=== PATIENT | male | born 1955 | race Two or more races ===

== ENCOUNTER → 2021-10-15 | Outpatient (CLI) | payer MEDICARE ==
--- NOTE | 2021-10-21 09:53 | MR ---
EXAMINATION TYPE: MR Prostate wo/w con DATE OF EXAM: 10/15/2021 COMPARISON: None. IMAGE QUALITY: . INDICATION: Prostate CA PSA: 3.0 ng/ml on June 10, 2021 Recent Biopsy and Date: September 06, 2015 Pathology Report (If Applicable): Prostate adenocarcinoma Jos score 3+3 = 6 targeted MRI fusion l eft peripheral zone apical level. TECHNIQUE: Examination was performed using a 3T MRI without an endorectal coil. Multiparametric imaging was perf ormed with T2 mutliplanar sequences, axial diffusion weighted imaging and dynamic contrast enhanced i maging, utilizing 12 mL intravenous Gadavist gadolinium contrast. FINDINGS: There is no clinically significant cancer identified. PROSTATE VOLUME: 4.9 cm SI x 4.2 cm AP x 6.2 cm LR Vol= 66.8 cc Predicted PSA equals 8.02 PSA DENSITY: 0.04 ng/ml/cc Enlarged prostate consistent with BPH. There are areas of indistinct hypointensity on ADC mapping thr oughout the peripheral zone with more mild to moderate areas of isointensity particularly lateral lef t prostate rounded 6 mm area image 196 mid zone level anteriorly showing subtle increased or mild hyp erintense signal on diffusion-weighted imaging. Postcontrast imaging showing some heterogeneous enhan cement with areas of plateau-type enhancement and some washout present. PI-RADS 4 lesion. Central transitional zone shows round 8 mm T2 hypointense lesion in the mid zone just left of midline coronal image 15 without restricted diffusion somewhat obscured margins. PI-RADS 3 lesion. Prostate capsule maintained. Seminal vesicles somewhat small in size. Bladder shows adequate distenti on with mild trabeculation and wall thickening. No adjacent pelvic adenopathy. No suspicious bowel dilatation. Visualized osseous structures are inta ct. IMPRESSION: Markedly enlarged prostate bulging on bladder base. 2 suspicious areas noted may correspo nd to outside MRI reported 2014. Consider repeat biopsy due to symptoms of elevating PSA. Highest Assessment Category: 4 MRI Stage: T1c N0 M0 based on review of pelvic images. False negative rates for MRI range from 5-20% depending on risk profile. Assessment Categories: 1 ? Very low (clinically significant cancer is highly unlikely to be present) 2 ? Low (clinically significant cancer is unlikely to be present) 3 ? Intermediate (the presence of clinically significant cancer is equivocal) 4 ? High (clinically significant cancer is likely to be present) 5 ? Very high (clinically significant cancer is highly likely to be present)
== END | disposition home or self-care (01) ==
LOC: RADMRIMAIN 08:47
PROVIDERS: ATTEND Urology
DX: C61 Malignant neoplasm of prostate (principal)
CPT/HCPCS: 72197; A9585

== ENCOUNTER → 2023-11-27 | Outpatient (CLI) | payer MEDICARE ==
--- NOTE | 2023-11-30 09:12 | MR ---
EXAMINATION TYPE: MR Prostate wo/w con DATE OF EXAM: 11/27/2023 9:22 AM COMPARISON: None. CLINICAL INDICATION:Male, 68 years old with history of C61 Prostate cancer; TECHNIQUE: Multi-planar, multi-sequence imaging of the pelvis is performed prior to and following the uncomplicated administration of bolus intravenous gadolinium. CONTRAST: 11 cc Gadavist Interpretive Criteria: PI-RADS v2.1 SERUM PSA: 3.28 on 02/03/2022. 3.57 on 11/15/2023. SURGICAL PATHOLOGY: No data available., Prior biopsy 10 years ago. FINDINGS: Prostatic dimensions: 6.5 x 5.5 x 4.9 cm. Ellipsoid Volume:91.72 (PSA density = 0.04 ng/mL/mL) CENTRAL GLAND (Central and Transition Zones/CZ+TZ): Multiple bilateral, heterogenous appearing hypertrophic stromal nodules, without suspicious lesion. M edian lobe hypertrophy with protrusion into the base of the bladder. (PI-RADS 2) PERIPHERAL ZONE (PZ): Left anterior peripheral gland apex low T2 higher ADC/low DWI lesion measuring 10 x 10 mm. There is arterial phase enhancement within this lesion. (PI-RADS 4) SEMINAL VESICLES (SV): Symmetric and unremarkable. PERIPROSTATIC TISSUES: Unremarkable. LYMPH NODES: No enlarged pelvic lymph node. REMAINING PELVIS: Bladder wall is within normal limits given distention. No abnormal free or organized intrapelvic fluid collection. No pathologic bowel dilation or mural thickening. Left fat containing inguinal hernia OSSEOUS STRUCTURES: No suspicious osseous abnormality. IMPRESSION: 1. PI-RADS 4 lesion in the left anterior peripheral gland apex measuring 10 x 10 mm. 2. Substantial BPH, estimated gland volume 91.72 mL. 3. No suspicious osseous lesion. No lymphadenopathy. No evidence of prostate adenocarcinoma involving the periprostatic tissues.
== END | disposition home or self-care (01) ==
LOC: RADMRIMAIN 07:43
PROVIDERS: ATTEND Urology
DX: N40.0 Benign prostatic hyperplasia without lower urinary tract symptoms (principal); Z85.46 Personal history of malignant neoplasm of prostate
CPT/HCPCS: 72197; A9585

== ENCOUNTER 2024-02-21 14:56 | Inpatient (IN) | payer MEDICARE ==
[~2024-02-21 14:56] MED LIST: ATROPINE SULFATE 0.1 MG/ML 10ML SYRINGE ONE; CALCIUM CHLORIDE 100 MG/ML 10 ML SYRINGE ONE
[2024-02-21] MEDS: IV FLUID CONTINUATION 1,000 ML IV ONE (15:05)
[2024-02-21] MEDS ORDERED: NITROGLYCERIN SL TABS 0.4 MG TAB SUBLINGUAL PRN (15:08)
--- NOTE | 2024-02-21 15:08 | ED ---
Chest Pain HPI - General Stated Complaint: STEMI Time Seen by Provider: 02/21/24 15:01 Source: wall man, RN notes reviewed, old records reviewed Mode of arrival: EMS Limitations: altered mental status, physical limitation - History of Present Illness Initial Comments: This is a 60-year-old male with severe and significant distress with altered mental status difficulty breathing severe chest pain. Patient was complaining of severe chest pain and on EMS arrival patient was unresponsive. EMS states patient became persistently unresponsive with low heart rate and diaphoresis Patient is complaining of chest pain currently MD Complaint: chest pain, other (Dyspnea) -: days(s) Onset: during rest, during exertion Pain Location: substernal, left chest Pain Radiation: LUE Severity: moderate Severity scale (1-10): 5 Quality: tightness, heaviness Consistency: constant Improves With: nothing Worsens With: nothing Anginal Symptoms: diaphoresis, dyspnea, sense of impending doom Other Symptoms: palpitations Treatments Prior to Arrival: none - Related Data Home Medications Medication Instructions Recorded Confirmed Fluticasone Nasal Randolph [Flonase 1 spr EA NOSTRIL DAILY 06/04/23 02/24/24 Nasal Randolph] Tamsulosin [Flomax] 0.4 mg PO DAILY 06/04/23 02/24/24 cycloSPORINE 0.05% OPHTH SOLN 1 drop BOTH EYES Q12H 06/04/23 02/24/24 [Restasis] prednisoLONE ACETATE 1% OPHTH 1 drop BOTH EYES BID 06/04/23 02/24/24 [Pred Forte 1%] Empagliflozin [Jardiance] 25 mg PO DAILY 02/21/24 02/24/24 Ezetimibe [Zetia] 10 mg PO DAILY 02/21/24 02/24/24 Potassium Chloride [Klor-Con M20] 20 meq PO DAILY 02/21/24 02/24/24 Nitroglycerin Sl Tabs [Nitrostat] 0.4 mg SL Q5M PRN 02/24/24 02/24/24 Previous Rx's Medication Instructions Recorded Aspirin [Adult Low Dose Aspirin EC] 81 mg PO DAILY #30 tab 02/23/24 Atorvastatin [Lipitor] 80 mg PO HS 30 Days #30 tab 02/23/24 Docusate Oral Soln [Colace Oral 100 mg PO BID PRN 3 Days #60 ml 02/23/24 Soln] Ticagrelor [Brilinta] 90 mg PO BID #60 tab 02/23/24 Allergies Allergy/AdvReac Type Severity Reaction Status Date / Time Iodinated Contrast Media Allergy Severe Swelling Verified 02/24/24 17:51 Review of Systems ROS Statement: Those systems with pertinent positive or pertinent negative responses have been documented in the HPI. ROS Other: All systems not noted in ROS Statement are negative. EKG Findings - EKG Comments: EKG Findings:: EKG is positive for significant bradycardia, EKG is positive for ST elevation AR - EKG Results: EKG: interpreted by [facility] Past Medical History Past Medical History: Cancer, Hypertension, Prostate Disorder, Sleep Apnea/CPAP/BIPAP Additional Past Medical History / Comment(s): HEART MURMUR. RENAL CALCULI. PROSTATE CA. SKIN CA. PERIPHERAL NEUROPATHY. CORNEAL DYSTROPHY. BACK PAIN History of Any Multi-Drug Resistant Organisms: None Reported Past Surgical History: Heart Catheterization Additional Past Surgical History / Comment(s): SEBASTIAN. CATARACATS REM. PAIN CLINIC INJECTIONS. SKIN CANCER REMOVAL FROM NOSE Past Anesthesia/Blood Transfusion Reactions: No Reported Reaction Past Psychological History: No Psychological Hx Reported Smoking Status: Former smoker Past Alcohol Use History: Rare Past Drug Use History: None Reported - Past Family History Mother Family Medical History: Diabetes Mellitus, Myocardial Infarction (AR) Additional Family Medical History / Comment(s): TRIPLE BYPASS SURGERY Sister(s) Additional Family Medical History / Comment(s): DOUBLE BYPASS SURGERY General Exam Limitations: altered mental status, physical limitation General appearance: alert, anxious, in distress Head exam: Present: atraumatic, normocephalic, normal inspection Eye exam: Present: normal appearance, PERRL, EOMI. Absent: scleral icterus, conjunctival injection, periorbital swelling ENT exam: Present: normal exam, mucous membranes moist Neck exam: Present: normal inspection. Absent: tenderness, meningismus, lymphadenopathy Respiratory exam: Present: normal lung sounds bilaterally. Absent: respiratory distress, wheezes, rales, rhonchi, stridor Cardiovascular Exam: Present: normal rhythm, bradycardia, normal heart sounds. Absent: systolic murmur, diastolic murmur, rubs, gallop, clicks GI/Abdominal exam: Present: soft, normal bowel sounds. Absent: distended, tenderness, guarding, rebound, rigid Extremities exam: Present: normal inspection, full ROM, normal capillary refill. Absent: tenderness, pedal edema, joint swelling, calf tenderness Back exam: Present: normal inspection Neurological exam: Present: alert, oriented X3, CN II-XII intact Psychiatric exam: Present: normal affect, normal mood Skin exam: Present: warm, dry, intact, normal color. Absent: rash Course - Reevaluation(s) Reevaluation #1: 02/21/24 15:06 Medical records reviewed Reevaluation #2: 02/21/24 15:06 Patient symptoms unchanged, remains significant distress Reevaluation #3: 02/21/24 15:06 Patient informed of results questions answered Reevaluation #4: Was pt. sent in by a medical professional or institution (, RE[facility]DO, MARINE [employer]ER, urgent care, hospital, or long term...) When possible be specific @ -no Did you speak to anyone other than the patient for history (EMS, parent, family, police, friend...)? What history was obtained from this source @ -no Did you review nursing and triage notes (agree or disagree)? Why? @ -agree Are old charts reviewed (outside hosp., previous admission, EMS record, old EKG, old radiological studies, urgent care reports/EKG's, long term records)? Report findings @ -yes Differential Diagnosis (chest pain, altered mental status, abdominal pain women, abdominal pain men, vaginal bleeding, weakness, fever, dyspnea, syncope, headache, dizziness, GI bleed, back pain, seizure, CVA, palpatations, mental health, musculoskeletal)? @ -prior EKG interpreted by me (3pts min.). @ -yes X-rays interpreted by me (1pt min.). @ -yes negative for acute disease CT interpreted by me (1pt min.). @ -no U/S interpreted by me (1pt. min.). @ -no What testing was considered but not performed or refused? (CT, X-rays, U/S, labs)? Why? @ -none What meds were considered but not given or refused? Why? @ -none Did you discuss the management of the patient with other professionals (professionals i.e. REINALDO Guzman, MARINE FIRER, lab, RT, psych nurse, social media community manager, mainspring winder, teacher, public health officer, social work case manager)? Give summary @ -no Was smoking cessation discussed for >3mins.? @ -no Were there social determinants of health that impacted care today? How? (Homelessness, low income, unemployed, alcoholism, drug addiction, transportation, low edu. Level, literacy, decrease access to med. care, alf, rehab)? @ -none Was there de-escalation of care discussed even if they declined (Discuss DNR or withdrawal of care, Hospice)? DNR status @ -no What co-morbidities impacted this encounter? (DM, HTN, Smoking, COPD, CAD, Cancer, CVA, ARF, Chemo, Hep., AIDS, mental health diagnosis, sleep apnea, morbid obesity)? @ -none Was patient admitted / discharged? Hospital course, mention meds given and route, prescriptions, significant lab abnormalities, going to OR and other pertinent info. @ - 68 male to ER for evaluation of significant and severe bradycardia. Patient has positive ST elevated AR and will be admitted to the Director General for intervention, need for blood pressure and heart rate support, hemodynamic support Admitted Was critical care preformed (if so, how long)? @ -yes31 Undiagnosed new problem with uncertain prognosis? @ -no Drug Therapy requiring intensive monitoring for toxicity (Heparin, Nitro, Insulin, Cardizem)? @ -no Were any procedures done? @ -no Diagnosis/symptom? @ -STEMI bradycardia shock Acute, or Chronic, or Acute on Chronic? @ -Acute Uncomplicated (without systemic symptoms) or Complicated (systemic symptoms)? @ -Complicated Side effects of treatment? @ -no Exacerbation, Progression, or Severe Exacerbation? @ -exacerbation Poses a threat to life or bodily function? How? (Chest pain, USA, AR, pneumonia, PE, COPD, DKA, ARF, appy, cholecystitis, CVA, Diverticulitis, Homicidal, Suicidal, threat to staff... and all critical care pts) @ -yes STEMI with bradycardia Reevaluation #5: Differential Chest Pain: Stable Angina, Unstable Angina, STEMI, NSTEMI Aortic Dissection, Pneumothorax, Musculoskeletal, Esophageal Spasm GERD, Cholecystitis, Pancreatitis, Zoster, this is not meant to be an all-inclusive list. - Consultations Consultation #1: Spoke with cardiology agrees patient to the Director General Consultation #2: Spoke with [facility] who agrees to admit this patient Chest Pain MDM - MDM 68 male to ER for evaluation of significant and severe bradycardia. Patient has positive ST elevated AR and will be admitted to the Director General for intervention, need for blood pressure and heart rate support, hemodynamic support Critical Care Time Critical Care Time: Yes Total Critical Care Time: 31 Disposition Clinical Impression: Bradycardia, STEMI (ST elevation myocardial infarction), Cardiogenic shock, Syncope, ACS (acute coronary syndrome) Disposition: ADMITTED IP TO THIS HOSP Condition: Critical Is patient prescribed a controlled substance at d/c from ED?: No Time of Disposition: 15:10
[2024-02-21] MEDS ORDERED: diphenhydrAMINE 50 MG/ML 1 ML VIAL ONE (15:09)
[2024-02-21] MEDS ORDERED: methylPREDNISolone SOD SUCCI 125 MG/2 ML VIAL ONE (15:09)
[2024-02-21] MEDS: LIDOCAINE 1% INJ 10MG/ML (20 ML MDV) SQ ONE (15:09)
[2024-02-21] MEDS: methylPREDNISolone SOD SUCCI 125 MG/2 ML VIAL IVP ONE (15:12)
[2024-02-21] MEDS: MIDAZOLAM 2 MG/2 ML VIAL IVP ONE (15:12)
[2024-02-21] MEDS: diphenhydrAMINE 50 MG/ML 1 ML VIAL IVP ONE (15:12)
[2024-02-21] MEDS: fentaNYL (PF) 50 MCG/ML 2 ML AMP IVP ONE (15:15)
[2024-02-21] MEDS ORDERED: TICAGRELOR 90 MG TAB ONE (15:17)
[2024-02-21] MEDS: HEPARIN SODIUM 1,000 UN/ML (10ML VL) IVP ONE (15:18)
[2024-02-21] MEDS: DOPamine DRIP 800 MG in DEXTROSE/WATER 1 250ML.BAG IV ONE (15:19)
[2024-02-21] MEDS: TICAGRELOR 90 MG TAB PO ONE (15:19)
[2024-02-21 15:21] LABS: Basophils # (A) 0.1 k/uL (0-0.2); Basophils % (A) 1 %; Eosinophils # (A) 0.3 k/uL (0-0.7); Eosinophils % (A) 4 %; HCT 44.3 % (39.0-53.0); HGB 14.4 gm/dL (13.0-17.5); Lymphocytes # (A) 2.1 k/uL (1.0-4.8); Lymphocytes % (A) 24 %; MCH 29.9 pg (25.0-35.0); MCHC 32.5 g/dL (31.0-37.0); Mean Platelet Volume 8.5; Monocytes # (A) 0.5 k/uL (0-1.0); Monocytes % (A) 6 %; Neutrophils # (A) 5.5 k/uL (1.3-7.7); Neutrophils % (A) 63 %; Platelet Count 192 k/uL (150-450); RBC 4.82 m/uL (4.30-5.90); RDW 14.1 % (11.5-15.5); WBC 8.7 k/uL (3.8-10.6)
[2024-02-21] MEDS ORDERED: HEPARIN SODIUM 1,000 UN/ML (10ML VL) ONE (15:24)
[2024-02-21] MEDS ORDERED: niCARdipine 25 MG/10 ML VIAL ONE (15:24)
[2024-02-21 15:26] LABS: ALT 28 U/L (4-49); African American GFR (CKD) 81 (>60 ml/min/1.73 sqM); Anion Gap 6 mmol/L; Blood Urea Nitrogen 24 mg/dL (9-20); Calcium 9.2 mg/dL (8.4-10.2); Carbon Dioxide 25 mmol/L (22-30); Chloride 108 mmol/L (98-107); Glucose 149 mg/dL (74-99); Non-African American GFR(CKD) 70 (>60 ml/min/1.73 sqM); Sodium 139 mmol/L (137-145); Total Bilirubin 0.6 mg/dL (0.2-1.3); Total Protein 6.6 g/dL (6.3-8.2)
[2024-02-21 15:41] LABS: Phosphorus 3.6 mg/dL (2.5-4.5); Potassium 3.9 mmol/L (3.5-5.1)
[2024-02-21 15:42] LABS: AST 33 U/L (17-59); Albumin 4.2 g/dL (3.5-5.0); Alkaline Phosphatase 76 U/L (38-126)
[2024-02-21] MEDS ORDERED: Magnesium Replacement Protocol 1 EACH MISC MISCELLANE PRN (15:42)
[2024-02-21] MEDS ORDERED: Potassium Replacement Protocol 1 EACH MISC MISCELLANE PRN (15:42)
[2024-02-21] MEDS: NOREPINEPHRINE 4 MG in SODIUM CHLORIDE 0.9% 250 ML IV ONE (15:43)
[2024-02-21] MEDS ORDERED: RX INFO: IV CONTRAST WAS GIVEN 1 EACH MISC MISCELLANE PRN (15:44)
[2024-02-21] MEDS ORDERED: ZOLPIDEM 5 MG TAB PO PRN (15:44)
[2024-02-21] MEDS ORDERED: ATROPINE SULFATE 0.1 MG/ML 10ML SYRINGE IV PRN (15:44)
[2024-02-21] MEDS ORDERED: MAG HYDROX/AL HYDROX/SIMETH 30 ML CUP PO PRN (15:44)
[2024-02-21] MEDS ORDERED: fentaNYL (PF) 50 MCG/ML 2 ML AMP ONE (15:47)
[2024-02-21] MEDS: IOPAMIDOL-370 100ML BTL INJ ONE (15:50)
[2024-02-21] MEDS: HEPARIN SODIUM 1,000 UN/ML (10ML VL) IV ONE (15:55)
[2024-02-21] MEDS: ASPIRIN 81 MG PO STA (15:55)
[2024-02-21] MEDS: HEPARIN SOD,PORK IN 0.45% NACL 25,000 UNIT in 0.45% NACL 1 250ML.BAG IV SCH (15:56)
[2024-02-21] MEDS: SODIUM CHLORIDE 0.9% 1,000 ML in EMPTY BAG 1 BAG IV SCH (16:05)
[2024-02-21 16:18] LABS: Glucose,Whole Blood 142 mg/dL (70-110)
[2024-02-21] MEDS: ONDANSETRON 4 MG/2 ML VIAL IVP PRN (16:49)
[2024-02-21] MEDS: NOREPINEPHRINE 4 MG in SODIUM CHLORIDE 0.9% 250 ML IV SCH (16:56)
--- NOTE | 2024-02-21 17:16 | P.PCN ---
Date of Procedure: 02/21/24 Operative Findings: CARDIAC CATHETERIZATION AND PERCUTANEOUS CORONARY INTERVENTION PERFORMING PHYSICIAN: Sidney Bella MD, [facility] PROCEDURE PERFORMED: 1. Selective right and left coronary angiogram 2. Left heart catheterization 3. Successful stenting of distal RCA using 4.0 x 18 mm Xience OSIRIS with an ex cellent angiographic results with adjunctive use of intravascular imaging and aspiration thrombectomy 4. Ultrasound-guided access of the right radial artery INDICATION: Acute inferior ST elevation myocardial infarction COMPLICATION: None APPROACH: Right radial artery LEVEL OF SEDATION: Moderate with the sedation time off 40 minutes PROCEDURE DESCRIPTION: After obtaining informed consent the patient was brought to the cardiac Greenhouse Worker. The right radial artery was cannulated using micropuncture technique under ultrasound guidance a micropuncture wire passed easily then I placed a 6 [place] 11 cm sheath at the right radial artery. I gave the patient 2 mg of verapamil intra-arterial and 5000's of heparin intravenous. Selective right and left coronary angiogram performed using JL 3.5 diagnostic catheter for the left coronary system and JR4 guide for the right coronary artery. Left heart catheterization was performed using the JR4 catheter which crossed the aortic valve then I did pullback across the valve. After that I did intervene on the RCA. I did engage the RCA using JR4 guiding catheter and I did wired using a run-through wire and the wire was advanced to the PLV branch of the RCA. Because there was a large thrombus burden I did aspiration thrombectomy. Subsequently I did balloon angioplasty using 3.0 x 12 mm balloon. Intravascular ultrasound was performed and showed a diameter around 4 mm. I deployed a 4.0 x 18 mm stent and the stent proximally was postdilated using 4.5 mm noncompliant balloon. Final angiogram showed good angiographic results and the procedure was completed with no complication SELECTIVE CORONARY ANGIOGRAM: The right coronary artery: Large caliber vessel and a dominant vessel. The RCA is occluded distally. The PLV branch of the RCA is stented Left main: Has mild disease only The left circumflex: Large caliber vessel nondominant vessel. The proximal LCx has a hazy lesion appears to be in the range of 60% by the bifurcation of an OM1. The left anterior descending artery: The LAD proximally appears to have mild to moderate disease with no high-grade stenosis was identified. The LAD gives rise into the first diagonal branch which has an ostial lesion appears to be in the range of 70% and OM 2 which has a tubular lesion appears to be in the range of 80%. HEMODYNAMICS: The LVEDP was about 22 mmHg with no significant gradient across aortic valve. CONCLUSION: Occluded distal RCA. I performed successful PCI of the RCA as described above Intermediate to severe disease involving the LCx and LAD Elevated left-sided filling pressure POSTPROCEDURE MANAGEMENT: 1. Dual antiplatelet therapy using Brilinta and aspirin for 12 month 2. Aggressive cholesterol control 3. Follow-up with the patient
[2024-02-21 20:18] LABS: Glucose,Whole Blood 199 mg/dL (70-110)
[2024-02-21] MEDS: ATORVASTATIN 80 MG TAB PO SCH (21:05)
[2024-02-21] MEDS: FLUTICASONE 50MCG/SPRAY NASAL 16GM EA NOSTRIL SCH (21:05)
[2024-02-21] MEDS: TICAGRELOR 90 MG TAB PO SCH (21:05)
[2024-02-21] MEDS: cycloSPORINE 0.05% OPHTH 0.4 ML DROPERETTE BOTH EYES SCH (21:05)
[2024-02-21] MEDS: SODIUM CHLORIDE 5% OPHTH OINT 3.5 GM TUBE BOTH EYES SCH (21:41)
[2024-02-21] MEDS: MORPHINE SULFATE 4 MG/ML SYRINGE IV PRN (23:06)
[2024-02-22] MEDS ORDERED: DEXTROSE 50% SYRINGE 50 ML IVP PRN ×2 (01:30)
--- NOTE | 2024-02-22 01:33 | XR ---
EXAM: XR Chest, 1 View CLINICAL HISTORY: ITS.REASON XR Reason: chest pain TECHNIQUE: Frontal view of the chest. COMPARISON: No relevant prior studies available. FINDINGS: Lungs: Unremarkable. No consolidation. Pleural space: Unremarkable. No pneumothorax. Heart: Cardiomegaly. Mediastinum: Unremarkable. Normal mediastinal contour. Bones/joints: Unremarkable. No acute fracture. Tubes, lines and devices: RIGHT PICC line terminates in the SVC. IMPRESSION: No acute findings in the chest.
--- NOTE | 2024-02-22 01:40 | P.CNPUL ---
History of Present Illness Consult date: 02/22/24 Requesting physician: Dax Howard Reason for consult: other (STEMI, hypotension, ICU management) Chief complaint: Chest pain History of present illness: Patient is a 68-year-old white male with past medical history significant for coronary artery disease with previous PCI/stent, hypertension, hyperlipidemia, diabetes mellitus type 2 obstructive sleep apnea with CPAP, former tobacco s moker, remote history of prostate cancer status post radiation. Patient presented to emergency room yesterday afternoon complaining of severe substernal chest pain radiating to his left arm and left jaw. He had associated diaphoresis and low heart rate. He states that yesterday he was working in the yard for about an hour or 2. He went inside to have lunch and watch TV. While sitting in his recliner, he started to experience severe substernal chest pain rated 10/10. Radiating to his left arm and left jaw. He was sweaty and short of breath.. His called EMS. EKG on arrival showed sinus bradycardia with a heart rate of [address] elevation in the inferior leads. A code S ELIZABETH was initiated. He was emergently taken to the [facility], and received 1 stent to the distal RCA with aspiration thrombectomy. While in the emergency room, he was noted to be briefly hypotensive. He was momentarily on Levophed, which was stopped at 1600. He is currently in the intensive care unit, on his home CPAP machine, in no acute distress. He continues to have mild substernal chest pain, controlled with as needed morphine. Follow-up EKG shows resolution of prior ST elevation and T wave inversion in the inferior leads. Current heart rhythm appears normal sinus to sinus bradycardia on bedside monitor with a rate ranging from 55-65 bpm. Blood pressure is now normotensive. He is currently on room air. Does endorse some mild shortness of breath, but overall very much improved from earlier. He was initially brought in on a 15 L nonrebreather, which was titrated down to 2 L/min nasal cannula. SpO2 is currently 93% on room air. Right radial access site is approximated without hematoma. CBC unremarkable. BMP includes a sodium 139, testing 3.9, chloride 108, serum bicarb 25, BUN 24, creatinine 1.08, glucose 149. Normal saline is infusing at 75 mL/h. Serial troponin so far: Less than 0.012, 9.45, and 35.8 respectively. Restarted on dual antiplatelet medications. Of note, reportedly has a history of coronary artery disease, and had a stent placed May,. His antiplatelet medications were reportedly previously on hold for the last 3 days for scheduled pain injections. He has chronic lower back pain. Currently off vasopressors. Hemodynamics are stable at this time. Review of Systems REVIEW OF SYSTEMS: CONSTITUTIONAL: Denies any recent significant weight loss or weight gain. EYES: Denies change in vision. EARS, NOSE, MOUTH, THROAT: Denies headaches, denies sore throat. CARDIOVASCULAR: See HPI. Admits some mild substernal residual chest pain. Rated 3/10. Currently nonradiating. Improved with as needed morphine. RESPIRATORY: Admits some mild shortness of breath at rest. No infectious symptoms such as fever, cough, sputum production. GASTROINTESTINAL: Denies change in appetite, abdominal pain, nausea and vomit ing, or diarrhea GENITOURINARY: Denies hematuria, denies infections. MUSKULOSKELETAL: Denies pain, denies swelling. INTEGUMENTARY: Denies rash, denies eczema. NEUROLOGICAL: Denies recent memory loss, no recent seizure activity. PSYCHIATRIC: Denies anxiety, denies depression. HEMATOLOGIC/LYMPHATIC: Denies anemia, denies enlarged lymph node Past Medical History Past Medical History: Cancer, Hypertension, Prostate Disorder, Sleep Apnea/CPAP/BIPAP Additional Past Medical History / Comment(s): HEART MURMUR. RENAL CALCULI. PROSTATE CA. SKIN CA. PERIPHERAL NEUROPATHY. CORNEAL DYSTROPHY. BACK PAIN History of Any Multi-Drug Resistant Organisms: None Reported Past Surgical History: Heart Catheterization Additional Past Surgical History / Comment(s): SEBASTIAN. CATARACATS REM. PAIN CLINIC INJECTIONS. SKIN CANCER REMOVAL FROM NOSE Past Anesthesia/Blood Transfusion Reactions: No Reported Reaction Smoking Status: Former smoker - Past Family History Mother Family Medical History: Diabetes Mellitus, Myocardial Infarction ([place]) Additional Family Medical History / Comment(s): Stent to PLV May 2023, Stent to distal RCA 02/21/2024 Sister(s) Additional Family Medical History / Comment(s): DOUBLE BYPASS SURGERY Medications and Allergies Home Medications Medication Instructions Recorded Confirmed Type Aspirin [Adult Low Dose Aspirin EC] 81 mg PO DAILY 06/04/23 02/21/24 History Fluticasone Nasal [place] [Flonase 1 spray EA NOSTRIL DAILY 06/04/23 02/21/24 History Nasal [place]] Metoprolol Succinate (ER) [Toprol 25 mg PO DAILY 06/04/23 02/21/24 History XL] Tamsulosin [Flomax] 0.4 mg PO DAILY 06/04/23 02/21/24 History amLODIPine BESYLATE 2.5 mg PO DAILY 06/04/23 02/21/24 History cycloSPORINE 0.05% OPHTH SOLN 1 applicator BOTH EYES Q12H 06/04/23 02/21/24 History [Restasis] prednisoLONE ACETATE 1% OPHTH 1 drop BOTH EYES BID 06/04/23 02/21/24 History [Pred Forte 1%] Clopidogrel [Plavix] 75 mg PO DAILY #90 tab 06/09/23 02/21/24 Rx Empagliflozin [Jardiance] 25 mg PO DAILY 02/21/24 02/21/24 History Ezetimibe [Zetia] 10 mg PO DAILY 02/21/24 02/21/24 History Potassium Chloride [Klor-Con M20] 20 meq PO DAILY 02/21/24 02/21/24 History Rosuvastatin Calcium 5 mg PO DAILY 02/21/24 02/21/24 History metFORMIN HCL [Glucophage] 500 mg PO DAILY 02/21/24 02/21/24 History Allergies Allergy/AdvReac Type Severity Reaction Status Date / Time Iodinated Contrast Media Allergy Severe Swelling Verified 06/08/23 19:26 Physical Exam Vitals: Vital Signs Temp Pulse Pulse Resp BP Pulse Ox 02/22/24 01:00 54 L 19 123/77 96 02/22/24 00:30 63 16 123/77 94 L 02/22/24 00:20 60 18 123/77 95 02/22/24 00:00 97.9 F 56 L 20 128/81 95 02/21/24 23:32 72 20 02/21/24 23:30 59 L 18 128/81 95 02/21/24 23:00 64 16 124/87 95 02/21/24 22:30 58 L 18 124/87 95 02/21/24 22:00 65 19 123/79 96 02/21/24 21:30 58 L 16 131/87 96 02/21/24 21:00 72 21 115/77 98 02/21/24 20:45 59 L 24 115/77 96 06/03/24 20:30 68 19 124/78 96 02/21/24 20:15 20 124/78 02/21/24 20:00 98.0 F 71 62 23 122/83 95 02/21/24 19:45 61 24 122/83 96 02/21/24 19:30 58 L 20 122/82 95 02/21/24 19:15 61 24 111/73 97 02/21/24 19:00 64 19 109/73 96 02/21/24 18:30 65 26 H 118/78 95 02/21/24 18:00 86 16 125/83 96 02/21/24 17:45 70 12 118/76 97 02/21/24 17:30 61 15 121/82 98 02/21/24 17:15 62 11 L 119/79 97 02/21/24 17:00 56 L 12 123/79 97 02/21/24 16:45 61 15 115/71 97 02/21/24 16:30 80 80 24 131/68 97 02/21/24 16:15 97.6 F 102 H 116/70 94 L 02/21/24 16:07 76 11 L 96 Intake and Output 02/21/24 02/21/24 02/22/24 14:59 22:59 06:59 Intake Total 1235 150 Output Total 600 0 Balance 635 150 Intake: IV 915 150 Sodium Chloride 0.9% 1, 600 150 000 ml In Empty Bag 1 bag @ 75 mls/hr IV .[id number] [facility] Rx#:[id number] Oral 320 Output: Urine 600 0 Other: Voiding Method Toilet Urinal Weight 90.718 kg GENERAL EXAM: Alert, 68-year-old white male, comfortable in no apparent distress. HEAD: Normocephalic and atraumatic EYES: Normal reaction of pupils, equal size. NOSE: Clear with pink turbinates. THROAT: No erythema or exudates. NECK: No masses, no JVD. CHEST: No chest wall deformity. LUNGS: Equal air entry with no crackles, wheeze, rhonchi or dullness. On home CPAP. No conversational dyspnea or accessory muscle use while at rest CVS: S1 and S2 normal with grade 2 systolic murmur, regular rhythm. No other extra heart sounds ABDOMEN: No hepatosplenomegaly, active bowel sounds, no guarding or rigidity. SPINE: No scoliosis or deformity SKIN: No rashes CENTRAL NERVOUS SYSTEM: No focal deficits, tone is normal in all 4 extremities. EXTREMITIES: There is no peripheral edema, clubbing, or cyanosis. Peripheral pulses are intact. Right radial access site is approximated without hematoma. Results - Laboratory Findings CBC and BMP: 02/21/24 14:47 02/21/24 14:47 Abnormal lab findings: Abnormal Labs 02/21/24 02/21/24 02/21/24 14:47 16:17 18:01 Chloride 108 H BUN 24 H Glucose 149 H POC Glucose (mg/dL) 142 H Troponin I 9.450 H* 02/21/24 02/21/24 20:16 21:17 Chloride BUN Glucose POC Glucose (mg/dL) 199 H Troponin I 35.800 H* Assessment and Plan Assessment: Acute ST elevation myocardial infarction, ST elevation noted in the inferior leads. Patient was emergently taken to the [facility] Relations [facility], and received a stent to the distal RCA with aspiration thrombectomy. Hypotension, secondary to above, improved and Levophed has been stopped since 1599. Acute hypoxemic respiratory failure, secondary to above, improved on room air Sinus bradycardia History of hypertension History of hyperlipidemia Diabetes mellitus type 2, [id number] History of coronary artery disease, with previous PCI/stenting reportedly May 2023 Systolic heart murmur Obstructive sleep apnea, with home CPAP device at bedside History of prostate cancer, status post radiation Former tobacco smoker, quit in 1982 Plan: Patient is currently admitted to the intensive care unit. Hypotension is improved, and off norepinephrine currently Echocardiogram is pending for the morning Patient has been restarted on dual antiplatelet medications. Beta-chad currently on hold, secondary to bradycardia GABRIELLA inhibitor on hold secondary to hypotension. Statin is restarted Obtain chest x-ray May use home CPAP device Patient will be monitored in the intensive care unit at least overnight I have personally seen and examined the patient, performed the documentation and the assessment and plan as written. Number of minutes spent on the visit:20 Time with Patient: Greater than 30
[2024-02-22 06:31] LABS: Glucose,Whole Blood 132 mg/dL (70-110)
[2024-02-22] MEDS: INSULIN ASPART (NovoLOG) 100 UNIT/ML VIAL SQ SCH (06:31)
[2024-02-22 06:49] LABS: Mean Platelet Volume 7.8; Platelet Count 146 k/uL (150-450)
[2024-02-22 06:52] LABS: Basophils % (A) 0 %; Eosinophils % (A) 0 %; HCT 42.3 % (39.0-53.0); HGB 13.7 gm/dL (13.0-17.5); Lymphocytes # (A) 0.8 k/uL (1.0-4.8); Lymphocytes % (A) 8 %; MCH 30.1 pg (25.0-35.0); MCHC 32.4 g/dL (31.0-37.0); MCV 92.9 fL (80.0-100.0); Mean Platelet Volume 7.8; Monocytes # (A) 0.5 k/uL (0-1.0); Monocytes % (A) 5 %; Neutrophils # (A) 7.9 k/uL (1.3-7.7); Neutrophils % (A) 84 %; Platelet Count 152 k/uL (150-450); RBC 4.55 m/uL (4.30-5.90); RDW 13.8 % (11.5-15.5); WBC 9.4 k/uL (3.8-10.6)
[2024-02-22 07:04] LABS: Magnesium 1.9 mg/dL (1.6-2.3)
[2024-02-22 07:11] LABS: African American GFR (CKD) >90 (>60 ml/min/1.73 sqM); Anion Gap 3 mmol/L; Blood Urea Nitrogen 22 mg/dL (9-20); Calcium 9.5 mg/dL (8.4-10.2); Carbon Dioxide 25 mmol/L (22-30); Chloride 109 mmol/L (98-107); Glucose 129 mg/dL (74-99); Non-African American GFR(CKD) 82 (>60 ml/min/1.73 sqM); Potassium 4.5 mmol/L (3.5-5.1); Sodium 137 mmol/L (137-145)
[2024-02-22] MEDS ORDERED: Magnesium Replacement Protocol 1 EACH MISC MISCELLANE PRN (07:16)
--- NOTE | 2024-02-22 08:59 | P.HPIM ---
History of Present Illness This is a pleasant 68 years old male with past medical history of hypertension, diabetes mellitus hyperlipidemia Presents to emergency room because of chest pain Patient was found to have inferior wall STEMI, he underwent emergent cardiac cath and he is status post PCI to right coronary artery. Also patient with evidence of intermediate to severe disease of the left circumflex and left anterior descending artery. At home he was on aspirin and Plavix and currently he is kept on aspirin 81 mg and Brilinta His antihypertensive medication Norvasc 2.5 mg and metoprolol 25 mg were held yesterday because of hypotension, patient required transient dose of Levophed which is stopped now blood pressure is 112/62 also heart rate around 54-patient is asymptomatic EKG showing sinus bradycardia Patient is afebrile and other vitals are stable CBC, BMP and liver enzymes were unremarkable Had elevated troponin 9.4 and 35.8 on admission Chest x-ray is negative for acute process Review of Systems Review of systems CONSTITUTIONAL: No fever, no malaise, no fatigue. HEENT: No recent visual problems or hearing problems. Denied any sore throat. CARDIOVASCULAR: No orthopnea, PND, no palpitations, no syncope. PULMONARY: No shortness of breath, no cough, no hemoptysis. GASTROINTESTINAL: No diarrhea, no nausea, no vomiting, no abdominal pain. Normoactive bowel sounds. NEUROLOGICAL: No headaches, no weakness, no numbness. HEMATOLOGICAL: Denies any bleeding or petechiae. GENITOURINARY: Denies any burning micturition, frequency, or urgency. MUSCULOSKELETAL/RHEUMATOLOGICAL: Denies any joint pain, swelling, or any muscle pain. ENDOCRINE: Denies any polyuria or polydipsia. Past Medical History Past Medical History: Cancer, Hypertension, Prostate Disorder, Sleep Apnea/CPAP/BIPAP Additional Past Medical History / Comment(s): HEART MURMUR. RENAL CALCULI. PROSTATE CA. SKIN CA. PERIPHERAL NEUROPATHY. CORNEAL DYSTROPHY. BACK PAIN History of Any Multi-Drug Resistant Organisms: None Reported Past Surgical History: Heart Catheterization Additional Past Surgical History / Comment(s): SEBASTIAN. CATARACATS REM. PAIN CLINIC INJECTIONS. SKIN CANCER REMOVAL FROM NOSE Past Anesthesia/Blood Transfusion Reactions: No Reported Reaction Smoking Status: Former smoker - Past Family History Mother Family Medical History: Diabetes Mellitus, Myocardial Infarction ([place]) Additional Family Medical History / Comment(s): Stent to PLV May 2023, Stent to distal RCA 02/21/2024 Sister(s) Additional Family Medical History / Comment(s): DOUBLE BYPASS SURGERY Medications and Allergies Home Medications Medication Instructions Recorded Confirmed Type Aspirin [Adult Low Dose Aspirin EC] 81 mg PO DAILY 06/04/23 02/21/24 History Fluticasone Nasal [place] [Flonase 1 spray EA NOSTRIL DAILY 06/04/23 02/21/24 History Nasal [place]] Metoprolol Succinate (ER) [Toprol 25 mg PO DAILY 06/04/23 02/21/24 History XL] Tamsulosin [Flomax] 0.4 mg PO DAILY 06/04/23 02/21/24 History amLODIPine BESYLATE 2.5 mg PO DAILY 06/04/23 02/21/24 History cycloSPORINE 0.05% OPHTH SOLN 1 applicator BOTH EYES Q12H 06/04/23 02/21/24 History [Restasis] prednisoLONE ACETATE 1% OPHTH 1 drop BOTH EYES BID 06/04/23 02/21/24 History [Pred Forte 1%] Clopidogrel [Plavix] 75 mg PO DAILY #90 tab 06/09/23 02/21/24 Rx Empagliflozin [Jardiance] 25 mg PO DAILY 02/21/24 02/21/24 History Ezetimibe [Zetia] 10 mg PO DAILY 02/21/24 02/21/24 History Potassium Chloride [Klor-Con M20] 20 meq PO DAILY 02/21/24 02/21/24 History Rosuvastatin Calcium 5 mg PO DAILY 02/21/24 02/21/24 History metFORMIN HCL [Glucophage] 500 mg PO DAILY 02/21/24 02/21/24 History Allergies Allergy/AdvReac Type Severity Reaction Status Date / Time Iodinated Contrast Media Allergy Severe Swelling Verified 06/08/23 19:26 Physical Exam Vitals: Vital Signs Temp Pulse Pulse Resp BP Pulse Ox 02/22/24 06:00 56 L 15 119/71 95 02/22/24 05:30 55 L 17 96 02/22/24 05:00 51 L 16 97 02/22/24 04:30 50 L 19 134/80 96 02/22/24 04:00 97.5 F L 50 L 13 128/81 96 02/22/24 03:30 56 L 16 96 02/22/24 03:00 51 L 18 119/70 92 L 06/04/24 02:30 79 20 119/70 94 L 02/22/24 02:00 50 L 19 124/81 95 02/22/24 01:30 50 L 17 124/81 95 02/22/24 01:00 54 L 19 123/77 96 02/22/24 00:30 63 16 123/77 94 L 02/22/24 00:20 60 18 123/77 95 02/22/24 00:00 97.9 F 56 L 20 128/81 95 02/21/24 23:32 72 20 02/21/24 23:30 59 L 18 128/81 95 02/21/24 23:00 64 16 124/87 95 02/21/24 22:30 58 L 18 124/87 95 02/21/24 22:00 65 19 123/79 96 02/21/24 21:30 58 L 16 131/87 96 02/21/24 21:00 72 21 115/77 98 02/21/24 20:45 59 L 24 115/77 96 02/21/24 20:30 68 19 124/78 96 02/21/24 20:15 20 124/78 02/21/24 20:00 98.0 F 71 62 23 122/83 95 02/21/24 19:45 61 24 122/83 96 02/21/24 19:30 58 L 20 122/82 95 02/21/24 19:15 61 24 111/73 97 02/21/24 19:00 64 19 109/73 96 02/21/24 18:30 65 26 H 118/78 95 02/21/24 18:00 86 16 125/83 96 02/21/24 17:45 70 12 118/76 97 02/21/24 17:30 61 15 121/82 98 02/21/24 17:15 62 11 L 119/79 97 02/21/24 17:00 56 L 12 123/79 97 02/21/24 16:45 61 15 115/71 97 02/21/24 16:30 80 80 24 131/68 97 02/21/24 16:15 97.6 F 102 H 116/70 94 L 02/21/24 16:07 76 11 L 96 Intake and Output 02/21/24 02/21/24 02/22/24 14:59 22:59 06:59 Intake Total 1286.341 375 Output Total 600 1 Balance 686.341 374 Intake: IV 915 375 Sodium Chloride 0.9% 1, 600 375 000 ml In Empty Bag 1 bag @ 75 mls/hr IV .[id number] [facility] Rx#:[id number] Intake, IV Titration 51.341 Amount Norepinephrine 4 mg In 51.341 Sodium Chloride 0.9% 250 ml @ 0.03 MCG/KG/MIN 12. 002 mls/hr IV .[id number] [facility] Rx#:[id number] Oral 320 Output: Urine 600 1 Other: Voiding Method Toilet Weight 90.718 kg 109.5 kg GENERAL: The patient is alert and oriented x3, not in any acute distress. Well developed, well nourished. HEENT: Pupils are round and equally reacting to light. EOMI. No scleral icterus. No conjunctival pallor. Normocephalic, atraumatic. No pharyngeal erythema. No thyromegaly. CARDIOVASCULAR: S1 and S2 present. No murmurs, rubs, or gallops. PULMONARY: Chest is clear to auscultation, no wheezing , no crackles. ABDOMEN: Soft, nontender, nondistended, normoactive bowel sounds. No palpable organomegaly. MUSCULOSKELETAL: No joint swelling or deformity. EXTREMITIES: No cyanosis, clubbing, or pedal edema. NEUROLOGICAL: Gross neurological examination did not reveal any focal deficits. SKIN: No rashes. no petechiae. Results CBC & Chem 7: 02/22/24 06:10 02/22/24 06:10 Labs: Abnormal Lab Results - Last 24 Hours (Table) 02/21/24 02/21/24 02/21/24 Range/Units 14:47 16:17 18:01 Chloride 108 H (98-107) mmol/L BUN 24 H (9-20) mg/dL Glucose 149 H (74-99) mg/dL POC Glucose (mg/dL) 142 H (70-110) mg/dL Troponin I 9.450 H* (0.000-0.034) ng/mL 02/21/24 02/21/24 Range/Units 20:16 21:17 Chloride (98-107) mmol/L BUN (9-20) mg/dL Glucose (74-99) mg/dL POC Glucose (mg/dL) 199 H (70-110) mg/dL Troponin I 35.800 H* (0.000-0.034) ng/mL Thrombosis Risk Factor Assmnt - Choose All That Apply Any of the Below Risk Factors Present?: Yes Each Factor Represents 1 point: Acute [place] Other Risk Factors: Yes Each Risk Factor Represents 2 Points: Age 61-74 years, Major surgery Thrombosis Risk Factor Assessment Total Risk Factor Score: 5 Thrombosis Risk Factor Assessment Level: High Risk Assessment and Plan Assessment: Acute STEMI s/p PCI to RCA with moderate to severe disease of the left circumflex and LAD Transient period of hypotension postoperatively requiring short course of pressors, currently blood pressure is stable Diabetes mellitus type 2 Hypertension, currently blood pressure on the low normal side Hyperlipidemia Coronary artery disease Asymptomatic bradycardia History of BPH Plan: Continue with aspirin and Brilinta Continue with Lipitor Keep holding Norvasc and metoprolol Cardiology consult Pulmonary team following Labs and medication were reviewed.. Continue same treatment. Continue with symptomatic treatment. Resume home medication. Monitor labs and vitals. DVT and GI prophylaxis. Further recommendations as per clinical course of the patient DVT prophylaxis: On aspirin and Brilinta GI Prophylaxis: Ppi
[2024-02-22] MEDS ORDERED: ASPIRIN 325 MG TAB PO SCH (09:00)
[2024-02-22] MEDS: MAGNESIUM SULFATE-D5W PMX 1 GM in DEXTROSE/WATER 1 100ML.BAG IVPB ONE (09:03)
[2024-02-22] MEDS: PANTOPRAZOLE 40 MG/10 ML VIAL IVP SCH (09:04)
[2024-02-22] MEDS: EZETIMIBE 10 MG TAB PO SCH (09:04)
[2024-02-22] MEDS: POTASSIUM CHLORIDE ER 20 MEQ TAB.ER PO SCH (09:05)
[2024-02-22] MEDS: ASPIRIN 81 MG PO SCH (09:05)
[2024-02-22] MEDS: TAMSULOSIN 0.4 MG CAP.ER.24H PO SCH (09:05)
[2024-02-22] MEDS: prednisoLONE ACETATE 1% OPHTH DROPS 5 ML BTL BOTH EYES SCH (10:17)
[2024-02-22 10:27] LABS: Chol/HDL Ratio 2.99 Ratio; VLDL Calculation 17.12 mg/dL (5.00-40.00)
[2024-02-22 11:25] LABS: Glucose,Whole Blood 146 mg/dL (70-110)
--- NOTE | 2024-02-22 13:07 | P.PN ---
Subjective Progress Note Date: 02/22/24 Principal diagnosis: CAD The patient is a pleasant 68-year-old gentleman with a CAD and prior stenting of the PLV branch of the RCA as well as hypertension and dyslipidemia who was admitted to the hospital with chest discomfort and was diagnosed with inferior ST elevation myocardial infarction he underwent an emergent heart catheterization and PCI of the RCA. He was found to have mild to moderate disease involving the left coronary system February 22, 2024 The patient was seen and evaluated this morning with he is asymptomatic. He is hemodynamically stable. He is on dual antiplatelet therapy along with high intensity statin. Internal medicine is on the case. The echo still pending. From the cardiac standpoint of view, the patient can be transferred to [facility] for possible discharge in next 24 to 48 hours waiting the results of the echo. The examination is remarkable for stable vital signs with regular rate and rhythm and systolic murmur at the right upper sternal border and clear breathing sounds bilaterally and no edema was noted Assessment Acute inferior ST ovation myocardial infarction Multiple comorbid conditions including hypertension and dyslipidemia Plan Continue the current medical regimen including dual antiplatelet therapy Waiting for the echocardiogram Possible discharge in next 24 to 48 hours Objective - Vital Signs Vital signs: Vital Signs Temp 98.1 F 02/22/24 08:00 Pulse 56 L 02/22/24 11:00 Resp 12 02/22/24 11:00 BP 127/77 02/22/24 11:00 Pulse Ox 98 02/22/24 11:00 FiO2 Intake & Output 02/21/24 02/22/24 02/22/24 18:59 06:59 18:59 Intake Total 660 1001.341 750 Output Total 601 0 Balance 660 400.341 750 Weight 90.718 kg 109.5 kg Intake: IV 540 750 100 Magnesium Sulfate-D5w Pmx 100 1 gm In Dextrose/Water 1 100ml.bag @ 100 mls/hr IVPB ONCE ONE Rx#: [id number] Sodium Chloride 0.9% 1, 225 750 000 ml In Empty Bag 1 bag @ 75 mls/hr IV .[id number] [facility] Rx#:[id number] Intake, IV Titration 51.341 Amount Norepinephrine 4 mg In 51.341 Sodium Chloride 0.9% 250 ml @ 0.03 MCG/KG/MIN 12. 002 mls/hr IV .[id number] [facility] Rx#:[id number] Oral 120 200 650 Output: Urine 601 0 Other: Voiding Method Toilet Toilet # Voids 1 - Labs CBC & Chem 7: 02/22/24 06:10 02/22/24 06:10 Labs: Abnormal Lab Results - Last 24 Hours (Table) 02/21/24 02/21/24 02/21/24 Range/Units 14:47 16:17 18:01 Plt Count (150-450) k/uL Neutrophils # (1.3-7.7) k/uL Lymphocytes # (1.0-4.8) k/uL Chloride 108 H (98-107) mmol/L BUN 24 H (9-20) mg/dL Glucose 149 H (74-99) mg/dL POC Glucose (mg/dL) 142 H (70-110) mg/dL Troponin I 9.450 H* (0.000-0.034) ng/mL 02/21/24 02/21/24 02/22/24 Range/Units 20:16 21:17 06:10 Plt Count 146 L (150-450) k/uL Neutrophils # (1.3-7.7) k/uL Lymphocytes # (1.0-4.8) k/uL Chloride (98-107) mmol/L BUN (9-20) mg/dL Glucose (74-99) mg/dL POC Glucose (mg/dL) 199 H (70-110) mg/dL Troponin I 35.800 H* (0.000-0.034) ng/mL 02/22/24 02/22/24 02/22/24 Range/Units 06:10 06:10 06:30 Plt Count (150-450) k/uL Neutrophils # 7.9 H (1.3-7.7) k/uL Lymphocytes # 0.8 L (1.0-4.8) k/uL Chloride 109 H (98-107) mmol/L BUN 22 H (9-20) mg/dL Glucose 129 H (74-99) mg/dL POC Glucose (mg/dL) 132 H (70-110) mg/dL Troponin I (0.000-0.034) ng/mL 02/22/24 Range/Units 11:23 Plt Count (150-450) k/uL Neutrophils # (1.3-7.7) k/uL Lymphocytes # (1.0-4.8) k/uL Chloride (98-107) mmol/L BUN (9-20) mg/dL Glucose (74-99) mg/dL POC Glucose (mg/dL) 146 H (70-110) mg/dL Troponin I (0.000-0.034) ng/mL
[2024-02-22 14:26] VITALS: BMI 32.7
[2024-02-22] MEDS: DOCUSATE ORAL SOLN 100 MG/10 ML CUP PO SCH (16:53)
[2024-02-22 16:59] LABS: Glucose,Whole Blood 109 mg/dL (70-110)
--- NOTE | 2024-02-22 17:47 | CA ---
Transthoracic Echo Report Name: Oliver Galdamez Age: 68 Gender: M : 1955 Exam Date: 02/22/2024 08:26 Exam Location: [facility] Ht (in): 72 Wt (lb): 200 Ordering Physician: Sidney Bella MD ([id number]) Attending/Referring Phys: Compound Specialist Kavitha Castro RDCS Procedure CPT: Indications: LVEF post VT Cardiac Hx: Technical Quality: Technically difficult study Contrast 1: Definity Total Dose (mL): 2 Contrast 2: Total Dose (mL): MEASUREMENTS (Male / Female) Normal Values 2D ECHO LV Diastolic Diameter PLAX 6.1 cm 4.2 - 5.9 / 3.9 - 5.3 cm LV Systolic Diameter PLAX 4.6 cm IVS Diastolic Thickness 1.7 cm 0.6 - 1.0 / 0.6 - 0.9 cm LVPW Diastolic Thickness 1.6 cm 0.6 - 1.0 / 0.6 - 0.9 cm LV Relative Wall Thickness 0.5 RV Internal Dim ED PLAX 3.4 cm LVOT Diameter 1.6 cm LV Diastolic Volume MOD BP 179.8 cm??? 67 - 155 / 56 - 104 cm??? LV Systolic Volume MOD BP 101.3 cm??? 22 - 58 / 19 - 49 cm??? LV Ejection Fraction MOD BP 43.7 % >= 55 % LV Cardiac Index MOD BP 2108.7 cm???/min???m??? LV Diastolic Volume MOD 4C 220.6 cm??? LV Systolic Volume MOD 4C 136.7 cm??? LV Ejection Fraction MOD 4C 38.0 % LV Cardiac Index MOD 4C 2252.7 cm???/min???m??? LV Diastolic Length 4C 8.4 cm LV Systolic Length 4C 7.4 cm LV Diastolic Volume MOD 2C 136.6 cm??? LV Systolic Volume MOD 2C 74.5 cm??? LV Ejection Fraction MOD 2C 45.5 % LV Cardiac Index MOD 2C 1669.0 cm???/min???m??? LV Diastolic Length 2C 9.1 cm LV Systolic Length 2C 7.4 cm LA Volume 84.5 cm??? 18 - 58 / 22 - 52 cm??? LA Volume Index 39.1 cm???/m??? 16 - 28 cm???/m??? M-MODE Aortic Root Diameter MM 4.2 cm LA Systolic Diameter MM 3.9 cm LA Ao Ratio MM 0.9 AV Cusp Separation MM 1.9 cm DOPPLER AV Peak Velocity 268.3 cm/s AV Peak Gradient 28.8 mmHg AV Mean Velocity 173.0 cm/s AV Mean Gradient 13.8 mmHg AV Velocity Time Integral 52.4 cm AI Peak Velocity 390.9 cm/s AI Peak Gradient 61.1 mmHg AI Pressure Half Time 429.8 ms LVOT Peak Velocity 75.7 cm/s LVOT Peak Gradient 2.3 mmHg LVOT Velocity Time Integral 15.9 cm LVOT Stroke Volume 33.8 cm??? LVOT Stroke Volume Index 15.9 ml/m??? LVOT Cardiac Index 908.1 cm???/min???m??? AV Area Cont Eq vti 0.6 cm??? AV Area Cont Eq pk 0.6 cm??? MV Area PHT 4.5 cm??? Mitral E Point Velocity 69.4 cm/s Mitral A Point Velocity 81.3 cm/s Mitral E to A Ratio 0.9 MV Deceleration Time 168.6 ms TR Peak Velocity 191.0 cm/s TR Peak Gradient 14.6 mmHg Right Ventricular Systolic Press 19.1 mmHg FINDINGS Left Ventricle Severely increased septal wall thickness. Mildly increased left ventricular diastolic diameter. Moderately increased left ventricular diastolic volume. Severely increased left ventricular systolic volume. Moderately decreased left ventricular ejection fraction. Left ventricular ejection fraction is estimated at 40-45 %. Grade 1 diastolic dysfunction. Right Ventricle Right ventricular dilatation. Right ventricular systolic pressure within normal limits. Right Atrium Normal right atrial size. Left Atrium Moderately increased left atrial volume. Mildly increased left atrial area. Mitral Valve Structurally normal mitral valve. Mitral valve thickened. Mild mitral annular calcification. Mild mitral regurgitation. Aortic Valve Mild aortic stenosis with a peak gradient of 29 mmHg and a mean gradient of 14 mmHg. Trace to mild aortic regurgitation. Tricuspid Valve Structurally normal tricuspid valve. Mild tricuspid regurgitation. Pulmonic Valve Structurally normal pulmonic valve. Trace pulmonic regurgitation. Pericardium No pericardial effusion. Aorta Normal size aortic root and proximal ascending aorta. CONCLUSIONS Moderately dilated left ventricle with mild to moderate LV systolic dysfunction with an ejection fraction of 40-45% Mild aortic stenosis Mild mitral regurgitation Previewed by: Dr. Matt Wyatt MD (Electronically Signed) Final Date: 22 February 2024 17:46
[2024-02-22 20:40] LABS: Glucose,Whole Blood 116 mg/dL (70-110)
[2024-02-23 06:15] LABS: Mean Platelet Volume 7.8; Platelet Count 133 k/uL (150-450)
[2024-02-23 06:28] LABS: Glucose,Whole Blood 107 mg/dL (70-110)
--- NOTE | 2024-02-23 06:59 | P.PN ---
Subjective Progress Note Date: 02/23/24 Principal diagnosis: CAD The patient is a pleasant 68-year-old gentleman with a CAD and prior stenting of the PLV branch of the RCA as well as hypertension and dyslipidemia who was admitted to the hospital with chest discomfort and was diagnosed with inferior ST elevation myocardial infarction he underwent an emergent heart catheterization and PCI of the RCA. He was found to have mild to moderate disease involving the left coronary system February 22, 2024 The patient was seen and evaluated this morning with he is asymptomatic. He is hemodynamically stable. He is on dual antiplatelet therapy along with high intensity statin. Internal medicine is on the case. The echo still pending. From the cardiac standpoint of view, the patient can be transferred to [facility] for possible discharge in next 24 to 48 hours waiting the results of the echo. The examination is remarkable for stable vital signs with regular rate and rhythm and systolic murmur at the right upper sternal border and clear breathing sounds bilaterally and no edema was noted February 23, 2024 The patient was seen and evaluated this morning. He is asymptomatic and hemodynamically stable but he would like to be discharged home. The echo showed mildly impaired LV function with EF around 45% with no significant valvular abnormalities. The examination is remarkable for regular rhythm with a systolic murmur at the right and left upper sternal border with clear breathing sounds bilaterally and no edema was noted. He has been maintaining normal sinus mechanism. He is on dual antiplatelet therapy along with high intensity statin along with beta-chad. Assessment Acute inferior ST ovation myocardial infarction Multiple comorbid conditions including hypertension and dyslipidemia Plan Continue the current medical regimen including dual antiplatelet therapy From the cardiovascular standpoint of view, the patient can be discharged Objective - Vital Signs Vital signs: Vital Signs Temp 97.9 F 02/23/24 04:00 Pulse 62 02/23/24 04:00 Resp 17 02/23/24 04:00 BP 101/58 02/23/24 04:00 Pulse Ox 96 02/23/24 04:00 FiO2 Intake & Output 02/22/24 02/22/24 02/23/24 06:59 18:59 06:59 Intake Total 1481.341 750 350 Output Total 601 0 Balance 880.341 750 350 Weight 109.5 kg 109.5 kg 108.7 kg Intake: IV 750 100 Magnesium Sulfate-D5w Pmx 100 1 gm In Dextrose/Water 1 100ml.bag @ 100 mls/hr IVPB ONCE ONE Rx#: [id number] Sodium Chloride 0.9% 1, 750 000 ml In Empty Bag 1 bag @ 75 mls/hr IV .[id number] [facility] Rx#:[id number] Intake, IV Titration 51.341 Amount Norepinephrine 4 mg In 51.341 Sodium Chloride 0.9% 250 ml @ 0.03 MCG/KG/MIN 12. 002 mls/hr IV .[id number] [facility] Rx#:[id number] Oral 680 650 350 Output: Urine 601 0 Other: Voiding Method Toilet Toilet Toilet # Voids 2 3 2 # Bowel Movements 1 - Labs CBC & Chem 7: 02/23/24 05:37 02/22/24 06:10 Labs: Abnormal Lab Results - Last 24 Hours (Table) 02/22/24 02/22/24 02/22/24 Range/Units 06:10 11:23 20:39 Plt Count (150-450) k/uL Chloride 109 H (98-107) mmol/L BUN 22 H (9-20) mg/dL Glucose 129 H (74-99) mg/dL POC Glucose (mg/dL) 146 H 116 H (70-110) mg/dL 02/23/24 Range/Units 05:37 Plt Count 133 L (150-450) k/uL Chloride (98-107) mmol/L BUN (9-20) mg/dL Glucose (74-99) mg/dL POC Glucose (mg/dL) (70-110) mg/dL
--- NOTE | 2024-02-23 11:16 | P.PN ---
Subjective Progress Note Date: 02/23/24 Patient is a 68-year-old white male with past medical history significant for coronary artery disease with previous PCI/stent, hypertension, hyperlipidemia, diabetes mellitus type 2 obstructive sleep apnea with CPAP, former tobacco smoker, remote history of prostate cancer status post radiation. Patient presented to emergency room yesterday afternoon complaining of severe substernal chest pain radiating to his left arm and left jaw. He had associated diaphoresis and low heart rate. He states that yesterday he was working in the yard for about an hour or 2. He went inside to have lunch and watch TV. While sitting in his recliner, he started to experience severe substernal chest pain rated 10/10. Radiating to his left arm and left jaw. He was sweaty and short of breath.. His called EMS. EKG on arrival showed sinus bradycardia with a heart rate of [address] elevation in the inferior leads. A code STEMI was initiated. He was emergently taken to the Nurse Practitioner, and received 1 stent to the distal RCA with aspiration thrombectomy. While in the emergency room, he was noted to be briefly hypotensive. He was momentarily on Levophed, which was stopped at 1600. He is currently in the intensive care unit, on his home CPAP machine, in no acute distress. He continues to have mild substernal chest pain, controlled with as needed morphine. Follow-up EKG shows resolution of prior ST elevation and T wave inversion in the inferior leads. Current heart rhythm appears normal sinus to sinus bradycardia on bedside monitor with a rate ranging from 55-65 bpm. Blood pressure is now normotensive. He is currently on room air. Does endorse some mild shortness of breath, but overall very much improved from earlier. He was initially brought in on a 15 L nonrebreather, which was titrated down to 2 L/min nasal cannula. SpO2 is currently 93% on room air. Right radial access site is approximated without hematoma. CBC unremarkable. BMP includes a sodium 139, testing 3.9, chloride 108, serum bicarb 25, BUN 24, creatinine 1.08, glucose 149. Normal saline is infusing at 7 5 mL/h. Serial troponin so far: Less than 0.012, 9.45, and 35.8 respectively. Restarted on dual antiplatelet medications. Of note, reportedly has a history of coronary artery disease, and had a stent placed May,. His antiplatelet medications were reportedly previously on hold for the last 3 days for scheduled pain injections. He has chronic lower back pain. Currently off vasopressors. Hemodynamics are stable at this time. The patient is seen today February 23, 2024 in follow-up on the in the intensive care unit. He is currently sitting up in bed. Awake and alert in no acute distress. He is maintaining good O2 saturation in the 90s on room air. He denies any shortness of breath, cough or congestion. Denies any chest pain. He did utilize his home CPAP machine last evening. Platelets 133. Magnesium 1.8. Echocardiogram revealed mild to moderate systolic dysfunction with an ejection fraction of 40 to 45%. Remains in sinus rhythm. Objective - Vital Signs Vital signs: Vital Signs Temp 97.9 F 02/23/24 04:00 Pulse 62 02/23/24 04:00 Resp 17 02/23/24 04:00 BP 101/58 02/23/24 04:00 Pulse Ox 96 02/23/24 04:00 FiO2 Intake & Output 02/22/24 02/23/24 02/23/24 18:59 06:59 18:59 Intake Total 750 350 240 Output Total 0 Balance 750 350 240 Weight 109.5 kg 108.7 kg Intake: IV 100 Magnesium Sulfate-D5w Pmx 100 1 gm In Dextrose/Water 1 100ml.bag @ 100 mls/hr IVPB ONCE ONE Rx#: [id number] Oral 650 350 240 Output: Urine 0 Other: Voiding Method Toilet Toilet # Voids 3 2 1 # Bowel Movements 1 1 - Exam GENERAL EXAM: Alert, pleasant 68-year-old male, sitting up in bed, comfortable in no apparent distress. HEAD: Normocephalic and atraumatic EYES: Normal reaction of pupils, equal size. NOSE: Clear with pink turbinates. THROAT: No erythema or exudates. NECK: No masses, no JVD. CHEST: No chest wall deformity. LUNGS: Equal air entry with no crackles, wheeze, rhonchi or dullness. On room air. No conversational dyspnea. CVS: S1 and S2 normal with grade 2 systolic murmur, regular rhythm. No other extra heart sounds ABDOMEN: No hepatosplenomegaly, active bowel sounds, no guarding or rigidity. SPINE: No scoliosis or deformity SKIN: No rashes CENTRAL NERVOUS SYSTEM: No focal deficits, tone is normal in all 4 extremities. EXTREMITIES: There is no peripheral edema, clubbing, or cyanosis. Peripheral pulses are intact. Right radial access site is approximated without hematoma. - Labs CBC & Chem 7: 02/23/24 05:37 02/22/24 06:10 Labs: Abnormal Lab Results - Last 24 Hours (Table) 02/22/24 02/22/24 02/23/24 Range/Units 11:23 20:39 05:37 Plt Count 133 L (150-450) k/uL POC Glucose (mg/dL) 146 H 116 H (70-110) mg/dL Assessment and Plan Assessment: Acute ST elevation myocardial infarction, ST elevation noted in the inferior leads. Patient was emergently taken to the Nurse Practitioner, and received a stent to the distal RCA with aspiration thrombectomy Hypotension, secondary to above, improved Acute hypoxemic respiratory failure, secondary to above, improved and on room air Sinus bradycardia History of hypertension History of hyperlipidemia Diabetes mellitus type 2, [id number] History of coronary artery disease, with previous PCI/stenting reportedly May 2023 Systolic heart murmur Obstructive sleep apnea, with home CPAP device at bedside History of prostate cancer, status post radiation Former tobacco smoker, quit in 1982 Plan: The patient was seen and evaluated Labs and medications reviewed Stable and on room air Continued on aspirin and Brilinta Plan is for possible discharge today per cardiology I have personally seen and examined the patient, performed the documentation and the assessment and plan as written. Number of minutes spent on the visit: 10.
[2024-02-23 18:50] VITALS: BP 114/71; PULSE 68; RESP 21; TEMP 97.8
--- NOTE | 2024-02-23 21:38 | P.DS ---
Providers Date of admission: 02/21/24 15:08 Attending physician: John Bella MD Consults: 02/21/24 15:08 Consult Physician Routine Consulting Provider: Rusty Padilla Consult Reason/Comments: icu Do you want consulting provider notified?: Yes Consult Physician Urgent Consulting Provider: Sidney Bella Consult Reason/Comments: stemi Do you want consulting provider notified?: Yes 02/21/24 15:44 Consult Physician Routine Consulting Provider: [facility] Consult Reason/Comments: Post Interventional Patient Do you want consulting provider notified?: Already Contacted Primary care physician: Domingo Espino [facility] Course: Diagnoses: Acute STEMI s/p PCI to RCA with moderate to severe disease of the left circumflex and LAD Transient period of hypotension postoperatively requiring short course of pressors, currently blood pressure is stable Diabetes mellitus type 2 Hypertension, currently blood pressure on the low normal side Hyperlipidemia Coronary artery disease Asymptomatic bradycardia History of BPH Hospital course: This is a pleasant 68 years old male with past medical history of hypertension, diabetes mellitus hyperlipidemia Presents to emergency room because of chest pain Patient was found to have inferior wall STEMI, he underwent emergent cardiac cath and he is status post PCI to right coronary artery. Also patient with evidence of intermediate to severe disease of the left circumflex and left anterior descending artery. At home he was on aspirin and Plavix and currently he is kept on aspirin 81 mg and Brilinta. Importance of adherence to treatment and risk and benefit explained to the patient extensively and he verbalized understanding and acceptance Patient currently sitting Up in bed fully awake and oriented, he denies chest pain dyspnea. No other new complaint Patient eager to go home today and he told me colorectal surgeon already said he can go home Patient was cleared for discharge by cardiology and pulmonary service Patient will be discharged on dual antiplatelet therapy and beta-chad Problems and management plan were discussed with the patient and he verbalized understanding and acceptance Patient was found stable and can be discharged home in guarded prognosis however he needs follow-up as an outpatient. Patient was instructed to follow up with PCP xiomara Srinivasan within one week and patient agrees Patient was instructed to follow-up with colorectal surgeon Dr. Fletcher in 1 week after discharge and he agrees Physical exam Gen: patient is a AAOx3, no distress CVS: S1-S2, RRR, no murmur Lungs: B/L CTA, no wheezing Abdomen: soft, no distention, no tenderness, positive bowel sounds Extremity: no leg edema or induration Time spent more than 35 minutes Patient Condition at Discharge: Critical Plan - Discharge Summary Discharge Rx Participant: No New Discharge Prescriptions: New Docusate Oral Soln [Colace Oral Soln] 100 mg PO BID PRN 3 Days #60 ml PRN Reason: Constipation Atorvastatin [Lipitor] 80 mg PO HS 30 Days #30 tab Nitroglycerin Sl Tabs [Nitrostat] 0.4 mg SUBLINGUAL Q5M PRN #10 tab PRN Reason: Chest Pain Ticagrelor [Brilinta] 90 mg PO BID #60 tab Continue Tamsulosin [Flomax] 0.4 mg PO DAILY cycloSPORINE 0.05% OPHTH SOLN [Restasis] 1 applicator BOTH EYES Q12H Potassium Chloride [Klor-Con M20] 20 meq PO DAILY Empagliflozin [Jardiance] 25 mg PO DAILY Ezetimibe [Zetia] 10 mg PO DAILY Aspirin [Adult Low Dose Aspirin EC] 81 mg PO DAILY #30 tab prednisoLONE ACETATE 1% OPHTH [Pred Forte 1%] 1 drop BOTH EYES BID Fluticasone Nasal [place] [Flonase Nasal [place]] 1 spray EA NOSTRIL DAILY Discontinued amLODIPine BESYLATE 2.5 mg PO DAILY metFORMIN HCL [Glucophage] 500 mg PO DAILY Metoprolol Succinate (ER) [Toprol XL] 25 mg PO DAILY Clopidogrel [Plavix] 75 mg PO DAILY #90 tab Rosuvastatin Calcium 5 mg PO DAILY Discharge Medication List Fluticasone Nasal [place] [Flonase Nasal [place]] 1 spray EA NOSTRIL DAILY 06/04/23 [History] Tamsulosin [Flomax] 0.4 mg PO DAILY 06/04/23 [History] cycloSPORINE 0.05% OPHTH SOLN [Restasis] 1 applicator BOTH EYES Q12H 06/04/23 [History] prednisoLONE ACETATE 1% OPHTH [Pred Forte 1%] 1 drop BOTH EYES BID 06/04/23 [History] Empagliflozin [Jardiance] 25 mg PO DAILY 02/21/24 [History] Ezetimibe [Zetia] 10 mg PO DAILY 02/21/24 [History] Potassium Chloride [Klor-Con M20] 20 meq PO DAILY 02/21/24 [History] Aspirin [Adult Low Dose Aspirin EC] 81 mg PO DAILY #30 tab 02/23/24 [Rx] Atorvastatin [Lipitor] 80 mg PO HS 30 Days #30 tab 02/23/24 [Rx] Docusate Oral Soln [Colace Oral Soln] 100 mg PO BID PRN 3 Days #60 ml 02/23/24 [Rx] Nitroglycerin Sl Tabs [Nitrostat] 0.4 mg SUBLINGUAL Q5M PRN #10 tab 02/23/24 [Rx] Ticagrelor [Brilinta] 90 mg PO BID #60 tab 02/23/24 [Rx] Follow up Appointment(s)/Referral(s): Gianni Fletcher DO [STAFF PHYSICIAN] - 03/02/24 10:30 am Domingo Espino MD [Primary Care Provider] - 02/24/24 1:00 pm Activity/Diet/Wound Care/Special Instructions: heart healthy diet activity is restricted till you see your doctor we recommend to keep holding your metformin till you see your primary care doctor and repeat your blood test ( kidney function test) Discharge Disposition: HOME SELF-CARE
== END 2024-02-23 10:25 | disposition home or self-care (01) | DRG 321 ==
LOC: CATHCVL 14:56 → 2SICU 15:08
PROVIDERS: ADMIT Internal Medicine; ATTEND Internal Medicine
PROC: B240ZZ3 Ultrasonography of Single Coronary Artery, Intravascular (ICD-10-PCS; 2024-02-21)
PROC: 3E033XZ Introduction of Vasopressor into Peripheral Vein, Percutaneous Approach (ICD-10-PCS; 2024-02-21)
PROC: 027034Z Dilation of Coronary Artery, One Artery with Drug-eluting Intraluminal Device, Percutaneous Approach (ICD-10-PCS; principal; 2024-02-21 17:55)
PROC: 02C03Z7 Extirpation of Matter from Coronary Artery, One Artery, Orbital Atherectomy Technique, Percutaneous Approach (ICD-10-PCS; 2024-02-21 17:55)
PROC: 4A023N7 Measurement of Cardiac Sampling and Pressure, Left Heart, Percutaneous Approach (ICD-10-PCS; 2024-02-21 17:55)
PROC: B2111ZZ Fluoroscopy of Multiple Coronary Arteries using Low Osmolar Contrast (ICD-10-PCS; 2024-02-21 17:55)
DX: I21.19 ST elevation (STEMI) myocardial infarction involving other coronary artery of inferior wall (principal); J96.01 Acute respiratory failure with hypoxia; R57.0 Cardiogenic shock; I10 Essential (primary) hypertension; I25.10 Atherosclerotic heart disease of native coronary artery without angina pectoris; Z91.041 Radiographic dye allergy status; G47.33 Obstructive sleep apnea (adult) (pediatric); R00.1 Bradycardia, unspecified; G62.9 Polyneuropathy, unspecified; I08.0 Rheumatic disorders of both mitral and aortic valves; E11.9 Type 2 diabetes mellitus without complications; R00.0 Tachycardia, unspecified; E78.5 Hyperlipidemia, unspecified; G89.29 Other chronic pain; I25.2 Old myocardial infarction; I95.81 Postprocedural hypotension; N40.0 Benign prostatic hyperplasia without lower urinary tract symptoms; Z79.02 Long term (current) use of antithrombotics/antiplatelets; Z79.82 Long term (current) use of aspirin; Z79.84 Long term (current) use of oral hypoglycemic drugs; Z79.899 Other long term (current) drug therapy; Z82.49 Family history of ischemic heart disease and other diseases of the circulatory system; Z85.46 Personal history of malignant neoplasm of prostate; Z85.828 Personal history of other malignant neoplasm of skin; Z87.442 Personal history of urinary calculi; Z87.891 Personal history of nicotine dependence; Z92.3 Personal history of irradiation; Z95.5 Presence of coronary angioplasty implant and graft; Z98.42 Cataract extraction status, left eye; Z98.41 Cataract extraction status, right eye
CPT/HCPCS: 71045; 76937; 80048; 80053; 80061; 83036; 83735; 84100; 84484; 85025; 85049; 85730; 92978; 93306; 93458; 99291

== ENCOUNTER 2024-02-24 17:35 | Inpatient (IN) | payer MEDICARE ==
--- NOTE | 2024-02-24 17:45 | ED ---
Chest Pain HPI - General Stated Complaint: Chest pain Time Seen by Provider: 02/24/24 17:44 Source: RN notes reviewed, old records reviewed Limitations: no limitations - History of Present Illness Initial Comments: This is a 68-year-old male to the ER for evaluation patient presents today for evaluation regards to patient presents today for evaluation of chest pain with recent history of significant heart attack with stent placement. Patient had chest pain that began today. Persistent chest pain here in the ER no shortness of breath or other complaints MD Complaint: chest pain -: days(s) Onset: during rest, during exertion Pain Location: substernal, left chest Pain Radiation: none Severity: moderate Severity scale (1-10): 4 Quality: tightness, heaviness Consistency: constant Improves With: nothing Worsens With: nothing Anginal Symptoms: diaphoresis, dyspnea, sense of impending doom Other Symptoms: palpitations Treatments Prior to Arrival: none - Related Data Home Medications Medication Instructions Recorded Confirmed Fluticasone Nasal [place] [Flonase 1 spr EA NOSTRIL DAILY 06/04/23 02/24/24 Nasal [place]] Tamsulosin [Flomax] 0.4 mg PO DAILY 06/04/23 02/24/24 cycloSPORINE 0.05% OPHTH SOLN 1 drop BOTH EYES Q12H 06/04/23 02/24/24 [Restasis] prednisoLONE ACETATE 1% OPHTH 1 drop BOTH EYES BID 06/04/23 02/24/24 [Pred Forte 1%] Empagliflozin [Jardiance] 25 mg PO DAILY 02/21/24 02/24/24 Ezetimibe [Zetia] 10 mg PO DAILY 02/21/24 02/24/24 Potassium Chloride [Klor-Con M20] 20 meq PO DAILY 02/21/24 02/24/24 Nitroglycerin Sl Tabs [Nitrostat] 0.4 mg SL Q5M PRN 02/24/24 02/24/24 Previous Rx's Medication Instructions Recorded Aspirin [Adult Low Dose Aspirin EC] 81 mg PO DAILY #30 tab 02/23/24 Atorvastatin [Lipitor] 80 mg PO HS 30 Days #30 tab 02/23/24 Docusate Oral Soln [Colace Oral 100 mg PO BID PRN 3 Days #60 ml 02/23/24 Soln] Ticagrelor [Brilinta] 90 mg PO BID #60 tab 02/23/24 Allergies Allergy/AdvReac Type Severity Reaction Status Date / Time Iodinated Contrast Media Allergy Severe Swelling Verified 02/24/24 17:51 Review of Systems ROS Statement: Those systems with pertinent positive or pertinent negative responses have been documented in the HPI. ROS Other: All systems not noted in ROS Statement are negative. EKG Findings - EKG Comments: EKG Findings:: EKG is sinus 71 AR 236 QRS 114 QTc 422 Past Medical History Past Medical History: Cancer, Hypertension, Prostate Disorder, Sleep Apnea/CPAP/BIPAP Additional Past Medical History / Comment(s): HEART MURMUR. RENAL CALCULI. PROSTATE CA. SKIN CA. PERIPHERAL NEUROPATHY. CORNEAL DYSTROPHY. BACK PAIN History of Any Multi-Drug Resistant Organisms: None Reported Past Surgical History: Heart Catheterization Additional Past Surgical History / Comment(s): SEBASTIAN. CATARACATS REM. PAIN CLINIC INJECTIONS. SKIN CANCER REMOVAL FROM NOSE Past Anesthesia/Blood Transfusion Reactions: No Reported Reaction Smoking Status: Former smoker - Past Family History Mother Family Medical History: Diabetes Mellitus, Myocardial Infarction (HI) Additional Family Medical History / Comment(s): Stent to PLV May 2023, Stent to distal RCA 02/21/2024 Sister(s) Additional Family Medical History / Comment(s): DOUBLE BYPASS SURGERY General Exam General appearance: alert, in no apparent distress, anxious Head exam: Present: atraumatic, normocephalic, normal inspection Eye exam: Present: normal appearance, PERRL, EOMI. Absent: scleral icterus, conjunctival injection, periorbital swelling ENT exam: Present: normal exam, mucous membranes moist Neck exam: Present: normal inspection. Absent: tenderness, meningismus, lymphadenopathy Respiratory exam: Present: normal lung sounds bilaterally. Absent: respiratory distress, wheezes, rales, rhonchi, stridor Cardiovascular Exam: Present: regular rate, normal rhythm, normal heart sounds. Absent: systolic murmur, diastolic murmur, rubs, gallop, clicks GI/Abdominal exam: Present: soft, normal bowel sounds. Absent: distended, tenderness, guarding, rebound, rigid Extremities exam: Present: normal inspection, full ROM, normal capillary refill. Absent: tenderness, pedal edema, joint swelling, calf tenderness Back exam: Present: normal inspection Neurological exam: Present: alert, oriented X3, CN II-XII intact Psychiatric exam: Present: normal affect, normal mood Skin exam: Present: warm, dry, intact, normal color. Absent: rash Course Vital Signs 02/24/24 02/24/24 02/25/24 17:46 20:40 01:50 Temperature 98.0 F Pulse Rate 69 68 65 Pulse Rate [ Student Services Coordinator ] Respiratory 18 18 30 H Rate Blood Pressure 126/75 128/81 117/73 O2 Sat by Pulse 98 99 97 Oximetry 02/25/24 02/25/24 02/25/24 04:55 06:05 07:00 Temperature Pulse Rate 58 L 70 69 Pulse Rate [ Student Services Coordinator ] Respiratory 16 16 Rate Blood Pressure 101/67 120/78 O2 Sat by Pulse 97 95 Oximetry 02/25/24 02/25/24 02/25/24 08:00 11:32 13:38 Temperature Pulse Rate 78 Pulse Rate [ 72 Student Services Coordinator ] Respiratory 16 16 Rate Blood Pressure 122/71 O2 Sat by Pulse 97 95 Oximetry - Reevaluation(s) Reevaluation #1: 02/24/24 18:24 Records reviewed Reevaluation #2: 02/24/24 19:48 Patient still with chest pain here in the ER Reevaluation #3: 02/24/24 19:48 Patient informed of results and questions answered Reevaluation #4: Was pt. sent in by a medical professional or institution (Dr. PA, CAB STATION ATTENDANT, urgent care, hospital, or fci...) When possible be specific @ -no Did you speak to anyone other than the patient for history (EMS, parent, family, police, friend...)? What history was obtained from this source @ -no Did you review nursing and triage notes (agree or disagree)? Why? @ -agree Are old charts reviewed (outside hosp., previous admission, EMS record, old EKG, old radiological studies, urgent care reports/EKG's, fci records)? Report findings @ -yes Differential Diagnosis (chest pain, altered mental status, abdominal pain women, abdominal pain men, vaginal bleeding, weakness, fever, dyspnea, syncope, headache, dizziness, GI bleed, back pain, seizure, CVA, palpatations, mental health, musculoskeletal)? @ -prior EKG interpreted by me (3pts min.). @ -yes X-rays interpreted by me (1pt min.). @ -yes negative for acute disease CT interpreted by me (1pt min.). @ -no U/S interpreted by me (1pt. min.). @ -no What testing was considered but not performed or refused? (CT, X-rays, U/S, labs)? Why? @ -none What meds were considered but not given or refused? Why? @ -none Did you discuss the management of the patient with other professionals (professionals i.e. Dr., PA, CAB STATION ATTENDANT, lab, RT, psych nurse, dialysis social worker, freight engineer, teacher, chief sustainability officer, case resource manager)? Give summary @ -no Was smoking cessation discussed for >3mins.? @ -no Were there social determinants of health that impacted care today? How? (Homelessness, low income, unemployed, alcoholism, drug addiction, transportation, low edu. Level, literacy, decrease access to med. care, residential, rehab)? @ -none Was there de-escalation of care discussed even if they declined (Discuss DNR or withdrawal of care, Hospice)? DNR status @ -no What co-morbidities impacted this encounter? (DM, HTN, Smoking, COPD, CAD, Cancer, CVA, ARF, Chemo, Hep., AIDS, mental health diagnosis, sleep apnea, morbid obesity)? @ -none Was patient admitted / discharged? Hospital course, mention meds given and route, prescriptions, significant lab abnormalities, going to OR and other pertinent info. @ - 69 male with recent hospital admission with severe ST elevated HI bradycardia, patient has persistently elevated troponin here in the emergency room with chest pain although chest pain is currently resolved. Patient will be admitted for further cardiology evaluation and treatment Admitted Was critical care preformed (if so, how long)? @ -yes31 Undiagnosed new problem with uncertain prognosis? @ -no Drug Therapy requiring intensive monitoring for toxicity (Heparin, Nitro, Insuli n, Cardizem)? @ -no Were any procedures done? @ -no Diagnosis/symptom? @ -Elevated troponin, chest pain non-ST elevated HI ACS Acute, or Chronic, or Acute on Chronic? @ -Acute Uncomplicated (without systemic symptoms) or Complicated (systemic symptoms)? @ -Complicated Side effects of treatment? @ -no Exacerbation, Progression, or Severe Exacerbation? @ -exacerbation Poses a threat to life or bodily function? How? (Chest pain, USA, HI, pneumonia, PE, COPD, DKA, ARF, appy, cholecystitis, CVA, Diverticulitis, Homicidal, Suicidal, threat to staff... and all critical care pts) @ -yes with significant chest pain and elevated troponin Reevaluation #5: Differential Chest Pain: Stable Angina, Unstable Angina, STEMI, NSTEMI Aortic Dissection, Pneumothorax, Musculoskeletal, Esophageal Spasm GERD, Cholecystitis, Pancreatitis, Zoster, this is not meant to be an all-inclusive list. - Consultations Consultation #1: Alessandra who agrees to admit this patient Chest Pain MDM - MDM 69 male with recent hospital admission with severe ST elevated HI bradycardia, patient has persistently elevated troponin here in the emergency room with chest pain although chest pain is currently resolved. Patient will be admitted for further cardiology evaluation and treatment Critical Care Time Critical Care Time: Yes Total Critical Care Time: 31 Disposition Clinical Impression: ACS (acute coronary syndrome), Elevated troponin, Chest pain, Acute non-ST elevation myocardial infarction (NSTEMI) Disposition: ADMITTED IP TO THIS HOSP Condition: Serious Is patient prescribed a controlled substance at d/c from ED?: No Time of Disposition: 19:40
[2024-02-24 18:17] LABS: Basophils % (A) 1 %; Eosinophils # (A) 0.2 k/uL (0-0.7); Eosinophils % (A) 3 %; HCT 42.2 % (39.0-53.0); HGB 14.1 gm/dL (13.0-17.5); Lymphocytes # (A) 1.2 k/uL (1.0-4.8); Lymphocytes % (A) 16 %; MCH 30.3 pg (25.0-35.0); MCHC 33.4 g/dL (31.0-37.0); MCV 90.7 fL (80.0-100.0); Mean Platelet Volume 7.8; Monocytes # (A) 0.4 k/uL (0-1.0); Monocytes % (A) 5 %; Neutrophils # (A) 5.4 k/uL (1.3-7.7); Neutrophils % (A) 73 %; Platelet Count 141 k/uL (150-450); RBC 4.65 m/uL (4.30-5.90); RDW 13.9 % (11.5-15.5); WBC 7.3 k/uL (3.8-10.6)
[2024-02-24 18:38] LABS: ALT 48 U/L (4-49); AST 82 U/L (17-59); African American GFR (CKD) >90 (>60 ml/min/1.73 sqM); Albumin 4.2 g/dL (3.5-5.0); Alkaline Phosphatase 71 U/L (38-126); Anion Gap 5 mmol/L; Blood Urea Nitrogen 23 mg/dL (9-20); Calcium 9.2 mg/dL (8.4-10.2); Carbon Dioxide 24 mmol/L (22-30); Chloride 109 mmol/L (98-107); Glucose 91 mg/dL (74-99); INR 0.9 (<1.2); Non-African American GFR(CKD) 83 (>60 ml/min/1.73 sqM); Partial Thromboplastin Time 23.1 sec (22.0-30.0); Phosphorus 3.5 mg/dL (2.5-4.5); Potassium 3.9 mmol/L (3.5-5.1); Prothrombin Time 10.4 sec (10.0-12.5); Sodium 138 mmol/L (137-145); Total Bilirubin 0.7 mg/dL (0.2-1.3); Total Protein 6.4 g/dL (6.3-8.2)
--- NOTE | 2024-02-24 18:42 | XR ---
EXAMINATION TYPE: XR chest 1V portable DATE OF EXAM: 02/24/2024 COMPARISON: 02/21/2024 HISTORY: 68-year-old male with chest pain TECHNIQUE: Single frontal view of the chest is obtained. FINDINGS: Heart borderline enlarged. Mild interstitial density without consolidation or pleural effu felicitas. IMPRESSION: Borderline heart size. Mild interstitial density could reflect mild pulmonary vascular c ongestion versus bronchitis or asthma. No focal infiltrate seen.
[2024-02-24 18:47] LABS: NT-Pro-B-Type Natriuretic Pept 1430 pg/mL
[2024-02-24] MEDS ORDERED: NITROGLYCERIN SL TABS 0.4 MG TAB SUBLINGUAL PRN (19:46)
[2024-02-24] MEDS: HEPARIN SODIUM 1,000 UN/ML (10ML VL) IV ONE (20:40)
[2024-02-24] MEDS: ASPIRIN 81 MG PO STA (20:46)
[2024-02-24] MEDS: HEPARIN SOD,PORK IN 0.45% NACL 25,000 UNIT in 0.45% NACL 1 250ML.BAG IV SCH (20:48)
--- NOTE | 2024-02-25 00:45 | P.HPIM ---
History of Present Illness H&P Date: 02/24/24 Patient is a 68-year-old male with a PMH of recent acute STEMI on 02/20 status post PCI to RCA with moderate to severe disease of LAD and left circumflex, type II DM, hypertension, hyperlipidemia, BPH who presents to the emergency room with complaints of chest pain. The patient was discharged from the hospital yesterday morning and notes that his pain suddenly started again today at around 4 PM, 4 out of 10 at maximal intensity, left-sided with radiation down into the left arm. Notes that the pain is a lot less severe than his initial episode that brought him to the hospital 4 days ago. He took multiple nitroglycerins at home with minimal relief. At time of interview, notes that the pain is a 2 out of 10, aching in nature, with no alleviating or exacerbating features and nonpleuritic. Denies experiencing nausea, vomiting, diaphoresis, or dizziness. Denies experiencing fever, chills, abdominal pain. EKG upon arrival to the emergency room revealed sinus rhythm with first-degree AV block at [address] segment depression in the precordial leads V3 to V6 with diffuse T wave inversions in inferior leads and precordial leads V5 and V6. Subsequent EKG revealed a HR of 58 but otherwise was essentially unchanged from that obtained upon arrival. Laboratory evaluation was remarkable for platelet count 141, troponin 6.860, and subsequently 9.200, chloride 109, proBNP 1430, BUN 23, creatinine 0.94 with D-dimer 0.5. ED documentation reviewed and case discussed with ED provider. Review of systems: Pertinent positives and negatives as discussed in HPI, a complete review of systems was performed and all other systems are negative. Physical examination: Vital signs reviewed General: non toxic, no distress, appears at stated age, overweight Derm: no unusual rashes/lesions, warm Head: atraumatic, normocephalic, symmetric Eyes: EOMI, no lid lag, anicteric sclera, pupils equal round reactive to light ENT: Nose and ears atraumatic Neck: No cervical lymphadenopathy, trachea midline, supple Mouth: no lip lesion, mucus membranes moist Cardiovascular: S1S2 reg, no murmur, positive dorsalis pedis pulse bilateral, no edema Lungs: CTA bilateral, no rhonchi, no rales, no accessory muscle use Abdominal: soft, nontender to palpation, no guarding Ext: muscle strength 5 out of 5 in all 4 extremities grossly, no gross muscle atrophy, no contractures, Neuro: CN II-XI grossly intact, no gross focal neuro deficits Psych: Alert, oriented, appropriate affect Assessment: Non-ST elevation HI Thrombocytopenia, at baseline Chronic conditions: Type II DM, hypertension, hyperlipidemia, BPH Imaging: EKG upon arrival to the emergency room revealed sinus rhythm with first-degree AV block at [address] segment depression in the precordial leads V3 to V6 with diffuse T wave inversions in inferior leads and precordial leads V5 and V6. Subsequent EKG revealed a HR of 58 but otherwise was essentially unchanged from that obtained upon arrival. Data Review: Laboratory evaluation was remarkable for platelet count 141, troponin 6.860, and subsequently 9.200, chloride 109, proBNP 1430, BUN 23, creatinine 0.94 with D- dimer 0.5. Plan: Continue with heparin infusion Cardiology consulted fraternity house cook Trend troponin Continue with aspirin and statin Case discussed with financial dealers on-call regarding the uptrending Troponin, on- going chest pain, and abnormal albeit stable EKG findings. Plans for cardiology to see patient in am Obtain echocardiogram Nitropaste ordered DVT prophylaxis: Heparin infusion The patient is admitted with an anticipated greater than 2 midnight stay for evaluation of NSTEMI CODE STATUS: Full Code Discussed with: Patient Anticipated discharge place: Home Past Medical History Past Medical History: Cancer, Hypertension, Prostate Disorder, Sleep Apnea/CPAP/BIPAP Additional Past Medical History / Comment(s): HEART MURMUR. RENAL CALCULI. PROSTATE CA. SKIN CA. PERIPHERAL NEUROPATHY. CORNEAL DYSTROPHY. BACK PAIN History of Any Multi-Drug Resistant Organisms: None Reported Past Surgical History: Heart Catheterization Additional Past Surgical History / Comment(s): SEBASTIAN. CATARACATS REM. PAIN CLINIC INJECTIONS. SKIN CANCER REMOVAL FROM NOSE Past Anesthesia/Blood Transfusion Reactions: No Reported Reaction Smoking Status: Former smoker - Past Family History Mother Family Medical History: Diabetes Mellitus, Myocardial Infarction (HI) Additional Family Medical History / Comment(s): Stent to PLV May 2023, Stent to distal RCA 02/21/2024 Sister(s) Additional Family Medical History / Comment(s): DOUBLE BYPASS SURGERY Medications and Allergies Home Medications Medication Instructions Recorded Confirmed Type Fluticasone Nasal [place] [Flonase 1 spr EA NOSTRIL DAILY 06/04/23 02/24/24 History Nasal [place]] Tamsulosin [Flomax] 0.4 mg PO DAILY 06/04/23 02/24/24 History cycloSPORINE 0.05% OPHTH SOLN 1 drop BOTH EYES Q12H 06/04/23 02/24/24 History [Restasis] prednisoLONE ACETATE 1% OPHTH 1 drop BOTH EYES BID 06/04/23 02/24/24 History [Pred Forte 1%] Empagliflozin [Jardiance] 25 mg PO DAILY 02/21/24 02/24/24 History Ezetimibe [Zetia] 10 mg PO DAILY 02/21/24 02/24/24 History Potassium Chloride [Klor-Con M20] 20 meq PO DAILY 02/21/24 02/24/24 History Aspirin [Adult Low Dose Aspirin EC] 81 mg PO DAILY #30 tab 02/23/24 02/24/24 Rx Atorvastatin [Lipitor] 80 mg PO HS 30 Days #30 tab 02/23/24 02/24/24 Rx Docusate Oral Soln [Colace Oral 100 mg PO BID PRN 3 Days #60 ml 02/23/24 02/24/24 Rx Soln] Ticagrelor [Brilinta] 90 mg PO BID #60 tab 02/23/24 02/24/24 Rx Nitroglycerin Sl Tabs [Nitrostat] 0.4 mg SL Q5M PRN 02/24/24 02/24/24 History Allergies Allergy/AdvReac Type Severity Reaction Status Date / Time Iodinated Contrast Media Allergy Severe Swelling Verified 02/24/24 17:51 Physical Exam Vitals: Vital Signs Temp Pulse Resp BP Pulse Ox 02/24/24 20:40 68 18 128/81 99 02/24/24 17:46 98.0 F 69 18 126/75 98 Intake and Output 02/24/24 02/24/24 02/25/24 14:59 22:59 06:59 Other: Weight 101.151 kg Results CBC & Chem 7: 02/25/24 03:51 02/24/24 17:53 Labs: Abnormal Lab Results - Last 24 Hours (Table) 02/24/24 02/24/24 02/24/24 Range/Units 17:53 17:53 17:53 Plt Count 141 L (150-450) k/uL APTT (22.0-30.0) sec Chloride 109 H (98-107) mmol/L BUN 23 H (9-20) mg/dL AST 82 H (17-59) U/L Troponin I 6.860 H* (0.000-0.034) ng/mL 02/24/24 02/24/24 Range/Units 21:04 21:04 Plt Count (150-450) k/uL APTT 55.4 H (22.0-30.0) sec Chloride (98-107) mmol/L BUN (9-20) mg/dL AST (17-59) U/L Troponin I 9.200 H* (0.000-0.034) ng/mL
[2024-02-25] MEDS: ATORVASTATIN 80 MG TAB PO STA ×2 (01:55→08:27)
[2024-02-25] MEDS: NITROGLYCERIN OINT 1 INCH/GM PACKET TOPICAL STA (01:56)
[2024-02-25] MEDS: FLUTICASONE NASAL 50MCG/SPRAY 16GM BTL EA NOSTRIL SCH (01:57)
[2024-02-25] MEDS: cycloSPORINE 0.05% OPHTH 0.4 ML DROPERETTE BOTH EYES SCH (01:57)
[2024-02-25 04:18] LABS: HGB 13.2 gm/dL (13.0-17.5); MCH 29.9 pg (25.0-35.0); MCV 90.8 fL (80.0-100.0); Platelet Count 120 k/uL (150-450); RDW 13.5 % (11.5-15.5)
[2024-02-25] MEDS: HEPARIN SODIUM 1,000 UN/ML (10ML VL) IV ONE ×2 (05:57→22:06)
[2024-02-25] MEDS ORDERED: HEPARIN SODIUM,PORCINE (1 ML) 2,500 UNIT in SODIUM CHLORIDE 0.9% 250 ML IRRIGATION PRN (07:00)
[2024-02-25] MEDS ORDERED: HEPARIN SODIUM,PORCINE 10,000 UNIT in SODIUM CHLORIDE 0.9% 1,000 ML IRRIGATION PRN (07:00)
[2024-02-25] MEDS ORDERED: ALPRAZolam 0.5 MG TAB PO PRN (07:24)
[2024-02-25] MEDS ORDERED: ALPRAZolam 0.25 MG TAB PO PRN (07:24)
[2024-02-25] MEDS: TICAGRELOR 90 MG TAB PO SCH (08:20)
[2024-02-25] MEDS: ASPIRIN 325 MG TAB PO STA (08:21)
[2024-02-25 08:50] LABS: Chol/HDL Ratio 2.81 Ratio; LDL Cholesterol,Calculated 55.6 mg/dL (0.0-131.0)
[2024-02-25] MEDS ORDERED: ASPIRIN 325 MG TAB PO SCH (09:00)
[2024-02-25] MEDS: POTASSIUM CHLORIDE ER 20 MEQ TAB.ER PO SCH (09:07)
[2024-02-25] MEDS: TAMSULOSIN 0.4 MG CAP.ER.24H PO SCH (09:08)
[2024-02-25] MEDS: methylPREDNISolone SOD SUCCI 125 MG/2 ML VIAL IV STA (09:08)
--- NOTE | 2024-02-25 10:09 | CA ---
Transthoracic Echo Report Name: Oliver Galdamez Age: 68 Gender: M : 1955 Exam Date: 02/25/2024 08:03 Exam Location: [facility] Ht (in): 75 Wt (lb): 223 Ordering Physician: Neda Campbell Attending/Referring Phys: [id number], Shannan Distribution Agent Roopa Amezcua RDCS Procedure CPT: Indications: LVF, new TX Cardiac Hx: Technical Quality: Technically difficult study Contrast 1: Definity Total Dose (mL): 2 Contrast 2: Total Dose (mL): MEASUREMENTS (Male / Female) Normal Values 2D ECHO LV Diastolic Diameter PLAX 6.6 cm 4.2 - 5.9 / 3.9 - 5.3 cm LV Systolic Diameter PLAX 5.1 cm IVS Diastolic Thickness 1.2 cm 0.6 - 1.0 / 0.6 - 0.9 cm LVPW Diastolic Thickness 1.1 cm 0.6 - 1.0 / 0.6 - 0.9 cm LV Relative Wall Thickness 0.3 RV Internal Dim ED PLAX 3.3 cm LV Diastolic Volume MOD BP 166.9 cm??? 67 - 155 / 56 - 104 cm??? LV Systolic Volume MOD BP 89.4 cm??? 22 - 58 / 19 - 49 cm??? LV Ejection Fraction MOD BP 46.5 % >= 55 % LV Cardiac Index MOD BP 2264.2 cm???/min???m??? LV Diastolic Volume MOD 4C 177.8 cm??? LV Systolic Volume MOD 4C 84.4 cm??? LV Ejection Fraction MOD 4C 52.5 % LV Cardiac Index MOD 4C 2728.4 cm???/min???m??? LV Diastolic Length 4C 8.9 cm LV Systolic Length 4C 7.2 cm LV Diastolic Volume MOD 2C 153.0 cm??? LV Systolic Volume MOD 2C 88.9 cm??? LV Ejection Fraction MOD 2C 41.9 % LV Cardiac Index MOD 2C 1871.2 cm???/min???m??? LV Diastolic Length 2C 9.2 cm LV Systolic Length 2C 8.0 cm FINDINGS Left Ventricle Left ventricular ejection fraction is estimated at 45 %. Mildly increased septal wall thickness. Moderately increased left ventricular diastolic diameter. Mildly increased left ventricular diastolic volume. Severely increased left ventricular systolic volume. Mildly decreased left ventricular ejection fraction. Right Ventricle Mild right ventricular dilatation. Right Atrium Right atrium not well visualized. Left Atrium Left atrium not well visualized. Mitral Valve Structurally normal mitral valve. Aortic Valve Aortic valve not well visualized. Tricuspid Valve Structurally normal tricuspid valve. Pulmonic Valve Pulmonic valve not well visualized. Pericardium No pericardial effusion. Aorta Aortic root and proximal ascending aorta not well visualized. CONCLUSIONS Mild LV dysfunction Previewed by: Dr. Matt Wyatt MD (Electronically Signed) Final Date: 25 February 2024 10:08
[2024-02-25] MEDS: EZETIMIBE 10 MG TAB PO SCH (10:31)
--- NOTE | 2024-02-25 10:59 | P.CRDCN ---
History of Present Illness Consult date: 02/25/24 Reason for Consult (text): Chest pain, recent STEMI History of present illness: This is a 68-year-old male with past medical history of coronary artery disease see below, hypertension, hyperlipidemia, diabetes mellitus type 2, obstructive sleep apnea with CPAP, remote history of tobacco use and dependence, history of prostate cancer status post radiation. Patient had a recent hospitalization which time he presented with chest pain and diagnosed with ST elevated myocardial infarction. On 02/21/2024, patient underwent cardiac catheterization and PCI with Dr. Bella which revealed occluded distal RCA, intermediate to severe disease of the left circumflex and LAD, elevated left-sided filling pressures. Patient underwent successful PCI of the RCA. Patient was continued on dual antiplatelet therapy using Brilinta and aspirin. Patient was discharged home on 02/22. Patient states that about 4 PM yesterday he had similar pain to that the b rought him in for the ND but not as severe. He calls it a dull ache and it was in the chest on the left side as well as the left side of his neck and left arm. The pain has resolved now. He took 3 nitroglycerin that did not seem to work and then he called EMS. He night denies any syncopal episode. He states he has been taking all of his medications as directed. Patient is seen today in the [facility] center waiting for a bed on the cardiac stepdown unit. EKG: ST depression in the inferior lateral leads Chest x-ray: Borderline heart size. Mild interstitial density could reflect mild pulmonary vascular congestion versus bronchitis or asthma. Laboratory studies: WBC 7, hemoglobin 13.2, platelet count 120. Troponin 6.86, 9.2, 15.6, 16. BUN 23 creatinine 0.94. proBNP 1430. Triglycerides 118, cholesterol 123, LDL 55, HDL 43. Home cardiac medications: Aspirin 81 mg daily, atorvastatin 80 mg at bedtime, Jardiance 25 mg daily, Zetia 10 mg daily, Nitrostat as needed, potassium chlorid e 20 mill equivalents daily, Brilinta 90 mg twice daily. Echocardiogram performed on 02/22/2024 revealed moderately dilated left ventricle with mild to moderate LV systolic dysfunction with EF of 40 to 45%. Mild aortic stenosis. Mild mitral regurgitation. Review Of Systems: At the time of my exam: CONSTITUTIONAL: Denies fever or chills. HEENT: Denies blurred vision, vision changes, or eye pain. Denies hemoptysis CARDIOVASCULAR: Denies chest pain. Denies orthopnea. Denies PND. Denies palpitations RESPIRATORY: Denies shortness of breath. GASTROINTESTINAL: Denies abdominal pain. Denies nausea or vomiting. HEMATOLOGIC: Denies bleeding disorders. GENITOURINARY: Denies any blood in urine. SKIN: Denies puritis. Denies rash. Physical examination: Gen: This is a 68-year-old male in no acute distress. VS: reviewed HEENT: Head is atraumatic, normocephalic. Pupils equal, round. Sclerae is anic teric. NECK: Supple. No JVD. LUNGS: Clear to auscultation. No wheezes or rhonchi. No intercostal retractions. HEART: Regular rate and rhythm. Systolic murmur at the right upper sternal border. ABDOMEN: Soft No tenderness. EXTREMITIES: No pedal edema. No calf tenderness. NEUROLOGICAL: Patient is awake, alert and oriented x3. Assessment: New non-ST elevated ND with troponins trending upward Recent acute inferior ST elevated ND status post emergent catheterization and PCI of the RCA, mild to moderate disease involving the left coronary system Hypertension Hyperlipidemia Diabetes mellitus type 2 Obstructive sleep apnea on CPAP Remote history of tobacco use Plan: Resume patient's home cardiac medications including Brilinta Schedule patient for cardiac catheterization today with Dr. Bella Obtain limited 2-D echocardiogram and Doppler study to assess cardiac structure and function Further recommendations to follow based upon clinical course Thank you kindly for this consultation. Nurse practitioner note has been reviewed, I agree with documented findings and plan of care. Patient was seen and examined. Past Medical History Past Medical History: Cancer, Hypertension, Prostate Disorder, Sleep Apnea/CPAP/BIPAP Additional Past Medical History / Comment(s): HEART MURMUR. RENAL CALCULI. PROSTATE CA. SKIN CA. PERIPHERAL NEUROPATHY. CORNEAL DYSTROPHY. BACK PAIN History of Any Multi-Drug Resistant Organisms: None Reported Past Surgical History: Heart Catheterization Additional Past Surgical History / Comment(s): SEBASTIAN. CATARACATS REM. PAIN CLINIC INJECTIONS. SKIN CANCER REMOVAL FROM NOSE Past Anesthesia/Blood Transfusion Reactions: No Reported Reaction Smoking Status: Former smoker - Past Family History Mother Family Medical History: Diabetes Mellitus, Myocardial Infarction (ND) Additional Family Medical History / Comment(s): Stent to PLV May 2023, Stent to distal RCA 02/21/2024 Sister(s) Additional Family Medical History / Comment(s): DOUBLE BYPASS SURGERY Medications and Allergies Home Medications Medication Instructions Recorded Confirmed Type Fluticasone Nasal Wilson [Flonase 1 spr EA NOSTRIL DAILY 06/04/23 02/24/24 History Nasal Wilson] Tamsulosin [Flomax] 0.4 mg PO DAILY 06/04/23 02/24/24 History cycloSPORINE 0.05% OPHTH SOLN 1 drop BOTH EYES Q12H 06/04/23 02/24/24 History [Restasis] prednisoLONE ACETATE 1% OPHTH 1 drop BOTH EYES BID 06/04/23 02/24/24 History [Pred Forte 1%] Empagliflozin [Jardiance] 25 mg PO DAILY 02/21/24 02/24/24 History Ezetimibe [Zetia] 10 mg PO DAILY 02/21/24 02/24/24 History Potassium Chloride [Klor-Con M20] 20 meq PO DAILY 02/21/24 02/24/24 History Aspirin [Adult Low Dose Aspirin EC] 81 mg PO DAILY #30 tab 02/23/24 02/24/24 Rx Atorvastatin [Lipitor] 80 mg PO HS 30 Days #30 tab 02/23/24 02/24/24 Rx Docusate Oral Soln [Colace Oral 100 mg PO BID PRN 3 Days #60 ml 02/23/24 02/24/24 Rx Soln] Ticagrelor [Brilinta] 90 mg PO BID #60 tab 02/23/24 02/24/24 Rx Nitroglycerin Sl Tabs [Nitrostat] 0.4 mg SL Q5M PRN 02/24/24 02/24/24 History Allergies Allergy/AdvReac Type Severity Reaction Status Date / Time Iodinated Contrast Media Allergy Severe Swelling Verified 02/24/24 17:51 Physical Exam Vitals: Vital Signs Temp Pulse Resp BP Pulse Ox 02/25/24 06:05 70 16 101/67 97 02/25/24 04:55 58 L 02/25/24 01:50 65 30 H 117/73 97 02/24/24 20:40 68 18 128/81 99 02/24/24 17:46 98.0 F 69 18 126/75 98 Intake and Output 02/24/24 02/25/24 02/25/24 22:59 06:59 14:59 Intake Total 91.667 Balance 91.667 Intake: Intake, IV Titration 91.667 Amount Heparin Sod,Pork in 0.45% 91.667 NaCl 25,000 unit In 0.45 % NaCl 1 250ml.bag @ 9. 886 UNITS/KG/HR 10 mls/hr IV .Q24H [facility] Rx#: [id number] Other: Weight 101.151 kg Results 02/25/24 03:51 02/24/24 17:53 Cardiac Enzymes 02/24/24 02/24/24 02/24/24 Range/Units 17:53 17:53 21:04 AST 82 H (17-59) U/L Troponin I 6.860 H* 9.200 H* (0.000-0.034) ng/mL 02/25/24 Range/Units 03:40 AST (17-59) U/L Troponin I 15.600 H* (0.000-0.034) ng/mL Coagulation 02/24/24 02/24/24 02/25/24 Range/Units 17:53 21:04 03:40 PT 10.4 (10.0-12.5) sec APTT 23.1 55.4 H 28.1 (22.0-30.0) sec CBC 02/24/24 02/25/24 Range/Units 17:53 03:51 WBC 7.3 7.0 (3.8-10.6) k/uL RBC 4.65 4.40 (4.30-5.90) m/uL Hgb 14.1 13.2 (13.0-17.5) gm/dL Hct 42.2 40.0 (39.0-53.0) % Plt Count 141 L 120 L (150-450) k/uL Comprehensive Metabolic Panel 02/24/24 Range/Units 17:53 Sodium 138 (137-145) mmol/L Potassium 3.9 (3.5-5.1) mmol/L Chloride 109 H (98-107) mmol/L Carbon Dioxide 24 (22-30) mmol/L BUN 23 H (9-20) mg/dL Creatinine 0.94 (0.66-1.25) mg/dL Glucose 91 (74-99) mg/dL Calcium 9.2 (8.4-10.2) mg/dL AST 82 H (17-59) U/L ALT 48 (4-49) U/L Alkaline Phosphatase 71 (38-126) U/L Total Protein 6.4 (6.3-8.2) g/dL Albumin 4.2 (3.5-5.0) g/dL Current Medications Generic Name Dose Route Start Last Admin Trade Name Freq PRN Reason Stop Dose Admin Aspirin 325 mg 02/25/24 09:00 Aspirin 325 Mg Tab PO DAILY SRI Atorvastatin Calcium 80 mg 02/25/24 21:00 Atorvastatin 80 Mg Tab PO HS SRI Cyclosporine 1 drops 02/25/24 00:45 02/25/24 01:57 Cyclosporine 0.05% Ophth 0.4 Ml Droperette BOTH EYES 1 drops Q12H SRI Administration Ezetimibe 10 mg 02/25/24 09:00 Ezetimibe 10 Mg Tab PO DAILY SRI Fluticasone Propionate 1 spray 02/25/24 09:00 02/25/24 01:57 Fluticasone 50mcg/Wilson Nasal 16gm EA NOSTRIL 1 spray DAILY SRI Administration Heparin Sodium/Sodium Chloride 250 mls @ 10 mls/hr 02/24/24 20:00 02/25/24 05:58 25,000 unit/ Sodium Chloride IV 12.886 units/kg/hr .Q24H SRI 13.034 mls/hr Titration Protocol 9.886 UNITS/KG/HR Morphine Sulfate 4 mg 02/24/24 19:46 Morphine Sulfate 4 Mg/Ml Syringe IV Q4HR PRN Chest Pain Nitroglycerin 0.4 mg 02/24/24 19:46 Nitroglycerin Sl Tabs 0.4 Mg Tab SUBLINGUAL Q5M PRN Chest Pain Potassium Chloride 20 meq 02/25/24 09:00 Potassium Chloride Er 20 Meq Tab.Er PO DAILY SRI Tamsulosin HCl 0.4 mg 02/25/24 09:00 Tamsulosin 0.4 Mg Cap.Er.24h PO DAILY SRI Intake and Output 02/24/24 02/25/24 02/25/24 22:59 06:59 14:59 Intake Total 91.667 Balance 91.667 Intake: Intake, IV Titration 91.667 Amount Heparin Sod,Pork in 0.45% 91.667 NaCl 25,000 unit In 0.45 % NaCl 1 250ml.bag @ 9. 886 UNITS/KG/HR 10 mls/hr IV .Q24H [facility] Rx#: [id number] Other: Weight 101.151 kg 02/25/24 03:51 02/24/24 17:53
[2024-02-25] MEDS ORDERED: HEPARIN SODIUM 1,000 UN/ML (10ML VL) IV PRN ×2 (12:39→20:29)
[2024-02-25] MEDS: HEPARIN SODIUM 1,000 UN/ML (10ML VL) IV PRN (12:45)
[2024-02-25] MEDS ORDERED: LIDOCAINE 1% INJ 10MG/ML (20 ML MDV) ONE (13:46)
[2024-02-25] MEDS ORDERED: HEPARIN SODIUM 1,000 UN/ML (10ML VL) ONE (14:00)
[2024-02-25] MEDS: MIDAZOLAM 2 MG/2 ML VIAL IVP ONE (14:10)
[2024-02-25] MEDS: LIDOCAINE 1% INJ 10MG/ML (20 ML MDV) SQ ONE (14:12)
[2024-02-25] MEDS: VERAPAMIL SYRINGE (5 MG/10 ML) INTRAARTER ONE (14:13)
[2024-02-25] MEDS ORDERED: MORPHINE SULFATE 4 MG/ML SYRINGE ONE (14:21)
[2024-02-25] MEDS: MORPHINE SULFATE 4 MG/ML SYRINGE IVP ONE ×2 (14:23→14:25)
[2024-02-25] MEDS: HYDROmorphone 0.5 MG/0.5 ML SYRINGE IVP ONE (14:30)
[2024-02-25] MEDS: HEPARIN SODIUM 1,000 UN/ML (10ML VL) IVP ONE (14:30)
[2024-02-25] MEDS: SODIUM CHLORIDE 0.9% 1,000 ML IV ONE (14:36)
[2024-02-25] MEDS: IOPAMIDOL-370 100ML BTL INJ ONE (14:36)
[2024-02-25] MEDS ORDERED: RX INFO: IV CONTRAST WAS GIVEN 1 EACH MISC MISCELLANE PRN (14:38)
--- NOTE | 2024-02-25 14:48 | P.PCN ---
Date of Procedure: 02/25/24 Operative Findings: CARDIAC CATHETERIZATION PERFORMING PHYSICIAN: Sidney Bella MD, RPVI PROCEDURE PERFORMED: 1. Selective right and left coronary angiogram 2. Left heart catheterization 3. Ultrasound-guided access of the right radial artery INDICATION: Acute non-ST elevation myocardial infarction in this 68-year-old gentleman who is known to have CAD and underwent stenting of the RCA few days ago in the setting of acute inferior ST elevation myocardial infarction. Beside that he underwent stenting of the PLV branch of the RCA in 2012 COMPLICATION: None APPROACH: Right radial artery LEVEL OF SEDATION: Moderate with a sedation length of 18 minutes PROCEDURE DESCRIPTION: After obtaining an informed consent, the patient was brought to cardiac labor expediter. Local anesthesia was performed using lidocaine subcutaneously. The right radial artery was cannulated using Seldinger technique, the guidewire passed easily, following that we advanced a 5-[place] sheath dilator assembly, the wire and dilator were removed and sheath was flushed. Following that, 2 mg of verapamil along with 5000 unit heparin were given. Selective right and left coronary angiogram using a 6-[place]er JR4 and JL 3.5 catheters. Following that we did left heart catheterization using 6-[place] Islander pigtail catheter. The procedure was completed there was no complication. SELECTIVE CORONARY ANGIOGRAM: The right coronary artery: Large-caliber vessel and a dominant vessel. The stent in the distal RCA is patent. The PLV branch has been intermediate disease has not changed compared to before. The ostial of the PDA branch has been jailed by the stent but has ROBIN-3 flow. Left main: Calcified with what it seems to be ulcerated plaque and disease appears to be in the range of 30%. The left circumflex: Large-caliber vessel nondominant vessel. The proximal left circumflex has intermediate to severe lesion by the bifurcation of the second obtuse marginal branch. The first obtuse marginal branch which works as a ramus intermedius has also lesion appears to be in the range of 60 to 70%. The left anterior descending artery: The mid LAD has also intermediate to severe lesion appears to be in the range of 60 to 70% at least. This is by the bifurcation of a large diagonal branch which has severe disease as well HEMODYNAMICS: The LVEDP was about 20 mmHg with peak to peak gradient of 26 mmHg. CONCLUSION: 1. Patent stent in the distal RCA. 2. Ulcerated plaque involving the left main coronary artery with intermediate to severe disease involving the left circumflex and left anterior descending artery with complex lesions/bifurcation lesions. POSTPROCEDURE MANAGEMENT: Given the above anatomy I advised the patient to be seen by the cardiothoracic's team for the evaluation of coronary artery bypass grafting
[2024-02-25] MEDS: NITROGLYCERIN-D5W PMX 50 MG in DEXTROSE/WATER 1 250ML.BAG IV ONE (15:00)
[2024-02-25 15:43] LABS: Glucose,Whole Blood 218 mg/dL (70-110)
[2024-02-25] MEDS ORDERED: DEXTROSE 50% SYRINGE 50 ML IVP PRN ×2 (16:06)
[2024-02-25] MEDS: SODIUM CHLORIDE 0.9% 1,000 ML IV SCH (16:45)
[2024-02-25] MEDS: NITROGLYCERIN-D5W PMX 50 MG in DEXTROSE/WATER 1 250ML.BAG IV SCH (16:45)
[2024-02-25 16:48] LABS: Glucose,Whole Blood 255 mg/dL (70-110)
[2024-02-25] MEDS: INSULIN ASPART (NovoLOG) 100 UNIT/ML VIAL SQ SCH (17:32)
--- NOTE | 2024-02-25 18:38 | US ---
EXAMINATION TYPE: US carotid duplex BILAT DATE OF EXAM: 02/25/2024 COMPARISON: NONE CLINICAL INDICATION: Male, 68 years old with history of preop cardiac surgery; TECHNIQUE: Carotid duplex ultrasound examination. Indirect Doppler criteria was utilized. FINDINGS: EXAM MEASUREMENTS: RIGHT: Peak Systolic Velocity (PSV) cm/sec ----- Right CCA: 64 ----- Right ICA: 72 ----- Right ECA: 254 ICA/CCA ratio: 1.1 RIGHT: End Diastole cm/sec ----- Right CCA: 13 ----- Right ICA: 11 ----- Right ECA: 24 LEFT: Peak Systolic Velocity (PSV) cm/sec ----- Left CCA: 80 ----- Left ICA: 88 ----- Left ECA: 136 ICA/CCA ratio: 0.9 LEFT: End Diastole cm/sec ----- Left CCA: 10 ----- Left ICA: 15 ----- Left ECA: 16 VERTEBRALS (direction of flow): Right Vertebral: Antegrade Left Vertebral: Antegrade Rhythm: Normal MEDICAL MANAGER NOTES: No intimal thickening or plaque seen, elevated velocity within the right ECA seen. IMPRESSION: Less than 50% stenosis of the bilateral carotid bifurcations. Criteria for Assigning % of Stenosis / Diameter reduction (Estimation based on the indirect measurements of the internal carotid artery velocities (ICA PSV). 1. Normal (no stenosis)=ICA PSV < 125 cm/s: ratio < 2.0: ICA EDV<40 cm/s. 2. Less than 50% stenosis=ICA PSV < 125 cm/s: ratio < 2.0: ICA EDV<40 cm/s. 3. 50 to 69% stenosis=ICA PSV of 125 to 230 cm/s: ration 2.0 ? 4.0: ICA EDV 40-100 cm/s. 4. Greater than 70% stenosis to near occlusion= ICA PSV > 230 cm/s: ratio > 4.0: ICA EDV > 100 cm/s. 5. Near occlusion= ICA PSV velocities may be low or undetectable: variable ratio and ICA EDV. 6. Total occlusion=unable to detect flow.
--- NOTE | 2024-02-25 18:38 | US ---
EXAMINATION TYPE: Pre-Operative Non-Invasive Evaluation of the hand for Potential Radial Artery Jessicamaxine chapman, Measurements only DATE OF EXAM: 02/25/2024 6:00 PM CLINICAL INDICATION: Male, 68 years old with history of measurements only; SIDE PERFORMED: Left TECHNIQUE: Radial artery is measured utilizing real time linear array sonography. Dominant hand: Right Duplex Findings: Radial Artery: Color flow seen Measurements in mm, transverse view: Left Radial: 0.5 x 0.5 mm Proximal: 0.5 x 0.5 mm Mid: 0.5 x 0.6 mm Distal: 0.4 x 0.5 mm IMPRESSION: 1. Left Radial artery measurements listed above. 2. Performing surgeon to determine viability as conduit.
--- NOTE | 2024-02-25 18:39 | US ---
EXAMINATION TYPE: US vein mapping BILAT DATE OF EXAM: 02/25/2024 6:00 PM COMPARISON: NONE CLINICAL INDICATION: Male, 68 years old with history of preop cardiac surgery; SIDE PERFORMED: Bilateral TECHNIQUE: Lower extremity saphenous vein is examined and measured utilizing real time linear array sonography. Patient History: Smoker: n Heart Disease: y Previous DVT: n Vascular Surgery: y Discoloration: n Hypertension: n Diabetes: n Paralysis: n Varicosities: n Edema: n DUPLEX FINDINGS: Greater Saphenous: Color flow seen Lesser Saphenous: Color flow seen Measurements in mm: Right Greater Saphenous: Groin: 0.8 x 0.8 mm High Thigh: 0.6 x 0.5 mm Mid Thigh: 0.5 x 0.5 mm Above Knee: 0.4 x 0.5 mm Knee: 0.4 x 0.5 mm Below Knee: 0.4 x 0.5 mm Mid Calf: 0.3 x 0.3 mm At Ankle: 0.2 x 0.2 mm Left Greater Saphenous: Groin: 0.6 x 0.7 mm High Thigh: 0.4 x 0.6 mm Mid Thigh: 0.5 x 0.5 mm Above Knee: 0.5 x 0.6 mm Knee: 0.3 x 0.4 mm Below Knee: 0.3 x 0.3 mm Mid Calf: 0.3 x 0.3 mm At Ankle: 0.3 x 0.3 mm IMPRESSION: 1. Bilateral GSV measurements listed above. 2. Performing surgeon to determine viability as conduit.
[2024-02-25 20:53] LABS: Glucose,Whole Blood 133 mg/dL (70-110)
[2024-02-25] MEDS: ATORVASTATIN 80 MG TAB PO SCH (20:53)
[2024-02-25 21:06] LABS: Basophils % (A) 0 %; Eosinophils % (A) 0 %; HCT 40.2 % (39.0-53.0); HGB 13.4 gm/dL (13.0-17.5); Lymphocytes # (A) 0.4 k/uL (1.0-4.8); Lymphocytes % (A) 6 %; MCH 29.9 pg (25.0-35.0); MCHC 33.4 g/dL (31.0-37.0); MCV 89.5 fL (80.0-100.0); Mean Platelet Volume 8.2; Monocytes # (A) 0.6 k/uL (0-1.0); Monocytes % (A) 9 %; Neutrophils # (A) 5.8 k/uL (1.3-7.7); Neutrophils % (A) 84 %; Platelet Count 147 k/uL (150-450); RBC 4.49 m/uL (4.30-5.90); RDW 13.7 % (11.5-15.5); WBC 6.9 k/uL (3.8-10.6)
[2024-02-25 21:17] LABS: Partial Thromboplastin Time 22.4 sec (22.0-30.0); Prothrombin Time 10.5 sec (10.0-12.5)
--- NOTE | 2024-02-25 21:42 | P.PN ---
Subjective Progress Note Date: 02/25/24 68-year-old male with a PMH of recent acute STEMI on 02/20 status post PCI to RCA with moderate to severe disease of LAD and left circumflex, type II DM, hypertension, hyperlipidemia, BPH who presents to the emergency room with complaints of chest pain. The patient was discharged from the hospital yesterda y morning and notes that his pain suddenly started again today at around 4 PM, 4 out of 10 at maximal intensity, left-sided with radiation down into the left arm. Notes that the pain is a lot less severe than his initial episode that brought him to the hospital 4 days ago. He took multiple nitroglycerins at home with minimal relief. At time of interview, notes that the pain is a 2 out of 10, aching in nature, with no alleviating or exacerbating features and nonpleuritic. Denies experiencing nausea, vomiting, diaphoresis, or dizziness. Denies experiencing fever, chills, abdominal pain. EKG upon arrival to the emergency room revealed sinus rhythm with first-degree AV block at [address] segment depression in the precordial leads V3 to V6 with diffuse T wave inversions in inferior leads and precordial leads V5 and V6. Subsequent EKG revealed a HR of 58 but otherwise was essentially unchanged from that obtained upon arrival. Laboratory evaluation was remarkable for platelet count 141, troponin 6.860, and subsequently 9.200, chloride 109, proBNP 1430, BUN 23, creatinine 0.94 with D-dimer 0.5. Objective - Vital Signs Vital signs: Vital Signs Temp 98.0 F 02/24/24 17:46 Pulse 72 02/25/24 08:00 Resp 16 02/25/24 08:00 BP 120/78 02/25/24 07:00 Pulse Ox 97 02/25/24 11:32 FiO2 Intake & Output 02/24/24 02/25/24 02/25/24 18:59 06:59 18:59 Intake Total 91.667 Balance 91.667 Weight 101.151 kg Intake: Intake, IV Titration 91.667 Amount Heparin Sod,Pork in 0.45% 91.667 NaCl 25,000 unit In 0.45 % NaCl 1 250ml.bag @ 9. 886 UNITS/KG/HR 10 mls/hr IV .Q24H [facility] Rx#: [id number] - Exam General: non toxic, no distress, appears at stated age, overweight Derm: no unusual rashes/lesions, warm Head: atraumatic, normocephalic, symmetric Eyes: EOMI, no lid lag, anicteric sclera, pupils equal round reactive to light ENT: Nose and ears atraumatic Neck: No cervical lymphadenopathy, trachea midline, supple Mouth: no lip lesion, mucus membranes moist Cardiovascular: S1S2 reg, no murmur, positive dorsalis pedis pulse bilateral, no edema Lungs: CTA bilateral, no rhonchi, no rales, no accessory muscle use Abdominal: soft, nontender to palpation, no guarding Ext: muscle strength 5 out of 5 in all 4 extremities grossly, no gross muscle atrophy, no contractures, - Labs CBC & Chem 7: 02/25/24 20:45 02/24/24 17:53 Labs: Abnormal Lab Results - Last 24 Hours (Table) 02/24/24 02/24/24 02/24/24 Range/Units 17:53 17:53 17:53 Plt Count 141 L (150-450) k/uL APTT (22.0-30.0) sec Chloride 109 H (98-107) mmol/L BUN 23 H (9-20) mg/dL AST 82 H (17-59) U/L Troponin I 6.860 H* (0.000-0.034) ng/mL 02/24/24 02/24/24 02/25/24 Range/Units 21:04 21:04 03:40 Plt Count (150-450) k/uL APTT 55.4 H (22.0-30.0) sec Chloride (98-107) mmol/L BUN (9-20) mg/dL AST (17-59) U/L Troponin I 9.200 H* 15.600 H* (0.000-0.034) ng/mL 02/25/24 02/25/24 02/25/24 Range/Units 03:51 09:14 09:14 Plt Count 120 L (150-450) k/uL APTT 38.1 H (22.0-30.0) sec Chloride (98-107) mmol/L BUN (9-20) mg/dL AST (17-59) U/L Troponin I 16.000 H* (0.000-0.034) ng/mL Assessment and Plan Assessment: 1. Non-ST elevated NC with troponins trending upward 2. Recent acute inferior ST elevated NC status post emergent catheterization and PCI of the RCA, mild to moderate disease involving the left coronary system 3. Hypertension 4. Hyperlipidemia 5. Diabetes mellitus type 2 6. Obstructive sleep apnea on CPAP Resume patient's home cardiac medications including Brilinta Schedule patient for cardiac catheterization today with Dr. Bella Obtain limited 2-D echocardiogram and Doppler study to assess cardiac structure and function -- continue home medications
--- NOTE | 2024-02-25 22:02 | CT ---
EXAMINATION TYPE: CT chest wo con CT DLP: 598.1 mGycm, Automated exposure control for dose reduction was used. DATE OF EXAM: 02/25/2024 9:48 PM COMPARISON: Chest radiograph from same day. CLINICAL INDICATION:Male, 68 years old with history of eval aorta for clampability; PHH, eval aorta f or clampability TECHNIQUE: Multiple axial images were obtained through the chest. Sagittal and coronal reformats were created for review. Contrast used: mL of (None if empty) Oral contrast used: (None if empty) FINDINGS: LUNGS/ PLEURA: Streaky atelectasis in the right lung base. No evidence for focal consolidation, pneum othorax or pleural effusion. AIRWAY: Patent and unremarkable. HEART: The heart is mildly enlarged for size. There is mild to moderate coronary artery calcification s. Moderate aortic valve leaflet calcifications. MEDIASTINUM: No gross evidence of adenopathy. VASCULATURE: No aortic aneurysm. MUSCULOSKELETAL: No acute osseous abnormalities SOFT TISSUES/LYMPH NODES: Unremarkable. LOWER NECK: No significant findings. UPPER ABDOMEN: Left renal calcification measuring 10 mm. Excreted IV contrast in the renal collecting systems. IMPRESSION: 1. No evidence for acute process. 2. Moderate cardiomegaly, moderate aortic valve calcifications and mild to moderate coronary artery atherosclerosis. 3. Nonobstructing left renal calculus.
[2024-02-25] MEDS: HEPARIN SOD,PORK IN 0.45% NACL 25,000 UNIT in 0.45% NACL 1 250ML.BAG IV SCH (22:08)
[2024-02-25 22:42] LABS: Appearance,Urine Clear (Clear); Bilirubin,Urine Negative (Negative); Blood,Urine Negative (Negative); Color,Urine Light Yellow; Glucose,Urine (UA) 1+ (Negative); Ketones,Urine Negative (Negative); Leukocyte Esterase,Urine Negative (Negative); Nitrite,Urine Negative (Negative); PH, Urine 6.5 (5.0-8.0); Protein,Urine Negative (Negative); Specific Gravity,Urine 1.034 (1.001-1.035); Urobilinogen,Urine <2.0 mg/dL (<2.0)
[2024-02-26 04:45] LABS: Hepatitis A Antibody IgM Nonreactive (Nonreactive); Hepatitis B Core IgM Nonreactive (Nonreactive); Hepatitis B Surface Antigen Nonreactive (Nonreactive); Hepatitis C IgG Antibody Nonreactive (Nonreactive)
[2024-02-26 05:34] LABS: Basophils % (A) 0 %; Eosinophils # (A) 0.1 k/uL (0-0.7); Eosinophils % (A) 1 %; HCT 39.8 % (39.0-53.0); HGB 12.9 gm/dL (13.0-17.5); Lymphocytes % (A) 13 %; MCH 29.6 pg (25.0-35.0); MCHC 32.5 g/dL (31.0-37.0); MCV 90.9 fL (80.0-100.0); Monocytes # (A) 0.4 k/uL (0-1.0); Monocytes % (A) 5 %; Neutrophils % (A) 79 %; Platelet Count 146 k/uL (150-450); RBC 4.38 m/uL (4.30-5.90); RDW 13.8 % (11.5-15.5); WBC 7.5 k/uL (3.8-10.6)
[2024-02-26 05:50] LABS: Partial Thromboplastin Time 29.8 sec (22.0-30.0); Prothrombin Time 10.7 sec (10.0-12.5)
[2024-02-26 05:50] LABS: African American GFR (CKD) >90 (>60 ml/min/1.73 sqM); Anion Gap 5 mmol/L; Blood Urea Nitrogen 22 mg/dL (9-20); Carbon Dioxide 21 mmol/L (22-30); Chloride 111 mmol/L (98-107); Glucose 107 mg/dL (74-99); Non-African American GFR(CKD) 84 (>60 ml/min/1.73 sqM); Sodium 137 mmol/L (137-145)
[2024-02-26 06:28] LABS: Glucose,Whole Blood 112 mg/dL (70-110)
--- NOTE | 2024-02-26 08:06 | P.PN ---
Subjective Progress Note Date: 02/26/24 Principal diagnosis: Acute non-ST elevation myocardial infarction The patient is a pleasant 68-year-old gentleman with coronary artery disease status post PCI of the RCA and PLV branch of the RCA as well as aortic stenosis and hypertension and dyslipidemia who was admitted to the hospital few days ago with acute inferior ST elevation myocardial infarction and underwent a heart catheterization and PCI of the RCA. He presented back to the hospital complaining of chest discomfort concerning for angina and he was ruled in for acute coronary syndrome with uprising troponin. He underwent a heart catheterization and was found to have patent stent in the RCA with severe diseas e involving the left coronary system felt to be not a good candidate for PCI and good candidate for CABG. Surgery was consulted. February 26, 2024 The patient was seen and evaluated this morning. He is asymptomatic at this point. He is hemodynamically stable. He continues to be on dual antiplatelet therapy along with high intensity statin along with anti-ischemic medication and also he is on heparin IV. We are waiting for the surgeon to see the patient and evaluate the angiogram. Meanwhile continue the current medical regimen. Examination is remarkable for regular rhythm with a systolic murmur and clear breathing sounds bilaterally and no carotid bruit and no edema was noted Assessment Coronary artery disease as described above Aortic stenosis appears to be mild to moderate Multiple comorbid conditions including hypertension and dyslipidemia Plan Repeat the echo to assess for any change in the ejection fraction after the recent event and assess aortic valve as well Continue the current medical regimen including dual antiplatelet therapy at this point. Continue heparin IV Follow-up after the patient will be seen by the surgical team Objective - Vital Signs Vital signs: Vital Signs Temp 97.9 F 02/26/24 04:00 Pulse 67 02/26/24 07:00 Resp 16 02/26/24 07:00 BP 122/74 02/26/24 07:00 Pulse Ox 97 02/26/24 07:00 FiO2 Intake & Output 02/25/24 02/26/24 02/26/24 18:59 06:59 18:59 Intake Total 468.676 832 600 Output Total 500 725 0 Balance -31.324 107 600 Weight 101.1 kg 101.1 kg Intake: IV 320 150 Invasive Line 1 10 Invasive Line 2 10 Sodium Chloride 0.9% 1, 150 150 000 ml @ 75 mls/hr IV . [id number] [facility] Rx#:[id number] Intake, IV Titration 148.676 82 Amount Heparin Sod,Pork in 0.45% 148.676 NaCl 25,000 unit In 0.45 % NaCl 1 250ml.bag @ 9. 886 UNITS/KG/HR 10 mls/hr IV .Q24H [facility] Rx#: [id number] Heparin Sod,Pork in 0.45% 82 NaCl 25,000 unit In 0.45 % NaCl 1 250ml.bag @ 9. 891 UNITS/KG/HR 10 mls/hr IV .Q24H [facility] Rx#: [id number] Oral 600 600 Output: Urine 500 725 0 Other: Voiding Method Urinal Urinal # Bowel Movements 0 0 - Labs CBC & Chem 7: 02/26/24 05:27 02/26/24 05:27 Labs: Abnormal Lab Results - Last 24 Hours (Table) 02/25/24 02/25/24 02/25/24 Range/Units 09:14 09:14 15:42 Hgb (13.0-17.5) gm/dL Plt Count (150-450) k/uL Lymphocytes # (1.0-4.8) k/uL APTT 38.1 H (22.0-30.0) sec Chloride (98-107) mmol/L Carbon Dioxide (22-30) mmol/L BUN (9-20) mg/dL Glucose (74-99) mg/dL POC Glucose (mg/dL) 218 H (70-110) mg/dL Troponin I 16.000 H* (0.000-0.034) ng/mL Urine Glucose (UA) (Negative) 02/25/24 02/25/24 02/25/24 Range/Units 16:47 20:45 20:51 Hgb (13.0-17.5) gm/dL Plt Count 147 L (150-450) k/uL Lymphocytes # 0.4 L (1.0-4.8) k/uL APTT (22.0-30.0) sec Chloride (98-107) mmol/L Carbon Dioxide (22-30) mmol/L BUN (9-20) mg/dL Glucose (74-99) mg/dL POC Glucose (mg/dL) 255 H 133 H (70-110) mg/dL Troponin I (0.000-0.034) ng/mL Urine Glucose (UA) (Negative) 02/25/24 02/26/24 02/26/24 Range/Units 21:55 05:27 05:27 Hgb 12.9 L (13.0-17.5) gm/dL Plt Count 146 L (150-450) k/uL Lymphocytes # (1.0-4.8) k/uL APTT (22.0-30.0) sec Chloride 111 H (98-107) mmol/L Carbon Dioxide 21 L (22-30) mmol/L BUN 22 H (9-20) mg/dL Glucose 107 H (74-99) mg/dL POC Glucose (mg/dL) (70-110) mg/dL Troponin I (0.000-0.034) ng/mL Urine Glucose (UA) 1+ H (Negative) 02/26/24 Range/Units 06:26 Hgb (13.0-17.5) gm/dL Plt Count (150-450) k/uL Lymphocytes # (1.0-4.8) k/uL APTT (22.0-30.0) sec Chloride (98-107) mmol/L Carbon Dioxide (22-30) mmol/L BUN (9-20) mg/dL Glucose (74-99) mg/dL POC Glucose (mg/dL) 112 H (70-110) mg/dL Troponin I (0.000-0.034) ng/mL Urine Glucose (UA) (Negative)
--- NOTE | 2024-02-26 08:20 | P.GSCN ---
History of Present Illness Consult date: 02/26/24 Reason for Consult: Coronary artery disease Requesting physician: Sidney Bella History of present illness: This is a 68-year-old gentleman who follows outpatient with Dr. Domingo Espino for primary care as well as Dr. Fletcher for cardiology. He has a previous medical history of coronary artery disease with recent STEMI and PCI, aortic stenosis, hypertension, hyperlipidemia, diabetes, obstructive sleep apnea, prost ate cancer, previous tobacco dependence, and family history of coronary artery disease. Apparently this gentleman had been experiencing exertional dyspnea and chest pain and was taken for elective heart catheterization last May 2023 with placement of drug-eluting stent to the PLV branch of the right coronary artery. He presented to [facility] emergency room last week with similar complaints and was diagnosed at that time with a STEMI. He was taken to the [facility] again and PCI was performed to the RCA on February 20, he was discharged home on February 22. Unfortunately he stated he had the same type of chest pain and shortness of breath although not quite as severe, but he presented back to [facility] emergency room on February 23 just to be safe. His troponins had come back down but were again elevating and this gentleman was diagnosed with non-STEMI and taken back to the [facility] yesterday by Dr. Bella. Heart catheterization yesterday demonstrated patent stent in the distal RCA, and an ulcerated plaque involving the left main coronary artery with intermediate to severe disease involving the left circumflex and left anterior descending artery with complex lesions. Due to this finding consultation was placed to cardiothoracic surgery for surgical revascularization recommendations. Review of Systems Review of systems was completed and was negative except as noted - Cardiovascular Reports as per HPI, Reports chest pain, Reports dyspnea on exertion, Reports shortness of breath Past Medical History Past Medical History: Coronary Artery Disease (CAD), Cancer, Diabetes Mellitus, Hyperlipidemia, Hypertension, Myocardial Infarction (PR), Prostate Disorder, Sleep Apnea/CPAP/BIPAP Additional Past Medical History / Comment(s): HEART MURMUR. RENAL CALCULI. PROSTATE CA. SKIN CA. PERIPHERAL NEUROPATHY. CORNEAL DYSTROPHY. BACK PAIN History of Any Multi-Drug Resistant Organisms: None Reported Past Surgical History: Heart Catheterization With Stent Additional Past Surgical History / Comment(s): SEBASTIAN. CATARACATS REM. PAIN CLINIC INJECTIONS. SKIN CANCER REMOVAL FROM NOSE. Stent to PLV May 2023, Stent to distal RCA 02/21/2024 Past Anesthesia/Blood Transfusion Reactions: No Reported Reaction Date of Last Stent Placement:: 02/21/24 Past Psychological History: No Psychological Hx Reported Smoking Status: Former smoker Past Alcohol Use History: None Reported Past Drug Use History: None Reported - Past Family History Mother Family Medical History: Diabetes Mellitus, Myocardial Infarction (PR) Additional Family Medical History / Comment(s): CABG Sister(s) Family Medical History: Coronary Artery Disease (CAD), Myocardial Infarction (PR) Additional Family Medical History / Comment(s): DOUBLE BYPASS SURGERY Medications and Allergies Home Medications Medication Instructions Recorded Confirmed Type Fluticasone Nasal [place] [Flonase 1 spr EA NOSTRIL DAILY 06/04/23 02/24/24 History Nasal [place]] Tamsulosin [Flomax] 0.4 mg PO DAILY 06/04/23 02/24/24 History cycloSPORINE 0.05% OPHTH SOLN 1 drop BOTH EYES Q12H 06/04/23 02/24/24 History [Restasis] prednisoLONE ACETATE 1% OPHTH 1 drop BOTH EYES BID 06/04/23 02/24/24 History [Pred Forte 1%] Empagliflozin [Jardiance] 25 mg PO DAILY 02/21/24 02/24/24 History Ezetimibe [Zetia] 10 mg PO DAILY 02/21/24 02/24/24 History Potassium Chloride [Klor-Con M20] 20 meq PO DAILY 02/21/24 02/24/24 History Aspirin [Adult Low Dose Aspirin EC] 81 mg PO DAILY #30 tab 02/23/24 02/24/24 Rx Atorvastatin [Lipitor] 80 mg PO HS 30 Days #30 tab 02/23/24 02/24/24 Rx Docusate Oral Soln [Colace Oral 100 mg PO BID PRN 3 Days #60 ml 02/23/24 02/24/24 Rx Soln] Ticagrelor [Brilinta] 90 mg PO BID #60 tab 02/23/24 02/24/24 Rx Nitroglycerin Sl Tabs [Nitrostat] 0.4 mg SL Q5M PRN 02/24/24 02/24/24 History Allergies Allergy/AdvReac Type Severity Reaction Status Date / Time Iodinated Contrast Media Allergy Severe Swelling Verified 02/24/24 17:51 Surgical - Exam Vital Signs Temp Pulse Resp BP Pulse Ox 98.0 F 69 18 126/75 98 02/24/24 17:46 02/24/24 17:46 02/24/24 17:46 02/24/24 17:46 02/24/24 17:46 CONSTITUTIONAL: Awake and alert, appears comfortable, cooperative, well- developed, well-nourished, no pain, no acute distress EYES: Pupils equal, round, reactive to light, normal ocular movement ENT: Moist mucous membranes without oral lesions present NECK: No masses, no bruits, trachea midline RESPIRATORY: Lungs sounds clear to auscultation bilaterally. Respirations even, nonlabored. Currently on room air with oxygen saturation 96%. Strong cough. No chest wall deformities. No clubbing or cyanosis present CARDIOVASCULAR: S1, S2 present. Regular rate and rhythm, sinus rhythm on telemetry. Palpable peripheral pulses bilaterally. No edema present. No calf pain or tenderness noted. No significant lower extremity varicosities noted GASTROINTESTINAL: Abdomen soft, nontender, nondistended without masses or organomegaly noted. There is no rebound or guarding present. Active bowel sounds present 4 quadrants. GENITOURINARY: Deferred INTEGUMENTARY: Skin is warm and dry with evidence of good perfusion. NEUROLOGIC: Cranial nerves II through XII intact, normal coordination, no obvious motor or sensory deficits, speech is normal MUSKULOSKELETAL: Able to move all extremities, strength equal bilaterally, normal posture PSYCHIATRIC: Alert and oriented to person place and time, appropriate affect, intact judgment and insight CLINICAL FRAILTY SCORE 3 Results - Labs 02/28/24 04:42 02/28/24 04:42 Abnormal Lab Results - Last 24 Hours (Table) 02/25/24 02/25/24 02/25/24 Range/Units 09:14 09:14 15:42 Hgb (13.0-17.5) gm/dL Plt Count (150-450) k/uL Lymphocytes # (1.0-4.8) k/uL APTT 38.1 H (22.0-30.0) sec Chloride (98-107) mmol/L Carbon Dioxide (22-30) mmol/L BUN (9-20) mg/dL Glucose (74-99) mg/dL POC Glucose (mg/dL) 218 H (70-110) mg/dL Troponin I 16.000 H* (0.000-0.034) ng/mL Urine Glucose (UA) (Negative) 02/25/24 02/25/24 02/25/24 Range/Units 16:47 20:45 20:51 Hgb (13.0-17.5) gm/dL Plt Count 147 L (150-450) k/uL Lymphocytes # 0.4 L (1.0-4.8) k/uL APTT (22.0-30.0) sec Chloride (98-107) mmol/L Carbon Dioxide (22-30) mmol/L BUN (9-20) mg/dL Glucose (74-99) mg/dL POC Glucose (mg/dL) 255 H 133 H (70-110) mg/dL Troponin I (0.000-0.034) ng/mL Urine Glucose (UA) (Negative) 02/25/24 02/26/24 02/26/24 Range/Units 21:55 05:27 05:27 Hgb 12.9 L (13.0-17.5) gm/dL Plt Count 146 L (150-450) k/uL Lymphocytes # (1.0-4.8) k/uL APTT (22.0-30.0) sec Chloride 111 H (98-107) mmol/L Carbon Dioxide 21 L (22-30) mmol/L BUN 22 H (9-20) mg/dL Glucose 107 H (74-99) mg/dL POC Glucose (mg/dL) (70-110) mg/dL Troponin I (0.000-0.034) ng/mL Urine Glucose (UA) 1+ H (Negative) 02/26/24 Range/Units 06:26 Hgb (13.0-17.5) gm/dL Plt Count (150-450) k/uL Lymphocytes # (1.0-4.8) k/uL APTT (22.0-30.0) sec Chloride (98-107) mmol/L Carbon Dioxide (22-30) mmol/L BUN (9-20) mg/dL Glucose (74-99) mg/dL POC Glucose (mg/dL) 112 H (70-110) mg/dL Troponin I (0.000-0.034) ng/mL Urine Glucose (UA) (Negative) Diabetes panel 02/25/24 02/26/24 Range/Units 03:40 05:27 Sodium 137 (137-145) mmol/L Potassium 4.0 (3.5-5.1) mmol/L Chloride 111 H (98-107) mmol/L Carbon Dioxide 21 L (22-30) mmol/L BUN 22 H (9-20) mg/dL Creatinine 0.93 (0.66-1.25) mg/dL Glucose 107 H (74-99) mg/dL Calcium 9.0 (8.4-10.2) mg/dL Triglycerides 118.00 (0.00-149.00) mg/dL HDL Cholesterol 43.80 (40.00-60.00) mg/dL Thyroid panel 02/25/24 Range/Units 09:14 TSH 1.290 (0.465-4.680) mIU/L Calcium panel 02/26/24 Range/Units 05:27 Calcium 9.0 (8.4-10.2) mg/dL Pituitary panel 02/25/24 02/26/24 Range/Units 09:14 05:27 Sodium 137 (137-145) mmol/L Potassium 4.0 (3.5-5.1) mmol/L Chloride 111 H (98-107) mmol/L Carbon Dioxide 21 L (22-30) mmol/L BUN 22 H (9-20) mg/dL Creatinine 0.93 (0.66-1.25) mg/dL Glucose 107 H (74-99) mg/dL Calcium 9.0 (8.4-10.2) mg/dL TSH 1.290 (0.465-4.680) mIU/L Adrenal panel 02/26/24 Range/Units 05:27 Sodium 137 (137-145) mmol/L Potassium 4.0 (3.5-5.1) mmol/L Chloride 111 H (98-107) mmol/L Carbon Dioxide 21 L (22-30) mmol/L BUN 22 H (9-20) mg/dL Creatinine 0.93 (0.66-1.25) mg/dL Glucose 107 H (74-99) mg/dL Calcium 9.0 (8.4-10.2) mg/dL - Imaging Chest x-ray: report reviewed, image reviewed EKG: image reviewed Additional studies: Heart catheterization and echocardiogram films to be reviewed with Dr. Boston Assessment and Plan Assessment: Chest pain, non-STEMI this admission Coronary artery disease with recent STEMI and PCI Mild to moderate aortic stenosis Hypertension Hyperlipidemia Diabetes Obstructive sleep apnea Prostate cancer Previous tobacco dependence Family history of coronary artery disease Plan: The patient was seen and examined yesterday in the Extended Stay unit with family present. Chart/diagnostics were reviewed. The case was discussed with Dr. Boston who will be here today to evaluate the patient. The usual perioperative course of open-heart surgery was discussed with the patient and his , risk and benefits were reviewed, all questions were answered. The patient does consent to surgery if that is deemed to be the most appropriate course. He would need to be off Brilinta for 5 to 7 days prior to surgery. Preoperative testing was initiated, STS risk score was calculated and the patient would be considered low risk for surgery. Will perform 5 m walk test. Recommend continuing aspirin, statin, initiating beta-chad therapy. Medical management of other comorbidities per internal medicine, cardiology. Once bedside spirometry completed we will consult pulmonology for clearance. More recommendations to follow once Dr. Boston has evaluated the patient. Thank you Dr. Bella for this consult. I have personally seen and examined the patient, performed the documentation and the assessment and plan as written. Number of minutes spent on the visit: 30. MATT Snow Attending Addendum: Pt seen and evaluated with BINDERY TECHNICIAN above. Agree with her assessment and plan. This is a 68 year-old M with a recent STEMI and distal RCA stent who presents with chest pain. He is diagnosed with NSTEMI and angiography reveals progression of 3v CAD with LAD, diagonal, RAMUS/OM disease. On the right side the PDA is jailed by the RCA stent and there is new tubular stenosis on the WESLEY proximal to a previously placed stent in 2022. We will hold his brillinta and plan for CABG this admission. I spent 60 minutes reviewing his brad a and discussing plan of care with the patient and the care team. Time with Patient: Greater than 30
[2024-02-26] MEDS: ASPIRIN 81 MG PO SCH (08:31)
[2024-02-26] MEDS: cycloSPORINE 0.05% OPHTH 0.4 ML DROPERETTE BOTH EYES SCH (08:34)
[2024-02-26 11:26] LABS: Glucose,Whole Blood 96 mg/dL (70-110)
[2024-02-26] MEDS ORDERED: ZINC OXIDE PASTE (Z-GUARD) 1 APPLIC TOPICAL PRN (11:48)
--- NOTE | 2024-02-26 14:51 | P.PN ---
Subjective Progress Note Date: 02/26/24 68-year-old male with a PMH of recent acute STEMI on 02/20 status post PCI to RCA with moderate to severe disease of LAD and left circumflex, type II DM, hypertension, hyperlipidemia, BPH who presents to the emergency room with complaints of chest pain. The patient was discharged from the hospital yesterda y morning and notes that his pain suddenly started again today at around 4 PM, 4 out of 10 at maximal intensity, left-sided with radiation down into the left arm. Notes that the pain is a lot less severe than his initial episode that brought him to the hospital 4 days ago. He took multiple nitroglycerins at home with minimal relief. At time of interview, notes that the pain is a 2 out of 10, aching in nature, with no alleviating or exacerbating features and nonpleuritic. Denies experiencing nausea, vomiting, diaphoresis, or dizziness. Denies experiencing fever, chills, abdominal pain. EKG upon arrival to the emergency room revealed sinus rhythm with first-degree AV block at [address] segment depression in the precordial leads V3 to V6 with diffuse T wave inversions in inferior leads and precordial leads V5 and V6. Subsequent EKG revealed a HR of 58 but otherwise was essentially unchanged from that obtained upon arrival. Laboratory evaluation was remarkable for platelet count 141, troponin 6.860, and subsequently 9.200, chloride 109, proBNP 1430, BUN 23, creatinine 0.94 with D-dimer 0.5. 02/26/2024 Patient is seen and evaluated sitting up in bed; no specific complaints reported -Patient is status post cardiac catheterization and was found to have patent stent in the RCA with severe disease involving the left coronary system; patient is not felt to be a good candidate for PCI CABG is recommended -- Cardiothoracic surgery consulted Objective - Vital Signs Vital signs: Vital Signs Temp 97.9 F 02/26/24 08:00 Pulse 70 02/26/24 11:00 Resp 15 02/26/24 11:00 BP 126/76 02/26/24 11:00 Pulse Ox 99 02/26/24 11:00 FiO2 Intake & Output 02/25/24 02/26/24 02/26/24 18:59 06:59 18:59 Intake Total 468.676 832 620 Output Total 500 725 500 Balance -31.324 107 120 Weight 106.4 kg 101.1 kg Intake: IV 320 150 20 Invasive Line 1 10 10 Invasive Line 2 10 10 Sodium Chloride 0.9% 1, 150 150 000 ml @ 75 mls/hr IV . [id number] [facility] Rx#:[id number] Intake, IV Titration 148.676 82 Amount Heparin Sod,Pork in 0.45% 148.676 NaCl 25,000 unit In 0.45 % NaCl 1 250ml.bag @ 9. 886 UNITS/KG/HR 10 mls/hr IV .Q24H [facility] Rx#: [id number] Heparin Sod,Pork in 0.45% 82 NaCl 25,000 unit In 0.45 % NaCl 1 250ml.bag @ 9. 891 UNITS/KG/HR 10 mls/hr IV .Q24H [facility] Rx#: [id number] Oral 600 600 Output: Urine 500 725 500 Other: Voiding Method Urinal Urinal Urinal # Bowel Movements 0 0 1 - Exam General: non toxic, no distress, appears at stated age, overweight Derm: no unusual rashes/lesions, warm Head: atraumatic, normocephalic, symmetric Eyes: EOMI, no lid lag, anicteric sclera, pupils equal round reactive to light ENT: Nose and ears atraumatic Neck: No cervical lymphadenopathy, trachea midline, supple Mouth: no lip lesion, mucus membranes moist Cardiovascular: S1S2 reg, no murmur, positive dorsalis pedis pulse bilateral, no edema Lungs: CTA bilateral, no rhonchi, no rales, no accessory muscle use Abdominal: soft, nontender to palpation, no guarding Ext: muscle strength 5 out of 5 in all 4 extremities grossly, no gross muscle atrophy, no contractures, - Labs CBC & Chem 7: 02/26/24 05:27 02/26/24 05:27 Labs: Abnormal Lab Results - Last 24 Hours (Table) 02/25/24 02/25/24 02/25/24 Range/Units 15:42 16:47 20:45 Hgb (13.0-17.5) gm/dL Plt Count 147 L (150-450) k/uL Lymphocytes # 0.4 L (1.0-4.8) k/uL Chloride (98-107) mmol/L Carbon Dioxide (22-30) mmol/L BUN (9-20) mg/dL Glucose (74-99) mg/dL POC Glucose (mg/dL) 218 H 255 H (70-110) mg/dL Urine Glucose (UA) (Negative) 02/25/24 02/25/24 02/26/24 Range/Units 20:51 21:55 05:27 Hgb 12.9 L (13.0-17.5) gm/dL Plt Count 146 L (150-450) k/uL Lymphocytes # (1.0-4.8) k/uL Chloride (98-107) mmol/L Carbon Dioxide (22-30) mmol/L BUN (9-20) mg/dL Glucose (74-99) mg/dL POC Glucose (mg/dL) 133 H (70-110) mg/dL Urine Glucose (UA) 1+ H (Negative) 02/26/24 02/26/24 Range/Units 05:27 06:26 Hgb (13.0-17.5) gm/dL Plt Count (150-450) k/uL Lymphocytes # (1.0-4.8) k/uL Chloride 111 H (98-107) mmol/L Carbon Dioxide 21 L (22-30) mmol/L BUN 22 H (9-20) mg/dL Glucose 107 H (74-99) mg/dL POC Glucose (mg/dL) 112 H (70-110) mg/dL Urine Glucose (UA) (Negative) Assessment and Plan Assessment: 1. Non-ST elevated SC with troponins trending upward 2. Recent acute inferior ST elevated SC status post emergent catheterization and PCI of the RCA, mild to moderate disease involving the left coronary system 3. Hypertension 4. Hyperlipidemia 5. Diabetes mellitus type 2 6. Obstructive sleep apnea on CPAP Resume patient's home cardiac medications including Brilinta Schedule patient for cardiac catheterization today with Dr. Bella Obtain limited 2-D echocardiogram and Doppler study to assess cardiac structure and function -- continue home medications
[2024-02-26] MEDS: SENNOSIDES-DOCUSATE SODIUM 1 EACH TAB PO PRN (15:03)
[2024-02-26] MEDS: LORATADINE 10 MG TAB PO SCH (15:09)
[2024-02-26 16:09] LABS: Glucose,Whole Blood 114 mg/dL (70-110)
[2024-02-26 20:17] LABS: Glucose,Whole Blood 101 mg/dL (70-110)
[2024-02-26] MEDS: METOPROLOL TARTRATE 12.5 MG TAB PO SCH (20:35)
[2024-02-27 04:06] LABS: Basophils # (A) 0.1 k/uL (0-0.2); Basophils % (A) 1 %; Eosinophils # (A) 0.1 k/uL (0-0.7); Eosinophils % (A) 2 %; HCT 39.5 % (39.0-53.0); HGB 13.2 gm/dL (13.0-17.5); Lymphocytes # (A) 1.2 k/uL (1.0-4.8); Lymphocytes % (A) 19 %; MCH 30.7 pg (25.0-35.0); MCHC 33.3 g/dL (31.0-37.0); MCV 92.1 fL (80.0-100.0); Mean Platelet Volume 7.9; Monocytes # (A) 0.3 k/uL (0-1.0); Monocytes % (A) 5 %; Neutrophils # (A) 4.4 k/uL (1.3-7.7); Neutrophils % (A) 72 %; Platelet Count 130 k/uL (150-450); RBC 4.29 m/uL (4.30-5.90); RDW 13.7 % (11.5-15.5); WBC 6.2 k/uL (3.8-10.6)
[2024-02-27 04:19] LABS: African American GFR (CKD) >90 (>60 ml/min/1.73 sqM); Anion Gap 6 mmol/L; Blood Urea Nitrogen 20 mg/dL (9-20); Calcium 8.8 mg/dL (8.4-10.2); Carbon Dioxide 21 mmol/L (22-30); Chloride 110 mmol/L (98-107); Glucose 91 mg/dL (74-99); Non-African American GFR(CKD) 83 (>60 ml/min/1.73 sqM); Potassium 4.4 mmol/L (3.5-5.1); Sodium 137 mmol/L (137-145)
[2024-02-27 06:25] LABS: Glucose,Whole Blood 106 mg/dL (70-110)
--- NOTE | 2024-02-27 07:54 | P.PN ---
Subjective Progress Note Date: 02/27/24 Principal diagnosis: Chest pain, non-STEMI this admission. History of coronary artery disease with recent STEMI and PCI, mild to moderate aortic stenosis, hypertension, hyperlipidemia, diabetes, obstructive sleep apnea, prostate cancer, previous tobacco dependence, family history of coronary artery disease The patient was seen and examined sitting up in recliner in the intensive care unit in no acute distress. Denies any chest pain or increased shortness of breath in the last 24 hours, he does state he did a couple of laps around the hallway and did okay, no chest pain. Remains in sinus rhythm, hemodynamically stable although blood pressure is a bit soft this morning, mean arterial pressure was normal. Remains on IV heparin and nitro. Labs reviewed. Patient was seen yesterday by Dr. Boston with recommendations for off-pump coronary artery bypass surgery this admission, tentatively we are planning on surgery Wednesday. This was discussed with the patient and his and they are in agreement, this was also discussed between Dr. Boston and Dr. Bella. Brilinta dis continued yesterday, needs to stay off Brilinta in preparation for surgery. No other new concerns. Objective - Vital Signs Vital signs: Vital Signs Temp 97.2 F L 02/27/24 04:00 Pulse 65 02/27/24 07:00 Resp 22 02/27/24 07:00 BP 94/66 02/27/24 07:00 Pulse Ox 95 02/27/24 07:00 FiO2 21 02/26/24 16:18 Intake & Output 02/26/24 02/27/24 02/27/24 18:59 06:59 18:59 Intake Total 1284.482 249.018 Output Total 501 1925 0 Balance 783.482 -1675.982 0 Weight 106.3 kg 108.9 kg Intake: IV 60 Invasive Line 1 30 Invasive Line 2 30 Intake, IV Titration 144.482 249.018 Amount Heparin Sod,Pork in 0.45% 111.432 249.018 NaCl 25,000 unit In 0.45 % NaCl 1 250ml.bag @ 9. 891 UNITS/KG/HR 10 mls/hr IV .Q24H [facility] Rx#: [id number] Nitroglycerin-D5w Pmx 50 33.05 mg In Dextrose/Water 1 250ml.bag @ 5 MCG/MIN 1.5 mls/hr IV .Q24H [facility] Rx#: [id number] Oral 1080 Output: Urine 501 1925 0 Other: Voiding Method Urinal Urinal # Bowel Movements 0 - Exam CONSTITUTIONAL: Appears comfortable, cooperative, no acute distress RESPIRATORY: Lungs sounds diminished bilaterally. Respirations even, nonlabored. Currently on room air with oxygen saturation 95%. Able to achieve 2000 mL on incentive spirometry. Strong cough. CARDIOVASCULAR: S1, S2 present. Regular rate and rhythm, sinus rhythm on telemetry. Palpable peripheral pulses bilaterally. No edema present. No calf pain or tenderness noted GASTROINTESTINAL: Abdomen soft, nontender, nondistended. Active bowel sounds present 4 quadrants. Tolerating diet GENITOURINARY: Continues to void clear, yellow urine INTEGUMENTARY: Skin is warm and dry with evidence of good perfusion NEUROLOGIC: Cranial nerves II through XII intact MUSKULOSKELETAL: Able to move all extremities, strength equal bilaterally, gait normal PSYCHIATRIC: Alert and oriented to person place and time, appropriate affect, intact judgment and insight - Allied health notes Allied health notes reviewed: nursing - Labs CBC & Chem 7: 02/27/24 03:13 02/27/24 03:13 Labs: Abnormal Lab Results - Last 24 Hours (Table) 02/26/24 02/26/24 02/26/24 Range/Units 13:45 16:08 21:00 RBC (4.30-5.90) m/uL Plt Count (150-450) k/uL APTT 33.6 H 43.5 H (22.0-30.0) sec Chloride (98-107) mmol/L Carbon Dioxide (22-30) mmol/L POC Glucose (mg/dL) 114 H (70-110) mg/dL 02/27/24 02/27/24 02/27/24 Range/Units 03:13 03:13 03:13 RBC 4.29 L (4.30-5.90) m/uL Plt Count 130 L (150-450) k/uL APTT 42.6 H (22.0-30.0) sec Chloride 110 H (98-107) mmol/L Carbon Dioxide 21 L (22-30) mmol/L POC Glucose (mg/dL) (70-110) mg/dL Assessment and Plan Assessment: Chest pain, non-STEMI this admission Coronary artery disease with recent STEMI and PCI Mild to moderate aortic stenosis Hypertension Hyperlipidemia, treated, cholesterol 123, LDL 56 Diabetes, hemoglobin A1c 5.6% Obstructive sleep apnea Prostate cancer Previous tobacco dependence, preoperative FEV1 83% of predicted Family history of coronary artery disease Plan: Continue to maximize medical therapy with aspirin, statin, Zetia, beta-chad with hold parameters. Continue IV heparin and nitro Encourage incentive spirometry use Increase activity as tolerated Continue preoperative teaching Tentatively our plan is for off-pump coronary artery bypass with left internal mammary, endoscopic vein harvest and left radial artery harvest, ligation of the left atrial appendage by Dr. Boston on Wednesday,March 03, 2024 Continue to hold Brilinta, last dose February 26, 2024 Medical management of other comorbidities per internal medicine, cardiology More recommendations to follow
--- NOTE | 2024-02-27 08:04 | P.PN ---
Subjective Progress Note Date: 02/27/24 Principal diagnosis: Acute non-ST elevation myocardial infarction The patient is a pleasant 68-year-old gentleman with coronary artery disease status post PCI of the RCA and PLV branch of the RCA as well as aortic stenosis and hypertension and dyslipidemia who was admitted to the hospital few days ago with acute inferior ST elevation myocardial infarction and underwent a heart catheterization and PCI of the RCA. He presented back to the hospital complaining of chest discomfort concerning for angina and he was ruled in for acute coronary syndrome with uprising troponin. He underwent a heart catheterization and was found to have patent stent in the RCA with severe diseas e involving the left coronary system felt to be not a good candidate for PCI and good candidate for CABG. Surgery was consulted. February 26, 2024 The patient was seen and evaluated this morning. He is asymptomatic at this point. He is hemodynamically stable. He continues to be on dual antiplatelet therapy along with high intensity statin along with anti-ischemic medication and also he is on heparin IV. We are waiting for the surgeon to see the patient and evaluate the angiogram. Meanwhile continue the current medical regimen. Examination is remarkable for regular rhythm with a systolic murmur and clear breathing sounds bilaterally and no carotid bruit and no edema was noted February 27, 2024 The patient was seen and evaluated this morning. He is asymptomatic. The pressure has been marginal but he continues to be on nitro drip which I am going to wean him from. He is on heparin IV. Currently oral antiplatelet has been stopped for plan to undergo CABG in the next few days. No pain in the chest and no shortness of breath. He is euvolemic and not in heart failure. The examination is remarkable for marginally low blood pressure and heart rate with regular rate and rhythm and systolic murmur and clear breathing sounds bilaterally and no edema was noted Assessment Coronary artery disease as described above Aortic stenosis appears to be mild to moderate Multiple comorbid conditions including hypertension and dyslipidemia Plan Continue the current medical regimen including heparin IV Continue holding dual antiplatelet therapy and anticipating open heart surgery in the next few days Try to wean the patient from nitro drip Continue statin Follow-up with the patient Objective - Vital Signs Vital signs: Vital Signs Temp 97.2 F L 02/27/24 04:00 Pulse 65 02/27/24 07:00 Resp 22 02/27/24 07:00 BP 94/66 02/27/24 07:00 Pulse Ox 95 02/27/24 07:00 FiO2 21 02/26/24 16:18 Intake & Output 02/26/24 02/27/24 02/27/24 18:59 06:59 18:59 Intake Total 1284.482 249.018 Output Total 501 1925 0 Balance 783.482 -1675.982 0 Weight 106.3 kg 108.9 kg Intake: IV 60 Invasive Line 1 30 Invasive Line 2 30 Intake, IV Titration 144.482 249.018 Amount Heparin Sod,Pork in 0.45% 111.432 249.018 NaCl 25,000 unit In 0.45 % NaCl 1 250ml.bag @ 9. 891 UNITS/KG/HR 10 mls/hr IV .Q24H [facility] Rx#: [id number] Nitroglycerin-D5w Pmx 50 33.05 mg In Dextrose/Water 1 250ml.bag @ 5 MCG/MIN 1.5 mls/hr IV .Q24H [facility] Rx#: [id number] Oral 1080 Output: Urine 501 1925 0 Other: Voiding Method Urinal Urinal # Bowel Movements 0 - Labs CBC & Chem 7: 02/27/24 03:13 02/27/24 03:13 Labs: Abnormal Lab Results - Last 24 Hours (Table) 02/26/24 02/26/24 02/26/24 Range/Units 13:45 16:08 21:00 RBC (4.30-5.90) m/uL Plt Count (150-450) k/uL APTT 33.6 H 43.5 H (22.0-30.0) sec Chloride (98-107) mmol/L Carbon Dioxide (22-30) mmol/L POC Glucose (mg/dL) 114 H (70-110) mg/dL 02/27/24 02/27/24 02/27/24 Range/Units 03:13 03:13 03:13 RBC 4.29 L (4.30-5.90) m/uL Plt Count 130 L (150-450) k/uL APTT 42.6 H (22.0-30.0) sec Chloride 110 H (98-107) mmol/L Carbon Dioxide 21 L (22-30) mmol/L POC Glucose (mg/dL) (70-110) mg/dL
[2024-02-27] MEDS: SENNOSIDES-DOCUSATE SODIUM 1 EACH TAB PO PRN (08:17)
[2024-02-27] MEDS ORDERED: LORATADINE 10 MG TAB PO SCH (09:00)
[2024-02-27] MEDS: MUPIROCIN 2% OINT 22 GM TUBE NASAL SCH (11:29)
[2024-02-27] MEDS: NITROGLYCERIN-D5W PMX 50 MG in DEXTROSE/WATER 1 250ML.BAG IV SCH (11:32)
[2024-02-27 11:33] LABS: Glucose,Whole Blood 102 mg/dL (70-110)
--- NOTE | 2024-02-27 11:40 | P.CNPUL ---
History of Present Illness Consult date: 02/27/24 Requesting physician: Craig Boston Reason for consult: other (Critical care management) Chief complaint: Chest pain History of present illness: This is a very pleasant 68-year-old male patient with a history of prostate cancer with previous radiation, coronary disease with previous stent placement, hypertension, hyperlipidemia, diabetes mellitus, obstructive sleep apnea utilizing CPAP, former smoker. He had presented here to the emergency room on 02/21/2024 with complaints of chest pain. He was found to have a ST segment elevation myocardial infarction and had undergone stenting to the distal RCA with aspiration thrombectomy. He recovered and was discharged home on 02/23/2024. He was prescribed Brilinta. Echocardiogram had revealed mild to moderate LV left ventricular systolic dysfunction with ejection fraction of 40 to 45%. He came back to the emergency room on 02/24/2024 with recurrent chest pain. He was found to have a new non-ST segment elevation myocardial infarction's with u ptrending troponins. Repeat echocardiogram revealed an ejection fraction of 45%. Repeat cardiac catheterization on 02/25/2024 revealed patent stent to the distal RCA. There was an ulcerated plaque involving the left main coronary artery with intermediate to severe disease involving the left circumflex and left anterior descending artery with complex lesion/bifurcation lesions. He is recommended coronary artery bypass grafting which is tentatively planned for March 03, 2024 after being off his Brilinta. He is seen today in consultation in the intensive care unit. He is currently sitting up in a chair. Awake and alert in no acute distress. Maintaining good O2 saturations in the 90s on room air. He remains on a heparin drip. He had a troponin peak of 16.0. Chest x- ray revealed borderline cardiomegaly. Mild interstitial density reflecting mild pulmonary vascular congestion. White count 6.2. Hemoglobin 13.2. Platelets 130. Sodium 137. Potassium 4.4. Bicarb 21. BUN 20. Creatinine 0.94. Review of Systems REVIEW OF SYSTEMS: CONSTITUTIONAL: Denies any recent significant weight loss or weight gain. EYES: Denies change in vision. EARS, NOSE, MOUTH, THROAT: Denies headaches, denies sore throat. CARDIOVASCULAR: Positive for chest pain, no palpitations or syncopal episodes. RESPIRATORY: Denies shortness of breath, cough, congestion or hemoptysis. GASTROINTESTINAL: Denies change in appetite, denies abdominal pain GENITOURINARY: Denies hematuria, denies infections. MUSKULOSKELETAL: Denies pain, denies swelling. INTEGUMENTARY: Denies rash, denies eczema. NEUROLOGICAL: Denies recent memory loss, no recent seizure activity. PSYCHIATRIC: Denies anxiety, denies depression. HEMATOLOGIC/LYMPHATIC: Denies anemia, denies enlarged lymph nodes. Past Medical History Past Medical History: Coronary Artery Disease (CAD), Cancer, Diabetes Mellitus, Hyperlipidemia, Hypertension, Myocardial Infarction ([place]), Prostate Disorder, Sleep Apnea/CPAP/BIPAP Additional Past Medical History / Comment(s): HEART MURMUR. RENAL CALCULI. PROSTATE CA. SKIN CA. PERIPHERAL NEUROPATHY. CORNEAL DYSTROPHY. BACK PAIN History of Any Multi-Drug Resistant Organisms: None Reported Past Surgical History: Heart Catheterization With Stent Additional Past Surgical History / Comment(s): SEBASTIAN. CATARACATS REM. PAIN CLINIC INJECTIONS. SKIN CANCER REMOVAL FROM NOSE. Stent to PLV May 2023, Stent to distal RCA 02/21/2024 Past Anesthesia/Blood Transfusion Reactions: No Reported Reaction Date of Last Stent Placement:: 02/21/24 Past Psychological History: No Psychological Hx Reported Smoking Status: Former smoker Past Alcohol Use History: None Reported Past Drug Use History: None Reported - Past Family History Mother Family Medical History: Diabetes Mellitus, Myocardial Infarction ([place]) Additional Family Medical History / Comment(s): CABG Sister(s) Family Medical History: Coronary Artery Disease (CAD), Myocardial Infarction ([place]) Additional Family Medical History / Comment(s): DOUBLE BYPASS SURGERY Medications and Allergies Home Medications Medication Instructions Recorded Confirmed Type Fluticasone Nasal [place] [Flonase 1 spr EA NOSTRIL DAILY 06/04/23 02/24/24 History Nasal [place]] Tamsulosin [Flomax] 0.4 mg PO DAILY 06/04/23 02/24/24 History cycloSPORINE 0.05% OPHTH SOLN 1 drop BOTH EYES Q12H 06/04/23 02/24/24 History [Restasis] prednisoLONE ACETATE 1% OPHTH 1 drop BOTH EYES BID 06/04/23 02/24/24 History [Pred Forte 1%] Empagliflozin [Jardiance] 25 mg PO DAILY 02/21/24 02/24/24 History Ezetimibe [Zetia] 10 mg PO DAILY 02/21/24 02/24/24 History Potassium Chloride [Klor-Con M20] 20 meq PO DAILY 02/21/24 02/24/24 History Aspirin [Adult Low Dose Aspirin EC] 81 mg PO DAILY #30 tab 02/23/24 02/24/24 Rx Atorvastatin [Lipitor] 80 mg PO HS 30 Days #30 tab 02/23/24 02/24/24 Rx Docusate Oral Soln [Colace Oral 100 mg PO BID PRN 3 Days #60 ml 02/23/24 0 02/24/24 Rx Soln] Ticagrelor [Brilinta] 90 mg PO BID #60 tab 02/23/24 02/24/24 Rx Nitroglycerin Sl Tabs [Nitrostat] 0.4 mg SL Q5M PRN 02/24/24 02/24/24 History Allergies Allergy/AdvReac Type Severity Reaction Status Date / Time Iodinated Contrast Media Allergy Severe Swelling Verified 02/24/24 17:51 Physical Exam Vitals: Vital Signs Temp Pulse Resp BP Pulse Ox FiO2 02/27/24 11:26 96 21 02/27/24 11:00 60 21 104/74 97 02/27/24 10:00 58 L 20 96/61 96 02/27/24 09:00 59 L 19 118/66 95 02/27/24 08:48 98 02/27/24 08:00 98.2 F 69 16 111/70 95 02/27/24 07:00 65 22 94/66 95 02/27/24 06:00 52 L 8 L 84/67 95 02/27/24 05:00 49 L 17 104/72 94 L 02/27/24 04:00 97.2 F L 56 L 8 L 103/64 96 02/27/24 03:00 53 L 13 92/64 95 02/27/24 02:00 56 L 16 102/68 95 02/27/24 01:00 57 L 18 99/59 94 L 02/27/24 00:00 97.9 F 59 L 20 102/69 95 02/26/24 23:00 56 L 12 111/63 94 L 02/26/24 22:12 51 L 23 103/69 96 02/26/24 22:00 51 L 10 L 105/66 96 02/26/24 21:00 57 L 117/70 93 L 02/26/24 20:00 97.7 F 69 16 129/80 94 L 02/26/24 19:00 74 25 H 121/78 95 02/26/24 18:00 73 23 116/72 96 02/26/24 17:00 72 14 111/72 95 02/26/24 16:18 96 21 02/26/24 16:00 97.9 F 71 16 114/70 98 02/26/24 15:21 65 14 132/85 96 02/26/24 14:00 71 27 H 113/62 96 02/26/24 13:00 71 25 H 129/75 97 02/26/24 12:00 69 22 127/79 97 Intake and Output 02/26/24 02/27/24 02/27/24 22:59 06:59 14:59 Intake Total 260 322.519 1467.025 Output Total 451 1925 224 Balance -191 -1802.325 8300.025 Intake: IV 20 20 Invasive Line 1 10 10 Invasive Line 2 10 10 Intake, IV Titration 249.018 28.025 Amount Heparin Sod,Pork in 0.45% 249.018 NaCl 25,000 unit In 0.45 % NaCl 1 250ml.bag @ 9. 891 UNITS/KG/HR 10 mls/hr IV .Q24H [facility] Rx#: [id number] Nitroglycerin-D5w Pmx 50 28.025 mg In Dextrose/Water 1 250ml.bag @ 5 MCG/MIN 1.5 mls/hr IV .Q24H [facility] Rx#: [id number] Oral 240 1200 Output: Urine 451 1925 224 Other: Voiding Method Urinal Urinal Urinal # Bowel Movements 0 0 Weight 108.9 kg GENERAL EXAM: Alert, pleasant 68-year-old male, on room air, up in a chair, comfortable in no apparent distress. HEAD: Normocephalic. EYES: Normal reaction of pupils, equal size. NOSE: Clear with pink turbinates. THROAT: No erythema or exudates. NECK: No masses, no JVD. CHEST: No chest wall deformity. LUNGS: Equal air entry with no crackles, wheeze, rhonchi or dullness. CVS: S1 and S2 normal with no audible murmur, regular rhythm. ABDOMEN: No hepatosplenomegaly, normal bowel sounds, no guarding or rigidity. SPINE: No scoliosis or deformity SKIN: No rashes CENTRAL NERVOUS SYSTEM: No focal deficits, tone is normal in all 4 extremities. EXTREMITIES: There is no peripheral edema. No clubbing, no cyanosis. Peripheral pulses are intact. Results - Laboratory Findings CBC and BMP: 02/27/24 03:13 02/27/24 03:13 PT/INR, D-dimer PT 10.7 sec (10.0-12.5) 02/26/24 05:26 INR 1.0 (<1.2) 02/26/24 05:26 D-Dimer 0.50 mg/L FEU (<0.60) 02/24/24 17:53 Abnormal lab findings: Abnormal Labs 02/24/24 02/24/24 02/24/24 17:53 17:53 17:53 RBC Hgb Plt Count 141 L Lymphocytes # APTT Chloride 109 H Carbon Dioxide BUN 23 H Glucose POC Glucose (mg/dL) AST 82 H Troponin I 6.860 H* Urine Glucose (UA) 02/24/24 02/24/24 02/25/24 21:04 21:04 03:40 RBC Hgb Plt Count Lymphocytes # APTT 55.4 H Chloride Carbon Dioxide BUN Glucose POC Glucose (mg/dL) AST Troponin I 9.200 H* 15.600 H* Urine Glucose (UA) 02/25/24 02/25/24 02/25/24 03:51 09:14 09:14 RBC Hgb Plt Count 120 L Lymphocytes # APTT 38.1 H Chloride Carbon Dioxide BUN Glucose POC Glucose (mg/dL) AST Troponin I 16.000 H* Urine Glucose (UA) 02/25/24 02/25/24 02/25/24 15:42 16:47 20:45 RBC Hgb Plt Count 147 L Lymphocytes # 0.4 L APTT Chloride Carbon Dioxide BUN Glucose POC Glucose (mg/dL) 218 H 255 H AST Troponin I Urine Glucose (UA) 02/25/24 02/25/24 02/26/24 20:51 21:55 05:27 RBC Hgb 12.9 L Plt Count 146 L Lymphocytes # APTT Chloride Carbon Dioxide BUN Glucose POC Glucose (mg/dL) 133 H AST Troponin I Urine Glucose (UA) 1+ H 02/26/24 02/26/24 02/26/24 05:27 06:26 13:45 RBC Hgb Plt Count Lymphocytes # APTT 33.6 H Chloride 111 H Carbon Dioxide 21 L BUN 22 H Glucose 107 H POC Glucose (mg/dL) 112 H AST Troponin I Urine Glucose (UA) 02/26/24 02/26/24 02/27/24 16:08 21:00 03:13 RBC 4.29 L Hgb Plt Count 130 L Lymphocytes # APTT 43.5 H Chloride Carbon Dioxide BUN Glucose POC Glucose (mg/dL) 114 H AST Troponin I Urine Glucose (UA) 02/27/24 02/27/24 02/27/24 03:13 03:13 10:40 RBC Hgb Plt Count Lymphocytes # APTT 42.6 H 54.7 H Chloride 110 H Carbon Dioxide 21 L BUN Glucose POC Glucose (mg/dL) AST Troponin I Urine Glucose (UA) - Diagnostic Findings Chest x-ray: image reviewed Assessment and Plan Assessment: Acute non-ST segment elevation myocardial infarction. Cardiac catheterization reveals a pink patent stent in the distal RCA. Ulcerated plaque involving the left main coronary artery with intermediate to severe disease involving the left circumflex and left anterior descending artery with complex lesion/bifurcation lesions. Plan is for coronary artery bypass grafting on 03/03/2024 after being off Brilinta. Recent ST segment elevation myocardial infarction status post stenting to the distal RCA on 02/25/2024 Former smoker, FEV1 value 3.13 L / 83% of predicted Hypertension Obstructive sleep apnea, utilizing his home CPAP History of prostate cancer status post radiation Plan: The patient was seen and evaluated Chest x-ray, labs and medications reviewed Currently stable and on room air Continued on a heparin drip Plan is to transfer to the selective care unit Pending CABG on 03/03/2024 Educated regarding the use of the incentive spirometer We will continue to follow and make further recommendations based on his clinical status I have personally seen and examined the patient, performed the documentation and the assessment and plan as written. Number of minutes spent on the visit: 20.
[2024-02-27 16:36] LABS: Glucose,Whole Blood 89 mg/dL (70-110)
[2024-02-27] MEDS: FLUTICASONE NASAL 50MCG/SPRAY 16GM BTL EA NOSTRIL SCH (20:23)
[2024-02-27 20:24] LABS: Glucose,Whole Blood 105 mg/dL (70-110)
[2024-02-28 05:09] LABS: HCT 36.7 % (39.0-53.0); HGB 12.7 gm/dL (13.0-17.5); MCH 30.9 pg (25.0-35.0); MCHC 34.5 g/dL (31.0-37.0); MCV 89.6 fL (80.0-100.0); Mean Platelet Volume 8.2; Platelet Count 122 k/uL (150-450); RBC 4.09 m/uL (4.30-5.90); RDW 13.7 % (11.5-15.5); WBC 5.7 k/uL (3.8-10.6)
[2024-02-28 05:43] LABS: African American GFR (CKD) >90 (>60 ml/min/1.73 sqM); Anion Gap 5 mmol/L; Blood Urea Nitrogen 22 mg/dL (9-20); Calcium 8.9 mg/dL (8.4-10.2); Carbon Dioxide 23 mmol/L (22-30); Chloride 109 mmol/L (98-107); Glucose 100 mg/dL (74-99); Non-African American GFR(CKD) 83 (>60 ml/min/1.73 sqM); Sodium 137 mmol/L (137-145)
[2024-02-28 06:00] LABS: Magnesium 1.8 mg/dL (1.6-2.3)
[2024-02-28 06:28] LABS: Glucose,Whole Blood 113 mg/dL (70-110)
--- NOTE | 2024-02-28 07:49 | P.PN ---
Subjective Progress Note Date: 02/28/24 Principal diagnosis: Chest pain, non-STEMI this admission. History of coronary artery disease with recent STEMI and PCI, mild to moderate aortic stenosis, hypertension, hyperlipidemia, diabetes, obstructive sleep apnea, prostate cancer, previous tobacco dependence, family history of coronary artery disease The patient was seen and examined sitting up in bed in the intensive care unit in no acute distress. The patient was taken off IV nitro yesterday, however had some chest pain yesterday afternoon and was placed back on nitro, currently chest pain-free. Remains in sinus rhythm, hemodynamically stable. Remains on IV heparin and nitro. Labs reviewed. Patient has been ambulatory in the hallway, hoping to do several laps again today. Anticipate surgery Wednesday. No other new concerns. Objective - Vital Signs Vital signs: Vital Signs Temp 98.5 F 02/28/24 04:00 Pulse 64 02/28/24 07:00 Resp 12 02/28/24 07:00 BP 104/70 02/28/24 07:00 Pulse Ox 94 L 02/28/24 07:00 FiO2 21 02/27/24 11:26 Intake & Output 02/27/24 02/28/24 02/28/24 18:59 06:59 18:59 Intake Total 2260.064 60 Output Total 874 1300 400 Balance 1386.064 -1240 -400 Weight 108.9 kg Intake: IV 60 60 Invasive Line 1 30 30 Invasive Line 2 30 30 Intake, IV Titration 160.064 Amount Heparin Sod,Pork in 0.45% 114.614 NaCl 25,000 unit In 0.45 % NaCl 1 250ml.bag @ 9. 891 UNITS/KG/HR 10 mls/hr IV .Q24H [facility] Rx#: [id number] Nitroglycerin-D5w Pmx 50 28.025 mg In Dextrose/Water 1 250ml.bag @ 5 MCG/MIN 1.5 mls/hr IV .Q24H [facility] Rx#: [id number] Nitroglycerin-D5w Pmx 50 17.425 mg In Dextrose/Water 1 250ml.bag @ 5 MCG/MIN 1.5 mls/hr IV .Q24H [facility] Rx#: [id number] Oral 2040 Output: Urine 874 1300 400 Other: Voiding Method Urinal Urinal # Bowel Movements 0 0 - Exam CONSTITUTIONAL: Appears comfortable, cooperative, no acute distress RESPIRATORY: Lungs sounds diminished bilaterally. Respirations even, nonlabored. Currently on room air with oxygen saturation 95%. Able to achieve 2000 mL on incentive spirometry. Strong cough. CARDIOVASCULAR: S1, S2 present, systolic murmur present. Regular rate and rhythm, sinus rhythm on telemetry. Palpable peripheral pulses bilaterally. No edema present. No calf pain or tenderness noted GASTROINTESTINAL: Abdomen soft, nontender, nondistended. Active bowel sounds present 4 quadrants. Tolerating diet GENITOURINARY: Continues to void clear, yellow urine INTEGUMENTARY: Skin is warm and dry with evidence of good perfusion NEUROLOGIC: Cranial nerves II through XII intact MUSKULOSKELETAL: Able to move all extremities, strength equal bilaterally, gait normal PSYCHIATRIC: Alert and oriented to person place and time, appropriate affect, intact judgment and insight - Allied health notes Allied health notes reviewed: nursing - Labs CBC & Chem 7: 02/28/24 04:42 02/28/24 04:42 Labs: Abnormal Lab Results - Last 24 Hours (Table) 02/27/24 02/28/24 02/28/24 Range/Units 10:40 04:42 04:42 RBC 4.09 L (4.30-5.90) m/uL Hgb 12.7 L (13.0-17.5) gm/dL Hct 36.7 L (39.0-53.0) % Plt Count 122 L (150-450) k/uL APTT 54.7 H (22.0-30.0) sec Chloride 109 H (98-107) mmol/L BUN 22 H (9-20) mg/dL Glucose 100 H (74-99) mg/dL POC Glucose (mg/dL) (70-110) mg/dL 02/28/24 02/28/24 Range/Units 04:42 06:27 RBC (4.30-5.90) m/uL Hgb (13.0-17.5) gm/dL Hct (39.0-53.0) % Plt Count (150-450) k/uL APTT 52.4 H (22.0-30.0) sec Chloride (98-107) mmol/L BUN (9-20) mg/dL Glucose (74-99) mg/dL POC Glucose (mg/dL) 113 H (70-110) mg/dL Microbiology - Last 24 Hours (Table) 02/25/24 17:37 Nasal Screen MRSA/MSSA - Final Nasal Swab Assessment and Plan Assessment: Chest pain, non-STEMI this admission Coronary artery disease with recent STEMI and PCI Mild to moderate aortic stenosis Hypertension Hyperlipidemia, treated, cholesterol 123, LDL 56 Diabetes, hemoglobin A1c 5.6% Obstructive sleep apnea Prostate cancer Previous tobacco dependence, preoperative FEV1 83% of predicted Family history of coronary artery disease Plan: Continue to maximize medical therapy with aspirin, statin, Zetia, beta-chad with hold parameters. Continue IV heparin and nitro Encourage incentive spirometry use Increase activity as tolerated Continue preoperative teaching Tentatively our plan is for off-pump coronary artery bypass with left internal mammary, endoscopic vein harvest and left radial artery harvest, ligation of the left atrial appendage by Dr. Boston on Wednesday,March 03, 2024 Continue to hold Brilinta, last dose February 26, 2024 5 meter walk test completed, #1 3.33 sec, #2 3.85 sec, #3 3.56 sec. Patient to lerated well without chest pain Medical management of other comorbidities per internal medicine, cardiology More recommendations to follow
[2024-02-28] MEDS ORDERED: Magnesium Replacement Protocol 1 EACH MISC MISCELLANE PRN (07:53)
[2024-02-28] MEDS: MAGNESIUM SULFATE-D5W PMX 1 GM in DEXTROSE/WATER 1 100ML.BAG IVPB ONE (08:18)
--- NOTE | 2024-02-28 10:32 | P.PN ---
Subjective Progress Note Date: 02/27/24 68-year-old male with a PMH of recent acute STEMI on 02/20 status post PCI to RCA with moderate to severe disease of LAD and left circumflex, type II DM, hypertension, hyperlipidemia, BPH who presents to the emergency room with complaints of chest pain. The patient was discharged from the hospital yesterda y morning and notes that his pain suddenly started again today at around 4 PM, 4 out of 10 at maximal intensity, left-sided with radiation down into the left arm. Notes that the pain is a lot less severe than his initial episode that brought him to the hospital 4 days ago. He took multiple nitroglycerins at home with minimal relief. At time of interview, notes that the pain is a 2 out of 10, aching in nature, with no alleviating or exacerbating features and nonpleuritic. Denies experiencing nausea, vomiting, diaphoresis, or dizziness. Denies experiencing fever, chills, abdominal pain. EKG upon arrival to the emergency room revealed sinus rhythm with first-degree AV block at [address] segment depression in the precordial leads V3 to V6 with diffuse T wave inversions in inferior leads and precordial leads V5 and V6. Subsequent EKG revealed a HR of 58 but otherwise was essentially unchanged from that obtained upon arrival. Laboratory evaluation was remarkable for platelet count 141, troponin 6.860, and subsequently 9.200, chloride 109, proBNP 1430, BUN 23, creatinine 0.94 with D-dimer 0.5. 02/26/2024 Patient is seen and evaluated sitting up in bed; no specific complaints reported -Patient is status post cardiac catheterization and was found to have patent stent in the RCA with severe disease involving the left coronary system; patient is not felt to be a good candidate for PCI CABG is recommended -- Cardiothoracic surgery consulted 02/27/2024 Patient is seen and evaluated in ICU, sitting up in bedside chair. Reports no further chest pain after resuming IV nitroglycerin infusion Vital signs are reviewed and reveal temperature of 97.2, pulse 65, respiration 22 and blood pressure of 94/66 Blood work reveals WBC of 6.2, hemoglobin of 13.2 and platelet count of 130, sodium 137, potassium: 4, BUNs/creatinine of 20/0.94 and blood glucose of 91 Cardiology on board, planning to continue to wean off nitroglycerin infusion if able. Patient to remain on IV heparin. Oral antiplatelet therapy has been placed on hold till after surgery which is planned in next few days. Patient remains on statin therapy -- Continue to hold Brilinta till after surgery. Last dose was on 02/26/2024 Objective - Vital Signs Vital signs: Vital Signs Temp 98.2 F 02/27/24 08:00 Pulse 69 02/27/24 08:00 Resp 16 02/27/24 08:00 BP 111/70 02/27/24 08:00 Pulse Ox 98 02/27/24 08:48 FiO2 21 02/26/24 16:18 Intake & Output 02/26/24 02/27/24 02/27/24 18:59 06:59 18:59 Intake Total 1284.482 249.018 648.025 Output Total 501 2375 0 Balance 783.482 -2125.982 648.025 Weight 106.3 kg 108.9 kg Intake: IV 60 20 Invasive Line 1 30 10 Invasive Line 2 30 10 Intake, IV Titration 144.482 249.018 28.025 Amount Heparin Sod,Pork in 0.45% 111.432 249.018 NaCl 25,000 unit In 0.45 % NaCl 1 250ml.bag @ 9. 891 UNITS/KG/HR 10 mls/hr IV .Q24H [facility] Rx#: [id number] Nitroglycerin-D5w Pmx 50 33.05 28.025 mg In Dextrose/Water 1 250ml.bag @ 5 MCG/MIN 1.5 mls/hr IV .Q24H [facility]RI Rx#: [id number] Oral 1080 600 Output: Urine 501 2375 0 Other: Voiding Method Urinal Urinal Urinal # Bowel Movements 0 0 0 - Exam General: non toxic, no distress, appears at stated age, overweight Derm: no unusual rashes/lesions, warm Head: atraumatic, normocephalic, symmetric Eyes: EOMI, no lid lag, anicteric sclera, pupils equal round reactive to light ENT: Nose and ears atraumatic Neck: No cervical lymphadenopathy, trachea midline, supple Mouth: no lip lesion, mucus membranes moist Cardiovascular: S1S2 reg, no murmur, positive dorsalis pedis pulse bilateral, no edema Lungs: CTA bilateral, no rhonchi, no rales, no accessory muscle use Abdominal: soft, nontender to palpation, no guarding Ext: muscle strength 5 out of 5 in all 4 extremities grossly, no gross muscle atrophy, no contractures, - Labs CBC & Chem 7: 02/28/24 04:42 02/28/24 04:42 Labs: Abnormal Lab Results - Last 24 Hours (Table) 02/26/24 02/26/24 02/26/24 Range/Units 13:45 16:08 21:00 RBC (4.30-5.90) m/uL Plt Count (150-450) k/uL APTT 33.6 H 43.5 H (22.0-30.0) sec Chloride (98-107) mmol/L Carbon Dioxide (22-30) mmol/L POC Glucose (mg/dL) 114 H (70-110) mg/dL 02/27/24 02/27/24 02/27/24 Range/Units 03:13 03:13 03:13 RBC 4.29 L (4.30-5.90) m/uL Plt Count 130 L (150-450) k/uL APTT 42.6 H (22.0-30.0) sec Chloride 110 H (98-107) mmol/L Carbon Dioxide 21 L (22-30) mmol/L POC Glucose (mg/dL) (70-110) mg/dL Assessment and Plan Assessment: 1. Non-ST elevated MT with troponins trending upward 2. Recent acute inferior ST elevated MT status post emergent catheterization and PCI of the RCA, mild to moderate disease involving the left coronary system 3. Hypertension 4. Hyperlipidemia 5. Diabetes mellitus type 2 6. Obstructive sleep apnea on CPAP Resume patient's home cardiac medications including Brilinta Schedule patient for cardiac catheterization today with Dr. Bella Obtain limited 2-D echocardiogram and Doppler study to assess cardiac structure and function -- continue home medications
[2024-02-28 11:36] LABS: Glucose,Whole Blood 132 mg/dL (70-110)
--- NOTE | 2024-02-28 13:17 | P.PN ---
Subjective Progress Note Date: 02/28/24 Acute non-ST elevation myocardial infarction The patient is a pleasant 68-year-old gentleman with coronary artery disease status post PCI of the RCA and PLV branch of the RCA as well as aortic stenosis and hypertension and dyslipidemia who was admitted to the hospital few days ago with acute inferior ST elevation myocardial infarction and underwent a heart catheterization and PCI of the RCA. He presented back to the hospital complaining of chest discomfort concerning for angina and he was ruled in for acute coronary syndrome with uprising troponin. He underwent a heart catheterization and was found to have patent stent in the RCA with severe disease involving the left coronary system felt to be not a good candidate for PCI and good candidate for CABG. Surgery was consulted. February 26, 2024 The patient was seen and evaluated this morning. He is asymptomatic at this point. He is hemodynamically stable. He continues to be on dual antiplatelet therapy along with high intensity statin along with anti-ischemic medication and also he is on heparin IV. We are waiting for the surgeon to see the patient and evaluate the angiogram. Meanwhile continue the current medical regimen. Examination is remarkable for regular rhythm with a systolic murmur and clear breathing sounds bilaterally and no carotid bruit and no edema was noted February 27, 2024 The patient was seen and evaluated this morning. He is asymptomatic. The pressure has been marginal but he continues to be on nitro drip which I am going to wean him from. He is on heparin IV. Currently oral antiplatelet has been stopped for plan to undergo CABG in the next few days. No pain in the chest and no shortness of breath. He is euvolemic and not in heart failure. The examination is remarkable for marginally low blood pressure and heart rate with regular rate and rhythm and systolic murmur and clear breathing sounds bilateral ly and no edema was noted February 28, 2024 Patient is evaluated at bedside this a.m. He is not having any active chest pain chest pressure. He is hemodynamic stable. Blood pressure 108/71, heart rate 69 bpm normal sinus rhythm. He is planned for CABG for Wednesday. His ECG does show ST changes in inferior leads. He is currently of nitroglycerin drip with no active chest pains. He is maintained on IV heparin drip. No concerns of active bleeding Assessment Coronary artery disease as described above Aortic stenosis appears to be mild to moderate Multiple comorbid conditions including hypertension and dyslipidemia Plan Continue the current medical regimen including heparin IV Continue aspirin, statins, beta chad Monitor for any signs of bleeding Objective - Vital Signs Vital signs: Vital Signs Temp 98.5 F 02/28/24 04:00 Pulse 69 02/28/24 08:00 Resp 10 L 02/28/24 08:00 BP 108/71 02/28/24 08:00 Pulse Ox 93 L 02/28/24 08:00 FiO2 21 02/27/24 11:26 Intake & Output 02/27/24 02/28/24 02/28/24 18:59 06:59 18:59 Intake Total 2260.064 60 160 Output Total 874 1300 400 Balance 1386.064 -1240 -240 Weight 108.9 kg Intake: IV 60 60 40 0.9 Sodium Chloride 20 Carrier Invasive Line 1 30 30 10 Invasive Line 2 30 30 10 Intake, IV Titration 160.064 Amount Heparin Sod,Pork in 0.45% 114.614 NaCl 25,000 unit In 0.45 % NaCl 1 250ml.bag @ 9. 891 UNITS/KG/HR 10 mls/hr IV .Q24H [facility] Rx#: [id number] Nitroglycerin-D5w Pmx 50 28.025 mg In Dextrose/Water 1 250ml.bag @ 5 MCG/MIN 1.5 mls/hr IV .Q24H [facility]RI Rx#: [id number] Nitroglycerin-D5w Pmx 50 17.425 mg In Dextrose/Water 1 250ml.bag @ 5 MCG/MIN 1.5 mls/hr IV .Q24H [facility]RI Rx#: [id number] Oral 2040 120 Output: Urine 874 1300 400 Other: Voiding Method Urinal Urinal Urinal # Bowel Movements 0 0 - Labs CBC & Chem 7: 02/28/24 04:42 02/28/24 04:42 Labs: Abnormal Lab Results - Last 24 Hours (Table) 02/28/24 02/28/24 02/28/24 Range/Units 04:42 04:42 04:42 RBC 4.09 L (4.30-5.90) m/uL Hgb 12.7 L (13.0-17.5) gm/dL Hct 36.7 L (39.0-53.0) % Plt Count 122 L (150-450) k/uL APTT 52.4 H (22.0-30.0) sec Chloride 109 H (98-107) mmol/L BUN 22 H (9-20) mg/dL Glucose 100 H (74-99) mg/dL POC Glucose (mg/dL) (70-110) mg/dL 02/28/24 02/28/24 Range/Units 06:27 11:34 RBC (4.30-5.90) m/uL Hgb (13.0-17.5) gm/dL Hct (39.0-53.0) % Plt Count (150-450) k/uL APTT (22.0-30.0) sec Chloride (98-107) mmol/L BUN (9-20) mg/dL Glucose (74-99) mg/dL POC Glucose (mg/dL) 113 H 132 H (70-110) mg/dL Microbiology - Last 24 Hours (Table) 02/25/24 17:37 Nasal Screen MRSA/MSSA - Final Nasal Swab
--- NOTE | 2024-02-28 14:06 | P.PN ---
Subjective Progress Note Date: 02/28/24 This is a very pleasant 68-year-old male patient with a history of prostate can cer with previous radiation, coronary disease with previous stent placement, hypertension, hyperlipidemia, diabetes mellitus, obstructive sleep apnea utilizing CPAP, former smoker. He had presented here to the emergency room on 02/21/2024 with complaints of chest pain. He was found to have a ST segment elevation myocardial infarction and had undergone stenting to the distal RCA with aspiration thrombectomy. He recovered and was discharged home on 02/23/2024. He was prescribed Brilinta. Echocardiogram had revealed mild to moderate LV left ventricular systolic dysfunction with ejection fraction of 40 to 45%. He came back to the emergency room on 02/24/2024 with recurrent chest pain. He was found to have a new non-ST segment elevation myocardial infarction's with uptrending troponins. Repeat echocardiogram revealed an ejection fraction of 45%. Repeat cardiac catheterization on 02/25/2024 revealed patent stent to the distal RCA. There was an ulcerated plaque involving the left main coronary artery with intermediate to severe disease involving the left circumflex and left anterior descending artery with complex lesion/bifurcation lesions. He is recommended coronary artery bypass grafting which is tentatively planned for March 03, 2024 after being off his Brilinta. On today's evaluation of 02/28/2024, the patient sitting up on a chair. The patient is calm and comfortable. The patient remains on IV heparin. The patient also is receiving IV nitroglycerin at 5 mg/min. The patient is free of any chest pain. Hemodynamically stable. Cardiac rhythm is sinus. He is currently off Brilinta. Awaiting coronary bypass surgery. Remains on aspirin. Remains on IV heparin. Remains on his routine outpatient medications. He is also on metoprolol 12.5 mg twice a day. Remains on Lipitor 80 mg p.o. daily. Awake and alert. He is on room air oxygen. Objective - Vital Signs Vital signs: Vital Signs Temp 98.5 F 02/28/24 04:00 Pulse 69 02/28/24 08:00 Resp 10 L 02/28/24 08:00 BP 108/71 02/28/24 08:00 Pulse Ox 93 L 02/28/24 08:00 FiO2 21 02/27/24 11:26 Intake & Output 02/27/24 02/28/24 02/28/24 18:59 06:59 18:59 Intake Total 2260.064 60 160 Output Total 874 1300 400 Balance 1386.064 -1240 -240 Weight 108.9 kg Intake: IV 60 60 40 0.9 Sodium Chloride 20 Carrier Invasive Line 1 30 30 10 Invasive Line 2 30 30 10 Intake, IV Titration 160.064 Amount Heparin Sod,Pork in 0.45% 114.614 NaCl 25,000 unit In 0.45 % NaCl 1 250ml.bag @ 9. 891 UNITS/KG/HR 10 mls/hr IV .Q24H [facility]RI Rx#: [id number] Nitroglycerin-D5w Pmx 50 28.025 mg In Dextrose/Water 1 250ml.bag @ 5 MCG/MIN 1.5 mls/hr IV .Q24H [facility] Rx#: [id number] Nitroglycerin-D5w Pmx 50 17.425 mg In Dextrose/Water 1 250ml.bag @ 5 MCG/MIN 1.5 mls/hr IV .Q24H [facility] Rx#: [id number] Oral 2040 120 Output: Urine 874 1300 400 Other: Voiding Method Urinal Urinal Urinal # Bowel Movements 0 0 - Exam GENERAL EXAM: Alert, pleasant 68-year-old male, on room air, up in a chair, comfortable in no apparent distress. HEAD: Normocephalic. EYES: Normal reaction of pupils, equal size. NOSE: Clear with pink turbinates. THROAT: No erythema or exudates. NECK: No masses, no JVD. CHEST: No chest wall deformity. LUNGS: Equal air entry with no crackles, wheeze, rhonchi or dullness. CVS: S1 and S2 normal with no audible murmur, regular rhythm. ABDOMEN: No hepatosplenomegaly, normal bowel sounds, no guarding or rigidity. SPINE: No scoliosis or deformity SKIN: No rashes CENTRAL NERVOUS SYSTEM: No focal deficits, tone is normal in all 4 extremities. EXTREMITIES: There is no peripheral edema. No clubbing, no cyanosis. Peripheral pulses are intact. - Labs CBC & Chem 7: 02/28/24 04:42 02/28/24 04:42 Labs: Abnormal Lab Results - Last 24 Hours (Table) 02/27/24 02/28/24 02/28/24 Range/Units 10:40 04:42 04:42 RBC 4.09 L (4.30-5.90) m/uL Hgb 12.7 L (13.0-17.5) gm/dL Hct 36.7 L (39.0-53.0) % Plt Count 122 L (150-450) k/uL APTT 54.7 H (22.0-30.0) sec Chloride 109 H (98-107) mmol/L BUN 22 H (9-20) mg/dL Glucose 100 H (74-99) mg/dL POC Glucose (mg/dL) (70-110) mg/dL 02/28/24 02/28/24 Range/Units 04:42 06:27 RBC (4.30-5.90) m/uL Hgb (13.0-17.5) gm/dL Hct (39.0-53.0) % Plt Count (150-450) k/uL APTT 52.4 H (22.0-30.0) sec Chloride (98-107) mmol/L BUN (9-20) mg/dL Glucose (74-99) mg/dL POC Glucose (mg/dL) 113 H (70-110) mg/dL Microbiology - Last 24 Hours (Table) 02/25/24 17:37 Nasal Screen MRSA/MSSA - Final Nasal Swab Assessment and Plan Plan: Acute non-ST segment elevation myocardial infarction. Cardiac catheterization reveals a pink patent stent in the distal RCA. Ulcerated plaque involving the left main coronary artery with intermediate to severe disease involving the left circumflex and left anterior descending artery with complex lesion/bifurcation lesions. Plan is for coronary artery bypass grafting on 03/03/2024 after being off Brilinta. The patient remains on IV heparin. The patient is also on low- dose nitroglycerin which is needed for chest pain control. The patient is free of any chest pain at this point in time. Hemodynamically stable. Awaiting coronary bypass surgery Recent ST segment elevation myocardial infarction status post stenting to the distal RCA on 02/25/2024 Former smoker, FEV1 value 3.13 L / 83% of predicted Hypertension Obstructive sleep apnea, utilizing his home CPAP History of prostate cancer status post radiation Plan Continue IV heparin Continue IV nitroglycerin Continue high-dose statins Continue metoprolol 12.5 mg twice a day Patient remains on room air oxygen Hemodynamically stable Coronary artery bypass surgery that is tentatively scheduled to be done on 03/03/2024.
[2024-02-28 16:22] LABS: Glucose,Whole Blood 93 mg/dL (70-110)
[2024-02-28] MEDS: NITROGLYCERIN-D5W PMX 50 MG in DEXTROSE/WATER 1 250ML.BAG IV SCH (16:50)
[2024-02-28 20:17] LABS: Glucose,Whole Blood 124 mg/dL (70-110)
[2024-02-28] MEDS: SODIUM CHLORIDE 5% OPHTH OINT 3.5 GM TUBE BOTH EYES SCH (20:48)
--- NOTE | 2024-02-28 23:18 | P.PN ---
Subjective Progress Note Date: 02/28/24 68-year-old male with a PMH of recent acute STEMI on 02/20 status post PCI to RCA with moderate to severe disease of LAD and left circumflex, type II DM, hypertension, hyperlipidemia, BPH who presents to the emergency room with complaints of chest pain. The patient was discharged from the hospital yesterda y morning and notes that his pain suddenly started again today at around 4 PM, 4 out of 10 at maximal intensity, left-sided with radiation down into the left arm. Notes that the pain is a lot less severe than his initial episode that brought him to the hospital 4 days ago. He took multiple nitroglycerins at home with minimal relief. At time of interview, notes that the pain is a 2 out of 10, aching in nature, with no alleviating or exacerbating features and nonpleuritic. Denies experiencing nausea, vomiting, diaphoresis, or dizziness. Denies experiencing fever, chills, abdominal pain. EKG upon arrival to the emergency room revealed sinus rhythm with first-degree AV block at [address] segment depression in the precordial leads V3 to V6 with diffuse T wave inversions in inferior leads and precordial leads V5 and V6. Subsequent EKG revealed a HR of 58 but otherwise was essentially unchanged from that obtained upon arrival. Laboratory evaluation was remarkable for platelet count 141, troponin 6.860, and subsequently 9.200, chloride 109, proBNP 1430, BUN 23, creatinine 0.94 with D-dimer 0.5. 02/26/2024 Patient is seen and evaluated sitting up in bed; no specific complaints reported -Patient is status post cardiac catheterization and was found to have patent stent in the RCA with severe disease involving the left coronary system; patient is not felt to be a good candidate for PCI CABG is recommended -- Cardiothoracic surgery consulted 02/27/2024 Patient is seen and evaluated in ICU, sitting up in bedside chair. Reports no further chest pain after resuming IV nitroglycerin infusion Vital signs are reviewed and reveal temperature of 97.2, pulse 65, respiration 22 and blood pressure of 94/66 Blood work reveals WBC of 6.2, hemoglobin of 13.2 and platelet count of 130, sodium 137, potassium: 4, BUNs/creatinine of 20/0.94 and blood glucose of 91 Cardiology on board, planning to continue to wean off nitroglycerin infusion if able. Patient to remain on IV heparin. Oral antiplatelet therapy has been placed on hold till after surgery which is planned in next few days. Patient remains on statin therapy -- Continue to hold Brilinta till after surgery. Last dose was on 02/26/2024 02/28/2024 Patient is currently sitting in the chair. Awake alert and oriented. Able to walk in the room. On room air. No complaints of chest pain. No shortness of breath. No nausea vomiting abdominal pain or diarrhea. Patient is being continued on IV heparin and is also on IV nitroglycerin at 5 mg/min. Patient is tentatively scheduled for CABG on March 03, 2024. Continued on heparin and Brilinta is on hold. Laboratory data showed WBC 5.7 hemoglobin 12.7 and platelets 122 sodium 137 potassium 4.0 chloride 109 bicarb is 23 BUN 2020 creatinine 0.94 and blood sugar 100 and magnesium 1.8. Cardiac catheterization on 02/24 showed patent stent in the distal RCA. Ulcerated plaque involving the left main coronary artery with intermediate to severe disease involving the left circumflex and left anterior descending artery with complex lesions/bifurcation lesions. Current medications reviewed. Objective - Vital Signs Vital signs: Vital Signs Temp 98.0 F 02/28/24 20:00 Pulse 57 L 02/28/24 22:00 Resp 20 02/28/24 22:00 BP 127/62 02/28/24 22:00 Pulse Ox 93 L 02/28/24 22:00 FiO2 30 02/28/24 18:00 Intake & Output 02/28/24 02/28/24 02/29/24 06:59 18:59 06:59 Intake Total 310 537.775 160 Output Total 1300 1650 500 Balance -990 -1112.225 -340 Weight 108.9 kg Intake: IV 60 30 10 Invasive Line 1 30 Invasive Line 2 30 30 10 Intake, IV Titration 250 27.775 Amount Heparin Sod,Pork in 0.45% 250 NaCl 25,000 unit In 0.45 % NaCl 1 250ml.bag @ 9. 891 UNITS/KG/HR 10 mls/hr IV .Q24H [facility]RI Rx#: [id number] Nitroglycerin-D5w Pmx 50 27.775 mg In Dextrose/Water 1 250ml.bag @ 5 MCG/MIN 1.5 mls/hr IV .Q24H [facility]RI Rx#: [id number] Oral 480 150 Output: Urine 1300 1650 500 Other: Voiding Method Urinal Urinal Urinal # Voids 1 # Bowel Movements 0 1 - Exam PHYSICAL EXAMINATION: Patient is lying in the bed comfortably, no acute distress, awake alert and oriented.. HEENT: Normocephalic. Neck is supple. Pupils reactive. Nostrils clear. Oral cavity is moist. Neck reveals no JVD, carotid bruits, or thyromegaly. CHEST EXAMINATION: Trachea is central. Symmetrical expansion. Lung hawthorne clear to auscultation and percussion. CARDIAC: Normal S1, S2 with no gallops. No murmurs ABDOMEN: Soft. Bowel sounds normal. No organomegaly. No abdominal bruits. Extremities: reveal no edema. No clubbing or cyanosis Neurologically awake, alert, oriented x3 with well-coordinated movements. No focal deficits noted Skin: No rash or skin lesions. Psychiatric: Coperative. Nonsuicidal Musculoskeletal: No joint swelling or deformity. Normal range of motion. - Labs CBC & Chem 7: 02/28/24 04:42 02/28/24 04:42 Labs: Abnormal Lab Results - Last 24 Hours (Table) 02/28/24 02/28/24 02/28/24 Range/Units 04:42 04:42 04:42 RBC 4.09 L (4.30-5.90) m/uL Hgb 12.7 L (13.0-17.5) gm/dL Hct 36.7 L (39.0-53.0) % Plt Count 122 L (150-450) k/uL APTT 52.4 H (22.0-30.0) sec Chloride 109 H (98-107) mmol/L BUN 22 H (9-20) mg/dL Glucose 100 H (74-99) mg/dL POC Glucose (mg/dL) (70-110) mg/dL 02/28/24 02/28/24 02/28/24 Range/Units 06:27 11:34 20:16 RBC (4.30-5.90) m/uL Hgb (13.0-17.5) gm/dL Hct (39.0-53.0) % Plt Count (150-450) k/uL APTT (22.0-30.0) sec Chloride (98-107) mmol/L BUN (9-20) mg/dL Glucose (74-99) mg/dL POC Glucose (mg/dL) 113 H 132 H 124 H (70-110) mg/dL Assessment and Plan Assessment: 1. Acute Non-ST elevated [place] with elevated troponins. Status postcardiac catheterization showed patent stent in the distal RCA. Ulcerated plaque involving the left main coronary artery with intermediate to severe disease involving the left circumflex and left anterior descending artery with complex lesions/bifurcation lesions. 2. Recent acute inferior ST elevated IL status post emergent catheterization and PCI of the RCA, mild to moderate disease involving the left coronary system 3. Hypertension 4. Hyperlipidemia 5. Diabetes mellitus type 2 6. Obstructive sleep apnea on CPAP 7. mild to moderate aortic stenosis 8. History of prostate cancer 9. Prior history of smoking 10. Family history of coronary artery disease Plan Patient is s/p cardiac catheterization report showed as above. Patient will be continued on aspirin, statin, Zetia beta-chad and Brilinta is on hold and CT surgery is planning for CABG tentatively on March 03, 2024 Continue with incentive spirometry. Current insulin sliding scale and other home medications. CT surgery and cardiology and pulmonary is on board. Follow-up closely. Follow-up 2D echocardiogram report. Time with Patient: Greater than 30
[2024-02-29 06:24] LABS: HCT 42.8 % (39.0-53.0); HGB 14.1 gm/dL (13.0-17.5); MCH 30.1 pg (25.0-35.0); MCV 91.2 fL (80.0-100.0); Mean Platelet Volume 7.6; Platelet Count 132 k/uL (150-450); RBC 4.69 m/uL (4.30-5.90); RDW 13.6 % (11.5-15.5)
[2024-02-29 06:34] LABS: Glucose,Whole Blood 106 mg/dL (70-110)
--- NOTE | 2024-02-29 07:48 | P.PN ---
Subjective Progress Note Date: 02/29/24 Principal diagnosis: Chest pain, non-STEMI this admission. History of coronary artery disease with recent STEMI and PCI, mild to moderate aortic stenosis, hypertension, hyperlipidemia, diabetes, obstructive sleep apnea, prostate cancer, previous tobacco dependence, family history of coronary artery disease The patient was seen and examined sitting up in bed in the intensive care unit in no acute distress. Currently chest pain free off IV NTG, denies shortness of breath. Remains in sinus rhythm, hemodynamically stable. Remains on IV heparin. Labs reviewed. Patient has been ambulatory in the hallway, hoping to do several laps again today. Anticipate surgery Wednesday. Patient and asked multiple appropriate questions of Dr. Boston yesterday, all questions answered. No other new concerns. Objective - Vital Signs Vital signs: Vital Signs Temp 98.2 F 02/29/24 04:00 Pulse 58 L 02/29/24 04:00 Resp 15 02/29/24 04:00 BP 111/75 02/29/24 04:00 Pulse Ox 97 02/29/24 04:00 FiO2 30 02/28/24 18:00 Intake & Output 02/28/24 02/29/24 02/29/24 18:59 06:59 18:59 Intake Total 537.775 710 Output Total 1650 1125 Balance -1112.225 -415 Weight 102.4 kg Intake: IV 30 30 Invasive Line 2 30 30 Intake, IV Titration 27.775 250 Amount Heparin Sod,Pork in 0.45% 250 NaCl 25,000 unit In 0.45 % NaCl 1 250ml.bag @ 9. 891 UNITS/KG/HR 10 mls/hr IV .Q24H [facility] Rx#: [id number] Nitroglycerin-D5w Pmx 50 27.775 mg In Dextrose/Water 1 250ml.bag @ 5 MCG/MIN 1.5 mls/hr IV .Q24H [facility] Rx#: [id number] Oral 480 430 Output: Urine 1650 1125 Other: Voiding Method Urinal Urinal # Voids 1 # Bowel Movements 1 - Exam CONSTITUTIONAL: Appears comfortable, cooperative, no acute distress RESPIRATORY: Lungs sounds diminished bilaterally. Respirations even, nonlabored. Currently on room air with oxygen saturation 95%. Able to achieve 2000 mL on incentive spirometry. Strong cough. CARDIOVASCULAR: S1, S2 present, systolic murmur present. Regular rate and rhythm, sinus rhythm on telemetry. Palpable peripheral pulses bilaterally. No edema present. No calf pain or tenderness noted GASTROINTESTINAL: Abdomen soft, nontender, nondistended. Active bowel sounds present 4 quadrants. Tolerating diet. Positive bowel movement 02/27 GENITOURINARY: Continues to void clear, yellow urine INTEGUMENTARY: Skin is warm and dry with evidence of good perfusion NEUROLOGIC: Cranial nerves II through XII intact MUSKULOSKELETAL: Able to move all extremities, strength equal bilaterally, gait normal PSYCHIATRIC: Alert and oriented to person place and time, appropriate affect, intact judgment and insight - Allied health notes Allied health notes reviewed: nursing - Labs CBC & Chem 7: 02/29/24 05:52 02/28/24 04:42 Labs: Abnormal Lab Results - Last 24 Hours (Table) 02/28/24 02/28/24 02/29/24 Range/Units 11:34 20:16 05:52 Plt Count (150-450) k/uL APTT 49.2 H (22.0-30.0) sec POC Glucose (mg/dL) 132 H 124 H (70-110) mg/dL 02/29/24 Range/Units 05:52 Plt Count 132 L (150-450) k/uL APTT (22.0-30.0) sec POC Glucose (mg/dL) (70-110) mg/dL Assessment and Plan Assessment: Chest pain, non-STEMI this admission Coronary artery disease with recent STEMI and PCI Mild to moderate aortic stenosis Hypertension Hyperlipidemia, treated, cholesterol 123, LDL 56 Diabetes, hemoglobin A1c 5.6% Obstructive sleep apnea Prostate cancer Previous tobacco dependence, preoperative FEV1 83% of predicted Family history of coronary artery disease Plan: Continue to maximize medical therapy with aspirin, statin, Zetia, beta-chad with hold parameters. Continue IV heparin Encourage incentive spirometry use Increase activity as tolerated Continue preoperative teaching Tentatively our plan is for off-pump coronary artery bypass with left internal mammary, endoscopic vein harvest and left radial artery harvest, ligation of the left atrial appendage by Dr. Boston on Wednesday,March 03, 2024 Continue to hold Brilinta, last dose February 26, 2024 Medical management of other comorbidities per internal medicine, cardiology More recommendations to follow
[2024-02-29 11:39] LABS: Glucose,Whole Blood 103 mg/dL (70-110)
--- NOTE | 2024-02-29 11:43 | P.PN ---
Subjective Progress Note Date: 02/29/24 This is a very pleasant 68-year-old male patient with a history of prostate can cer with previous radiation, coronary disease with previous stent placement, hypertension, hyperlipidemia, diabetes mellitus, obstructive sleep apnea utilizing CPAP, former smoker. He had presented here to the emergency room on 02/21/2024 with complaints of chest pain. He was found to have a ST segment elevation myocardial infarction and had undergone stenting to the distal RCA with aspiration thrombectomy. He recovered and was discharged home on 02/23/2024. He was prescribed Brilinta. Echocardiogram had revealed mild to moderate LV left ventricular systolic dysfunction with ejection fraction of 40 to 45%. He came back to the emergency room on 02/24/2024 with recurrent chest pain. He was found to have a new non-ST segment elevation myocardial infarction's with uptrending troponins. Repeat echocardiogram revealed an ejection fraction of 45%. Repeat cardiac catheterization on 02/25/2024 revealed patent stent to the distal RCA. There was an ulcerated plaque involving the left main coronary artery with intermediate to severe disease involving the left circumflex and left anterior descending artery with complex lesion/bifurcation lesions. He is recommended coronary artery bypass grafting which is tentatively planned for March 03, 2024 after being off his Brilinta. On today's evaluation of 02/28/2024, the patient sitting up on a chair. The patient is calm and comfortable. The patient remains on IV heparin. The patient also is receiving IV nitroglycerin at 5 mg/min. The patient is free of any chest pain. Hemodynamically stable. Cardiac rhythm is sinus. He is currently off Brilinta. Awaiting coronary bypass surgery. Remains on aspirin. Remains on IV heparin. Remains on his routine outpatient medications. He is also on metoprolol 12.5 mg twice a day. Remains on Lipitor 80 mg p.o. daily. Awake and alert. He is on room air oxygen. 02/29/2024, the patient is calm and comfortable. Free of any chest pain. Hemodynamically stable. No cardiac arrhythmias. Nitroglycerin drip has been discontinued. The patient has no specific complaints. He remains on IV heparin drip. At the same time, labs from today shows a white cell count of 6, hemoglobin 14.1 and a platelet count of 132 without any significant drop in the platelet count while being on IV heparin. Objective - Vital Signs Vital signs: Vital Signs Temp 98.2 F 02/29/24 04:00 Pulse 58 L 02/29/24 04:00 Resp 15 02/29/24 04:00 BP 111/75 02/29/24 04:00 Pulse Ox 97 02/29/24 04:00 FiO2 30 02/28/24 18:00 Intake & Output 02/28/24 02/29/24 02/29/24 18:59 06:59 18:59 Intake Total 537.775 710 Output Total 1650 1125 Balance -1112.225 -415 Weight 102.4 kg Intake: IV 30 30 Invasive Line 2 30 30 Intake, IV Titration 27.775 250 Amount Heparin Sod,Pork in 0.45% 250 NaCl 25,000 unit In 0.45 % NaCl 1 250ml.bag @ 9. 891 UNITS/KG/HR 10 mls/hr IV .Q24H [facility] Rx#: [id number] Nitroglycerin-D5w Pmx 50 27.775 mg In Dextrose/Water 1 250ml.bag @ 5 MCG/MIN 1.5 mls/hr IV .Q24H [facility] Rx#: [id number] Oral 480 430 Output: Urine 1650 1125 Other: Voiding Method Urinal Urinal # Voids 1 # Bowel Movements 1 - Exam GENERAL EXAM: Alert, pleasant 68-year-old male, on room air, up in a chair, comfortable in no apparent distress. HEAD: Normocephalic. EYES: Normal reaction of pupils, equal size. NOSE: Clear with pink turbinates. THROAT: No erythema or exudates. NECK: No masses, no JVD. CHEST: No chest wall deformity. LUNGS: Equal air entry with no crackles, wheeze, rhonchi or dullness. CVS: S1 and S2 normal with no audible murmur, regular rhythm. ABDOMEN: No hepatosplenomegaly, normal bowel sounds, no guarding or rigidity. SPINE: No scoliosis or deformity SKIN: No rashes CENTRAL NERVOUS SYSTEM: No focal deficits, tone is normal in all 4 extremities. EXTREMITIES: There is no peripheral edema. No clubbing, no cyanosis. Peripheral pulses are intact. - Labs CBC & Chem 7: 02/29/24 05:52 02/28/24 04:42 Labs: Abnormal Lab Results - Last 24 Hours (Table) 02/28/24 02/28/24 02/29/24 Range/Units 11:34 20:16 05:52 Plt Count (150-450) k/uL APTT 49.2 H (22.0-30.0) sec POC Glucose (mg/dL) 132 H 124 H (70-110) mg/dL 02/29/24 Range/Units 05:52 Plt Count 132 L (150-450) k/uL APTT (22.0-30.0) sec POC Glucose (mg/dL) (70-110) mg/dL Assessment and Plan Plan: Acute non-ST segment elevation myocardial infarction. Cardiac catheterization reveals a pink patent stent in the distal RCA. Ulcerated plaque involving the left main coronary artery with intermediate to severe disease involving the left circumflex and left anterior descending artery with complex lesion/bifurcation lesions. Plan is for coronary artery bypass grafting on 03/03/2024 after being off Brilinta. The patient remains on IV heparin. The patient is also on low- dose nitroglycerin which is needed for chest pain control, currently off the nitroglycerin drip. The patient is free of any chest pain at this point in time. Hemodynamically stable. Awaiting coronary bypass surgery Recent ST segment elevation myocardial infarction status post stenting to the distal RCA on 02/25/2024 Former smoker, FEV1 value 3.13 L / 83% of predicted Hypertension Obstructive sleep apnea, utilizing his home CPAP History of prostate cancer status post radiation Plan Continue IV heparin Nitroglycerin drip as discontinued and the patient is free of any chest pain Continue high-dose statins Continue metoprolol 12.5 mg twice a day Patient remains on room air oxygen Monitor platelet count Hemodynamically stable Coronary artery bypass surgery that is tentatively scheduled to be done on 03/03/2024.
--- NOTE | 2024-02-29 12:42 | P.PN ---
Subjective Progress Note Date: 02/29/24 Acute non-ST elevation myocardial infarction The patient is a pleasant 68-year-old gentleman with coronary artery disease status post PCI of the RCA and PLV branch of the RCA as well as aortic stenosis and hypertension and dyslipidemia who was admitted to the hospital few days ago with acute inferior ST elevation myocardial infarction and underwent a heart catheterization and PCI of the RCA. He presented back to the hospital complaining of chest discomfort concerning for angina and he was ruled in for acute coronary syndrome with uprising troponin. He underwent a heart catheterization and was found to have patent stent in the RCA with severe disease involving the left coronary system felt to be not a good candidate for PCI and good candidate for CABG. Surgery was consulted. February 26, 2024 The patient was seen and evaluated this morning. He is asymptomatic at this point. He is hemodynamically stable. He continues to be on dual antiplatelet therapy along with high intensity statin along with anti-ischemic medication and also he is on heparin IV. We are waiting for the surgeon to see the patient and evaluate the angiogram. Meanwhile continue the current medical regimen. Examination is remarkable for regular rhythm with a systolic murmur and clear breathing sounds bilaterally and no carotid bruit and no edema was noted February 27, 2024 The patient was seen and evaluated this morning. He is asymptomatic. The pressure has been marginal but he continues to be on nitro drip which I am going to wean him from. He is on heparin IV. Currently oral antiplatelet has been stopped for plan to undergo CABG in the next few days. No pain in the chest and no shortness of breath. He is euvolemic and not in heart failure. The examination is remarkable for marginally low blood pressure and heart rate with regular rate and rhythm and systolic murmur and clear breathing sounds bilateral ly and no edema was noted February 28, 2024 Patient is evaluated at bedside this a.m. He is not having any active chest pain chest pressure. He is hemodynamic stable. Blood pressure 108/71, heart rate 69 bpm normal sinus rhythm. He is planned for CABG for Wednesday. His ECG does show ST changes in inferior leads. He is currently of nitroglycerin drip with no active chest pains. He is maintained on IV heparin drip. No concerns of active bleeding February 29, 2024 Blood pressure 104 over 66 mmHg, heart rate 62 bpm, normal sinus rhythm, Hemoglobin 14, no signs of active bleeding, currently on IV heparin drip No substernal chest pain chest pressure. Not requiring any sublingual nitroglycerin. Assessment Coronary artery disease as described above Aortic stenosis appears to be mild to moderate Multiple comorbid conditions including hypertension and dyslipidemia Plan Continue the current medical regimen including heparin IV Continue aspirin, statins, beta chad Monitor for any signs of bleeding Objective - Vital Signs Vital signs: Vital Signs Temp 98.2 F 02/29/24 04:00 Pulse 62 02/29/24 08:00 Resp 16 02/29/24 08:00 BP 111/75 02/29/24 08:00 Pulse Ox 97 02/29/24 08:00 FiO2 30 02/28/24 18:00 Intake & Output 02/28/24 02/29/24 02/29/24 18:59 06:59 18:59 Intake Total 537.775 710 20 Output Total 1650 1125 Balance -1112.225 -415 20 Weight 102.4 kg Intake: IV 30 30 20 Invasive Line 2 30 30 20 Intake, IV Titration 27.775 250 Amount Heparin Sod,Pork in 0.45% 250 NaCl 25,000 unit In 0.45 % NaCl 1 250ml.bag @ 9. 891 UNITS/KG/HR 10 mls/hr IV .Q24H [facility] Rx#: [id number] Nitroglycerin-D5w Pmx 50 27.775 mg In Dextrose/Water 1 250ml.bag @ 5 MCG/MIN 1.5 mls/hr IV .Q24H [facility] Rx#: [id number] Oral 480 430 Output: Urine 1650 1125 Other: Voiding Method Urinal Urinal Urinal # Voids 1 # Bowel Movements 1 - Labs CBC & Chem 7: 02/29/24 05:52 02/28/24 04:42 Labs: Abnormal Lab Results - Last 24 Hours (Table) 02/28/24 02/29/24 02/29/24 Range/Units 20:16 05:52 05:52 Plt Count 132 L (150-450) k/uL APTT 49.2 H (22.0-30.0) sec POC Glucose (mg/dL) 124 H (70-110) mg/dL
[2024-02-29 14:55] VITALS: BMI 28.2
[2024-02-29 20:35] LABS: Glucose,Whole Blood 100 mg/dL (70-110)
--- NOTE | 2024-03-01 04:52 | P.PN ---
Subjective Progress Note Date: 02/29/24 68-year-old male with a PMH of recent acute STEMI on 02/20 status post PCI to RCA with moderate to severe disease of LAD and left circumflex, type II DM, hypertension, hyperlipidemia, BPH who presents to the emergency room with complaints of chest pain. The patient was discharged from the hospital yester day morning and notes that his pain suddenly started again today at around 4 PM, 4 out of 10 at maximal intensity, left-sided with radiation down into the left arm. Notes that the pain is a lot less severe than his initial episode that brought him to the hospital 4 days ago. He took multiple nitroglycerins at home with minimal relief. At time of interview, notes that the pain is a 2 out of 10, aching in nature, with no alleviating or exacerbating features and nonpleuritic. Denies experiencing nausea, vomiting, diaphoresis, or dizziness. Denies experiencing fever, chills, abdominal pain. EKG upon arrival to the emergency room revealed sinus rhythm with first-degree AV block at [address] segment depression in the precordial leads V3 to V6 with diffuse T wave inversions in inferior leads and precordial leads V5 and V6. Subsequent EKG revealed a HR of 58 but otherwise was essentially unchanged from that obtained upon arrival. Laboratory evaluation was remarkable for plate let count 141, troponin 6.860, and subsequently 9.200, chloride 109, proBNP 1430, BUN 23, creatinine 0.94 with D-dimer 0.5. 02/26/2024 Patient is seen and evaluated sitting up in bed; no specific complaints reported -Patient is status post cardiac catheterization and was found to have patent stent in the RCA with severe disease involving the left coronary system; patient is not felt to be a good candidate for PCI CABG is recommended -- Cardiothoracic surgery consulted 02/27/2024 Patient is seen and evaluated in ICU, sitting up in bedside chair. Reports no further chest pain after resuming IV nitroglycerin infusion Vital signs are reviewed and reveal temperature of 97.2, pulse 65, respiration 22 and blood pressure of 94/66 Blood work reveals WBC of 6.2, hemoglobin of 13.2 and platelet count of 130, sodium 137, potassium: 4, BUNs/creatinine of 20/0.94 and blood glucose of 91 Cardiology on board, planning to continue to wean off nitroglycerin infusion if able. Patient to remain on IV heparin. Oral antiplatelet therapy has been placed on hold till after surgery which is planned in next few days. Patient remains on statin therapy -- Continue to hold Brilinta till after surgery. Last dose was on 02/26/2024 02/28/2024 Patient is currently sitting in the chair. Awake alert and oriented. Able to walk in the room. On room air. No complaints of chest pain. No shortness of breath. No nausea vomiting abdominal pain or diarrhea. Patient is being continued on IV heparin and is also on IV nitroglycerin at 5 mg/min. Patient is tentatively scheduled for CABG on March 03, 2024. Continued on heparin and Brilinta is on hold. Laboratory data showed WBC 5.7 hemoglobin 12.7 and platelets 122 sodium 137 potassium 4.0 chloride 109 bicarb is 23 BUN 2020 creatinine 0.94 and blood sugar 100 and magnesium 1.8. Cardiac catheterization on 02/24 showed patent stent in the distal RCA. Ulcerated plaque involving the left main coronary artery with intermediate to severe disease involving the left circumflex and left anterior descending artery with complex lesions/bifurcation lesions. Current medications reviewed. 02/29/2024 Patient seen in follow-up today continues to be in the ICU with multiple medical consultations following. CT surgery evaluating the patient regarding severe coronary artery disease working up for possible CABG undergoing further testing with tentative schedule for intervention later this week. Patient is afebrile with no reports of worsening chest pain or palpitations. No reported nausea or vomiting and patient is tolerating diet. Review of systems: Constitutional: No reports of fatigue, fever, or chills Cardiovascular: No reports of chest pain or palpitations Respiratory: No reports of shortness of breath or cough GI: No reports of nausea, vomiting, or diarrhea : No reports of dysuria or retention Neurovascular: No reports of weakness or numbness All medications have been reviewed PHYSICAL EXAMINATION: Patient is lying in the bed, no acute distress, awake alert and oriented.. Well-developed HEENT: Normocephalic. Neck is supple. Pupils reactive. Nostrils clear. Oral cavity is moist. Neck reveals no JVD, carotid bruits, or thyromegaly. CHEST EXAMINATION: Trachea is central. Symmetrical expansion. Lung hawthorne clear to auscultation and percussion. CARDIAC: Normal S1, S2 with no gallops. No murmurs ABDOMEN: Soft. Bowel sounds normal. No organomegaly. No abdominal bruits. Extremities: reveal no edema. No clubbing or cyanosis Neurologically awake, alert, oriented x3 with well-coordinated movements. No focal deficits noted Skin: No rash or skin lesions. Psychiatric: Cooperative. Non-suicidal Musculoskeletal: No joint swelling or deformity. Normal range of motion. Assessment: 1. Acute Non-ST elevated GA with elevated troponins. Status postcardiac catheterization showed patent stent in the distal RCA. Ulcerated plaque involving the left main coronary artery with intermediate to severe disease involving the left circumflex and left anterior descending artery with complex lesions/bifurcation lesions. Scheduled for surgery on 03/03/[address] surgery 2. Recent acute inferior ST elevated GA status post emergent catheterization and PCI of the RCA, mild to moderate disease involving the left coronary system 3. Hypertension 4. Hyperlipidemia 5. Diabetes mellitus type 2 6. Obstructive sleep apnea on CPAP 7. mild to moderate aortic stenosis 8. History of prostate cancer 9. Prior history of smoking 10. Family history of coronary artery disease Plan: Patient is s/p cardiac catheterization report showed as above. CT surgery consulted and planning CABG on March 03, 2024 Patient will be undergoing further workup Continue with incentive spirometry. Encouraged to use at least 10 times every hour while awake Continue monitoring Accu-Cheks ACHS and will continue with sliding scale and adjust insulins accordingly Due to multiple complex medical issues, overall prognosis is guarded The impression and plan of care has been dictated by Shanda Sequeira, Nurse Practitioner as directed. Dr. Valorie MD I have performed a history and examination and MDM of this patient, discussed the same with the dictator, and agree with the dictator's assessment and plan as written ,documented as a scribe. Based on total visit time, I have performed more than 50% of the visit. Objective - Vital Signs Vital signs: Vital Signs Temp 98.0 F 03/01/24 00:00 Pulse 59 L 02/29/24 16:00 Resp 16 03/01/24 00:00 BP 117/68 03/01/24 00:00 Pulse Ox 99 03/01/24 00:00 FiO2 30 02/28/24 18:00 Intake & Output 02/29/24 02/29/24 03/01/24 06:59 18:59 06:59 Intake Total 710 990 580 Output Total 1125 1050 825 Balance -415 -60 -245 Weight 102.4 kg 102.4 kg 95.1 kg Intake: IV 30 30 30 Invasive Line 2 30 30 30 Intake, IV Titration 250 250 Amount Heparin Sod,Pork in 0.45% 250 250 NaCl 25,000 unit In 0.45 % NaCl 1 250ml.bag @ 9. 891 UNITS/KG/HR 10 mls/hr IV .Q24H [facility] Rx#: [id number] Oral 430 960 300 Output: Urine 1125 1050 825 Other: Voiding Method Urinal Urinal Urinal - Labs CBC & Chem 7: 02/29/24 05:52 02/28/24 04:42 Labs: Abnormal Lab Results - Last 24 Hours (Table) 02/29/24 02/29/24 Range/Units 05:52 05:52 Plt Count 132 L (150-450) k/uL APTT 49.2 H (22.0-30.0) sec
[2024-03-01 07:13] LABS: Glucose,Whole Blood 103 mg/dL (70-110)
--- NOTE | 2024-03-01 08:35 | P.PN ---
Subjective Progress Note Date: 03/01/24 Principal diagnosis: Chest pain, non-STEMI this admission. History of coronary artery disease with recent STEMI and PCI, mild to moderate aortic stenosis, hypertension, hyperlipidemia, diabetes, obstructive sleep apnea, prostate cancer, previous tobacco dependence, family history of coronary artery disease The patient was seen and examined with Dr. Boston sitting up in bed in the intensive care unit in no acute distress. Remains chest pain free off IV NTG, denies shortness of breath. Remains in sinus rhythm, hemodynamically stable. Remains on IV heparin. Labs reviewed. Patient has been ambulatory in the hallway, did 21 laps yesterday and denies any chest pain during. Anticipate surgery Wednesday. No other new concerns. Objective - Vital Signs Vital signs: Vital Signs Temp 97.9 F 03/01/24 04:00 Pulse 59 L 02/29/24 16:00 Resp 16 03/01/24 00:00 BP 112/62 03/01/24 04:00 Pulse Ox 99 03/01/24 00:00 FiO2 30 02/28/24 18:00 Intake & Output 02/29/24 03/01/24 03/01/24 18:59 06:59 18:59 Intake Total 990 580 Output Total 1050 1325 Balance -60 -745 Weight 102.4 kg 95.1 kg 102 kg Intake: IV 30 30 Invasive Line 2 30 30 Intake, IV Titration 250 Amount Heparin Sod,Pork in 0.45% 250 NaCl 25,000 unit In 0.45 % NaCl 1 250ml.bag @ 9. 891 UNITS/KG/HR 10 mls/hr IV .Q24H [facility] Rx#: [id number] Oral 960 300 Output: Urine 1050 1325 Other: Voiding Method Urinal Urinal - Exam CONSTITUTIONAL: Appears comfortable, cooperative, no acute distress RESPIRATORY: Lungs sounds diminished bilaterally. Respirations even, nonlabored. Currently on room air with oxygen saturation 95%. Able to achieve 2000 mL on incentive spirometry. Strong cough. CARDIOVASCULAR: S1, S2 present, systolic murmur present. Regular rate and rhythm, sinus rhythm on telemetry. Palpable peripheral pulses bilaterally. No edema present. No calf pain or tenderness noted GASTROINTESTINAL: Abdomen soft, nontender, nondistended. Active bowel sounds present 4 quadrants. Tolerating diet. Positive bowel movement 02/27 GENITOURINARY: Continues to void clear, yellow urine. Output 1875 mL in the last 24 hours INTEGUMENTARY: Skin is warm and dry with evidence of good perfusion NEUROLOGIC: Cranial nerves II through XII intact MUSKULOSKELETAL: Able to move all extremities, strength equal bilaterally, gait normal PSYCHIATRIC: Alert and oriented to person place and time, appropriate affect, intact judgment and insight - Allied health notes Allied health notes reviewed: nursing - Labs CBC & Chem 7: 02/29/24 05:52 02/28/24 04:42 Labs: Abnormal Lab Results - Last 24 Hours (Table) 03/01/24 Range/Units 07:00 APTT 51.5 H (22.0-30.0) sec Assessment and Plan Assessment: Chest pain, non-STEMI this admission Coronary artery disease with recent STEMI and PCI Mild to moderate aortic stenosis Hypertension Hyperlipidemia, treated, cholesterol 123, LDL 56 Diabetes, hemoglobin A1c 5.6% Obstructive sleep apnea Prostate cancer Previous tobacco dependence, preoperative FEV1 83% of predicted Family history of coronary artery disease Plan: Continue to maximize medical therapy with aspirin, statin, Zetia, beta-chad with hold parameters. Continue IV heparin Encourage incentive spirometry use Increase activity as tolerated Continue preoperative teaching Tentatively our plan is for off-pump coronary artery bypass with left internal mammary, endoscopic vein harvest and left radial artery harvest, ligation of the left atrial appendage by Dr. Boston on Wednesday,March 03, 2024 Continue to hold Brilinta, last dose February 26, 2024 Medical management of other comorbidities per internal medicine, cardiology More recommendations to follow
[2024-03-01 11:34] LABS: Glucose,Whole Blood 97 mg/dL (70-110)
--- NOTE | 2024-03-01 13:30 | P.PN ---
Subjective Progress Note Date: 03/01/24 Acute non-ST elevation myocardial infarction The patient is a pleasant 68-year-old gentleman with coronary artery disease status post PCI of the RCA and PLV branch of the RCA as well as aortic stenosis and hypertension and dyslipidemia who was admitted to the hospital few days ago with acute inferior ST elevation myocardial infarction and underwent a heart catheterization and PCI of the RCA. He presented back to the hospital complaining of chest discomfort concerning for angina and he was ruled in for acute coronary syndrome with uprising troponin. He underwent a heart catheterization and was found to have patent stent in the RCA with severe disease involving the left coronary system felt to be not a good candidate for PCI and good candidate for CABG. Surgery was consulted. February 26, 2024 The patient was seen and evaluated this morning. He is asymptomatic at this point. He is hemodynamically stable. He continues to be on dual antiplatelet therapy along with high intensity statin along with anti-ischemic medication and also he is on heparin IV. We are waiting for the surgeon to see the patient and evaluate the angiogram. Meanwhile continue the current medical regimen. Examination is remarkable for regular rhythm with a systolic murmur and clear breathing sounds bilaterally and no carotid bruit and no edema was noted February 27, 2024 The patient was seen and evaluated this morning. He is asymptomatic. The pressure has been marginal but he continues to be on nitro drip which I am going to wean him from. He is on heparin IV. Currently oral antiplatelet has been stopped for plan to undergo CABG in the next few days. No pain in the chest and no shortness of breath. He is euvolemic and not in heart failure. The examination is remarkable for marginally low blood pressure and heart rate with regular rate and rhythm and systolic murmur and clear breathing sounds bilateral ly and no edema was noted February 28, 2024 Patient is evaluated at bedside this a.m. He is not having any active chest pain chest pressure. He is hemodynamic stable. Blood pressure 108/71, heart rate 69 bpm normal sinus rhythm. He is planned for CABG for Wednesday. His ECG does show ST changes in inferior leads. He is currently of nitroglycerin drip with no active chest pains. He is maintained on IV heparin drip. No concerns of active bleeding February 29, 2024 Blood pressure 104 over 66 mmHg, heart rate 62 bpm, normal sinus rhythm, Hemoglobin 14, no signs of active bleeding, currently on IV heparin drip No substernal chest pain chest pressure. Not requiring any sublingual nitroglycerin. March 01, 2024 BP 108/84, pulse 74, no chest pains. Currently on IV heparin drip with no concerns of active bleeding. Patient is able to ambulate in the unit without any difficulties. Good urine output, tolerating oral diet. On exam Head: Normocephalic. Eyes: Sclerae nonicteric. Neck: Brisk carotid upstroke, no jugular venous distention. Lungs: Clear to auscultation. Heart: Regular rate and rhythm, S1-S2, no S3, no murmur or rub. Abdomen: Soft nontender, bowel sounds present, Extremities: No edema, Neuro: Alert, oriented, no focal neurological deficits. Detailed neuro exam was not performed. Assessment Coronary artery disease as described above Aortic stenosis appears to be mild to moderate Multiple comorbid conditions including hypertension and dyslipidemia Plan Continue the current medical regimen including heparin IV Continue aspirin, statins, beta chad Monitor for any signs of bleeding Objective - Vital Signs Vital signs: Vital Signs Temp 97.6 F 03/01/24 12:00 Pulse 68 03/01/24 12:00 Resp 16 03/01/24 12:00 BP 107/71 03/01/24 12:00 Pulse Ox 97 03/01/24 12:00 FiO2 30 02/28/24 18:00 Intake & Output 02/29/24 03/01/24 03/01/24 18:59 06:59 18:59 Intake Total 681 783 5046.602 Output Total 1050 1325 0 Balance -60 -745 1095.602 Weight 102.4 kg 95.1 kg 102 kg Intake: IV 30 30 20 Invasive Line 2 30 30 10 Invasive Line 3 10 Intake, IV Titration 250 235.602 Amount Heparin Sod,Pork in 0.45% 250 235.602 NaCl 25,000 unit In 0.45 % NaCl 1 250ml.bag @ 9. 891 UNITS/KG/HR 10 mls/hr IV .Q24H [facility] Rx#: [id number] Oral 960 300 840 Output: Urine 1050 1325 0 Other: Voiding Method Urinal Urinal Urinal # Bowel Movements 0 - Labs CBC & Chem 7: 02/29/24 05:52 02/28/24 04:42 Labs: Abnormal Lab Results - Last 24 Hours (Table) 03/01/24 Range/Units 07:00 APTT 51.5 H (22.0-30.0) sec
--- NOTE | 2024-03-01 13:48 | P.PN ---
Subjective Progress Note Date: 03/01/24 This is a very pleasant 68-year-old male patient with a history of prostate can cer with previous radiation, coronary disease with previous stent placement, hypertension, hyperlipidemia, diabetes mellitus, obstructive sleep apnea utilizing CPAP, former smoker. He had presented here to the emergency room on 02/21/2024 with complaints of chest pain. He was found to have a ST segment elevation myocardial infarction and had undergone stenting to the distal RCA with aspiration thrombectomy. He recovered and was discharged home on 02/23/2024. He was prescribed Brilinta. Echocardiogram had revealed mild to moderate LV left ventricular systolic dysfunction with ejection fraction of 40 to 45%. He came back to the emergency room on 02/24/2024 with recurrent chest pain. He was found to have a new non-ST segment elevation myocardial infarction's with uptrending troponins. Repeat echocardiogram revealed an ejection fraction of 45%. Repeat cardiac catheterization on 02/25/2024 revealed patent stent to the distal RCA. There was an ulcerated plaque involving the left main coronary artery with intermediate to severe disease involving the left circumflex and left anterior descending artery with complex lesion/bifurcation lesions. He is recommended coronary artery bypass grafting which is tentatively planned for March 03, 2024 after being off his Brilinta. On today's evaluation of 02/28/2024, the patient sitting up on a chair. The patient is calm and comfortable. The patient remains on IV heparin. The patient also is receiving IV nitroglycerin at 5 mg/min. The patient is free of any chest pain. Hemodynamically stable. Cardiac rhythm is sinus. He is currently off Brilinta. Awaiting coronary bypass surgery. Remains on aspirin. Remains on IV heparin. Remains on his routine outpatient medications. He is also on metoprolol 12.5 mg twice a day. Remains on Lipitor 80 mg p.o. daily. Awake and alert. He is on room air oxygen. 02/29/2024, the patient is calm and comfortable. Free of any chest pain. Hemodynamically stable. No cardiac arrhythmias. Nitroglycerin drip has been discontinued. The patient has no specific complaints. He remains on IV heparin drip. At the same time, labs from today shows a white cell count of 6, hemoglobin 14.1 and a platelet count of 132 without any significant drop in the platelet count while being on IV heparin. 03/01/2024, the patient is being seen for a follow-up. No new complaints. Remains on IV heparin. Hemodynamically stable. Free of any chest pain. No other significant events overnight. The patient is awaiting coronary bypass surgery that is being done on 03/03/2024. He remains on aspirin. He is also on metoprolol 12.5 mg p.o. twice a day. Objective - Vital Signs Vital signs: Vital Signs Temp 97.2 F L 03/01/24 08:00 Pulse 72 03/01/24 08:00 Resp 16 03/01/24 08:00 BP 108/84 03/01/24 08:00 Pulse Ox 98 03/01/24 08:00 FiO2 30 02/28/24 18:00 Intake & Output 02/29/24 03/01/24 03/01/24 18:59 06:59 18:59 Intake Total 990 580 Output Total 1050 1325 Balance -60 -745 Weight 102.4 kg 95.1 kg 102 kg Intake: IV 30 30 Invasive Line 2 30 30 Intake, IV Titration 250 Amount Heparin Sod,Pork in 0.45% 250 NaCl 25,000 unit In 0.45 % NaCl 1 250ml.bag @ 9. 891 UNITS/KG/HR 10 mls/hr IV .Q24H [facility] Rx#: [id number] Oral 960 300 Output: Urine 1050 1325 Other: Voiding Method Urinal Urinal - Exam GENERAL EXAM: Alert, pleasant 68-year-old male, on room air, up in a chair, comfortable in no apparent distress. HEAD: Normocephalic. EYES: Normal reaction of pupils, equal size. NOSE: Clear with pink turbinates. THROAT: No erythema or exudates. NECK: No masses, no JVD. CHEST: No chest wall deformity. LUNGS: Equal air entry with no crackles, wheeze, rhonchi or dullness. CVS: S1 and S2 normal with no audible murmur, regular rhythm. ABDOMEN: No hepatosplenomegaly, normal bowel sounds, no guarding or rigidity. SPINE: No scoliosis or deformity SKIN: No rashes CENTRAL NERVOUS SYSTEM: No focal deficits, tone is normal in all 4 extremities. EXTREMITIES: There is no peripheral edema. No clubbing, no cyanosis. Peripheral pulses are intact. - Labs CBC & Chem 7: 02/29/24 05:52 06/10/24 04:42 Labs: Abnormal Lab Results - Last 24 Hours (Table) 03/01/24 Range/Units 07:00 APTT 51.5 H (22.0-30.0) sec Assessment and Plan Plan: Acute non-ST segment elevation myocardial infarction. Cardiac catheterization reveals a pink patent stent in the distal RCA. Ulcerated plaque involving the left main coronary artery with intermediate to severe disease involving the left circumflex and left anterior descending artery with complex lesion/bifurcation lesions. Plan is for coronary artery bypass grafting on 03/03/2024 after being off Brilinta. The patient remains on IV heparin. The patient is also on low- dose nitroglycerin which is needed for chest pain control, currently off the nitroglycerin drip. The patient is free of any chest pain at this point in time. Hemodynamically stable. Awaiting coronary bypass surgery Recent ST segment elevation myocardial infarction status post stenting to the distal RCA on 02/25/2024 Former smoker, FEV1 value 3.13 L / 83% of predicted Hypertension Obstructive sleep apnea, utilizing his home CPAP History of prostate cancer status post radiation Plan No changes the patient and the patient remains free of any chest pain condition continue IV heparin Nitroglycerin drip as discontinued and the patient is free of any chest pain Continue high-dose statins Continue metoprolol 12.5 mg twice a day Patient remains on room air oxygen Monitor platelet count Hemodynamically stable Coronary artery bypass surgery that is tentatively scheduled to be done on 03/03/2024.
[2024-03-01 16:14] LABS: Glucose,Whole Blood 100 mg/dL (70-110)
[2024-03-01 20:17] LABS: Glucose,Whole Blood 149 mg/dL (70-110)
[2024-03-01] MEDS: polyethylene glycoL 3350 17 GM POWD.PACK PO PRN (20:33)
--- NOTE | 2024-03-02 04:58 | P.PN ---
Subjective Progress Note Date: 03/01/24 68-year-old male with a PMH of recent acute STEMI on 02/20 status post PCI to RCA with moderate to severe disease of LAD and left circumflex, type II DM, hypertension, hyperlipidemia, BPH who presents to the emergency room with complaints of chest pain. The patient was discharged from the hospital yester day morning and notes that his pain suddenly started again today at around 4 PM, 4 out of 10 at maximal intensity, left-sided with radiation down into the left arm. Notes that the pain is a lot less severe than his initial episode that brought him to the hospital 4 days ago. He took multiple nitroglycerins at home with minimal relief. At time of interview, notes that the pain is a 2 out of 10, aching in nature, with no alleviating or exacerbating features and nonpleuritic. Denies experiencing nausea, vomiting, diaphoresis, or dizziness. Denies experiencing fever, chills, abdominal pain. EKG upon arrival to the emergency room revealed sinus rhythm with first-degree AV block at [address] segment depression in the precordial leads V3 to V6 with diffuse T wave inversions in inferior leads and precordial leads V5 and V6. Subsequent EKG revealed a HR of 58 but otherwise was essentially unchanged from that obtained upon arrival. Laboratory evaluation was remarkable for plate let count 141, troponin 6.860, and subsequently 9.200, chloride 109, proBNP 1430, BUN 23, creatinine 0.94 with D-dimer 0.5. 02/26/2024 Patient is seen and evaluated sitting up in bed; no specific complaints reported -Patient is status post cardiac catheterization and was found to have patent stent in the RCA with severe disease involving the left coronary system; patient is not felt to be a good candidate for PCI CABG is recommended -- Cardiothoracic surgery consulted 02/27/2024 Patient is seen and evaluated in ICU, sitting up in bedside chair. Reports no further chest pain after resuming IV nitroglycerin infusion Vital signs are reviewed and reveal temperature of 97.2, pulse 65, respiration 22 and blood pressure of 94/66 Blood work reveals WBC of 6.2, hemoglobin of 13.2 and platelet count of 130, sodium 137, potassium: 4, BUNs/creatinine of 20/0.94 and blood glucose of 91 Cardiology on board, planning to continue to wean off nitroglycerin infusion if able. Patient to remain on IV heparin. Oral antiplatelet therapy has been placed on hold till after surgery which is planned in next few days. Patient remains on statin therapy -- Continue to hold Brilinta till after surgery. Last dose was on 02/26/2024 02/28/2024 Patient is currently sitting in the chair. Awake alert and oriented. Able to walk in the room. On room air. No complaints of chest pain. No shortness of breath. No nausea vomiting abdominal pain or diarrhea. Patient is being continued on IV heparin and is also on IV nitroglycerin at 5 mg/min. Patient is tentatively scheduled for CABG on March 03, 2024. Continued on heparin and Brilinta is on hold. Laboratory data showed WBC 5.7 hemoglobin 12.7 and platelets 122 sodium 137 potassium 4.0 chloride 109 bicarb is 23 BUN 2020 creatinine 0.94 and blood sugar 100 and magnesium 1.8. Cardiac catheterization on 02/24 showed patent stent in the distal RCA. Ulcerated plaque involving the left main coronary artery with intermediate to severe disease involving the left circumflex and left anterior descending artery with complex lesions/bifurcation lesions. Current medications reviewed. 02/29/2024 Patient seen in follow-up today continues to be in the ICU with multiple medical consultations following. CT surgery evaluating the patient regarding severe coronary artery disease working up for possible CABG undergoing further testing with tentative schedule for intervention later this week. Patient is afebrile with no reports of worsening chest pain or palpitations. No reported nausea or vomiting and patient is tolerating diet. 03/01/2024 Patient is seen and evaluated today in follow-up currently sitting up in the chair with at the bedside with no issues noted. Patient denies any chest pain or shortness of breath. Patient reports has been walking multiple times in the berg and is using incentive spirometer. Scheduled tentatively for cardiac intervention on 03/03/[address] surgery. Patient is currently afebrile. Review of systems: Constitutional: No reports of fatigue, fever, or chills Cardiovascular: No reports of chest pain or palpitations Respiratory: No reports of shortness of breath or cough GI: No reports of nausea, vomiting, or diarrhea : No reports of dysuria or retention Neurovascular: No reports of weakness or numbness All medications have been reviewed PHYSICAL EXAMINATION: Patient is sitting up in the chair, no acute distress, awake alert and oriented.. Well-developed HEENT: Normocephalic. Neck is supple. Pupils reactive. Nostrils clear. Oral cavity is moist. Neck reveals no JVD, carotid bruits, or thyromegaly. CHEST EXAMINATION: Trachea is central. Symmetrical expansion. Lung hawthorne clear to auscultation and percussion. CARDIAC: Normal S1, S2 with no gallops. No murmurs ABDOMEN: Soft. Bowel sounds normal. No organomegaly. No abdominal bruits. Extremities: reveal no edema. No clubbing or cyanosis Neurologically awake, alert, oriented x3 with well-coordinated movements. No focal deficits noted Skin: No rash or skin lesions. Psychiatric: Cooperative. Non-suicidal Musculoskeletal: No joint swelling or deformity. Normal range of motion. Assessment: 1. Acute Non-ST elevated NM with elevated troponins. Status postcardiac catheterization showed patent stent in the distal RCA. Ulcerated plaque involving the left main coronary artery with intermediate to severe disease involving the left circumflex and left anterior descending artery with complex lesions/bifurcation lesions. Scheduled for surgery on 03/03/[address] surgery 2. Recent acute inferior ST elevated NM status post emergent catheterization and PCI of the RCA, mild to moderate disease involving the left coronary system 3. Hypertension 4. Hyperlipidemia 5. Diabetes mellitus type 2 6. Obstructive sleep apnea on CPAP 7. mild to moderate aortic stenosis 8. History of prostate cancer 9. Prior history of smoking 10. Family history of coronary artery disease GI prophylaxis DVT prophylaxis Full code Plan: Patient is s/p cardiac catheterization report showed as above. CT surgery following and planning CABG on March 03, 2024 Patient will be undergoing further workup Continue with incentive spirometry. Encouraged to use at least 10 times every hour while awake Patient has been up and walking frequently and encouraged to continue to do so Continue monitoring Accu-Cheks ACHS and will continue with sliding scale and adjust insulins accordingly Due to multiple complex medical issues, overall prognosis is guarded The impression and plan of care has been dictated by Shanda Sequeira, Nurse Practitioner as directed. Dr. Valorie MD I have performed a history and examination and MDM of this patient, discussed the same with the dictator, and agree with the dictator's assessment and plan as written ,documented as a scribe. Based on total visit time, I have performed more than 50% of the visit. Objective - Vital Signs Vital signs: Vital Signs Temp 97.9 F 03/02/24 04:00 Pulse 61 03/02/24 04:00 Resp 16 03/02/24 04:00 BP 115/72 03/02/24 04:00 Pulse Ox 100 03/02/24 04:00 FiO2 30 02/28/24 18:00 Intake & Output 03/01/24 03/01/24 03/02/24 06:59 18:59 06:59 Intake Total 580 1095.602 386.722 Output Total 1325 425 600 Balance -745 670.602 -213.278 Weight 95.1 kg 102 kg Intake: IV 30 20 20 Invasive Line 2 30 10 Invasive Line 3 10 20 Intake, IV Titration 250 235.602 246.722 Amount Heparin Sod,Pork in 0.45% 250 235.602 246.722 NaCl 25,000 unit In 0.45 % NaCl 1 250ml.bag @ 9. 891 UNITS/KG/HR 10 mls/hr IV .Q24H [facility] Rx#: [id number] Oral 300 840 120 Output: Urine 1325 425 600 Other: Voiding Method Urinal Urinal Urinal # Voids 1 # Bowel Movements 0 - Labs CBC & Chem 7: 02/29/24 05:52 02/28/24 04:42 Labs: Abnormal Lab Results - Last 24 Hours (Table) 03/01/24 03/01/24 Range/Units 07:00 20:16 APTT 51.5 H (22.0-30.0) sec POC Glucose (mg/dL) 149 H (70-110) mg/dL
[2024-03-02 05:41] LABS: Glucose,Whole Blood 140 mg/dL (70-110)
--- NOTE | 2024-03-02 08:00 | XR ---
EXAMINATION TYPE: XR chest 2V DATE OF EXAM: 03/02/2024 COMPARISON: 624 HISTORY: Shortness of breath TECHNIQUE: Frontal and lateral views of the chest are obtained. FINDINGS: Scattered senescent parenchymal changes noted. Hyperinflation compatible with COPD. No evidence for infiltrate. No evidence for atelectasis. Heart size is stable. Mediastinal structures are stable and grossly unremarkable. No evidence for hilar prominence. Degenerative changes dorsal spine. IMPRESSION: 1. No evidence for acute pulmonary disease.
[2024-03-02] MEDS ORDERED: bisacodyL 10 MG SUPP RECTAL PRN (09:05)
--- NOTE | 2024-03-02 09:07 | P.PN ---
Subjective Progress Note Date: 03/02/24 Principal diagnosis: Chest pain, non-STEMI this admission. History of coronary artery disease with recent STEMI and PCI, mild to moderate aortic stenosis, hypertension, hyperlipidemia, diabetes, obstructive sleep apnea, prostate cancer, previous tobacco dependence, family history of coronary artery disease The patient was seen and examined sitting up in recliner on the cardiac stepdown unit in no acute distress. Remains chest pain free off IV NTG, denies shortness of breath. Remains in sinus rhythm, hemodynamically stable. Remains on IV heparin. Patient has been ambulatory in the hallway without difficulty. His only complaint is of constipation, medications added. Anticipate surgery tomorrow. No other new concerns. Objective - Vital Signs Vital signs: Vital Signs Temp 97.6 F 03/02/24 08:00 Pulse 71 03/02/24 08:00 Resp 18 03/02/24 08:00 BP 105/68 03/02/24 08:00 Pulse Ox 98 03/02/24 08:00 FiO2 30 02/28/24 18:00 Intake & Output 03/01/24 03/02/24 03/02/24 18:59 06:59 18:59 Intake Total 1095.602 386.722 10 Output Total 425 1400 Balance 670.602 -1013.278 10 Weight 102 kg 102.3 kg Intake: IV 20 20 10 Invasive Line 2 10 Invasive Line 3 10 20 10 Intake, IV Titration 235.602 246.722 Amount Heparin Sod,Pork in 0.45% 235.602 246.722 NaCl 25,000 unit In 0.45 % NaCl 1 250ml.bag @ 9. 891 UNITS/KG/HR 10 mls/hr IV .Q24H [facility] Rx#: [id number] Oral 840 120 Output: Urine 425 1400 Other: Voiding Method Urinal Urinal # Voids 1 # Bowel Movements 0 - Exam CONSTITUTIONAL: Appears comfortable, cooperative, no acute distress RESPIRATORY: Lungs sounds diminished bilaterally. Respirations even, nonlabored. Currently on room air with oxygen saturation 100%. Able to achieve 2000 mL on incentive spirometry. Strong cough. CARDIOVASCULAR: S1, S2 present, systolic murmur present. Regular rate and rhythm, sinus rhythm on telemetry. Palpable peripheral pulses bilaterally. No edema present. No calf pain or tenderness noted GASTROINTESTINAL: Abdomen soft, nontender, nondistended. Active bowel sounds present 4 quadrants. Tolerating diet. Positive bowel movement 02/27 GENITOURINARY: Continues to void clear, yellow urine. Output 1825 mL in the last 24 hours INTEGUMENTARY: Skin is warm and dry with evidence of good perfusion NEUROLOGIC: Cranial nerves II through XII intact MUSKULOSKELETAL: Able to move all extremities, strength equal bilaterally, gait normal PSYCHIATRIC: Alert and oriented to person place and time, appropriate affect, intact judgment and insight - Labs CBC & Chem 7: 02/29/24 05:52 02/28/24 04:42 Labs: Abnormal Lab Results - Last 24 Hours (Table) 03/01/24 03/02/24 Range/Units 20:16 05:39 POC Glucose (mg/dL) 149 H 140 H (70-110) mg/dL - Imaging and Cardiology Chest x-ray: report reviewed, image reviewed Assessment and Plan Assessment: Chest pain, non-STEMI this admission Coronary artery disease with recent STEMI and PCI Mild to moderate aortic stenosis Hypertension Hyperlipidemia, treated, cholesterol 123, LDL 56 Diabetes, hemoglobin A1c 5.6% Obstructive sleep apnea Prostate cancer Previous tobacco dependence, preoperative FEV1 83% of predicted Family history of coronary artery disease Plan: Continue to maximize medical therapy with aspirin, statin, Zetia, beta-chad with hold parameters. Continue IV heparin Encourage incentive spirometry use Increase activity as tolerated Continue preoperative teaching Our plan is for off-pump coronary artery bypass with left internal mammary, endoscopic vein harvest and left radial artery harvest, ligation of the left atrial appendage by Dr. Boston on 2023 N.p.o. after midnight Continue to hold Brilinta, last dose February 26, 2024 Medical management of other comorbidities per internal medicine, cardiology More recommendations to follow
[2024-03-02 11:09] LABS: Basophils # (A) 0.1 k/uL (0-0.2); Basophils % (A) 1 %; Eosinophils # (A) 0.1 k/uL (0-0.7); Eosinophils % (A) 2 %; HCT 45.2 % (39.0-53.0); HGB 14.7 gm/dL (13.0-17.5); Lymphocytes # (A) 0.9 k/uL (1.0-4.8); Lymphocytes % (A) 14 %; MCH 30.2 pg (25.0-35.0); MCHC 32.7 g/dL (31.0-37.0); MCV 92.3 fL (80.0-100.0); Mean Platelet Volume 8.1; Monocytes # (A) 0.4 k/uL (0-1.0); Monocytes % (A) 6 %; Neutrophils # (A) 4.9 k/uL (1.3-7.7); Neutrophils % (A) 76 %; Platelet Count 174 k/uL (150-450); RBC 4.89 m/uL (4.30-5.90); RDW 13.7 % (11.5-15.5); WBC 6.4 k/uL (3.8-10.6)
[2024-03-02 11:20] LABS: Partial Thromboplastin Time 36.8 sec (22.0-30.0); Prothrombin Time 10.7 sec (10.0-12.5)
[2024-03-02 11:37] LABS: ALT 34 U/L (4-49); AST 24 U/L (17-59); African American GFR (CKD) 88 (>60 ml/min/1.73 sqM); Albumin 4.3 g/dL (3.5-5.0); Alkaline Phosphatase 80 U/L (38-126); Anion Gap 9 mmol/L; Blood Urea Nitrogen 20 mg/dL (9-20); Calcium 9.5 mg/dL (8.4-10.2); Carbon Dioxide 24 mmol/L (22-30); Chloride 105 mmol/L (98-107); Glucose 74 mg/dL (74-99); Magnesium 1.9 mg/dL (1.6-2.3); Non-African American GFR(CKD) 76 (>60 ml/min/1.73 sqM); Potassium 4.5 mmol/L (3.5-5.1); Sodium 138 mmol/L (137-145); Total Bilirubin 0.5 mg/dL (0.2-1.3); Total Protein 6.7 g/dL (6.3-8.2)
[2024-03-02 11:37] LABS: Glucose,Whole Blood 98 mg/dL (70-110)
[2024-03-02] MEDS: polyethylene glycoL 3350 17 GM POWD.PACK PO SCH (12:58)
--- NOTE | 2024-03-02 15:38 | P.PN ---
Subjective Progress Note Date: 03/02/24 Acute non-ST elevation myocardial infarction The patient is a pleasant 68-year-old gentleman with coronary artery disease status post PCI of the RCA and PLV branch of the RCA as well as aortic stenosis and hypertension and dyslipidemia who was admitted to the hospital few days ago with acute inferior ST elevation myocardial infarction and underwent a heart catheterization and PCI of the RCA. He presented back to the hospital complaining of chest discomfort concerning for angina and he was ruled in for acute coronary syndrome with uprising troponin. He underwent a heart catheterization and was found to have patent stent in the RCA with severe disease involving the left coronary system felt to be not a good candidate for PCI and good candidate for CABG. Surgery was consulted. February 26, 2024 The patient was seen and evaluated this morning. He is asymptomatic at this point. He is hemodynamically stable. He continues to be on dual antiplatelet therapy along with high intensity statin along with anti-ischemic medication and also he is on heparin IV. We are waiting for the surgeon to see the patient and evaluate the angiogram. Meanwhile continue the current medical regimen. Examination is remarkable for regular rhythm with a systolic murmur and clear breathing sounds bilaterally and no carotid bruit and no edema was noted February 27, 2024 The patient was seen and evaluated this morning. He is asymptomatic. The pressure has been marginal but he continues to be on nitro drip which I am going to wean him from. He is on heparin IV. Currently oral antiplatelet has been stopped for plan to undergo CABG in the next few days. No pain in the chest and no shortness of breath. He is euvolemic and not in heart failure. The examination is remarkable for marginally low blood pressure and heart rate with regular rate and rhythm and systolic murmur and clear breathing sounds bilateral ly and no edema was noted February 28, 2024 Patient is evaluated at bedside this a.m. He is not having any active chest pain chest pressure. He is hemodynamic stable. Blood pressure 108/71, heart rate 69 bpm normal sinus rhythm. He is planned for CABG for Wednesday. His ECG does show ST changes in inferior leads. He is currently of nitroglycerin drip with no active chest pains. He is maintained on IV heparin drip. No concerns of active bleeding February 29, 2024 Blood pressure 104 over 66 mmHg, heart rate 62 bpm, normal sinus rhythm, Hemoglobin 14, no signs of active bleeding, currently on IV heparin drip No substernal chest pain chest pressure. Not requiring any sublingual nitroglycerin. March 01, 2024 BP 108/84, pulse 74, no chest pains. Currently on IV heparin drip with no concerns of active bleeding. Patient is able to ambulate in the unit without any difficulties. Good urine output, tolerating oral diet. 10/02/2023 Blood pressure 110/80, pulse 76 bpm, no chest pains. No bleeding on IV heparin drip. Ambulating in the unit without any difficulty. Plan for CT surgery tomorrow a.m. Good urine output. Tolerating oral diet On exam Head: Normocephalic. Eyes: Sclerae nonicteric. Neck: Brisk carotid upstroke, no jugular venous distention. Lungs: Clear to auscultation. Heart: Regular rate and rhythm, S1-S2, no S3, no murmur or rub. Abdomen: Soft nontender, bowel sounds present, Extremities: No edema, Neuro: Alert, oriented, no focal neurological deficits. Detailed neuro exam was not performed. Assessment Coronary artery disease as described above Aortic stenosis appears to be mild to moderate Multiple comorbid conditions including hypertension and dyslipidemia Plan Continue the current medical regimen including heparin IV Continue aspirin, statins, beta chad Monitor for any signs of bleeding Plan for CT surgery tomorrow. Patient does have aortic stenosis which is most likely moderate range. It will be evaluated intraoperatively to see if patient is reaching severe aortic stenosis and if it needs to be replaced along with his CABG. Objective - Vital Signs Vital signs: Vital Signs Temp 97.6 F 03/02/24 08:00 Pulse 71 03/02/24 14:00 Resp 18 03/02/24 08:00 BP 105/68 03/02/24 08:00 Pulse Ox 98 03/02/24 08:00 FiO2 30 02/28/24 18:00 Intake & Output 03/01/24 03/02/24 03/02/24 18:59 06:59 18:59 Intake Total 1095.602 386.722 453.539 Output Total 425 1400 800 Balance 670.602 -1013.278 -346.461 Weight 102 kg 102.3 kg Intake: IV 20 20 30 Invasive Line 2 10 Invasive Line 3 10 20 10 Invasive Line 4 20 Intake, IV Titration 235.602 246.722 243.539 Amount Heparin Sod,Pork in 0.45% 235.602 246.722 243.539 NaCl 25,000 unit In 0.45 % NaCl 1 250ml.bag @ 9. 891 UNITS/KG/HR 10 mls/hr IV .Q24H [facility] Rx#: [id number] Oral 840 120 180 Output: Urine 425 1400 800 Other: Voiding Method Urinal Urinal # Voids 1 3 # Bowel Movements 0 - Labs CBC & Chem 7: 03/02/24 09:56 03/02/24 09:56 Labs: Abnormal Lab Results - Last 24 Hours (Table) 03/01/24 03/02/24 03/02/24 Range/Units 20:16 05:39 09:56 Lymphocytes # (1.0-4.8) k/uL APTT (22.0-30.0) sec POC Glucose (mg/dL) 149 H 140 H (70-110) mg/dL Crossmatch See Detail 03/02/24 03/02/24 Range/Units 09:56 09:56 Lymphocytes # 0.9 L (1.0-4.8) k/uL APTT 36.8 H (22.0-30.0) sec POC Glucose (mg/dL) (70-110) mg/dL Crossmatch
[2024-03-02 16:37] LABS: Glucose,Whole Blood 102 mg/dL (70-110)
[2024-03-02] MEDS: NITROGLYCERIN SL TABS 0.4 MG TAB SUBLINGUAL PRN (18:30)
[2024-03-02] MEDS: MORPHINE SULFATE 4 MG/ML SYRINGE IV PRN (19:42)
[2024-03-02 20:28] LABS: Glucose,Whole Blood 116 mg/dL (70-110)
[2024-03-02] MEDS: NITROGLYCERIN-D5W PMX 50 MG in DEXTROSE/WATER 1 250ML.BAG IV SCH (20:57)
--- NOTE | 2024-03-02 22:36 | P.PN ---
Subjective Progress Note Date: 03/02/24 This is a very pleasant 68-year-old male patient with a history of prostate can cer with previous radiation, coronary disease with previous stent placement, hypertension, hyperlipidemia, diabetes mellitus, obstructive sleep apnea utilizing CPAP, former smoker. He had presented here to the emergency room on 02/21/2024 with complaints of chest pain. He was found to have a ST segment elevation myocardial infarction and had undergone stenting to the distal RCA with aspiration thrombectomy. He recovered and was discharged home on 02/23/2024. He was prescribed Brilinta. Echocardiogram had revealed mild to moderate LV left ventricular systolic dysfunction with ejection fraction of 40 to 45%. He came back to the emergency room on 02/24/2024 with recurrent chest pain. He was found to have a new non-ST segment elevation myocardial infarction's with uptrending troponins. Repeat echocardiogram revealed an ejection fraction of 45%. Repeat cardiac catheterization on 02/25/2024 revealed patent stent to the distal RCA. There was an ulcerated plaque involving the left main coronary artery with intermediate to severe disease involving the left circumflex and left anterior descending artery with complex lesion/bifurcation lesions. He is recommended coronary artery bypass grafting which is tentatively planned for March 03, 2024 after being off his Brilinta. On today's evaluation of 02/28/2024, the patient sitting up on a chair. The patient is calm and comfortable. The patient remains on IV heparin. The patient also is receiving IV nitroglycerin at 5 mg/min. The patient is free of any chest pain. Hemodynamically stable. Cardiac rhythm is sinus. He is currently off Brilinta. Awaiting coronary bypass surgery. Remains on aspirin. Remains on IV heparin. Remains on his routine outpatient medications. He is also on metoprolol 12.5 mg twice a day. Remains on Lipitor 80 mg p.o. daily. Awake and alert. He is on room air oxygen. 02/29/2024, the patient is calm and comfortable. Free of any chest pain. Hemodynamically stable. No cardiac arrhythmias. Nitroglycerin drip has been discontinued. The patient has no specific complaints. He remains on IV heparin drip. At the same time, labs from today shows a white cell count of 6, hemoglobin 14.1 and a platelet count of 132 without any significant drop in the platelet count while being on IV heparin. 03/01/2024, the patient is being seen for a follow-up. No new complaints. Remains on IV heparin. Hemodynamically stable. Free of any chest pain. No other significant events overnight. The patient is awaiting coronary bypass surgery that is being done on 03/03/2024. He remains on aspirin. He is also on metoprolol 12.5 mg p.o. twice a day. On 03/02/2024, the patient is being seen for a follow-up. No new complaints. The plan is to proceed with a bypass surgery in the morning. The patient re tiffany clinically stable and hemodynamically stable. He is on room air oxygen. History of any chest pain. Medications remain unchanged. Labs from today shows a white cell count of 6.4 hemoglobin 14.7 and a platelet count of 174. BUN is 20 with a creatinine 1.01 and sodium levels at 138. No other new complaints otherwise for now. Objective - Vital Signs Vital signs: Vital Signs Temp 97.6 F 03/02/24 08:00 Pulse 71 03/02/24 08:00 Resp 18 03/02/24 08:00 BP 105/68 03/02/24 08:00 Pulse Ox 98 03/02/24 08:00 FiO2 30 02/28/24 18:00 Intake & Output 03/01/24 03/02/24 03/02/24 18:59 06:59 18:59 Intake Total 1095.602 386.722 190 Output Total 425 1400 Balance 670.602 -1013.278 190 Weight 102 kg 102.3 kg Intake: IV 20 20 10 Invasive Line 2 10 Invasive Line 3 10 20 10 Intake, IV Titration 235.602 246.722 Amount Heparin Sod,Pork in 0.45% 235.602 246.722 NaCl 25,000 unit In 0.45 % NaCl 1 250ml.bag @ 9. 891 UNITS/KG/HR 10 mls/hr IV .Q24H [facility] Rx#: [id number] Oral 840 120 180 Output: Urine 425 1400 Other: Voiding Method Urinal Urinal # Voids 1 # Bowel Movements 0 - Exam GENERAL EXAM: Alert, pleasant 68-year-old male, on room air, up in a chair, comfortable in no apparent distress. HEAD: Normocephalic. EYES: Normal reaction of pupils, equal size. NOSE: Clear with pink turbinates. THROAT: No erythema or exudates. NECK: No masses, no JVD. CHEST: No chest wall deformity. LUNGS: Equal air entry with no crackles, wheeze, rhonchi or dullness. CVS: S1 and S2 normal with no audible murmur, regular rhythm. ABDOMEN: No hepatosplenomegaly, normal bowel sounds, no guarding or rigidity. SPINE: No scoliosis or deformity SKIN: No rashes CENTRAL NERVOUS SYSTEM: No focal deficits, tone is normal in all 4 extremities. EXTREMITIES: There is no peripheral edema. No clubbing, no cyanosis. Peripheral pulses are intact. - Labs CBC & Chem 7: 03/02/24 09:56 03/02/24 09:56 Labs: Abnormal Lab Results - Last 24 Hours (Table) 03/01/24 03/02/24 Range/Units 20:16 05:39 POC Glucose (mg/dL) 149 H 140 H (70-110) mg/dL Assessment and Plan Plan: Acute non-ST segment elevation myocardial infarction. Cardiac catheterization reveals a pink patent stent in the distal RCA. Ulcerated plaque involving the left main coronary artery with intermediate to severe disease involving the left circumflex and left anterior descending artery with complex lesion/bifurcation lesions. Plan is for coronary artery bypass grafting on 03/03/2024 after being off Brilinta. The patient remains on IV heparin. The patient is also on low- dose nitroglycerin which is needed for chest pain control, currently off the nitroglycerin drip. The patient is free of any chest pain at this point in time. Hemodynamically stable. Awaiting coronary bypass surgery Recent ST segment elevation myocardial infarction status post stenting to the distal RCA on 02/25/2024 Former smoker, FEV1 value 3.13 L / 83% of predicted Hypertension Obstructive sleep apnea, utilizing his home CPAP History of prostate cancer status post radiation Plan Plan for coronary bypass surgery on 03/03/2024 No changes the patient and the patient remains free of any chest pain condition continue IV heparin Nitroglycerin drip as discontinued and the patient is free of any chest pain Continue high-dose statins Continue metoprolol 12.5 mg twice a day Patient remains on room air oxygen Monitor platelet count Hemodynamically stable Coronary artery bypass surgery that is tentatively scheduled to be done on 03/03/2024.
[2024-03-03] MEDS: ASPIRIN 325 MG TAB PO ONE (05:35)
[2024-03-03] MEDS: ATORVASTATIN 10 MG TAB PO ONE (05:36)
[2024-03-03] MEDS: METOPROLOL TARTRATE 12.5 MG TAB PO ONE (05:37)
--- NOTE | 2024-03-03 05:37 | P.PN ---
Subjective Progress Note Date: 03/02/24 68-year-old male with a PMH of recent acute STEMI on 02/20 status post PCI to RCA with moderate to severe disease of LAD and left circumflex, type II DM, hypertension, hyperlipidemia, BPH who presents to the emergency room with complaints of chest pain. The patient was discharged from the hospital yester day morning and notes that his pain suddenly started again today at around 4 PM, 4 out of 10 at maximal intensity, left-sided with radiation down into the left arm. Notes that the pain is a lot less severe than his initial episode that brought him to the hospital 4 days ago. He took multiple nitroglycerins at home with minimal relief. At time of interview, notes that the pain is a 2 out of 10, aching in nature, with no alleviating or exacerbating features and nonpleuritic. Denies experiencing nausea, vomiting, diaphoresis, or dizziness. Denies experiencing fever, chills, abdominal pain. EKG upon arrival to the emergency room revealed sinus rhythm with first-degree AV block at [address] segment depression in the precordial leads V3 to V6 with diffuse T wave inversions in inferior leads and precordial leads V5 and V6. Subsequent EKG revealed a HR of 58 but otherwise was essentially unchanged from that obtained upon arrival. Laboratory evaluation was remarkable for plate let count 141, troponin 6.860, and subsequently 9.200, chloride 109, proBNP 1430, BUN 23, creatinine 0.94 with D-dimer 0.5. 02/26/2024 Patient is seen and evaluated sitting up in bed; no specific complaints reported -Patient is status post cardiac catheterization and was found to have patent stent in the RCA with severe disease involving the left coronary system; patient is not felt to be a good candidate for PCI CABG is recommended -- Cardiothoracic surgery consulted 02/27/2024 Patient is seen and evaluated in ICU, sitting up in bedside chair. Reports no further chest pain after resuming IV nitroglycerin infusion Vital signs are reviewed and reveal temperature of 97.2, pulse 65, respiration 22 and blood pressure of 94/66 Blood work reveals WBC of 6.2, hemoglobin of 13.2 and platelet count of 130, sodium 137, potassium: 4, BUNs/creatinine of 20/0.94 and blood glucose of 91 Cardiology on board, planning to continue to wean off nitroglycerin infusion if able. Patient to remain on IV heparin. Oral antiplatelet therapy has been placed on hold till after surgery which is planned in next few days. Patient remains on statin therapy -- Continue to hold Brilinta till after surgery. Last dose was on 02/26/2024 02/28/2024 Patient is currently sitting in the chair. Awake alert and oriented. Able to walk in the room. On room air. No complaints of chest pain. No shortness of breath. No nausea vomiting abdominal pain or diarrhea. Patient is being continued on IV heparin and is also on IV nitroglycerin at 5 mg/min. Patient is tentatively scheduled for CABG on March 03, 2024. Continued on heparin and Brilinta is on hold. Laboratory data showed WBC 5.7 hemoglobin 12.7 and platelets 122 sodium 137 potassium 4.0 chloride 109 bicarb is 23 BUN 2020 creatinine 0.94 and blood sugar 100 and magnesium 1.8. Cardiac catheterization on 02/24 showed patent stent in the distal RCA. Ulcerated plaque involving the left main coronary artery with intermediate to severe disease involving the left circumflex and left anterior descending artery with complex lesions/bifurcation lesions. Current medications reviewed. 02/29/2024 Patient seen in follow-up today continues to be in the ICU with multiple medical consultations following. CT surgery evaluating the patient regarding severe coronary artery disease working up for possible CABG undergoing further testing with tentative schedule for intervention later this week. Patient is afebrile with no reports of worsening chest pain or palpitations. No reported nausea or vomiting and patient is tolerating diet. 03/01/2024 Patient is seen and evaluated today in follow-up currently sitting up in the chair with at the bedside with no issues noted. Patient denies any chest pain or shortness of breath. Patient reports has been walking multiple times in the berg and is using incentive spirometer. Scheduled tentatively for cardiac intervention on 03/03/[address] surgery. Patient is currently afebrile. 03/02/2024 Patient is seen in follow-up today remains on IV heparin with multiple medical consultations following. CT surgery following and tentatively scheduled for CABG on 03/03/2024. Patient has been up and walking and continues to walk frequently throughout the day. Encouraged incentive spirometer use. Patient will be n.p.o. at midnight and we will continue to follow CT surgery and wait for OR report. Review of systems: Constitutional: No reports of fatigue, fever, or chills Cardiovascular: No reports of chest pain or palpitations Respiratory: No reports of shortness of breath or cough GI: No reports of nausea, vomiting, or diarrhea : No reports of dysuria or retention Neurovascular: No reports of weakness or numbness All medications have been reviewed PHYSICAL EXAMINATION: Patient is sitting up in the chair, no acute distress, awake alert and or iented.. Well-developed HEENT: Normocephalic. Neck is supple. Pupils reactive. Nostrils clear. Oral cavity is moist. Neck reveals no JVD, carotid bruits, or thyromegaly. CHEST EXAMINATION: Trachea is central. Symmetrical expansion. Lung hawthorne clear to auscultation and percussion. CARDIAC: Normal S1, S2 with no gallops. No murmurs ABDOMEN: Soft. Bowel sounds normal. No organomegaly. No abdominal bruits. Extremities: reveal no edema. No clubbing or cyanosis Neurologically awake, alert, oriented x3 with well-coordinated movements. No focal deficits noted Skin: No rash or skin lesions. Psychiatric: Cooperative. Non-suicidal Musculoskeletal: No joint swelling or deformity. Normal range of motion. Assessment: 1. Acute Non-ST elevated SD with elevated troponins. Status postcardiac catheterization showed patent stent in the distal RCA. Ulcerated plaque involving the left main coronary artery with intermediate to severe disease involving the left circumflex and left anterior descending artery with complex lesions/bifurcation lesions. Scheduled for surgery on 03/03/[address] surgery 2. Recent acute inferior ST elevated SD status post emergent catheterization and PCI of the RCA, mild to moderate disease involving the left coronary system 3. Hypertension 4. Hyperlipidemia 5. Diabetes mellitus type 2 6. Obstructive sleep apnea on CPAP 7. mild to moderate aortic stenosis 8. History of prostate cancer 9. Prior history of smoking 10. Family history of coronary artery disease GI prophylaxis DVT prophylaxis Full code Plan: Patient is s/p cardiac catheterization report showed as above. CT surgery following and planning CABG on March 03, 2024 Patient will be undergoing further workup and n.p.o. at midnight Continue with incentive spirometry. Encouraged to use at least 10 times every hour while awake Patient has been up and walking frequently and encouraged to continue to do so Continue monitoring Accu-Cheks ACHS and will continue with sliding scale and adjust insulins accordingly Due to multiple complex medical issues, overall prognosis is guarded The impression and plan of care has been dictated by Shanda Sequeira, Nurse Practitioner as directed. Dr. Valorie MD I have performed a history and examination and MDM of this patient, discussed the same with the dictator, and agree with the dictator's assessment and plan as written ,documented as a scribe. Based on total visit time, I have performed more than 50% of the visit. Objective - Vital Signs Vital signs: Vital Signs Temp 98.2 F 03/02/24 20:11 Pulse 71 03/03/24 05:22 Resp 18 03/03/24 05:22 BP 109/67 03/03/24 05:22 Pulse Ox 98 03/03/24 05:22 FiO2 30 02/28/24 18:00 Intake & Output 03/02/24 03/02/24 03/03/24 06:59 18:59 06:59 Intake Total 386.722 689.539 250 Output Total 1400 800 800 Balance -1013.278 -110.461 -550 Weight 102.3 kg Intake: IV 20 30 Invasive Line 3 20 10 Invasive Line 4 20 Intake, IV Titration 246.722 243.539 250 Amount Heparin Sod,Pork in 0.45% 246.722 243.539 250 NaCl 25,000 unit In 0.45 % NaCl 1 250ml.bag @ 9. 891 UNITS/KG/HR 10 mls/hr IV .Q24H SRI Rx#: [id number] Oral 120 416 Output: Urine 1400 800 800 Other: Voiding Method Urinal Urinal # Voids 3 1 - Labs CBC & Chem 7: 03/02/24 09:56 03/02/24 09:56 Labs: Abnormal Lab Results - Last 24 Hours (Table) 03/02/24 03/02/24 03/02/24 Range/Units 05:39 09:56 09:56 Lymphocytes # 0.9 L (1.0-4.8) k/uL APTT (22.0-30.0) sec POC Glucose (mg/dL) 140 H (70-110) mg/dL Crossmatch See Detail 03/02/24 03/02/24 03/02/24 Range/Units 09:56 17:33 20:24 Lymphocytes # (1.0-4.8) k/uL APTT 36.8 H 57.5 H (22.0-30.0) sec POC Glucose (mg/dL) 116 H (70-110) mg/dL Crossmatch
[2024-03-03 05:43] LABS: Glucose,Whole Blood 105 mg/dL (70-110)
[2024-03-03] MEDS: IV FLUID CONTINUATION 1,000 ML IV ONE ×2 (06:37)
[2024-03-03] MEDS ORDERED: ALBUMIN HUMAN 5% (25gm) 500 ML VIAL IVPB ONE (07:40)
[2024-03-03] MEDS ORDERED: SUCCINYLCHOLINE CHLORIDE 200 MG/10 ML VIAL IV ONE (07:40)
[2024-03-03] MEDS ORDERED: MIDAZOLAM HCL 10 MG/10 ML VIAL ONE (07:40)
[2024-03-03] MEDS ORDERED: fentaNYL (PF) 50 MCG/ML 50 ML VIAL ONE (07:40)
[2024-03-03] MEDS ORDERED: PHENYLEPHRINE 10 MG/ML VIAL ONE (07:40)
[2024-03-03] MEDS ORDERED: ePHEDrine 50 MG/ML 1 ML VIAL ONE (07:40)
[2024-03-03] MEDS ORDERED: VECURONIUM 10 MG VIAL IV ONE (07:40)
[2024-03-03] MEDS ORDERED: PROTAMINE SULFATE 10 MG/ML 25 ML VIAL IV ONE (07:40)
[2024-03-03] MEDS ORDERED: HEPARIN SODIUM,PORCINE 10,000 UNIT/ML 1 ML VIAL ONE (07:40)
[2024-03-03 08:52] LABS: ABG Base Excess -0.6 mmol/L; ABG Glucose Whole Blood 120 mg/dL (75-99); ABG HCO3 25 mmol/L (21-25); ABG Hematocrit 37 % (34.0-46.0); ABG Ionized Calcium 4.8 mg/dL (4.5-5.3); ABG Lactic Acid Whole Blood 0.5 mmol/L (0.5-1.6); ABG Oxygen Saturation 98.6 % (94-97); ABG PCO2 44 mmHg (35-45); ABG PH 7.36 (7.35-7.45); ABG PO2 159 mmHg (83-108); ABG Potassium Whole Blood 4.5 mmol/L (3.4-4.5); ABG Sodium Whole Blood 140 mmol/L (135-146); ABG TCO2 23 mmol/L (19-24)
[2024-03-03] MEDS: ceFAZolin 1,000 MG in SODIUM CHLORIDE 0.9% IRRIGATIO 1,000 ML IRRIGATION ONE (09:14)
[2024-03-03] MEDS: PAPAVERINE 360 MG in SODIUM CHLORIDE 0.9% 90 ML IV ONE (09:14)
[2024-03-03] MEDS: HEPARIN SODIUM,PORCINE (1 ML) 5,000 UNIT in SODIUM CHLORIDE 0.9% 500 ML 500 ML IV ONE (09:14)
[2024-03-03] MEDS: DILTIAZEM 125 MG in SODIUM CHLORIDE 0.9% 100 ML IV ONE (09:14)
[2024-03-03 09:59] LABS: ABG Base Excess -0.7 mmol/L; ABG Glucose Whole Blood 134 mg/dL (75-99); ABG HCO3 27 mmol/L (21-25); ABG Hematocrit 37 % (34.0-46.0); ABG Lactic Acid Whole Blood <0.4 mmol/L (0.5-1.6); ABG Oxygen Saturation 98.7 % (94-97); ABG PCO2 56 mmHg (35-45); ABG PH 7.29 (7.35-7.45); ABG PO2 214 mmHg (83-108); ABG Potassium Whole Blood 4.5 mmol/L (3.4-4.5); ABG Sodium Whole Blood 141 mmol/L (135-146); ABG TCO2 25 mmol/L (19-24)
[2024-03-03 10:51] LABS: ABG Base Excess -0.2 mmol/L; ABG Glucose Whole Blood 130 mg/dL (75-99); ABG HCO3 24 mmol/L (21-25); ABG Hematocrit 37 % (34.0-46.0); ABG Ionized Calcium 4.8 mg/dL (4.5-5.3); ABG Lactic Acid Whole Blood 0.6 mmol/L (0.5-1.6); ABG Oxygen Saturation 97.9 % (94-97); ABG PCO2 36 mmHg (35-45); ABG PH 7.43 (7.35-7.45); ABG PO2 212 mmHg (83-108); ABG Potassium Whole Blood 4.1 mmol/L (3.4-4.5); ABG Sodium Whole Blood 140 mmol/L (135-146); ABG TCO2 22 mmol/L (19-24)
[2024-03-03 11:30] LABS: ABG Base Excess -0.6 mmol/L; ABG Glucose Whole Blood 122 mg/dL (75-99); ABG HCO3 24 mmol/L (21-25); ABG Hematocrit 37 % (34.0-46.0); ABG Ionized Calcium 4.8 mg/dL (4.5-5.3); ABG Lactic Acid Whole Blood 0.9 mmol/L (0.5-1.6); ABG Oxygen Saturation 98.9 % (94-97); ABG PCO2 40 mmHg (35-45); ABG PO2 191 mmHg (83-108); ABG Potassium Whole Blood 4.1 mmol/L (3.4-4.5); ABG Sodium Whole Blood 140 mmol/L (135-146); ABG TCO2 22 mmol/L (19-24)
[2024-03-03 12:04] LABS: ABG Base Excess -1.1 mmol/L; ABG Glucose Whole Blood 116 mg/dL (75-99); ABG HCO3 24 mmol/L (21-25); ABG Hematocrit 36 % (34.0-46.0); ABG Ionized Calcium 4.8 mg/dL (4.5-5.3); ABG Lactic Acid Whole Blood 0.9 mmol/L (0.5-1.6); ABG Oxygen Saturation 98.7 % (94-97); ABG PCO2 41 mmHg (35-45); ABG PH 7.38 (7.35-7.45); ABG PO2 182 mmHg (83-108); ABG Sodium Whole Blood 140 mmol/L (135-146); ABG TCO2 22 mmol/L (19-24)
[2024-03-03 12:46] LABS: ABG Base Excess -2.8 mmol/L; ABG Glucose Whole Blood 121 mg/dL (75-99); ABG HCO3 23 mmol/L (21-25); ABG Hematocrit 33 % (34.0-46.0); ABG Ionized Calcium 4.6 mg/dL (4.5-5.3); ABG Lactic Acid Whole Blood 0.8 mmol/L (0.5-1.6); ABG Oxygen Saturation 98.6 % (94-97); ABG PCO2 42 mmHg (35-45); ABG PH 7.35 (7.35-7.45); ABG PO2 212 mmHg (83-108); ABG Potassium Whole Blood 3.9 mmol/L (3.4-4.5); ABG Sodium Whole Blood 140 mmol/L (135-146); ABG TCO2 21 mmol/L (19-24)
[2024-03-03 13:20] LABS: ABG Base Excess -2.8 mmol/L; ABG Glucose Whole Blood 123 mg/dL (75-99); ABG HCO3 23 mmol/L (21-25); ABG Hematocrit 33 % (34.0-46.0); ABG Ionized Calcium 4.6 mg/dL (4.5-5.3); ABG Lactic Acid Whole Blood 0.9 mmol/L (0.5-1.6); ABG Oxygen Saturation 98.9 % (94-97); ABG PCO2 43 mmHg (35-45); ABG PH 7.34 (7.35-7.45); ABG PO2 219 mmHg (83-108); ABG Potassium Whole Blood 4.1 mmol/L (3.4-4.5); ABG Sodium Whole Blood 140 mmol/L (135-146); ABG TCO2 22 mmol/L (19-24)
[2024-03-03 14:00] LABS: ABG Base Excess -4.1 mmol/L; ABG Glucose Whole Blood 127 mg/dL (75-99); ABG HCO3 22 mmol/L (21-25); ABG Hematocrit 33 % (34.0-46.0); ABG Ionized Calcium 4.9 mg/dL (4.5-5.3); ABG Lactic Acid Whole Blood 0.9 mmol/L (0.5-1.6); ABG Oxygen Saturation 96.4 % (94-97); ABG PCO2 45 mmHg (35-45); ABG PO2 90 mmHg (83-108); ABG Potassium Whole Blood 3.9 mmol/L (3.4-4.5); ABG Sodium Whole Blood 140 mmol/L (135-146); ABG TCO2 21 mmol/L (19-24); Allen Test Performed? Yes
[2024-03-03] MEDS ORDERED: ONDANSETRON 4 MG/2 ML VIAL IVP PRN (14:18)
[2024-03-03] MEDS ORDERED: DEXMEDETOMIDINE/0.9% NACL(PMX) 400 MCG in EMPTY BAG 1 BAG IV SCH (14:18)
[2024-03-03] MEDS ORDERED: DEXTROSE 5% IN WATER 100 ML with AMIODARONE 150 MG IV PRN (14:18)
[2024-03-03] MEDS ORDERED: DEXTROSE 50% SYRINGE 50 ML IVP PRN ×2 (14:18)
[2024-03-03] MEDS ORDERED: Magnesium Replacement Protocol 1 EACH MISC MISCELLANE PRN (14:18)
[2024-03-03] MEDS ORDERED: BENZOCAINE/MENTHOL LOZENG 1 EACH LOZENGE MUCOUS MEM PRN (14:18)
[2024-03-03] MEDS ORDERED: Potassium Replacement Protocol 1 EACH MISC MISCELLANE PRN (14:18)
[2024-03-03] MEDS ORDERED: METOCLOPRAMIDE 5 MG/ML 2 ML VIAL IVP PRN (14:18)
[2024-03-03] MEDS ORDERED: hydrALAZINE HCL 20 MG/ML 1 ML VIAL IVP PRN (14:18)
--- NOTE | 2024-03-03 14:26 | P.OP ---
Date of Procedure: 03/03/24 Preoperative Diagnosis: 3v CAD, NSTEMI HTN HLD DM ALBARO Postoperative Diagnosis: Same Procedure(s) Performed: 1. Off pump coronary artery bypass grafting x 6. Left internal thoracic artery (in-situ) sequential to second diagonal artery and left anterior descending coronary artery. Left radial artery from aorta sequential to ramus intermedius and obtuse marginal artery #1. Reverse saphenous vein graft from aorta sequential to posterior descending and postero-lateral coronary arteries. 2. Left atrial appendage ligation using #35mm AtriClip 3. Endoscopic left radial and left greater saphenous vein harvest 4. Insertion of right common femoral arterial line using ultrasound guided micropuncture technique. 5. Graft flow measurements using the [employer] graft flow meter system 6. Trans-esophageal echo Implants: #35mm AtriClip Anesthesia: ADELE Surgeon: Craig Bostno Certified Nurse Midwife #1: Chilango Cortez Certified Nurse Midwife #2: Omar Tate Estimated Blood Loss (ml): 250 Urine output (ml): 600 Pathology: none sent Condition: critical Disposition: ICU Indications for Procedure: This patient is a 67 year-old M who has a hx of CAD and medical problems listed above. He underwent PCI to his WESLEY approximately 1 year ago. He then presented to the hospital about 2 weeks ago with inferior wall STEMI and PCI was performed to the distal RCA. He again presented to the hospital 1 week after that admiss ion with chest pain. He was diagnosed with NSTEMI and coronary angiography revealed significant disease in the WESLEY proximal to the stent, distal RCA stent occluding PDA flow and progression of disease on the left side. The patients brillinta was held and CABG was recommended. His STS risk of morbidity and mortality was discussed with him and he was in agreement to proceed. Operative Findings: ANGELA 1.75mm good conduit. DIAG 1.5mm good target. LAD 1.75mm good target. ANGELA- DIAG Flow 44ml/min, P.I. 2.7. FLJR-IEWQ-BNH Flow 28ml/min, 3.6 Saphenous vein 3mm good conduit. PDA 1.5mm good taret. WESLEY 2.0mm good target. SVG-PDA Flow 20ml/min, P.I. 3.7, SVG-PDA-WESLEY Flow 14ml/min, P.I. 1.5 Radial artery 2.5mm good conduit. Ramus 1.5mm good target. OM1 1.4mm good target. RA-RAMUS Flow 18ml/min, P.I. 4.4, RA-Ramus-OM Flow 15ml/min, P.I. 2.0 Description of Procedure: The patient underwent central line, arterial line, and [place] Jen catheter placement in the pre-operative suite by the anesthesia team. The patient was then brought to the operating room and placed in the supine position. General anesthesia was induced and the patient was prepped from the chin to the ankles in the usual sterile fashion. A time-out was performed and antibiotics were given. A midline incision was made on the chest and carried down to bone. A median sternotomy was performed. Hemostasis on the bone was achieved using electrocautery. The left pleura was entered and the left internal thoracic artery was harvested in a skeletonized fashion. Simultaneously a physician staff assistant harvested the left greater saphenous vein and left radial artery in an endoscopic fashion. The patient was systemically heparinized and the ANGELA was transected and placed in a papaverine jacuzzi. A left sided chest tube was placed. The pericardium was incised in a reverse T-fashion and a pericardial cradle was created. The right pleura was opened. Stay sutures were placed. #35mm AtriClip was placed on the left atrial appendage. With ACT > 250, the octopus sabilizer was placed on the second diagonal artery which was a good target. It was opened, 1.5mm flow through inserted and an side to side anastomosis between the ANGELA and the diagonal was performed using a running 7-0 prolene. Next, the mid to distal LAD was stabilized which was a good target. An ateriorotomy was made and 1.5mm shunt inserted. An end to side anastomosis between the ANGELA and LAD was performed using a running 7-0 prolene. The shunt was removed prior to tieing down the suture. Next stay sutures were placed on the diaphragm near the IVC and oblique sinus. The inferior wall was exposed and the postero-lateral branch of the right coronary artery was stabilized. The artery was opened it was a good target and 2.0mm shunt was inserted. An end to side anastomosis between the saphenous vein and WESLEY was performed using a running 7-0 prolene again removing the shunt prior to tieing down the suture. Next the octopus stabilizer was placed on the posterior descending coronary artery which was opened and 1.5mm flow through inserted. It was a good target. A side to side anastomosis between the saphenous vein to the PDA was performed using a running 7-0 prolene again removing the shunt prior to tieing down the suture. Next the lateral wall was exposed and the obtuse marginal artery was identified and stabilized. It was opened, and 1.5mm flow through was inserted. An end to side anastomosis between the radial artery and obtuse marginal was performed using a running 7-0 prolene. Next the ramus was identified. The stabilizer was placed on the vessel and arteriorotomy was made. 1.5mm flow through was inserted. A side to side tan anastomosis was performed using a running 7-0 prolene. Next, the heartstring device was used to create aortotomy x 2. Both saphenous vein and the radial artery were fastened to the ascending aorta using a running 5-0 prolene x 2. The heartstring device was removed in its entirety x 2. Graft flows were checked and they were excellent. At this point, protamine was given and hemostasis was secured. A 32F chest tube and 19F waldo were placed in the mediastinum and right pleura respectively. The pericardium was re-approximated partially and the sternum was closed with pioneer cables and layers of suture. The arm and leg was closed in layers as well. The patient tolerated the procedure without any significant hypotension and was transferred to CVICU in critical condition on only nitro gtt.
[2024-03-03 14:44] LABS: Glucose,Whole Blood 135 mg/dL (70-110)
[2024-03-03] MEDS: LACTATED RINGERS 1,000 ML IV SCH (14:55)
[2024-03-03] MEDS: IPRATROPIUM-ALBUTEROL 3 ML NEB INHALATION SCH ×2 (14:55→22:00)
[2024-03-03 14:58] LABS: Basophils % (A) 0 %; Eosinophils # (A) 0.1 k/uL (0-0.7); Eosinophils % (A) 1 %; HCT 33.4 % (39.0-53.0); Lymphocytes # (A) 0.5 k/uL (1.0-4.8); Lymphocytes % (A) 5 %; MCH 30.3 pg (25.0-35.0); MCHC 32.5 g/dL (31.0-37.0); MCV 93.1 fL (80.0-100.0); Mean Platelet Volume 8.9; Monocytes # (A) 0.5 k/uL (0-1.0); Monocytes % (A) 5 %; Neutrophils # (A) 8.5 k/uL (1.3-7.7); Neutrophils % (A) 88 %; Platelet Count 111 k/uL (150-450); RBC 3.59 m/uL (4.30-5.90); RDW 13.9 % (11.5-15.5); WBC 9.7 k/uL (3.8-10.6)
[2024-03-03 15:00] LABS: HGB 10.9 gm/dL (13.0-17.5)
[2024-03-03 15:04] LABS: Glucose,Whole Blood 128 mg/dL (70-110)
[2024-03-03 15:07] LABS: INR 1.1 (<1.2); Partial Thromboplastin Time 28.4 sec (22.0-30.0); Prothrombin Time 12.2 sec (10.0-12.5)
[2024-03-03] MEDS: INSULIN REGULAR 100 UNIT in SODIUM CHLORIDE 0.9% 100 ML IV SCH (15:07)
[2024-03-03] MEDS: ALBUMIN HUMAN 5% 250 ML in EMPTY BAG 1 BAG IVPB PRN (15:08)
[2024-03-03 15:10] LABS: Ionized Calcium 4.9 mg/dL (4.5-5.3)
[2024-03-03 15:16] LABS: ABG Base Excess -4.9 mmol/L; ABG HCO3 21 mmol/L (21-25); ABG Oxygen Saturation 100.2 % (94-97); ABG PCO2 43 mmHg (35-45); ABG PO2 294 mmHg (83-108); ABG TCO2 23 mmol/L (19-24)
[2024-03-03 15:19] LABS: ALT 16 U/L (4-49); AST 18 U/L (17-59); African American GFR (CKD) >90 (>60 ml/min/1.73 sqM); Albumin 3.9 g/dL (3.5-5.0); Alkaline Phosphatase 42 U/L (38-126); Anion Gap 6 mmol/L; Blood Urea Nitrogen 18 mg/dL (9-20); Calcium 8.4 mg/dL (8.4-10.2); Carbon Dioxide 19 mmol/L (22-30); Chloride 112 mmol/L (98-107); Glucose 123 mg/dL (74-99); Magnesium 1.8 mg/dL (1.6-2.3); Non-African American GFR(CKD) 88 (>60 ml/min/1.73 sqM); Potassium 4.3 mmol/L (3.5-5.1); Sodium 137 mmol/L (137-145); Total Bilirubin 0.6 mg/dL (0.2-1.3); Total Protein 5.3 g/dL (6.3-8.2)
[2024-03-03] MEDS: CLEVIDIPINE BUTYRATE 25 MG in EMPTY BAG 1 BAG IV SCH (15:33)
[2024-03-03] MEDS: HEPARIN SODIUM,PORCINE 5,000 UNIT/ML 1 ML VIAL SQ SCH (15:38)
--- NOTE | 2024-03-03 15:41 | P.PN ---
Subjective Progress Note Date: 03/03/24 68-year-old male with a PMH of recent acute STEMI on 02/20 status post PCI to RCA with moderate to severe disease of LAD and left circumflex, type II DM, hypertension, hyperlipidemia, BPH who presents to the emergency room with complaints of chest pain. The patient was discharged from the hospital yester day morning and notes that his pain suddenly started again today at around 4 PM, 4 out of 10 at maximal intensity, left-sided with radiation down into the left arm. Notes that the pain is a lot less severe than his initial episode that brought him to the hospital 4 days ago. He took multiple nitroglycerins at home with minimal relief. At time of interview, notes that the pain is a 2 out of 10, aching in nature, with no alleviating or exacerbating features and nonpleuritic. Denies experiencing nausea, vomiting, diaphoresis, or dizziness. Denies experiencing fever, chills, abdominal pain. EKG upon arrival to the emergency room revealed sinus rhythm with first-degree AV block at [address] segment depression in the precordial leads V3 to V6 with diffuse T wave inversions in inferior leads and precordial leads V5 and V6. Subsequent EKG revealed a HR of 58 but otherwise was essentially unchanged from that obtained upon arrival. Laboratory evaluation was remarkable for plate let count 141, troponin 6.860, and subsequently 9.200, chloride 109, proBNP 1430, BUN 23, creatinine 0.94 with D-dimer 0.5. 02/26/2024 Patient is seen and evaluated sitting up in bed; no specific complaints reported -Patient is status post cardiac catheterization and was found to have patent stent in the RCA with severe disease involving the left coronary system; patient is not felt to be a good candidate for PCI CABG is recommended -- Cardiothoracic surgery consulted 02/27/2024 Patient is seen and evaluated in ICU, sitting up in bedside chair. Reports no further chest pain after resuming IV nitroglycerin infusion Vital signs are reviewed and reveal temperature of 97.2, pulse 65, respiration 22 and blood pressure of 94/66 Blood work reveals WBC of 6.2, hemoglobin of 13.2 and platelet count of 130, sodium 137, potassium: 4, BUNs/creatinine of 20/0.94 and blood glucose of 91 Cardiology on board, planning to continue to wean off nitroglycerin infusion if able. Patient to remain on IV heparin. Oral antiplatelet therapy has been placed on hold till after surgery which is planned in next few days. Patient remains on statin therapy -- Continue to hold Brilinta till after surgery. Last dose was on 02/26/2024 02/28/2024 Patient is currently sitting in the chair. Awake alert and oriented. Able to walk in the room. On room air. No complaints of chest pain. No shortness of breath. No nausea vomiting abdominal pain or diarrhea. Patient is being continued on IV heparin and is also on IV nitroglycerin at 5 mg/min. Patient is tentatively scheduled for CABG on March 03, 2024. Continued on heparin and Brilinta is on hold. Laboratory data showed WBC 5.7 hemoglobin 12.7 and platelets 122 sodium 137 potassium 4.0 chloride 109 bicarb is 23 BUN 2020 creatinine 0.94 and blood sugar 100 and magnesium 1.8. Cardiac catheterization on 02/24 showed patent stent in the distal RCA. Ulcerated plaque involving the left main coronary artery with intermediate to severe disease involving the left circumflex and left anterior descending artery with complex lesions/bifurcation lesions. Current medications reviewed. 02/29/2024 Patient seen in follow-up today continues to be in the ICU with multiple medical consultations following. CT surgery evaluating the patient regarding severe coronary artery disease working up for possible CABG undergoing further testing with tentative schedule for intervention later this week. Patient is afebrile with no reports of worsening chest pain or palpitations. No reported nausea or vomiting and patient is tolerating diet. 03/01/2024 Patient is seen and evaluated today in follow-up currently sitting up in the chair with at the bedside with no issues noted. Patient denies any chest pain or shortness of breath. Patient reports has been walking multiple times in the berg and is using incentive spirometer. Scheduled tentatively for cardiac intervention on 03/03/[address] surgery. Patient is currently afebrile. 03/02/2024 Patient is seen in follow-up today remains on IV heparin with multiple medical consultations following. CT surgery following and tentatively scheduled for CABG on 03/03/2024. Patient has been up and walking and continues to walk frequently throughout the day. Encouraged incentive spirometer use. Patient will be n.p.o. at midnight and we will continue to follow CT surgery and wait for OR report. 03/03/2024 Patient is seen in follow-up early this morning scheduled to undergo CABG and is currently NPO. Patient will be transferred back to ICU postoperatively and currently awaiting surgical report. Will follow-up with the patient. Review of systems: Constitutional: No reports of fatigue, fever, or chills Cardiovascular: No reports of chest pain or palpitations Respiratory: No reports of shortness of breath or cough GI: No reports of nausea, vomiting, or diarrhea : No reports of dysuria or retention Neurovascular: No reports of weakness or numbness All medications have been reviewed PHYSICAL EXAMINATION: Patient is in bed, no acute distress, awake alert and oriented.. Well-developed HEENT: Normocephalic. Neck is supple. Pupils reactive. Nostrils clear. Oral cavity is moist. Neck reveals no JVD, carotid bruits, or thyromegaly. CHEST EXAMINATION: Trachea is central. Symmetrical expansion. Lung hawthorne clear to auscultation and percussion. CARDIAC: Normal S1, S2 with no gallops. No murmurs ABDOMEN: Soft. Bowel sounds normal. No organomegaly. No abdominal bruits. Extremities: reveal no edema. No clubbing or cyanosis Neurologically awake, alert, oriented x3 with well-coordinated movements. No focal deficits noted Skin: No rash or skin lesions. Psychiatric: Cooperative. Non-suicidal Musculoskeletal: No joint swelling or deformity. Normal range of motion. Assessment: 1. Acute Non-ST elevated NH with elevated troponins. Status postcardiac catheterization showed patent stent in the distal RCA. Ulcerated plaque invo lving the left main coronary artery with intermediate to severe disease involving the left circumflex and left anterior descending artery with complex lesions/bifurcation lesions. Scheduled for surgery today 03/03/[address] surgery 2. Recent acute inferior ST elevated NH status post emergent catheterization and PCI of the RCA, mild to moderate disease involving the left coronary system 3. Hypertension 4. Hyperlipidemia 5. Diabetes mellitus type 2 6. Obstructive sleep apnea on CPAP 7. mild to moderate aortic stenosis 8. History of prostate cancer 9. Prior history of smoking 10. Family history of coronary artery disease GI prophylaxis DVT prophylaxis Full code Plan: Patient is s/p cardiac catheterization report showed as above. CT surgery following and planning CABG this morning Patient is currently n.p.o. diet will be resumed per CT surgery once patient is awake and tolerating p.o. and evaluated by speech Continue with incentive spirometry. Encouraged to use at least 10 times every hour while awake Patient has been up and walking frequently and encouraged to continue to do so Continue monitoring Accu-Cheks ACHS and will continue insulin drip per cardiothoracic protocol and will transition back to sliding scale and long- acting once patient is tolerating oral intake Due to multiple complex medical issues, overall prognosis is guarded We will follow-up on surgical report and continue to follow with CT surgery during hospitalization. The impression and plan of care has been dictated by Shanda Sequeira, Nurse Practitioner as directed. Dr. Valorie MD I have performed a history and examination and MDM of this patient, discussed the same with the dictator, and agree with the dictator's assessment and plan as written ,documented as a scribe. Based on total visit time, I have performed more than 50% of the visit. Objective - Vital Signs Vital signs: Vital Signs Temp 97.5 F L 03/03/24 06:10 Pulse 76 03/03/24 14:39 Resp 15 03/03/24 14:39 BP 116/71 03/03/24 06:10 Pulse Ox 97 03/03/24 06:10 FiO2 60 03/03/24 15:17 Intake & Output 03/02/24 03/03/24 03/03/24 18:59 06:59 18:59 Intake Total 689.539 302.645 54 Output Total 800 1250 1800 Balance -110.461 -947.355 -1746 Weight 102.1 kg Intake: IV 30 54 Invasive Line 3 10 Invasive Line 4 20 Intake, IV Titration 243.539 302.645 Amount Heparin Sod,Pork in 0.45% 243.539 302.645 NaCl 25,000 unit In 0.45 % NaCl 1 250ml.bag @ 9. 891 UNITS/KG/HR 10 mls/hr IV .Q24H SRI Rx#: [id number] Oral 416 Output: Urine 800 1250 800 Estimated Blood Loss 1000 Other: Voiding Method Urinal # Voids 3 1 ABP, PAP, CO, CI - Last Documented Arterial Blood Pressure 145/68 - Labs CBC & Chem 7: 03/03/24 14:40 03/03/24 14:40 Labs: Abnormal Lab Results - Last 24 Hours (Table) 03/02/24 03/02/2424 Range/Units 09:56 17:33 20:24 RBC (4.30-5.90) m/uL Hgb (13.0-17.5) gm/dL Hct (39.0-53.0) % Plt Count (150-450) k/uL Neutrophils # (1.3-7.7) k/uL Lymphocytes # (1.0-4.8) k/uL APTT 57.5 H (22.0-30.0) sec ABG pH (7.35-7.45) ABG pCO2 (35-45) mmHg ABG pO2 (83-108) mmHg ABG HCO3 (21-25) mmol/L ABG Total CO2 (19-24) mmol/L ABG O2 Saturation (94-97) % ABG Hematocrit (34.0-46.0) % ABG Glucose (75-99) mg/dL ABG Lactic Acid (0.5-1.6) mmol/L Hemoglobin (13.0-17.5) gm/dL Chloride (98-107) mmol/L Carbon Dioxide (22-30) mmol/L Glucose (74-99) mg/dL POC Glucose (mg/dL) 116 H (70-110) mg/dL Total Protein (6.3-8.2) g/dL Arterial Blood Glucose (75-99) mg/dL Crossmatch See Detail 03/03/24 03/03/24 03/03/24 Range/Units 08:54 10:01 10:53 RBC (4.30-5.90) m/uL Hgb (13.0-17.5) gm/dL Hct (39.0-53.0) % Plt Count (150-450) k/uL Neutrophils # (1.3-7.7) k/uL Lymphocytes # (1.0-4.8) k/uL APTT (22.0-30.0) sec ABG pH 7.29 L (7.35-7.45) ABG pCO2 56 H (35-45) mmHg ABG pO2 159 H 214 H 212 H (83-108) mmHg ABG HCO3 27 H (21-25) mmol/L ABG Total CO2 25 H (19-24) mmol/L ABG O2 Saturation 98.6 H 98.7 H 97.9 H (94-97) % ABG Hematocrit (34.0-46.0) % ABG Glucose 120 H 134 H 130 H (75-99) mg/dL ABG Lactic Acid <0.4 L (0.5-1.6) mmol/L Hemoglobin 11.9 L 11.9 L 12.0 L (13.0-17.5) gm/dL Chloride (98-107) mmol/L Carbon Dioxide (22-30) mmol/L Glucose (74-99) mg/dL POC Glucose (mg/dL) (70-110) mg/dL Total Protein (6.3-8.2) g/dL Arterial Blood Glucose 120 H 134 H 130 H (75-99) mg/dL Crossmatch 03/03/24 03/03/24 03/03/24 Range/Units 11:32 12:05 12:48 RBC (4.30-5.90) m/uL Hgb (13.0-17.5) gm/dL Hct (39.0-53.0) % Plt Count (150-450) k/uL Neutrophils # (1.3-7.7) k/uL Lymphocytes # (1.0-4.8) k/uL APTT (22.0-30.0) sec ABG pH (7.35-7.45) ABG pCO2 (35-45) mmHg ABG pO2 191 H 182 H 212 H (83-108) mmHg ABG HCO3 (21-25) mmol/L ABG Total CO2 (19-24) mmol/L ABG O2 Saturation 98.9 H 98.7 H 98.6 H (94-97) % ABG Hematocrit 33 L (34.0-46.0) % ABG Glucose 122 H 116 H 121 H (75-99) mg/dL ABG Lactic Acid (0.5-1.6) mmol/L Hemoglobin 12.0 L 11.8 L 10.8 L (13.0-17.5) gm/dL Chloride (98-107) mmol/L Carbon Dioxide (22-30) mmol/L Glucose (74-99) mg/dL POC Glucose (mg/dL) (70-110) mg/dL Total Protein (6.3-8.2) g/dL Arterial Blood Glucose 122 H 116 H 121 H (75-99) mg/dL Crossmatch 03/03/24 03/03/24 03/03/24 Range/Units 13:22 14:02 14:40 RBC 3.59 L (4.30-5.90) m/uL Hgb 10.9 L D (13.0-17.5) gm/dL Hct 33.4 L (39.0-53.0) % Plt Count 111 L (150-450) k/uL Neutrophils # 8.5 H (1.3-7.7) k/uL Lymphocytes # 0.5 L (1.0-4.8) k/uL APTT (22.0-30.0) sec ABG pH 7.34 L 7.30 L (7.35-7.45) ABG pCO2 (35-45) mmHg ABG pO2 219 H (83-108) mmHg ABG HCO3 (21-25) mmol/L ABG Total CO2 (19-24) mmol/L ABG O2 Saturation 98.9 H (94-97) % ABG Hematocrit 33 L 33 L (34.0-46.0) % ABG Glucose 123 H 127 H (75-99) mg/dL ABG Lactic Acid (0.5-1.6) mmol/L Hemoglobin 10.8 L 10.7 L (13.0-17.5) gm/dL Chloride (98-107) mmol/L Carbon Dioxide (22-30) mmol/L Glucose (74-99) mg/dL POC Glucose (mg/dL) (70-110) mg/dL Total Protein (6.3-8.2) g/dL Arterial Blood Glucose 123 H 127 H (75-99) mg/dL Crossmatch 03/03/24 03/03/24 03/03/24 Range/Units 14:40 14:43 15:02 RBC (4.30-5.90) m/uL Hgb (13.0-17.5) gm/dL Hct (39.0-53.0) % Plt Count (150-450) k/uL Neutrophils # (1.3-7.7) k/uL Lymphocytes # (1.0-4.8) k/uL APTT (22.0-30.0) sec ABG pH (7.35-7.45) ABG pCO2 (35-45) mmHg ABG pO2 (83-108) mmHg ABG HCO3 (21-25) mmol/L ABG Total CO2 (19-24) mmol/L ABG O2 Saturation (94-97) % ABG Hematocrit (34.0-46.0) % ABG Glucose (75-99) mg/dL ABG Lactic Acid (0.5-1.6) mmol/L Hemoglobin (13.0-17.5) gm/dL Chloride 112 H (98-107) mmol/L Carbon Dioxide 19 L (22-30) mmol/L Glucose 123 H (74-99) mg/dL POC Glucose (mg/dL) 135 H 128 H (70-110) mg/dL Total Protein 5.3 L (6.3-8.2) g/dL Arterial Blood Glucose (75-99) mg/dL Crossmatch
[2024-03-03 16:14] LABS: Glucose,Whole Blood 161 mg/dL (70-110)
--- NOTE | 2024-03-03 16:42 | XR ---
EXAM: XR chest 1V portable CLINICAL INDICATION:Male, 68 years old with history of Post Operative Cardiac Surgery; [facility] COMPARISON: 03/02/2024 TECHNIQUE: Chest single view. FINDINGS: Right IJ Formoso-Jen catheter with tip over the pulmonary outflow tract. NG tube with its tip over the proximal stomach and side hole near the GE junction. There appear to be bilateral chest tubes, one te rminating over the right lung base and the other terminating over the left upper chest, partially obs cured by EKG leads. Mediastinal drain. Left atrial appendage occlusion device. ET tube tip at the lev el of the clavicles about 6.7 cm above the jose r. EKG leads over the chest. There has been interval cardiothoracic surgery with multiple sternotomy wires and mediastinal clips l ikely related to CABG. Cardiac silhouette shows no significant change. Heart size upper normal. Platelike atelectasis in the left midlung zone. Subsegmental atelectasis versus infiltrate in the sloane g bases with possible small left pleural effusion. No visible pneumothorax. Osseous structures appear grossly unchanged. IMPRESSION: 1. Interval cardiothoracic surgery has been performed with placement of multiple lines and tubes as above. Recommend advancement of ET tube 2 or 3 cm. 2. Scattered subsegmental atelectatic changes bilaterally. No evidence of pneumothorax.
[2024-03-03 16:54] LABS: Glucose,Whole Blood 161 mg/dL (70-110)
[2024-03-03] MEDS: KETOROLAC 15 MG/ML 1 ML VIAL IVP SCH (17:17)
[2024-03-03] MEDS: ACETAMINOPHEN IV (For NPO) 1,000 MG in EMPTY BAG 1 BAG IVPB SCH (17:32)
[2024-03-03 17:47] LABS: ABG Base Excess -4.8 mmol/L; ABG HCO3 21 mmol/L (21-25); ABG Oxygen Saturation 99.1 % (94-97); ABG PCO2 41 mmHg (35-45); ABG PH 7.32 (7.35-7.45); ABG PO2 126 mmHg (83-108); ABG TCO2 22 mmol/L (19-24)
[2024-03-03 17:48] LABS: Allen Test Performed? no
[2024-03-03 17:49] LABS: Allen Test Performed? no
[2024-03-03 17:49] LABS: Glucose,Whole Blood 165 mg/dL (70-110)
[2024-03-03 18:02] LABS: Basophils % (A) 0 %; Eosinophils % (A) 0 %; HCT 32.8 % (39.0-53.0); HGB 10.7 gm/dL (13.0-17.5); Lymphocytes # (A) 0.3 k/uL (1.0-4.8); Lymphocytes % (A) 4 %; MCH 30.4 pg (25.0-35.0); MCHC 32.8 g/dL (31.0-37.0); MCV 92.7 fL (80.0-100.0); Mean Platelet Volume 8.5; Monocytes # (A) 0.4 k/uL (0-1.0); Monocytes % (A) 5 %; Neutrophils # (A) 7.5 k/uL (1.3-7.7); Neutrophils % (A) 90 %; Platelet Count 104 k/uL (150-450); RBC 3.53 m/uL (4.30-5.90); RDW 13.7 % (11.5-15.5); WBC 8.3 k/uL (3.8-10.6)
[2024-03-03] MEDS: NITROGLYCERIN-D5W PMX 50 MG in DEXTROSE/WATER 1 250ML.BAG IV SCH (18:07)
[2024-03-03 19:05] LABS: Glucose,Whole Blood 157 mg/dL (70-110)
[2024-03-03 20:12] LABS: Basophils % (A) 0 %; Eosinophils % (A) 0 %; Glucose,Whole Blood 155 mg/dL (70-110); HCT 33.5 % (39.0-53.0); HGB 10.9 gm/dL (13.0-17.5); Lymphocytes # (A) 0.3 k/uL (1.0-4.8); Lymphocytes % (A) 4 %; MCH 30.1 pg (25.0-35.0); MCHC 32.6 g/dL (31.0-37.0); MCV 92.2 fL (80.0-100.0); Mean Platelet Volume 9.6; Monocytes # (A) 0.4 k/uL (0-1.0); Monocytes % (A) 5 %; Neutrophils # (A) 6.4 k/uL (1.3-7.7); Neutrophils % (A) 90 %; Platelet Count 105 k/uL (150-450); RBC 3.63 m/uL (4.30-5.90); RDW 13.7 % (11.5-15.5); WBC 7.1 k/uL (3.8-10.6)
--- NOTE | 2024-03-03 20:57 | P.ANPRN ---
Procedure Note - Anesthesia - Invasive Line Right Central Line Time Out Performed: Yes Date of Procedure: 03/03/24 Time of Procedure: 08:33 Location of Patient: PreOp Preparation: Sterile Prep, Sterile Dressing Central Line Location: Internal Jugular Ultrasound Used: No Purpose - Visualization and Identification of Vasculature: No Image Stored and Saved: No Narrative: Invasive line placement per sterile protocol utilized.
--- NOTE | 2024-03-03 20:58 | P.ANPRN ---
Procedure Note - Anesthesia - Invasive Line Right Varney Jen Time Out Performed: Yes Date of Procedure: 03/03/24 Time of Procedure: 07:39 Location of Patient: PreOp Preparation: Sterile Prep, Sterile Dressing Central Line Location: Internal Jugular Ultrasound Used: No Purpose - Visualization and Identification of Vasculature: No Image Stored and Saved: No Narrative: Invasive line placement per sterile protocol utilized.
[2024-03-03 21:00] LABS: Glucose,Whole Blood 141 mg/dL (70-110)
[2024-03-03] MEDS: SENNOSIDES-DOCUSATE SODIUM 1 EACH TAB PO SCH (21:29)
[2024-03-03 22:05] LABS: Glucose,Whole Blood 142 mg/dL (70-110)
--- NOTE | 2024-03-03 22:58 | P.PN ---
Subjective Progress Note Date: 03/03/24 This is a very pleasant 68-year-old male patient with a history of prostate can cer with previous radiation, coronary disease with previous stent placement, hypertension, hyperlipidemia, diabetes mellitus, obstructive sleep apnea utilizing CPAP, former smoker. He had presented here to the emergency room on 02/21/2024 with complaints of chest pain. He was found to have a ST segment elevation myocardial infarction and had undergone stenting to the distal RCA with aspiration thrombectomy. He recovered and was discharged home on 02/23/2024. He was prescribed Brilinta. Echocardiogram had revealed mild to moderate LV left ventricular systolic dysfunction with ejection fraction of 40 to 45%. He came back to the emergency room on 02/24/2024 with recurrent chest pain. He was found to have a new non-ST segment elevation myocardial infarction's with uptrending troponins. Repeat echocardiogram revealed an ejection fraction of 45%. Repeat cardiac catheterization on 02/25/2024 revealed patent stent to the distal RCA. There was an ulcerated plaque involving the left main coronary artery with intermediate to severe disease involving the left circumflex and left anterior descending artery with complex lesion/bifurcation lesions. He is recommended coronary artery bypass grafting which is tentatively planned for March 03, 2024 after being off his Brilinta. On today's evaluation of 02/28/2024, the patient sitting up on a chair. The patient is calm and comfortable. The patient remains on IV heparin. The patient also is receiving IV nitroglycerin at 5 mg/min. The patient is free of any chest pain. Hemodynamically stable. Cardiac rhythm is sinus. He is currently off Brilinta. Awaiting coronary bypass surgery. Remains on aspirin. Remains on IV heparin. Remains on his routine outpatient medications. He is also on metoprolol 12.5 mg twice a day. Remains on Lipitor 80 mg p.o. daily. Awake and alert. He is on room air oxygen. 02/29/2024, the patient is calm and comfortable. Free of any chest pain. Hemodynamically stable. No cardiac arrhythmias. Nitroglycerin drip has been discontinued. The patient has no specific complaints. He remains on IV heparin drip. At the same time, labs from today shows a white cell count of 6, hemoglobin 14.1 and a platelet count of 132 without any significant drop in the platelet count while being on IV heparin. 03/01/2024, the patient is being seen for a follow-up. No new complaints. Remains on IV heparin. Hemodynamically stable. Free of any chest pain. No other significant events overnight. The patient is awaiting coronary bypass surgery that is being done on 03/03/2024. He remains on aspirin. He is also on metoprolol 12.5 mg p.o. twice a day. On 03/02/2024, the patient is being seen for a follow-up. No new complaints. The plan is to proceed with a bypass surgery in the morning. The patient re tiffany clinically stable and hemodynamically stable. He is on room air oxygen. History of any chest pain. Medications remain unchanged. Labs from today shows a white cell count of 6.4 hemoglobin 14.7 and a platelet count of 174. BUN is 20 with a creatinine 1.01 and sodium levels at 138. No other new complaints otherwise for now. 03/03/2024, the patient is being seen in the intensive care unit. The patient underwent an off-pump coronary artery bypass surgery x 6 with BULLOCK to second diagonal and LAD, left radial to ramus intermedius and obtuse marginal and saphenous vein graft to posterior descending and posterior lateral coronary arteries. The patient was kept intubated on mechanical ventilator and the patient was transferred to the intensive care unit. At the time of the arrival to the ICU, the patient was on propofol, calm and comfortable, hemodynamically stable, cardiac output was 8 with an index of 3.5, PA pressures were 32/13. No pressors. Cardiac rhythm was sinus. The patient was on assist-control mode of mechanical ventilation at rate of 12, tidal volume of 600, 5 200% and a PEEP of 5. Progressive weaning of the FiO2 was done. Following that, sedation was discontinued and the patient showed appropriate weaning parameters with a respiratory rate of 22, spontaneous tidal volume of 590 cc with a rapid shallow breathing index of 36 and a minute ventilation of 12.4 and a vital capacity of 1.1. Blood gases after a 30-minute of spontaneous breathing showed a pH of 7.31 with a pCO2 of 41 and pO2 of 126. The patient was accordingly extubated and the patient was placed on nasal cannula at 3 L/min. Awake and alert and communicating. Patient has right pleural, left pleural and mediastinal chest tubes. The chest x-ray showed adequate expansion of both lungs. No evidence of any pneumothorax. No evidence of any air leak. Findings are essentially consistent with post surgical changes. No evidence of any pneumothorax. Some limited atelectatic changes bilaterally. The white cell count is 7.1, hemoglobin is 10.9, and a platelet count is 105. Objective - Vital Signs Vital signs: Vital Signs Temp 98.4 F 03/03/24 20:00 Pulse 100 03/03/24 22:20 Resp 29 H 03/03/24 22:00 BP 105/67 03/03/24 22:00 Pulse Ox 99 03/03/24 22:00 FiO2 50 03/03/24 17:18 Intake & Output 03/03/24 03/03/24 03/04/24 06:59 18:59 06:59 Intake Total 302.645 987.464 332.564 Output Total 1250 2190 887 Balance -947.355 -1202.536 -554.436 Weight 102.1 kg Intake: IV 449 316 LR 250 200 co/ci 100 80 pressure bag 45 36 Intake, IV Titration 302.645 38.464 16.564 Amount Heparin Sod,Pork in 0.45% 302.645 NaCl 25,000 unit In 0.45 % NaCl 1 250ml.bag @ 9. 891 UNITS/KG/HR 10 mls/hr IV .Q24H SRI Rx#: [id number] Insulin Regular 100 unit 2.626 16.564 In Sodium Chloride 0.9% 100 ml @ Per Protocol IV .Q0M SRI Rx#:[id number] propofoL 1,000 mg In 35.838 Empty Bag 1 bag @ Titrate IV .Q0M SRI Rx#: [id number] Albumin 500 Albumin Human 5% 250 ml 500 In Empty Bag 1 bag @ 250 mls/hr IVPB Q1HR PRN Rx#: [id number] Output: Chest Tube Drainage 180 157 LP 75 69 MS 100 76 RP 5 12 Drainage 0 Left Wrist 0 Urine 1250 1010 730 Estimated Blood Loss 1000 Other: Voiding Method Urinal Indwelling Catheter Indwelling Catheter # Voids 1 ABP, PAP, CO, CI - Last Documented Arterial Blood Pressure 136/54 Pulmonary Artery Pressure 31/13 Cardiac Output 8 Cardiac Index 3.5 - Exam GENERAL EXAM: Alert, pleasant 68-year-old male, extubated to 3 L of oxygen nasal cannula HEAD: Normocephalic. EYES: Normal reaction of pupils, equal size. NOSE: Clear with pink turbinates. THROAT: No erythema or exudates. NECK: No masses, no JVD. Right IJ [place]-Jen catheter in place CHEST: No chest wall deformity. LUNGS: Equal air entry with no crackles, wheeze, rhonchi or dullness. Patient has 3 chest tubes, right pleural, left pleural mediastinal, output is minimal and there is no evidence of air leak and the thoracotomy scar is dry clean and intact. CVS: S1 and S2 normal with no audible murmur, regular rhythm. ABDOMEN: No hepatosplenomegaly, normal bowel sounds, no guarding or rigidity. SPINE: No scoliosis or deformity SKIN: No rashes CENTRAL NERVOUS SYSTEM: No focal deficits, tone is normal in all 4 extremities. EXTREMITIES: There is no peripheral edema. No clubbing, no cyanosis. Per ipheral pulses are intact. - Labs CBC & Chem 7: 03/03/24 20:00 03/03/24 14:40 Labs: Abnormal Lab Results - Last 24 Hours (Table) 03/02/24 03/03/24 03/03/24 Range/Units 09:56 08:54 10:01 RBC (4.30-5.90) m/uL Hgb (13.0-17.5) gm/dL Hct (39.0-53.0) % Plt Count (150-450) k/uL Neutrophils # (1.3-7.7) k/uL Lymphocytes # (1.0-4.8) k/uL ABG pH 7.29 L (7.35-7.45) ABG pCO2 56 H (35-45) mmHg ABG pO2 159 H 214 H (83-108) mmHg ABG HCO3 27 H (21-25) mmol/L ABG Total CO2 25 H (19-24) mmol/L ABG O2 Saturation 98.6 H 98.7 H (94-97) % ABG Hematocrit (34.0-46.0) % ABG Glucose 120 H 134 H (75-99) mg/dL ABG Lactic Acid <0.4 L (0.5-1.6) mmol/L Hemoglobin 11.9 L 11.9 L (13.0-17.5) gm/dL Chloride (98-107) mmol/L Carbon Dioxide (22-30) mmol/L Glucose (74-99) mg/dL POC Glucose (mg/dL) (70-110) mg/dL Total Protein (6.3-8.2) g/dL Arterial Blood Glucose 120 H 134 H (75-99) mg/dL Crossmatch See Detail 03/03/24 03/03/24 03/03/24 Range/Units 10:53 11:32 12:05 RBC (4.30-5.90) m/uL Hgb (13.0-17.5) gm/dL Hct (39.0-53.0) % Plt Count (150-450) k/uL Neutrophils # (1.3-7.7) k/uL Lymphocytes # (1.0-4.8) k/uL ABG pH (7.35-7.45) ABG pCO2 (35-45) mmHg ABG pO2 212 H 191 H 182 H (83-108) mmHg ABG HCO3 (21-25) mmol/L ABG Total CO2 (19-24) mmol/L ABG O2 Saturation 97.9 H 98.9 H 98.7 H (94-97) % ABG Hematocrit (34.0-46.0) % ABG Glucose 130 H 122 H 116 H (75-99) mg/dL ABG Lactic Acid (0.5-1.6) mmol/L Hemoglobin 12.0 L 12.0 L 11.8 L (13.0-17.5) gm/dL Chloride (98-107) mmol/L Carbon Dioxide (22-30) mmol/L Glucose (74-99) mg/dL POC Glucose (mg/dL) (70-110) mg/dL Total Protein (6.3-8.2) g/dL Arterial Blood Glucose 130 H 122 H 116 H (75-99) mg/dL Crossmatch 03/03/24 03/03/24 03/03/24 Range/Units 12:48 13:22 14:02 RBC (4.30-5.90) m/uL Hgb (13.0-17.5) gm/dL Hct (39.0-53.0) % Plt Count (150-450) k/uL Neutrophils # (1.3-7.7) k/uL Lymphocytes # (1.0-4.8) k/uL ABG pH 7.34 L 7.30 L (7.35-7.45) ABG pCO2 (35-45) mmHg ABG pO2 212 H 219 H (83-108) mmHg ABG HCO3 (21-25) mmol/L ABG Total CO2 (19-24) mmol/L ABG O2 Saturation 98.6 H 98.9 H (94-97) % ABG Hematocrit 33 L 33 L 33 L (34.0-46.0) % ABG Glucose 121 H 123 H 127 H (75-99) mg/dL ABG Lactic Acid (0.5-1.6) mmol/L Hemoglobin 10.8 L 10.8 L 10.7 L (13.0-17.5) gm/dL Chloride (98-107) mmol/L Carbon Dioxide (22-30) mmol/L Glucose (74-99) mg/dL POC Glucose (mg/dL) (70-110) mg/dL Total Protein (6.3-8.2) g/dL Arterial Blood Glucose 121 H 123 H 127 H (75-99) mg/dL Crossmatch 03/03/24 03/03/24 03/03/24 Range/Units 14:40 14:40 14:43 RBC 3.59 L (4.30-5.90) m/uL Hgb 10.9 L D (13.0-17.5) gm/dL Hct 33.4 L (39.0-53.0) % Plt Count 111 L (150-450) k/uL Neutrophils # 8.5 H (1.3-7.7) k/uL Lymphocytes # 0.5 L (1.0-4.8) k/uL ABG pH (7.35-7.45) ABG pCO2 (35-45) mmHg ABG pO2 (83-108) mmHg ABG HCO3 (21-25) mmol/L ABG Total CO2 (19-24) mmol/L ABG O2 Saturation (94-97) % ABG Hematocrit (34.0-46.0) % ABG Glucose (75-99) mg/dL ABG Lactic Acid (0.5-1.6) mmol/L Hemoglobin (13.0-17.5) gm/dL Chloride 112 H (98-107) mmol/L Carbon Dioxide 19 L (22-30) mmol/L Glucose 123 H (74-99) mg/dL POC Glucose (mg/dL) 135 H (70-110) mg/dL Total Protein 5.3 L (6.3-8.2) g/dL Arterial Blood Glucose (75-99) mg/dL Crossmatch 03/03/24 03/03/24 03/03/24 Range/Units 15:02 15:14 16:12 RBC (4.30-5.90) m/uL Hgb (13.0-17.5) gm/dL Hct (39.0-53.0) % Plt Count (150-450) k/uL Neutrophils # (1.3-7.7) k/uL Lymphocytes # (1.0-4.8) k/uL ABG pH 7.30 L (7.35-7.45) ABG pCO2 (35-45) mmHg ABG pO2 294 H (83-108) mmHg ABG HCO3 (21-25) mmol/L ABG Total CO2 (19-24) mmol/L ABG O2 Saturation 100.2 H (94-97) % ABG Hematocrit (34.0-46.0) % ABG Glucose (75-99) mg/dL ABG Lactic Acid (0.5-1.6) mmol/L Hemoglobin (13.0-17.5) gm/dL Chloride (98-107) mmol/L Carbon Dioxide (22-30) mmol/L Glucose (74-99) mg/dL POC Glucose (mg/dL) 128 H 161 H (70-110) mg/dL Total Protein (6.3-8.2) g/dL Arterial Blood Glucose (75-99) mg/dL Crossmatch 03/03/24 03/03/24 03/03/24 Range/Units 16:54 17:45 17:45 RBC 3.53 L (4.30-5.90) m/uL Hgb 10.7 L (13.0-17.5) gm/dL Hct 32.8 L (39.0-53.0) % Plt Count 104 L (150-450) k/uL Neutrophils # (1.3-7.7) k/uL Lymphocytes # 0.3 L (1.0-4.8) k/uL ABG pH 7.32 L (7.35-7.45) ABG pCO2 (35-45) mmHg ABG pO2 126 H (83-108) mmHg ABG HCO3 (21-25) mmol/L ABG Total CO2 (19-24) mmol/L ABG O2 Saturation 99.1 H (94-97) % ABG Hematocrit (34.0-46.0) % ABG Glucose (75-99) mg/dL ABG Lactic Acid (0.5-1.6) mmol/L Hemoglobin (13.0-17.5) gm/dL Chloride (98-107) mmol/L Carbon Dioxide (22-30) mmol/L Glucose (74-99) mg/dL POC Glucose (mg/dL) 161 H (70-110) mg/dL Total Protein (6.3-8.2) g/dL Arterial Blood Glucose (75-99) mg/dL Crossmatch 03/03/24 03/03/24 03/03/24 Range/Units 17:46 19:03 20:00 RBC 3.63 L (4.30-5.90) m/uL Hgb 10.9 L (13.0-17.5) gm/dL Hct 33.5 L (39.0-53.0) % Plt Count 105 L (150-450) k/uL Neutrophils # (1.3-7.7) k/uL Lymphocytes # 0.3 L (1.0-4.8) k/uL ABG pH (7.35-7.45) ABG pCO2 (35-45) mmHg ABG pO2 (83-108) mmHg ABG HCO3 (21-25) mmol/L ABG Total CO2 (19-24) mmol/L ABG O2 Saturation (94-97) % ABG Hematocrit (34.0-46.0) % ABG Glucose (75-99) mg/dL ABG Lactic Acid (0.5-1.6) mmol/L Hemoglobin (13.0-17.5) gm/dL Chloride (98-107) mmol/L Carbon Dioxide (22-30) mmol/L Glucose (74-99) mg/dL POC Glucose (mg/dL) 165 H 157 H (70-110) mg/dL Total Protein (6.3-8.2) g/dL Arterial Blood Glucose (75-99) mg/dL Crossmatch 03/03/24 03/03/24 03/03/24 Range/Units 20:00 21:00 22:03 RBC (4.30-5.90) m/uL Hgb (13.0-17.5) gm/dL Hct (39.0-53.0) % Plt Count (150-450) k/uL Neutrophils # (1.3-7.7) k/uL Lymphocytes # (1.0-4.8) k/uL ABG pH (7.35-7.45) ABG pCO2 (35-45) mmHg ABG pO2 (83-108) mmHg ABG HCO3 (21-25) mmol/L ABG Total CO2 (19-24) mmol/L ABG O2 Saturation (94-97) % ABG Hematocrit (34.0-46.0) % ABG Glucose (75-99) mg/dL ABG Lactic Acid (0.5-1.6) mmol/L Hemoglobin (13.0-17.5) gm/dL Chloride (98-107) mmol/L Carbon Dioxide (22-30) mmol/L Glucose (74-99) mg/dL POC Glucose (mg/dL) 155 H 141 H 142 H (70-110) mg/dL Total Protein (6.3-8.2) g/dL Arterial Blood Glucose (75-99) mg/dL Crossmatch Assessment and Plan Plan: Acute non-ST segment elevation myocardial infarction. Cardiac catheterization reveals a pink patent stent in the distal RCA. Ulcerated plaque involving the left main coronary artery with intermediate to severe disease involving the left circumflex and left anterior descending artery with complex lesion/bifurcation lesions. Patient underwent a total of 6 vessel bypass surgery, off-pump and the patient is currently postop day #0. Hemodynamically stable. Adequate hemodynamic parameters. No pressors. Cardiac rhythm is sinus. Postthoracotomy, extubated without any major difficulties and the patient is currently on 3 L O2 nasal cannula. Hemodynamically stable. Chest x-ray was noted. Chest tubes are in place. Recent ST segment elevation myocardial infarction status post stenting to the distal RCA on 02/25/2024 Former smoker, FEV1 value 3.13 L / 83% of predicted Hypertension Obstructive sleep apnea, utilizing his home CPAP History of prostate cancer status post radiation Plan Extubated to nasal cannula Hemodynamically stable and the patient is currently on no pressors provide the patient is sinus parameter Monitor output from the chest tubes Continue aspirin Continue high-dose statins Monitor hemoglobin Monitor platelet count Hemodynamically stable Will continue to follow the postoperative care. There is a critical care evaluation that was done more than 30 minutes, essentially working progress. Time with Patient: Greater than 30
[2024-03-03 23:08] LABS: Glucose,Whole Blood 140 mg/dL (70-110)
[2024-03-04 00:22] LABS: Glucose,Whole Blood 146 mg/dL (70-110)
[2024-03-04 01:40] LABS: Glucose,Whole Blood 134 mg/dL (70-110)
[2024-03-04 03:01] LABS: Glucose,Whole Blood 131 mg/dL (70-110)
[2024-03-04 04:07] LABS: Glucose,Whole Blood 134 mg/dL (70-110)
[2024-03-04 04:52] LABS: Basophils % (A) 0 %; Eosinophils % (A) 0 %; HCT 34.3 % (39.0-53.0); HGB 11.2 gm/dL (13.0-17.5); Lymphocytes # (A) 0.5 k/uL (1.0-4.8); Lymphocytes % (A) 7 %; MCH 29.9 pg (25.0-35.0); MCHC 32.6 g/dL (31.0-37.0); MCV 91.7 fL (80.0-100.0); Monocytes # (A) 0.3 k/uL (0-1.0); Monocytes % (A) 5 %; Neutrophils % (A) 87 %; Platelet Count 125 k/uL (150-450); RBC 3.74 m/uL (4.30-5.90); RDW 13.8 % (11.5-15.5); WBC 6.9 k/uL (3.8-10.6)
[2024-03-04 05:03] LABS: Ionized Calcium 4.8 mg/dL (4.5-5.3)
[2024-03-04 05:13] LABS: ALT 18 U/L (4-49); AST 44 U/L (17-59); African American GFR (CKD) >90 (>60 ml/min/1.73 sqM); Albumin 3.7 g/dL (3.5-5.0); Alkaline Phosphatase 40 U/L (38-126); Anion Gap 5 mmol/L; Blood Urea Nitrogen 16 mg/dL (9-20); Calcium 8.8 mg/dL (8.4-10.2); Carbon Dioxide 22 mmol/L (22-30); Chloride 109 mmol/L (98-107); Glucose 121 mg/dL (74-99); Non-African American GFR(CKD) 89 (>60 ml/min/1.73 sqM); Potassium 4.4 mmol/L (3.5-5.1); Sodium 136 mmol/L (137-145); Total Bilirubin 0.5 mg/dL (0.2-1.3); Total Protein 5.2 g/dL (6.3-8.2)
[2024-03-04 07:22] LABS: Glucose,Whole Blood 146 mg/dL (70-110)
[2024-03-04 08:02] LABS: Glucose,Whole Blood 156 mg/dL (70-110)
[2024-03-04 08:22] LABS: Glucose,Whole Blood 149 mg/dL (70-110)
[2024-03-04] MEDS: PANTOPRAZOLE 40 MG/10 ML VIAL IVP SCH (08:25)
[2024-03-04] MEDS: ASPIRIN 325 MG TAB PO SCH (08:26)
[2024-03-04] MEDS: CLOPIDOGREL 75 MG TAB PO SCH (08:26)
[2024-03-04] MEDS: METOPROLOL TARTRATE 12.5 MG TAB PO SCH ×2 (08:26→21:01)
[2024-03-04] MEDS: ATORVASTATIN 40 MG TAB PO SCH (08:26)
[2024-03-04] MEDS ORDERED: METOPROLOL TARTRATE 25 MG TAB PO SCH ×2 (09:00→21:00)
[2024-03-04] MEDS ORDERED: bisacodyL 10 MG SUPP RECTAL PRN (09:00)
[2024-03-04 09:11] LABS: Glucose,Whole Blood 141 mg/dL (70-110)
[2024-03-04] MEDS ORDERED: HYDROcodone/APAP 5-325MG 1 EACH TAB PO PRN (09:16)
[2024-03-04] MEDS: HYDROcodone/APAP 5-325MG 1 EACH TAB PO PRN (09:53)
[2024-03-04 10:12] LABS: Glucose,Whole Blood 133 mg/dL (70-110)
[2024-03-04 10:55] LABS: Glucose,Whole Blood 125 mg/dL (70-110)
[2024-03-04 12:04] LABS: Glucose,Whole Blood 126 mg/dL (70-110)
--- NOTE | 2024-03-04 13:00 | XR ---
EXAMINATION TYPE: XR chest 1V portable DATE OF EXAM: 03/04/2024 COMPARISON: 03/03/2024 HISTORY: Postop TECHNIQUE: Single frontal view of the chest is obtained. FINDINGS: ET tube is been removed. [place]-Jen catheter are stable in appearance. Mediastinal drain an d poststernotomy changes. Left-sided chest tube. The heart is enlarged and there is a diffuse interstitial pattern with small bilateral effusions and basilar atelectasis or infiltrate. Osseous structures stable. IMPRESSION: Postoperative changes correlate for mild CHF with small bilateral effusion and basilar c onsolidation.
[2024-03-04 13:02] LABS: Glucose,Whole Blood 147 mg/dL (70-110)
--- NOTE | 2024-03-04 13:14 | P.PN ---
Subjective Progress Note Date: 03/04/24 Principal diagnosis: Chest pain, non-STEMI this admission. History of coronary artery disease with recent STEMI and PCI, mild to moderate aortic stenosis, hypertension, hyperlipidemia, diabetes, obstructive sleep apnea, prostate cancer, previous tobacco dependence, family history of coronary artery disease. POD #1 Off pump coronary artery bypass grafting x 6. Left internal thoracic artery (in-situ) sequential to second diagonal artery and left anterior descending coronary artery. Left radial artery from aorta sequential to ramus intermedius and obtuse marginal artery #1. Reverse saphenous vein graft from aorta sequential to posterior descending and postero-lateral coronary arteries, Left atrial appendage ligation using #35mm AtriClip, Endoscopic left radial and left greater saphenous vein harvest, Insertion of right common femoral arterial line using ultrasound guided micropuncture technique, Graft flow measurements using the [employer] graft flow meter system, Trans-esophageal echocardiogram performed by anesthesia Postoperative acute blood loss anemia, expected given hemodilution. The patient was seen and examined in follow-up today March 04, 2024 at his beds gwen in the intensive care unit. He is currently sitting up to the bedside chair, is awake, alert, oriented x 3 and is no acute apparent distress. He was successfully extubated at 5:53 PM last evening, currently on room air with oxygen saturations 94%. He is achieving 1000 mL on his incentive spirometry with encouragement. Right IJ Interior-Jen catheter/Cordis remain in place with current hemodynamic showing a cardiac output 7.5, cardiac index 3.2, PA pressures 27/10, CVP 1 mmHg and SVR 1643. Left/right pleural and mediastinal chest tubes remain in place to low continuous wall suction -20 cm H2O. Left pleural chest tube draining thin serosanguineous drainage with 55 mL output in the last 8 hours and 210 mL output since surgery. Mediastinal chest tube drained 165 mL output in the last 8 hours and 350 mL output since surgery, right pleural chest tube drained 15 mL of thin serosanguineous drainage in the last 8 hours and 40 mL output since surgery. He remains hemodynamically stable and is currently on no inotropic or pressor support. Bedside telemetry is showing normal sinus rhythm heart rate 82 bpm. Chest x-ray and laboratory results reviewed. Objective - Vital Signs Vital signs: Vital Signs Temp 99.1 F 03/04/24 04:00 Pulse 73 03/04/24 11:00 Resp 23 03/04/24 11:00 BP 99/61 03/04/24 11:00 Pulse Ox 93 L 03/04/24 11:00 FiO2 50 03/03/24 17:18 Intake & Output 03/03/24 03/04/24 03/04/24 18:59 06:59 18:59 Intake Total 987.464 879.475 9070.721 Output Total 2190 1695 525 Balance -1202.536 -792.685 725.721 Weight 105.2 kg Intake: IV 449 868 815 Albumin Human 5% 250 ml 500 In Empty Bag 1 bag @ 250 mls/hr IVPB Q1HR PRN Rx#: [id number] LR 250 600 230 co/ci 100 160 40 pressure bag 45 108 45 Intake, IV Titration 38.464 34.315 35.721 Amount Insulin Regular 100 unit 2.626 34.315 35.721 In Sodium Chloride 0.9% 100 ml @ Per Protocol IV .Q0M SRI Rx#:[id number] propofoL 1,000 mg In 35.838 Empty Bag 1 bag @ Titrate IV .Q0M SRI Rx#: [id number] Oral 400 Albumin 500 Albumin Human 5% 250 ml 500 In Empty Bag 1 bag @ 250 mls/hr IVPB Q1HR PRN Rx#: [id number] Output: Chest Tube Drainage 180 390 255 LP 75 123 40 MS 100 240 130 RP 5 27 85 Drainage 0 20 Left Wrist 0 20 Urine 1010 1285 270 Estimated Blood Loss 1000 Other: Voiding Method Indwelling Catheter Indwelling Catheter Indwelling Catheter ABP, PAP, CO, CI - Last Documented Arterial Blood Pressure 129/48 Pulmonary Artery Pressure 23/6 Cardiac Output 6.7 Cardiac Index 2.9 - Exam CONSTITUTIONAL: Sitting up to the bedside chair in the intensive care unit, appears comfortable, cooperative, no apparent acute distress. HEENT: Neck is supple, no JVD, no lymphadenopathy. Right IJ Cordis and Interior- Jen catheter in place and functioning. RESPIRATORY: Lungs sounds essentially clear throughout, diminished to his bilateral bases. Respirations are symmetrical and nonlabored. Currently on room air with oxygen saturations 94%. Able to achieve 1000 mL on their incentive spirometry. Strong cough. CARDIOVASCULAR: Regular rhythm and rate. S1 and S2 present, negative for S3, gallop or murmur. Sternum is stable. Palpable peripheral pulses bilaterally. No calf pain or tenderness noted. Heart hugger in place with patient dem onstrating appropriate use. Knee-high JUAN hose and sequential compression devices in place to his bilateral lower extremities. GASTROINTESTINAL: Abdomen soft, nontender, nondistended. Hypoactive bowel sounds present 4 quadrants. Tolerating diet. Passing flatus. No guarding or rigidity. GENITOURINARY: Gamez present draining clear, yellow urine. Urine output 555 mL in the last 8 hours INTEGUMENTARY: Skin is warm and dry with no evidence of clubbing or cyanosis. Midline sternal incision clean dry and well approximated, covered with dry intact dressing. Right lower extremity EVH sites well approximated without redness or drainage. Left arm radial artery harvest sites clean, dry and approximated. No drainage or redness is present. NEUROLOGIC: Cranial nerves II through XII intact. No focal deficits. MUSKULOSKELETAL: Able to move all extremities, strength equal bilaterally. PSYCHIATRIC: Alert and oriented to person place and time, appropriate affect, intact judgment and insight. INVASIVE LINES AND TUBES: Left/right pleural and mediastinal chest tubes remain in place to low continuous wall suction -20 cm H2O. Left pleural chest tube draining thin serosanguineous drainage with 55 mL output in the last 8 hours and 210 mL output since surgery. Mediastinal chest tube drained 165 mL output in the last 8 hours and 350 mL output since surgery, right pleural chest tube drai gianni 15 mL of thin serosanguineous drainage in the last 8 hours and 40 mL output since surgery. Right internal jugular Interior/Cordis, right radial arterial line present. Last CO 7.5, CI 3.2, PA 27/10 and CVP 1 mmHg. Left arm REILLY drain in place with scant thin serosanguineous drainage, 20 mL output in the last 8 hours. - Allied health notes Allied health notes reviewed: nursing - Labs CBC & Chem 7: 03/04/24 04:00 03/04/24 04:00 Labs: Abnormal Lab Results - Last 24 Hours (Table) 03/02/24 03/03/24 03/03/24 Range/Units 09:56 12:05 12:48 RBC (4.30-5.90) m/uL Hgb (13.0-17.5) gm/dL Hct (39.0-53.0) % Plt Count (150-450) k/uL Neutrophils # (1.3-7.7) k/uL Lymphocytes # (1.0-4.8) k/uL ABG pH (7.35-7.45) ABG pO2 182 H 212 H (83-108) mmHg ABG O2 Saturation 98.7 H 98.6 H (94-97) % ABG Hematocrit 33 L (34.0-46.0) % ABG Glucose 116 H 121 H (75-99) mg/dL Hemoglobin 11.8 L 10.8 L (13.0-17.5) gm/dL Sodium (137-145) mmol/L Chloride (98-107) mmol/L Carbon Dioxide (22-30) mmol/L Glucose (74-99) mg/dL POC Glucose (mg/dL) (70-110) mg/dL Total Protein (6.3-8.2) g/dL Arterial Blood Glucose 116 H 121 H (75-99) mg/dL Crossmatch See Detail 03/03/24 03/03/24 03/03/24 Range/Units 13:22 14:02 14:40 RBC 3.59 L (4.30-5.90) m/uL Hgb 10.9 L D (13.0-17.5) gm/dL Hct 33.4 L (39.0-53.0) % Plt Count 111 L (150-450) k/uL Neutrophils # 8.5 H (1.3-7.7) k/uL Lymphocytes # 0.5 L (1.0-4.8) k/uL ABG pH 7.34 L 7.30 L (7.35-7.45) ABG pO2 219 H (83-108) mmHg ABG O2 Saturation 98.9 H (94-97) % ABG Hematocrit 33 L 33 L (34.0-46.0) % ABG Glucose 123 H 127 H (75-99) mg/dL Hemoglobin 10.8 L 10.7 L (13.0-17.5) gm/dL Sodium (137-145) mmol/L Chloride (98-107) mmol/L Carbon Dioxide (22-30) mmol/L Glucose (74-99) mg/dL POC Glucose (mg/dL) (70-110) mg/dL Total Protein (6.3-8.2) g/dL Arterial Blood Glucose 123 H 127 H (75-99) mg/dL Crossmatch 03/03/24 03/03/24 03/03/24 Range/Units 14:40 14:43 15:02 RBC (4.30-5.90) m/uL Hgb (13.0-17.5) gm/dL Hct (39.0-53.0) % Plt Count (150-450) k/uL Neutrophils # (1.3-7.7) k/uL Lymphocytes # (1.0-4.8) k/uL ABG pH (7.35-7.45) ABG pO2 (83-108) mmHg ABG O2 Saturation (94-97) % ABG Hematocrit (34.0-46.0) % ABG Glucose (75-99) mg/dL Hemoglobin (13.0-17.5) gm/dL Sodium (137-145) mmol/L Chloride 112 H (98-107) mmol/L Carbon Dioxide 19 L (22-30) mmol/L Glucose 123 H (74-99) mg/dL POC Glucose (mg/dL) 135 H 128 H (70-110) mg/dL Total Protein 5.3 L (6.3-8.2) g/dL Arterial Blood Glucose (75-99) mg/dL Crossmatch 03/03/24 03/03/24 03/03/24 Range/Units 15:14 16:12 16:54 RBC (4.30-5.90) m/uL Hgb (13.0-17.5) gm/dL Hct (39.0-53.0) % Plt Count (150-450) k/uL Neutrophils # (1.3-7.7) k/uL Lymphocytes # (1.0-4.8) k/uL ABG pH 7.30 L (7.35-7.45) ABG pO2 294 H (83-108) mmHg ABG O2 Saturation 100.2 H (94-97) % ABG Hematocrit (34.0-46.0) % ABG Glucose (75-99) mg/dL Hemoglobin (13.0-17.5) gm/dL Sodium (137-145) mmol/L Chloride (98-107) mmol/L Carbon Dioxide (22-30) mmol/L Glucose (74-99) mg/dL POC Glucose (mg/dL) 161 H 161 H (70-110) mg/dL Total Protein (6.3-8.2) g/dL Arterial Blood Glucose (75-99) mg/dL Crossmatch 03/03/24 03/03/24 03/03/24 Range/Units 17:45 17:45 17:46 RBC 3.53 L (4.30-5.90) m/uL Hgb 10.7 L (13.0-17.5) gm/dL Hct 32.8 L (39.0-53.0) % Plt Count 104 L (150-450) k/uL Neutrophils # (1.3-7.7) k/uL Lymphocytes # 0.3 L (1.0-4.8) k/uL ABG pH 7.32 L (7.35-7.45) ABG pO2 126 H (83-108) mmHg ABG O2 Saturation 99.1 H (94-97) % ABG Hematocrit (34.0-46.0) % ABG Glucose (75-99) mg/dL Hemoglobin (13.0-17.5) gm/dL Sodium (137-145) mmol/L Chloride (98-107) mmol/L Carbon Dioxide (22-30) mmol/L Glucose (74-99) mg/dL POC Glucose (mg/dL) 165 H (70-110) mg/dL Total Protein (6.3-8.2) g/dL Arterial Blood Glucose (75-99) mg/dL Crossmatch 03/03/24 03/03/24 03/03/24 Range/Units 19:03 20:00 20:00 RBC 3.63 L (4.30-5.90) m/uL Hgb 10.9 L (13.0-17.5) gm/dL Hct 33.5 L (39.0-53.0) % Plt Count 105 L (150-450) k/uL Neutrophils # (1.3-7.7) k/uL Lymphocytes # 0.3 L (1.0-4.8) k/uL ABG pH (7.35-7.45) ABG pO2 (83-108) mmHg ABG O2 Saturation (94-97) % ABG Hematocrit (34.0-46.0) % ABG Glucose (75-99) mg/dL Hemoglobin (13.0-17.5) gm/dL Sodium (137-145) mmol/L Chloride (98-107) mmol/L Carbon Dioxide (22-30) mmol/L Glucose (74-99) mg/dL POC Glucose (mg/dL) 157 H 155 H (70-110) mg/dL Total Protein (6.3-8.2) g/dL Arterial Blood Glucose (75-99) mg/dL Crossmatch 03/03/24 03/03/24 03/03/24 Range/Units 21:00 22:03 23:06 RBC (4.30-5.90) m/uL Hgb (13.0-17.5) gm/dL Hct (39.0-53.0) % Plt Count (150-450) k/uL Neutrophils # (1.3-7.7) k/uL Lymphocytes # (1.0-4.8) k/uL ABG pH (7.35-7.45) ABG pO2 (83-108) mmHg ABG O2 Saturation (94-97) % ABG Hematocrit (34.0-46.0) % ABG Glucose (75-99) mg/dL Hemoglobin (13.0-17.5) gm/dL Sodium (137-145) mmol/L Chloride (98-107) mmol/L Carbon Dioxide (22-30) mmol/L Glucose (74-99) mg/dL POC Glucose (mg/dL) 141 H 142 H 140 H (70-110) mg/dL Total Protein (6.3-8.2) g/dL Arterial Blood Glucose (75-99) mg/dL Crossmatch 03/04/24 03/04/24 03/04/24 Range/Units 00:21 01:38 02:58 RBC (4.30-5.90) m/uL Hgb (13.0-17.5) gm/dL Hct (39.0-53.0) % Plt Count (150-450) k/uL Neutrophils # (1.3-7.7) k/uL Lymphocytes # (1.0-4.8) k/uL ABG pH (7.35-7.45) ABG pO2 (83-108) mmHg ABG O2 Saturation (94-97) % ABG Hematocrit (34.0-46.0) % ABG Glucose (75-99) mg/dL Hemoglobin (13.0-17.5) gm/dL Sodium (137-145) mmol/L Chloride (98-107) mmol/L Carbon Dioxide (22-30) mmol/L Glucose (74-99) mg/dL POC Glucose (mg/dL) 146 H 134 H 131 H (70-110) mg/dL Total Protein (6.3-8.2) g/dL Arterial Blood Glucose (75-99) mg/dL Crossmatch 03/04/24 03/04/24 03/04/24 Range/Units 04:00 04:00 04:05 RBC 3.74 L (4.30-5.90) m/uL Hgb 11.2 L (13.0-17.5) gm/dL Hct 34.3 L (39.0-53.0) % Plt Count 125 L (150-450) k/uL Neutrophils # (1.3-7.7) k/uL Lymphocytes # 0.5 L (1.0-4.8) k/uL ABG pH (7.35-7.45) ABG pO2 (83-108) mmHg ABG O2 Saturation (94-97) % ABG Hematocrit (34.0-46.0) % ABG Glucose (75-99) mg/dL Hemoglobin (13.0-17.5) gm/dL Sodium 136 L (137-145) mmol/L Chloride 109 H (98-107) mmol/L Carbon Dioxide (22-30) mmol/L Glucose 121 H (74-99) mg/dL POC Glucose (mg/dL) 134 H (70-110) mg/dL Total Protein 5.2 L (6.3-8.2) g/dL Arterial Blood Glucose (75-99) mg/dL Crossmatch 03/04/24 03/04/24 03/04/24 Range/Units 07:20 08:00 08:21 RBC (4.30-5.90) m/uL Hgb (13.0-17.5) gm/dL Hct (39.0-53.0) % Plt Count (150-450) k/uL Neutrophils # (1.3-7.7) k/uL Lymphocytes # (1.0-4.8) k/uL ABG pH (7.35-7.45) ABG pO2 (83-108) mmHg ABG O2 Saturation (94-97) % ABG Hematocrit (34.0-46.0) % ABG Glucose (75-99) mg/dL Hemoglobin (13.0-17.5) gm/dL Sodium (137-145) mmol/L Chloride (98-107) mmol/L Carbon Dioxide (22-30) mmol/L Glucose (74-99) mg/dL POC Glucose (mg/dL) 146 H 156 H 149 H (70-110) mg/dL Total Protein (6.3-8.2) g/dL Arterial Blood Glucose (75-99) mg/dL Crossmatch 03/04/24 03/04/24 03/04/24 Range/Units 09:09 10:10 10:53 RBC (4.30-5.90) m/uL Hgb (13.0-17.5) gm/dL Hct (39.0-53.0) % Plt Count (150-450) k/uL Neutrophils # (1.3-7.7) k/uL Lymphocytes # (1.0-4.8) k/uL ABG pH (7.35-7.45) ABG pO2 (83-108) mmHg ABG O2 Saturation (94-97) % ABG Hematocrit (34.0-46.0) % ABG Glucose (75-99) mg/dL Hemoglobin (13.0-17.5) gm/dL Sodium (137-145) mmol/L Chloride (98-107) mmol/L Carbon Dioxide (22-30) mmol/L Glucose (74-99) mg/dL POC Glucose (mg/dL) 141 H 133 H 125 H (70-110) mg/dL Total Protein (6.3-8.2) g/dL Arterial Blood Glucose (75-99) mg/dL Crossmatch 03/04/24 Range/Units 12:02 RBC (4.30-5.90) m/uL Hgb (13.0-17.5) gm/dL Hct (39.0-53.0) % Plt Count (150-450) k/uL Neutrophils # (1.3-7.7) k/uL Lymphocytes # (1.0-4.8) k/uL ABG pH (7.35-7.45) ABG pO2 (83-108) mmHg ABG O2 Saturation (94-97) % ABG Hematocrit (34.0-46.0) % ABG Glucose (75-99) mg/dL Hemoglobin (13.0-17.5) gm/dL Sodium (137-145) mmol/L Chloride (98-107) mmol/L Carbon Dioxide (22-30) mmol/L Glucose (74-99) mg/dL POC Glucose (mg/dL) 126 H (70-110) mg/dL Total Protein (6.3-8.2) g/dL Arterial Blood Glucose (75-99) mg/dL Crossmatch - Imaging and Cardiology Chest x-ray: report reviewed, image reviewed Assessment and Plan Assessment: Chest pain, non-STEMI this admission, status post 6 vessel off-pump coronary artery bypass grafting surgery Coronary artery disease with recent STEMI and PCI Mild to moderate aortic stenosis Hypertension Hyperlipidemia, treated, cholesterol 123, LDL 56 Diabetes, hemoglobin A1c 5.6% Obstructive sleep apnea Prostate cancer Previous tobacco dependence, preoperative FEV1 83% of predicted Family history of coronary artery disease Postoperative acute blood loss anemia, expected Plan: Continue to maximize medical therapy with aspirin, statin, Plavix and beta- chad. Will increase beta-chad as tolerated with hold parameters. Discontinue nitroglycerin drip. When blood pressure is able to tolerate, we will start calcium channel chad for radial artery spasm prophylaxis. Encourage incentive spirometry use 10 times every hour while awake. Bronchodilators per pulmonology. Increase activity, ambulate as tolerated. PT/OT/cardiac rehab consulted. Will monitor daily labs and chest x-rays. Electrolyte replacement per protocol. GI/DVT prophylaxis. Insulin management per internal medicine, patient should remain on IV insulin for 48 hours then may transition to subcutaneous per protocol. Pain control with current medication regimen. Will discontinue Interior, connect Cordis to continuous CVP monitoring. Continue chest tubes for another 24 hours, monitor output. Continue Gamez catheter for another 24 hours, continue to monitor and record strict accurate intake and output. Discontinue left arm REILLY drain. Daily weights. More recommendations to follow based on patient's clinical course. Time with Patient: Greater than 30
[2024-03-04] MEDS: METOPROLOL TARTRATE 12.5 MG TAB PO ONE (14:41)
[2024-03-04 14:55] LABS: Glucose,Whole Blood 151 mg/dL (70-110)
[2024-03-04] MEDS: LORATADINE 10 MG TAB PO SCH (15:02)
[2024-03-04 16:03] LABS: Glucose,Whole Blood 147 mg/dL (70-110)
--- NOTE | 2024-03-04 16:14 | P.PN ---
Subjective Progress Note Date: 03/04/24 This is a very pleasant 68-year-old male patient with a history of prostate can cer with previous radiation, coronary disease with previous stent placement, hypertension, hyperlipidemia, diabetes mellitus, obstructive sleep apnea utilizing CPAP, former smoker. He had presented here to the emergency room on 02/21/2024 with complaints of chest pain. He was found to have a ST segment elevation myocardial infarction and had undergone stenting to the distal RCA with aspiration thrombectomy. He recovered and was discharged home on 02/23/2024. He was prescribed Brilinta. Echocardiogram had revealed mild to moderate LV left ventricular systolic dysfunction with ejection fraction of 40 to 45%. He came back to the emergency room on 02/24/2024 with recurrent chest pain. He was found to have a new non-ST segment elevation myocardial infarction's with uptrending troponins. Repeat echocardiogram revealed an ejection fraction of 45%. Repeat cardiac catheterization on 02/25/2024 revealed patent stent to the distal RCA. There was an ulcerated plaque involving the left main coronary artery with intermediate to severe disease involving the left circumflex and left anterior descending artery with complex lesion/bifurcation lesions. He is recommended coronary artery bypass grafting which is tentatively planned for March 03, 2024 after being off his Brilinta. On today's evaluation of 02/28/2024, the patient sitting up on a chair. The patient is calm and comfortable. The patient remains on IV heparin. The patient also is receiving IV nitroglycerin at 5 mg/min. The patient is free of any chest pain. Hemodynamically stable. Cardiac rhythm is sinus. He is currently off Brilinta. Awaiting coronary bypass surgery. Remains on aspirin. Remains on IV heparin. Remains on his routine outpatient medications. He is also on metoprolol 12.5 mg twice a day. Remains on Lipitor 80 mg p.o. daily. Awake and alert. He is on room air oxygen. 02/29/2024, the patient is calm and comfortable. Free of any chest pain. Hemodynamically stable. No cardiac arrhythmias. Nitroglycerin drip has been discontinued. The patient has no specific complaints. He remains on IV heparin drip. At the same time, labs from today shows a white cell count of 6, hemoglobin 14.1 and a platelet count of 132 without any significant drop in the platelet count while being on IV heparin. 03/01/2024, the patient is being seen for a follow-up. No new complaints. Remains on IV heparin. Hemodynamically stable. Free of any chest pain. No other significant events overnight. The patient is awaiting coronary bypass surgery that is being done on 03/03/2024. He remains on aspirin. He is also on metoprolol 12.5 mg p.o. twice a day. On 03/02/2024, the patient is being seen for a follow-up. No new complaints. The plan is to proceed with a bypass surgery in the morning. The patient re tiffany clinically stable and hemodynamically stable. He is on room air oxygen. History of any chest pain. Medications remain unchanged. Labs from today shows a white cell count of 6.4 hemoglobin 14.7 and a platelet count of 174. BUN is 20 with a creatinine 1.01 and sodium levels at 138. No other new complaints otherwise for now. 03/03/2024, the patient is being seen in the intensive care unit. The patient underwent an off-pump coronary artery bypass surgery x 6 with BULLOCK to second diagonal and LAD, left radial to ramus intermedius and obtuse marginal and saphenous vein graft to posterior descending and posterior lateral coronary arteries. The patient was kept intubated on mechanical ventilator and the patient was transferred to the intensive care unit. At the time of the arrival to the ICU, the patient was on propofol, calm and comfortable, hemodynamically stable, cardiac output was 8 with an index of 3.5, PA pressures were 32/13. No pressors. Cardiac rhythm was sinus. The patient was on assist-control mode of mechanical ventilation at rate of 12, tidal volume of 600, 5 200% and a PEEP of 5. Progressive weaning of the FiO2 was done. Following that, sedation was discontinued and the patient showed appropriate weaning parameters with a respiratory rate of 22, spontaneous tidal volume of 590 cc with a rapid shallow breathing index of 36 and a minute ventilation of 12.4 and a vital capacity of 1.1. Blood gases after a 30-minute of spontaneous breathing showed a pH of 7.31 with a pCO2 of 41 and pO2 of 126. The patient was accordingly extubated and the patient was placed on nasal cannula at 3 L/min. Awake and alert and communicating. Patient has right pleural, left pleural and mediastinal chest tubes. The chest x-ray showed adequate expansion of both lungs. No evidence of any pneumothorax. No evidence of any air leak. Findings are essentially consistent with post surgical changes. No evidence of any pneumothorax. Some limited atelectatic changes bilaterally. The white cell count is 7.1, hemoglobin is 10.9, and a platelet count is 105. On 03/04/2024, I am seeing this patient for a follow-up. The patient is postop day #1. The patient was weaned off the mechanical ventilator and the patient was extubated without the major difficulties. Currently sitting up in the chair and is on room air oxygen. Cardiac output is a 7.5 with an index of 3.2. PA pressures of 27/10. Urine output is 500 cc over the past 8 hours. Insulin drip is running at 4.5 units an hour. The patient is currently off the nitroglycerin drip. The patient has right-sided pleural chest tube total amount of output 40 cc over the past 24 hours, mediastinal chest was produced 160 cc over the past 8 hours and 350 over the past 24 hours and the left lower chest tube was produced 55 cc over the past 8 hours up 2 the patient's blood work is essentially stable with a white cell count of 6.9 with a hemoglobin of 11.2 and platelet count of 125. Sodium is at 136, potassium is at 4.4, BUN is at 16 with a creatinine of 0.8, electrolytes are all within normal limits. The patient is alert and awake and communicating. Pain is under adequate control and the patient is using the incentive spirometer without having any major difficulties. Mental status is also appropriate. 10 cc over the past 24 hours. Remains on insulin drip. Objective - Vital Signs Vital signs: Vital Signs Temp 98.6 F 03/04/24 12:00 Pulse 89 03/04/24 16:01 Resp 17 03/04/24 14:00 BP 99/61 03/04/24 11:00 Pulse Ox 94 L 03/04/24 14:00 FiO2 50 03/03/24 17:18 Intake & Output 03/03/24 03/04/24 03/04/24 18:59 06:59 18:59 Intake Total 987.464 127.233 6399.163 Output Total 2190 1695 525 Balance -1202.536 -792.685 750.163 Weight 105.2 kg Intake: IV 449 868 815 Albumin Human 5% 250 ml 500 In Empty Bag 1 bag @ 250 mls/hr IVPB Q1HR PRN Rx#: [id number] LR 250 600 230 co/ci 100 160 40 pressure bag 45 108 45 Intake, IV Titration 38.464 34.315 60.163 Amount Insulin Regular 100 unit 2.626 34.315 60.163 In Sodium Chloride 0.9% 100 ml @ Per Protocol IV .Q0M SRI Rx#:[id number] propofoL 1,000 mg In 35.838 Empty Bag 1 bag @ Titrate IV .Q0M SRI Rx#: [id number] Oral 400 Albumin 500 Albumin Human 5% 250 ml 500 In Empty Bag 1 bag @ 250 mls/hr IVPB Q1HR PRN Rx#: [id number] Output: Chest Tube Drainage 180 390 255 LP 75 123 40 MS 100 240 130 RP 5 27 85 Drainage 0 20 Left Wrist 0 20 Urine 1010 1285 270 Estimated Blood Loss 1000 Other: Voiding Method Indwelling Catheter Indwelling Catheter Indwelling Catheter ABP, PAP, CO, CI - Last Documented Arterial Blood Pressure 104/37 Pulmonary Artery Pressure 23/6 Cardiac Output 6.7 Cardiac Index 2.9 - Exam GENERAL EXAM: Alert, pleasant 68-year-old male, currently on room air oxygen HEAD: Normocephalic. EYES: Normal reaction of pupils, equal size. NOSE: Clear with pink turbinates. THROAT: No erythema or exudates. NECK: No masses, no JVD. Right IJ [place]-Jen catheter in place CHEST: No chest wall deformity. LUNGS: Equal air entry with no crackles, wheeze, rhonchi or dullness. Patient has 3 chest tubes, right pleural, left pleural mediastinal, output is minimal and there is no evidence of air leak and the thoracotomy scar is dry clean and intact. CVS: S1 and S2 normal with no audible murmur, regular rhythm. ABDOMEN: No hepatosplenomegaly, normal bowel sounds, no guarding or rigidity. SPINE: No scoliosis or deformity SKIN: No rashes CENTRAL NERVOUS SYSTEM: No focal deficits, tone is normal in all 4 extremities. EXTREMITIES: There is no peripheral edema. No clubbing, no cyanosis. Peripheral pulses are intact. - Labs CBC & Chem 7: 03/04/24 04:00 03/04/24 04:00 Labs: Abnormal Lab Results - Last 24 Hours (Table) 03/02/24 03/03/24 03/03/24 Range/Units 09:56 15:14 16:12 RBC (4.30-5.90) m/uL Hgb (13.0-17.5) gm/dL Hct (39.0-53.0) % Plt Count (150-450) k/uL Lymphocytes # (1.0-4.8) k/uL ABG pH 7.30 L (7.35-7.45) ABG pO2 294 H (83-108) mmHg ABG O2 Saturation 100.2 H (94-97) % Sodium (137-145) mmol/L Chloride (98-107) mmol/L Glucose (74-99) mg/dL POC Glucose (mg/dL) 161 H (70-110) mg/dL Total Protein (6.3-8.2) g/dL Crossmatch See Detail 03/03/24 03/03/24 03/03/24 Range/Units 16:54 17:45 17:45 RBC 3.53 L (4.30-5.90) m/uL Hgb 10.7 L (13.0-17.5) gm/dL Hct 32.8 L (39.0-53.0) % Plt Count 104 L (150-450) k/uL Lymphocytes # 0.3 L (1.0-4.8) k/uL ABG pH 7.32 L (7.35-7.45) ABG pO2 126 H (83-108) mmHg ABG O2 Saturation 99.1 H (94-97) % Sodium (137-145) mmol/L Chloride (98-107) mmol/L Glucose (74-99) mg/dL POC Glucose (mg/dL) 161 H (70-110) mg/dL Total Protein (6.3-8.2) g/dL Crossmatch 03/03/24 03/03/24 03/03/24 Range/Units 17:46 19:03 20:00 RBC 3.63 L (4.30-5.90) m/uL Hgb 10.9 L (13.0-17.5) gm/dL Hct 33.5 L (39.0-53.0) % Plt Count 105 L (150-450) k/uL Lymphocytes # 0.3 L (1.0-4.8) k/uL ABG pH (7.35-7.45) ABG pO2 (83-108) mmHg ABG O2 Saturation (94-97) % Sodium (137-145) mmol/L Chloride (98-107) mmol/L Glucose (74-99) mg/dL POC Glucose (mg/dL) 165 H 157 H (70-110) mg/dL Total Protein (6.3-8.2) g/dL Crossmatch 03/03/24 03/03/24 03/03/24 Range/Units 20:00 21:00 22:03 RBC (4.30-5.90) m/uL Hgb (13.0-17.5) gm/dL Hct (39.0-53.0) % Plt Count (150-450) k/uL Lymphocytes # (1.0-4.8) k/uL ABG pH (7.35-7.45) ABG pO2 (83-108) mmHg ABG O2 Saturation (94-97) % Sodium (137-145) mmol/L Chloride (98-107) mmol/L Glucose (74-99) mg/dL POC Glucose (mg/dL) 155 H 141 H 142 H (70-110) mg/dL Total Protein (6.3-8.2) g/dL Crossmatch 03/03/24 03/04/24 03/04/24 Range/Units 23:06 00:21 01:38 RBC (4.30-5.90) m/uL Hgb (13.0-17.5) gm/dL Hct (39.0-53.0) % Plt Count (150-450) k/uL Lymphocytes # (1.0-4.8) k/uL ABG pH (7.35-7.45) ABG pO2 (83-108) mmHg ABG O2 Saturation (94-97) % Sodium (137-145) mmol/L Chloride (98-107) mmol/L Glucose (74-99) mg/dL POC Glucose (mg/dL) 140 H 146 H 134 H (70-110) mg/dL Total Protein (6.3-8.2) g/dL Crossmatch 03/04/24 03/04/24 03/04/24 Range/Units 02:58 04:00 04:00 RBC 3.74 L (4.30-5.90) m/uL Hgb 11.2 L (13.0-17.5) gm/dL Hct 34.3 L (39.0-53.0) % Plt Count 125 L (150-450) k/uL Lymphocytes # 0.5 L (1.0-4.8) k/uL ABG pH (7.35-7.45) ABG pO2 (83-108) mmHg ABG O2 Saturation (94-97) % Sodium 136 L (137-145) mmol/L Chloride 109 H (98-107) mmol/L Glucose 121 H (74-99) mg/dL POC Glucose (mg/dL) 131 H (70-110) mg/dL Total Protein 5.2 L (6.3-8.2) g/dL Crossmatch 03/04/24 03/04/24 03/04/24 Range/Units 04:05 07:20 08:00 RBC (4.30-5.90) m/uL Hgb (13.0-17.5) gm/dL Hct (39.0-53.0) % Plt Count (150-450) k/uL Lymphocytes # (1.0-4.8) k/uL ABG pH (7.35-7.45) ABG pO2 (83-108) mmHg ABG O2 Saturation (94-97) % Sodium (137-145) mmol/L Chloride (98-107) mmol/L Glucose (74-99) mg/dL POC Glucose (mg/dL) 134 H 146 H 156 H (70-110) mg/dL Total Protein (6.3-8.2) g/dL Crossmatch 03/04/24 03/04/24 03/04/24 Range/Units 08:21 09:09 10:10 RBC (4.30-5.90) m/uL Hgb (13.0-17.5) gm/dL Hct (39.0-53.0) % Plt Count (150-450) k/uL Lymphocytes # (1.0-4.8) k/uL ABG pH (7.35-7.45) ABG pO2 (83-108) mmHg ABG O2 Saturation (94-97) % Sodium (137-145) mmol/L Chloride (98-107) mmol/L Glucose (74-99) mg/dL POC Glucose (mg/dL) 149 H 141 H 133 H (70-110) mg/dL Total Protein (6.3-8.2) g/dL Crossmatch 03/04/24 03/04/24 03/04/24 Range/Units 10:53 12:02 13:00 RBC (4.30-5.90) m/uL Hgb (13.0-17.5) gm/dL Hct (39.0-53.0) % Plt Count (150-450) k/uL Lymphocytes # (1.0-4.8) k/uL ABG pH (7.35-7.45) ABG pO2 (83-108) mmHg ABG O2 Saturation (94-97) % Sodium (137-145) mmol/L Chloride (98-107) mmol/L Glucose (74-99) mg/dL POC Glucose (mg/dL) 125 H 126 H 147 H (70-110) mg/dL Total Protein (6.3-8.2) g/dL Crossmatch 03/04/24 03/04/24 Range/Units 14:53 16:03 RBC (4.30-5.90) m/uL Hgb (13.0-17.5) gm/dL Hct (39.0-53.0) % Plt Count (150-450) k/uL Lymphocytes # (1.0-4.8) k/uL ABG pH (7.35-7.45) ABG pO2 (83-108) mmHg ABG O2 Saturation (94-97) % Sodium (137-145) mmol/L Chloride (98-107) mmol/L Glucose (74-99) mg/dL POC Glucose (mg/dL) 151 H 147 H (70-110) mg/dL Total Protein (6.3-8.2) g/dL Crossmatch Assessment and Plan Plan: Acute non-ST segment elevation myocardial infarction. Cardiac catheterization reveals a pink patent stent in the distal RCA. Ulcerated plaque involving the left main coronary artery with intermediate to severe disease involving the left circumflex and left anterior descending artery with complex lesion/bifurcation lesions. Patient underwent a total of 6 vessel bypass surgery, off-pump and the patient is currently postop day #1. Hemodynamically stable. Adequate hemodynamic parameters. No pressors. Cardiac rhythm is sinus. Postthoracotomy, extubated without any major difficulties and the patient is currently on room air oxygen and chest is all in place Recent ST segment elevation myocardial infarction status post stenting to the distal RCA on 02/25/2024 Former smoker, FEV1 value 3.13 L / 83% of predicted Hypertension Obstructive sleep apnea, utilizing his home CPAP History of prostate cancer status post radiation Plan Incentive spirometer [place]-Jen catheter to be removed today Right lower chest tube to be removed today Rest of the tubes will be kept in place Continue aspirin Continue high-dose statins Monitor hemoglobin Monitor platelet count Hemodynamically stable Keep Kcentra for blood sugar control Will continue to follow the postoperative care.
[2024-03-04 17:03] LABS: Glucose,Whole Blood 153 mg/dL (70-110)
--- NOTE | 2024-03-04 17:54 | P.PN ---
Subjective Progress Note Date: 03/04/24 Acute non-ST elevation myocardial infarction The patient is a pleasant 68-year-old gentleman with coronary artery disease status post PCI of the RCA and PLV branch of the RCA as well as aortic stenosis and hypertension and dyslipidemia who was admitted to the hospital few days ago with acute inferior ST elevation myocardial infarction and underwent a heart catheterization and PCI of the RCA. He presented back to the hospital complaining of chest discomfort concerning for angina and he was ruled in for acute coronary syndrome with uprising troponin. He underwent a heart catheterization and was found to have patent stent in the RCA with severe disease involving the left coronary system felt to be not a good candidate for PCI and good candidate for CABG. Surgery was consulted. February 26, 2024 The patient was seen and evaluated this morning. He is asymptomatic at this point. He is hemodynamically stable. He continues to be on dual antiplatelet therapy along with high intensity statin along with anti-ischemic medication and also he is on heparin IV. We are waiting for the surgeon to see the patient and evaluate the angiogram. Meanwhile continue the current medical regimen. Examination is remarkable for regular rhythm with a systolic murmur and clear breathing sounds bilaterally and no carotid bruit and no edema was noted February 27, 2024 The patient was seen and evaluated this morning. He is asymptomatic. The pressure has been marginal but he continues to be on nitro drip which I am going to wean him from. He is on heparin IV. Currently oral antiplatelet has been stopped for plan to undergo CABG in the next few days. No pain in the chest and no shortness of breath. He is euvolemic and not in heart failure. The examination is remarkable for marginally low blood pressure and heart rate with regular rate and rhythm and systolic murmur and clear breathing sounds bilateral ly and no edema was noted February 28, 2024 Patient is evaluated at bedside this a.m. He is not having any active chest pain chest pressure. He is hemodynamic stable. Blood pressure 108/71, heart rate 69 bpm normal sinus rhythm. He is planned for CABG for Wednesday. His ECG does show ST changes in inferior leads. He is currently of nitroglycerin drip with no active chest pains. He is maintained on IV heparin drip. No concerns of active bleeding February 29, 2024 Blood pressure 104 over 66 mmHg, heart rate 62 bpm, normal sinus rhythm, Hemoglobin 14, no signs of active bleeding, currently on IV heparin drip No substernal chest pain chest pressure. Not requiring any sublingual nitroglycerin. March 01, 2024 BP 108/84, pulse 74, no chest pains. Currently on IV heparin drip with no concerns of active bleeding. Patient is able to ambulate in the unit without any difficulties. Good urine output, tolerating oral diet. March 02/2024 Blood pressure 110/80, pulse 76 bpm, no chest pains. No bleeding on IV heparin drip. Ambulating in the unit without any difficulty. Plan for CT surgery tomor row a.m. Good urine output. Tolerating oral diet March 04, 2024 Patient is postop day 1 after his CABG surgery. He is coming along. No evidence of atrial fibrillation on telemetry. Hemodynamically doing well. Chest tubes are in place, [place]-Jen catheter and Gamez catheter is in place. On exam Head: Normocephalic. Eyes: Sclerae nonicteric. Neck: Brisk carotid upstroke, no jugular venous distention. Lungs: Clear to auscultation. Heart: Regular rate and rhythm, S1-S2, no S3, no murmur or rub. Abdomen: Soft nontender, bowel sounds present, Extremities: No edema, Neuro: Alert, oriented, no focal neurological deficits. Detailed neuro exam was not performed. Assessment Multivessel CAD, s/p Off pump CABG x 6 , 03/03/24. BULLOCK sequential to 2nd diagonal and LAD. Left radial sequential to ramus intermedius and obtuse marginal artery #1. SVG sequential to posterior descending and postero-lateral coronary arteries, Left atrial appendage ligation using #35mm AtriClip, Aortic stenosis appears to be moderate Multiple comorbid conditions including hypertension and dyslipidemia Plan Continue supportive care. Continue telemetry monitoring. Continue amiodarone a spirin Plavix atorvastatin Will continue to monitor Objective - Vital Signs Vital signs: Vital Signs Temp 98.6 F 03/04/24 12:00 Pulse 87 03/04/24 16:16 Resp 17 03/04/24 14:00 BP 99/61 03/04/24 11:00 Pulse Ox 94 L 03/04/24 14:00 FiO2 50 03/03/24 17:18 Intake & Output 03/03/24 03/04/24 03/04/24 18:59 06:59 18:59 Intake Total 987.464 093.497 2373.348 Output Total 2190 1695 525 Balance -1202.536 -792.685 755.348 Weight 105.2 kg Intake: IV 449 868 815 Albumin Human 5% 250 ml 500 In Empty Bag 1 bag @ 250 mls/hr IVPB Q1HR PRN Rx#: [id number] LR 250 600 230 co/ci 100 160 40 pressure bag 45 108 45 Intake, IV Titration 38.464 34.315 65.348 Amount Insulin Regular 100 unit 2.626 34.315 65.348 In Sodium Chloride 0.9% 100 ml @ Per Protocol IV .Q0M SRI Rx#:[id number] propofoL 1,000 mg In 35.838 Empty Bag 1 bag @ Titrate IV .Q0M SRI Rx#: [id number] Oral 400 Albumin 500 Albumin Human 5% 250 ml 500 In Empty Bag 1 bag @ 250 mls/hr IVPB Q1HR PRN Rx#: [id number] Output: Chest Tube Drainage 180 390 255 LP 75 123 40 MS 100 240 130 RP 5 27 85 Drainage 0 20 Left Wrist 0 20 Urine 1010 1285 270 Estimated Blood Loss 1000 Other: Voiding Method Indwelling Catheter Indwelling Catheter Indwelling Catheter ABP, PAP, CO, CI - Last Documented Arterial Blood Pressure 104/37 Pulmonary Artery Pressure 23/6 Cardiac Output 6.7 Cardiac Index 2.9 - Labs CBC & Chem 7: 03/04/24 04:00 03/04/24 04:00 Labs: Abnormal Lab Results - Last 24 Hours (Table) 03/02/24 03/03/24 03/03/24 Range/Units 09:56 17:45 19:03 RBC 3.53 L (4.30-5.90) m/uL Hgb 10.7 L (13.0-17.5) gm/dL Hct 32.8 L (39.0-53.0) % Plt Count 104 L (150-450) k/uL Lymphocytes # 0.3 L (1.0-4.8) k/uL Sodium (137-145) mmol/L Chloride (98-107) mmol/L Glucose (74-99) mg/dL POC Glucose (mg/dL) 157 H (70-110) mg/dL Total Protein (6.3-8.2) g/dL Crossmatch See Detail 03/03/24 03/03/24 03/03/24 Range/Units 20:00 20:00 21:00 RBC 3.63 L (4.30-5.90) m/uL Hgb 10.9 L (13.0-17.5) gm/dL Hct 33.5 L (39.0-53.0) % Plt Count 105 L (150-450) k/uL Lymphocytes # 0.3 L (1.0-4.8) k/uL Sodium (137-145) mmol/L Chloride (98-107) mmol/L Glucose (74-99) mg/dL POC Glucose (mg/dL) 155 H 141 H (70-110) mg/dL Total Protein (6.3-8.2) g/dL Crossmatch 03/03/24 03/03/24 03/04/24 Range/Units 22:03 23:06 00:21 RBC (4.30-5.90) m/uL Hgb (13.0-17.5) gm/dL Hct (39.0-53.0) % Plt Count (150-450) k/uL Lymphocytes # (1.0-4.8) k/uL Sodium (137-145) mmol/L Chloride (98-107) mmol/L Glucose (74-99) mg/dL POC Glucose (mg/dL) 142 H 140 H 146 H (70-110) mg/dL Total Protein (6.3-8.2) g/dL Crossmatch 03/04/24 03/04/24 03/04/24 Range/Units 01:38 02:58 04:00 RBC 3.74 L (4.30-5.90) m/uL Hgb 11.2 L (13.0-17.5) gm/dL Hct 34.3 L (39.0-53.0) % Plt Count 125 L (150-450) k/uL Lymphocytes # 0.5 L (1.0-4.8) k/uL Sodium (137-145) mmol/L Chloride (98-107) mmol/L Glucose (74-99) mg/dL POC Glucose (mg/dL) 134 H 131 H (70-110) mg/dL Total Protein (6.3-8.2) g/dL Crossmatch 03/04/24 03/04/2424 Range/Units 04:00 04:05 07:20 RBC (4.30-5.90) m/uL Hgb (13.0-17.5) gm/dL Hct (39.0-53.0) % Plt Count (150-450) k/uL Lymphocytes # (1.0-4.8) k/uL Sodium 136 L (137-145) mmol/L Chloride 109 H (98-107) mmol/L Glucose 121 H (74-99) mg/dL POC Glucose (mg/dL) 134 H 146 H (70-110) mg/dL Total Protein 5.2 L (6.3-8.2) g/dL Crossmatch 03/04/24 03/04/24 03/04/24 Range/Units 08:00 08:21 09:09 RBC (4.30-5.90) m/uL Hgb (13.0-17.5) gm/dL Hct (39.0-53.0) % Plt Count (150-450) k/uL Lymphocytes # (1.0-4.8) k/uL Sodium (137-145) mmol/L Chloride (98-107) mmol/L Glucose (74-99) mg/dL POC Glucose (mg/dL) 156 H 149 H 141 H (70-110) mg/dL Total Protein (6.3-8.2) g/dL Crossmatch 03/04/24 03/04/24 03/04/24 Range/Units 10:10 10:53 12:02 RBC (4.30-5.90) m/uL Hgb (13.0-17.5) gm/dL Hct (39.0-53.0) % Plt Count (150-450) k/uL Lymphocytes # (1.0-4.8) k/uL Sodium (137-145) mmol/L Chloride (98-107) mmol/L Glucose (74-99) mg/dL POC Glucose (mg/dL) 133 H 125 H 126 H (70-110) mg/dL Total Protein (6.3-8.2) g/dL Crossmatch 03/04/24 03/04/24 03/04/24 Range/Units 13:00 14:53 16:03 RBC (4.30-5.90) m/uL Hgb (13.0-17.5) gm/dL Hct (39.0-53.0) % Plt Count (150-450) k/uL Lymphocytes # (1.0-4.8) k/uL Sodium (137-145) mmol/L Chloride (98-107) mmol/L Glucose (74-99) mg/dL POC Glucose (mg/dL) 147 H 151 H 147 H (70-110) mg/dL Total Protein (6.3-8.2) g/dL Crossmatch 03/04/24 Range/Units 17:01 RBC (4.30-5.90) m/uL Hgb (13.0-17.5) gm/dL Hct (39.0-53.0) % Plt Count (150-450) k/uL Lymphocytes # (1.0-4.8) k/uL Sodium (137-145) mmol/L Chloride (98-107) mmol/L Glucose (74-99) mg/dL POC Glucose (mg/dL) 153 H (70-110) mg/dL Total Protein (6.3-8.2) g/dL Crossmatch
[2024-03-04 18:16] LABS: Glucose,Whole Blood 201 mg/dL (70-110)
[2024-03-04 18:57] LABS: Glucose,Whole Blood 176 mg/dL (70-110)
[2024-03-04 19:58] LABS: Glucose,Whole Blood 147 mg/dL (70-110)
[2024-03-04] MEDS: SODIUM CHLORIDE 5% OPHTH OINT 3.5 GM TUBE BOTH EYES SCH (21:02)
[2024-03-04 21:11] LABS: Glucose,Whole Blood 113 mg/dL (70-110)
[2024-03-04 22:08] LABS: Glucose,Whole Blood 123 mg/dL (70-110)
[2024-03-04 23:56] LABS: Glucose,Whole Blood 134 mg/dL (70-110)
[2024-03-05 01:04] LABS: Glucose,Whole Blood 123 mg/dL (70-110)
[2024-03-05 03:27] LABS: Glucose,Whole Blood 94 mg/dL (70-110)
[2024-03-05 04:03] LABS: Glucose,Whole Blood 111 mg/dL (70-110)
[2024-03-05 04:40] LABS: Basophils % (A) 0 %; Eosinophils % (A) 1 %; HGB 10.4 gm/dL (13.0-17.5); Lymphocytes # (A) 0.7 k/uL (1.0-4.8); Lymphocytes % (A) 10 %; MCH 30.1 pg (25.0-35.0); MCHC 32.4 g/dL (31.0-37.0); MCV 92.8 fL (80.0-100.0); Mean Platelet Volume 7.9; Monocytes # (A) 0.4 k/uL (0-1.0); Monocytes % (A) 6 %; Neutrophils # (A) 5.7 k/uL (1.3-7.7); Neutrophils % (A) 81 %; Platelet Count 110 k/uL (150-450); RBC 3.44 m/uL (4.30-5.90)
[2024-03-05 05:19] LABS: ALT 16 U/L (4-49); AST 49 U/L (17-59); African American GFR (CKD) 87 (>60 ml/min/1.73 sqM); Albumin 3.4 g/dL (3.5-5.0); Alkaline Phosphatase 46 U/L (38-126); Anion Gap 4 mmol/L; Blood Urea Nitrogen 17 mg/dL (9-20); Calcium 8.9 mg/dL (8.4-10.2); Carbon Dioxide 23 mmol/L (22-30); Chloride 110 mmol/L (98-107); Glucose 97 mg/dL (74-99); Non-African American GFR(CKD) 75 (>60 ml/min/1.73 sqM); Potassium 4.6 mmol/L (3.5-5.1); Sodium 137 mmol/L (137-145); Total Bilirubin 0.5 mg/dL (0.2-1.3); Total Protein 5.2 g/dL (6.3-8.2)
[2024-03-05 05:48] LABS: Glucose,Whole Blood 127 mg/dL (70-110)
[2024-03-05] MEDS: PANTOPRAZOLE 40 MG TABLET PO SCH (06:57)
[2024-03-05 06:59] LABS: Glucose,Whole Blood 145 mg/dL (70-110)
--- NOTE | 2024-03-05 07:24 | XR ---
EXAMINATION TYPE: XR chest 1V portable DATE OF EXAM: 03/05/2024 3:49 AM CLINICAL INDICATION:Male, 69 years old with history of Post Operative Cardiac Surgery; [facility] COMPARISON: Chest radiograph from one day prior. TECHNIQUE: XR chest 1V portable Frontal view of the chest. FINDINGS: Lungs/Pleura: There is no evidence of pleural effusion, focal consolidation, or pneumothorax. Pulmonary vascularity: Unremarkable. Heart/mediastinum: Cardiomediastinal silhouette is enlarged and stable. Left atrial appendage occlusi on device is present. Musculoskeletal: No acute osseous pathology. Midline sternotomy wires are noted. Other findings: None Lines/Tubes: There is a [place]-Jen catheter sheath remains present.. IMPRESSION: Stable exam.
[2024-03-05] MEDS: ALBUMIN HUMAN 25% 50 ML in EMPTY BAG 1 BAG IVPB ONE ×3 (08:21→23:12)
[2024-03-05 08:25] LABS: Glucose,Whole Blood 206 mg/dL (70-110)
[2024-03-05 09:21] LABS: Glucose,Whole Blood 171 mg/dL (70-110)
[2024-03-05 10:38] LABS: Glucose,Whole Blood 128 mg/dL (70-110)
--- NOTE | 2024-03-05 11:59 | P.PN ---
Subjective Progress Note Date: 03/05/24 Principal diagnosis: Chest pain, non-STEMI this admission. History of coronary artery disease with recent STEMI and PCI, mild to moderate aortic stenosis, hypertension, hyperlipidemia, diabetes, obstructive sleep apnea, prostate cancer, previous tobacco dependence, family history of coronary artery disease. POD #2 Off pump coronary artery bypass grafting x 6. Left internal thoracic artery (in-situ) sequential to second diagonal artery and left anterior descending coronary artery. Left radial artery from aorta sequential to ramus intermedius and obtuse marginal artery #1. Reverse saphenous vein graft from aorta sequential to posterior descending and postero-lateral coronary arteries, Left atrial appendage ligation using #35mm AtriClip, Endoscopic left radial and left greater saphenous vein harvest, Insertion of right common femoral arterial line using ultrasound guided micropuncture technique, Graft flow measurements using the [employer] graft flow meter system, Trans-esophageal echocardiogram performed by anesthesia Postoperative acute blood loss anemia, expected given hemodilution. The patient was seen and examined in follow-up today March 05, 2024 at his beds gwen in the intensive care unit. He is currently sitting up to the bedside chair, is awake, alert, oriented x 3 and is no acute apparent distress. He denies any complaints of shortness of breath at this time, although is complaining of some surgical type pain to his chest tube insertion sites, curr ently rating his pain 5 out of 10 on the pain scale. Oxygen saturations are 95% on room air and he is achieving 1000 mL on his incentive spirometry with encouragement. Bedside telemetry is showing sinus tachycardia heart rate 101 bpm. He remains hemodynamically stable and is currently on no inotropic or pressor support. Right IJ cordis remains in place with current CVP pressure showing 6 mmHg. Mediastinal/left/right pleural chest tubes remain in place to low continuous wall suction -20 cm H2O. Mediastinal chest tube draining thin serosanguineous drainage with 100 mL output in the last 8 hours and 300 mL output in the last 24 hours. Left pleural chest tube draining thin serosanguineous drainage with 40 mL output in the last 8 hours and 200 mL output in the last 24 hours. Right pleural chest tube draining thin serosanguineous drainage with 70 mL output in the last 8 hours and 280 mill liters output in the last 24 hours. He has been up ambulating in the intensive care unit hallway and tolerating well with standby assist from nursing and therapy staff. Chest x-ray and laboratory results reviewed. Objective - Vital Signs Vital signs: Vital Signs Temp 98.6 F 03/05/24 08:00 Pulse 90 03/05/24 11:47 Resp 20 03/05/24 11:00 BP 103/61 03/05/24 11:00 Pulse Ox 97 03/05/24 11:00 FiO2 50 03/03/24 17:18 Intake & Output 03/04/24 03/05/24 03/05/24 18:59 06:59 18:59 Intake Total 1510.118 11819.593 477.473 Output Total 1071 1395 364 Balance 217.499 8687.593 113.473 Weight 106.2 kg Intake: IV 1031 396 204 Albumin Human 25% 50 ml 50 In Empty Bag 1 bag @ 50 mls/hr IVPB ONCE ONE Rx#: [id number] Albumin Human 5% 250 ml 500 In Empty Bag 1 bag @ 250 mls/hr IVPB Q1HR PRN Rx#: [id number] LR 410 330 130 co/ci 40 pressure bag 81 66 24 Intake, IV Titration 79.118 45.593 33.473 Amount Insulin Regular 100 unit 79.118 45.593 33.473 In Sodium Chloride 0.9% 100 ml @ Per Protocol IV .Q0M [facility] Rx#:[id number] Oral 400 12490 240 Output: Chest Tube Drainage 541 230 210 LP 160 40 160 MS 210 120 20 RP 171 70 30 Urine 530 1165 154 Other: Voiding Method Indwelling Catheter Indwelling Catheter Indwelling Catheter ABP, PAP, CO, CI - Last Documented Arterial Blood Pressure 132/55 Pulmonary Artery Pressure 23/6 Cardiac Output 6.7 Cardiac Index 2.9 - Exam CONSTITUTIONAL: Sitting up to the bedside chair in the intensive care unit, appears comfortable, cooperative, no apparent acute distress. HEENT: Neck is supple, no JVD, no lymphadenopathy. Right IJ Cordis. RESPIRATORY: Lungs sounds essentially clear throughout, diminished to his bilateral bases. Respirations are symmetrical and nonlabored. Currently on room air with oxygen saturations 95%. Able to achieve 1000 mL on their incentive spirometry. Strong cough. CARDIOVASCULAR: Regular rhythm and rate. S1 and S2 present, negative for S3, gallop or murmur. Sternum is stable. Palpable peripheral pulses bilaterally. No calf pain or tenderness noted. Heart hugger in place with patient demonstrating appropriate use. Knee-high JUAN hose and sequential compression devices in place to his bilateral lower extremities. GASTROINTESTINAL: Abdomen soft, nontender, nondistended. Active bowel sounds present 4 quadrants. Tolerating diet. Passing flatus. No guarding or rigidity. GENITOURINARY: Gamez present draining clear, yellow urine. Urine output 695 mL in the last 8 hours INTEGUMENTARY: Skin is warm and dry with no evidence of clubbing or cyanosis. Midline sternal incision clean dry and well approximated, covered with dry intact dressing. Right lower extremity EVH sites well approximated without redness or drainage. Left arm radial artery harvest sites clean, dry and a pproximated. No drainage or redness is present. NEUROLOGIC: Cranial nerves II through XII intact. No focal deficits. MUSKULOSKELETAL: Able to move all extremities, strength equal bilaterally. PSYCHIATRIC: Alert and oriented to person place and time, appropriate affect, intact judgment and insight. INVASIVE LINES AND TUBES: Left/right pleural and mediastinal chest tubes remain in place to low continuous wall suction -20 cm H2O. Left pleural chest tube draining thin serosanguineous drainage with 40 mL output in the last 8 hours and 20 mL output in the last 24 hours. Mediastinal chest tube drained 110 mL output in the last 8 hours and 300 mL output in the last 24 hours, right pleural chest tube drained 70 mL of thin serosanguineous drainage in the last 8 hours and 280 mL in last 24 hours. Right internal jugular Cordis, right radial arterial line present. Last CVP 6 mmHg. - Allied health notes Allied health notes reviewed: nursing - Labs CBC & Chem 7: 03/05/24 04:04 03/05/24 04:04 Labs: Abnormal Lab Results - Last 24 Hours (Table) 03/04/24 03/04/24 03/04/24 Range/Units 12:02 13:00 14:53 RBC (4.30-5.90) m/uL Hgb (13.0-17.5) gm/dL Hct (39.0-53.0) % Plt Count (150-450) k/uL Lymphocytes # (1.0-4.8) k/uL Chloride (98-107) mmol/L POC Glucose (mg/dL) 126 H 147 H 151 H (70-110) mg/dL Total Protein (6.3-8.2) g/dL Albumin (3.5-5.0) g/dL 03/04/24 03/04/24 03/04/24 Range/Units 16:03 17:01 18:15 RBC (4.30-5.90) m/uL Hgb (13.0-17.5) gm/dL Hct (39.0-53.0) % Plt Count (150-450) k/uL Lymphocytes # (1.0-4.8) k/uL Chloride (98-107) mmol/L POC Glucose (mg/dL) 147 H 153 H 201 H (70-110) mg/dL Total Protein (6.3-8.2) g/dL Albumin (3.5-5.0) g/dL 03/04/24 03/04/24 03/04/24 Range/Units 18:56 19:56 21:10 RBC (4.30-5.90) m/uL Hgb (13.0-17.5) gm/dL Hct (39.0-53.0) % Plt Count (150-450) k/uL Lymphocytes # (1.0-4.8) k/uL Chloride (98-107) mmol/L POC Glucose (mg/dL) 176 H 147 H 113 H (70-110) mg/dL Total Protein (6.3-8.2) g/dL Albumin (3.5-5.0) g/dL 03/04/24 03/04/24 03/05/24 Range/Units 22:06 23:54 01:00 RBC (4.30-5.90) m/uL Hgb (13.0-17.5) gm/dL Hct (39.0-53.0) % Plt Count (150-450) k/uL Lymphocytes # (1.0-4.8) k/uL Chloride (98-107) mmol/L POC Glucose (mg/dL) 123 H 134 H 123 H (70-110) mg/dL Total Protein (6.3-8.2) g/dL Albumin (3.5-5.0) g/dL 03/05/24 03/05/24 03/05/24 Range/Units 04:00 04:04 04:04 RBC 3.44 L (4.30-5.90) m/uL Hgb 10.4 L (13.0-17.5) gm/dL Hct 32.0 L (39.0-53.0) % Plt Count 110 L (150-450) k/uL Lymphocytes # 0.7 L (1.0-4.8) k/uL Chloride 110 H (98-107) mmol/L POC Glucose (mg/dL) 111 H (70-110) mg/dL Total Protein 5.2 L (6.3-8.2) g/dL Albumin 3.4 L (3.5-5.0) g/dL 03/05/24 03/05/24 03/05/24 Range/Units 05:46 06:58 08:23 RBC (4.30-5.90) m/uL Hgb (13.0-17.5) gm/dL Hct (39.0-53.0) % Plt Count (150-450) k/uL Lymphocytes # (1.0-4.8) k/uL Chloride (98-107) mmol/L POC Glucose (mg/dL) 127 H 145 H 206 H (70-110) mg/dL Total Protein (6.3-8.2) g/dL Albumin (3.5-5.0) g/dL 03/05/24 03/05/24 Range/Units 09:19 10:37 RBC (4.30-5.90) m/uL Hgb (13.0-17.5) gm/dL Hct (39.0-53.0) % Plt Count (150-450) k/uL Lymphocytes # (1.0-4.8) k/uL Chloride (98-107) mmol/L POC Glucose (mg/dL) 171 H 128 H (70-110) mg/dL Total Protein (6.3-8.2) g/dL Albumin (3.5-5.0) g/dL - Imaging and Cardiology Chest x-ray: report reviewed, image reviewed Assessment and Plan Assessment: Chest pain, non-STEMI this admission, status post 6 vessel off-pump coronary artery bypass grafting surgery Coronary artery disease with recent STEMI and PCI Mild to moderate aortic stenosis Hypertension Hyperlipidemia, treated, cholesterol 123, LDL 56 Diabetes, hemoglobin A1c 5.6% Obstructive sleep apnea Prostate cancer Previous tobacco dependence, preoperative FEV1 83% of predicted Family history of coronary artery disease Postoperative acute blood loss anemia, expected Plan: Continue to maximize medical therapy with aspirin, statin, Plavix and beta- chad. Will increase beta-chad as tolerated with hold parameters. When blood pressure is able to tolerate, we will start calcium channel chad for radial artery spasm prophylaxis. Encourage incentive spirometry use 10 times every hour while awake. Bronchodilators per pulmonology. Increase activity, ambulate as tolerated. PT/OT/cardiac rehab following. Will monitor daily labs and chest x-rays. Electrolyte replacement per protocol. GI/DVT prophylaxis. Insulin management per internal medicine, patient should remain on IV insulin for 48 hours then may transition to subcutaneous per protocol. Pain control with current medication regimen. Will discontinue right IJ Cordis. Discontinue left/right and mediastinal chest tubes. Remove Gamez catheter. Continue to monitor and record strict accurate intake and output. May bladder scan every 6 hours and as needed postvoid residual, if greater than 300 mL of urine may straight cath. Daily weights. 25% albumin 50 mL IV piggyback x 1 now. More recommendations to follow based on patient's clinical course. Time with Patient: Greater than 30
[2024-03-05 12:04] LABS: Glucose,Whole Blood 109 mg/dL (70-110)
--- NOTE | 2024-03-05 12:06 | P.PN ---
Subjective Progress Note Date: 03/05/24 This is a very pleasant 68-year-old male patient with a history of prostate can cer with previous radiation, coronary disease with previous stent placement, hypertension, hyperlipidemia, diabetes mellitus, obstructive sleep apnea utilizing CPAP, former smoker. He had presented here to the emergency room on 02/21/2024 with complaints of chest pain. He was found to have a ST segment elevation myocardial infarction and had undergone stenting to the distal RCA with aspiration thrombectomy. He recovered and was discharged home on 02/23/2024. He was prescribed Brilinta. Echocardiogram had revealed mild to moderate LV left ventricular systolic dysfunction with ejection fraction of 40 to 45%. He came back to the emergency room on 02/24/2024 with recurrent chest pain. He was found to have a new non-ST segment elevation myocardial infarction's with uptrending troponins. Repeat echocardiogram revealed an ejection fraction of 45%. Repeat cardiac catheterization on 02/25/2024 revealed patent stent to the distal RCA. There was an ulcerated plaque involving the left main coronary artery with intermediate to severe disease involving the left circumflex and left anterior descending artery with complex lesion/bifurcation lesions. He is recommended coronary artery bypass grafting which is tentatively planned for March 03, 2024 after being off his Brilinta. On today's evaluation of 02/28/2024, the patient sitting up on a chair. The patient is calm and comfortable. The patient remains on IV heparin. The patient also is receiving IV nitroglycerin at 5 mg/min. The patient is free of any chest pain. Hemodynamically stable. Cardiac rhythm is sinus. He is currently off Brilinta. Awaiting coronary bypass surgery. Remains on aspirin. Remains on IV heparin. Remains on his routine outpatient medications. He is also on metoprolol 12.5 mg twice a day. Remains on Lipitor 80 mg p.o. daily. Awake and alert. He is on room air oxygen. 02/29/2024, the patient is calm and comfortable. Free of any chest pain. Hemodynamically stable. No cardiac arrhythmias. Nitroglycerin drip has been discontinued. The patient has no specific complaints. He remains on IV heparin drip. At the same time, labs from today shows a white cell count of 6, hemoglobin 14.1 and a platelet count of 132 without any significant drop in the platelet count while being on IV heparin. 03/01/2024, the patient is being seen for a follow-up. No new complaints. Remains on IV heparin. Hemodynamically stable. Free of any chest pain. No other significant events overnight. The patient is awaiting coronary bypass surgery that is being done on 03/03/2024. He remains on aspirin. He is also on metoprolol 12.5 mg p.o. twice a day. On 03/02/2024, the patient is being seen for a follow-up. No new complaints. The plan is to proceed with a bypass surgery in the morning. The patient re tiffany clinically stable and hemodynamically stable. He is on room air oxygen. History of any chest pain. Medications remain unchanged. Labs from today shows a white cell count of 6.4 hemoglobin 14.7 and a platelet count of 174. BUN is 20 with a creatinine 1.01 and sodium levels at 138. No other new complaints otherwise for now. 03/03/2024, the patient is being seen in the intensive care unit. The patient underwent an off-pump coronary artery bypass surgery x 6 with BULLOCK to second diagonal and LAD, left radial to ramus intermedius and obtuse marginal and saphenous vein graft to posterior descending and posterior lateral coronary arteries. The patient was kept intubated on mechanical ventilator and the patient was transferred to the intensive care unit. At the time of the arrival to the ICU, the patient was on propofol, calm and comfortable, hemodynamically stable, cardiac output was 8 with an index of 3.5, PA pressures were 32/13. No pressors. Cardiac rhythm was sinus. The patient was on assist-control mode of mechanical ventilation at rate of 12, tidal volume of 600, 5 200% and a PEEP of 5. Progressive weaning of the FiO2 was done. Following that, sedation was discontinued and the patient showed appropriate weaning parameters with a respiratory rate of 22, spontaneous tidal volume of 590 cc with a rapid shallow breathing index of 36 and a minute ventilation of 12.4 and a vital capacity of 1.1. Blood gases after a 30-minute of spontaneous breathing showed a pH of 7.31 with a pCO2 of 41 and pO2 of 126. The patient was accordingly extubated and the patient was placed on nasal cannula at 3 L/min. Awake and alert and communicating. Patient has right pleural, left pleural and mediastinal chest tubes. The chest x-ray showed adequate expansion of both lungs. No evidence of any pneumothorax. No evidence of any air leak. Findings are essentially consistent with post surgical changes. No evidence of any pneumothorax. Some limited atelectatic changes bilaterally. The white cell count is 7.1, hemoglobin is 10.9, and a platelet count is 105. On 03/04/2024, I am seeing this patient for a follow-up. The patient is postop day #1. The patient was weaned off the mechanical ventilator and the patient was extubated without the major difficulties. Currently sitting up in the chair and is on room air oxygen. Cardiac output is a 7.5 with an index of 3.2. PA pressures of 27/10. Urine output is 500 cc over the past 8 hours. Insulin drip is running at 4.5 units an hour. The patient is currently off the nitroglycerin drip. The patient has right-sided pleural chest tube total amount of output 40 cc over the past 24 hours, mediastinal chest was produced 160 cc over the past 8 hours and 350 over the past 24 hours and the left lower chest tube was produced 55 cc over the past 8 hours up 2 the patient's blood work is essentially stable with a white cell count of 6.9 with a hemoglobin of 11.2 and platelet count of 125. Sodium is at 136, potassium is at 4.4, BUN is at 16 with a creatinine of 0.8, electrolytes are all within normal limits. The patient is alert and awake and communicating. Pain is under adequate control and the patient is using the incentive spirometer without having any major difficulties. Mental status is also appropriate. 10 cc over the past 24 hours. Remains on insulin drip. 03/05/2024, the patient is sitting up on the chair and the patient is calm and comfortable. No specific complaints. The patient is postop day #2. He remains on room air oxygen. Lacombe-Jen catheter has been removed. He is using the incen tive spirometer. His cardiac telemetry shows some sinus tachycardia. The patient is on no pressors for now. He is on aspirin and Plavix and beta- blockers. Chest ribs are in place and the patient has a mediastinal, left and right lower chest tube and there is no evidence of air leak in the chest x-ray showed no evidence of any pneumothorax.Mediastinal chest tube draining thin serosanguineous drainage with 100 mL output in the last 8 hours and 300 mL output in the last 24 hours. Left pleural chest tube draining thin serosanguineous drainage with 40 mL output in the last 8 hours and 200 mL output in the last 24 hours. Right pleural chest tube draining thin serosanguineous drainage with 70 mL output in the last 8 hours and 280 mill liters output in the last 24 hours. The patient otherwise has no complaints. He remains on insulin drip at 9 units an hour. The white cell count is at 7 with a hemoglobin 10.4 and a platelet count of 110. Electrolytes are all within normal limits. No altered mentation. Pain is under adequate control for now. Objective - Vital Signs Vital signs: Vital Signs Temp 98.6 F 03/05/24 08:00 Pulse 90 03/05/24 11:47 Resp 20 03/05/24 11:00 BP 103/61 03/05/24 11:00 Pulse Ox 97 03/05/24 11:00 FiO2 50 03/03/24 17:18 Intake & Output 03/04/24 03/05/24 03/05/24 18:59 06:59 18:59 Intake Total 1510.118 06255.593 483.028 Output Total 1071 1395 364 Balance 008.516 4813.593 119.028 Weight 106.2 kg Intake: IV 1031 396 204 Albumin Human 25% 50 ml 50 In Empty Bag 1 bag @ 50 mls/hr IVPB ONCE ONE Rx#: [id number] Albumin Human 5% 250 ml 500 In Empty Bag 1 bag @ 250 mls/hr IVPB Q1HR PRN Rx#: [id number] LR 410 330 130 co/ci 40 pressure bag 81 66 24 Intake, IV Titration 79.118 45.593 39.028 Amount Insulin Regular 100 unit 79.118 45.593 39.028 In Sodium Chloride 0.9% 100 ml @ Per Protocol IV .Q0M [facility] Rx#:[id number] Oral 400 21163 240 Output: Chest Tube Drainage 541 230 210 LP 160 40 160 MS 210 120 20 RP 171 70 30 Urine 530 1165 154 Other: Voiding Method Indwelling Catheter Indwelling Catheter Indwelling Catheter ABP, PAP, CO, CI - Last Documented Arterial Blood Pressure 132/55 Pulmonary Artery Pressure 23/6 Cardiac Output 6.7 Cardiac Index 2.9 - Exam GENERAL EXAM: Alert, pleasant 68-year-old male, currently on room air oxygen HEAD: Normocephalic. EYES: Normal reaction of pupils, equal size. NOSE: Clear with pink turbinates. THROAT: No erythema or exudates. NECK: No masses, no JVD. CHEST: No chest wall deformity. LUNGS: Equal air entry with no crackles, wheeze, rhonchi or dullness. Patient has 3 chest tubes, right pleural, left pleural mediastinal, output is minimal and there is no evidence of air leak and the thoracotomy scar is dry clean and intact. CVS: S1 and S2 normal with no audible murmur, regular rhythm. ABDOMEN: No hepatosplenomegaly, normal bowel sounds, no guarding or rigidity. SPINE: No scoliosis or deformity SKIN: No rashes CENTRAL NERVOUS SYSTEM: No focal deficits, tone is normal in all 4 extremities. EXTREMITIES: There is no peripheral edema. No clubbing, no cyanosis. Pe ripheral pulses are intact. - Labs CBC & Chem 7: 03/05/24 04:04 03/05/24 04:04 Labs: Abnormal Lab Results - Last 24 Hours (Table) 03/04/24 03/04/24 03/04/24 Range/Units 13:00 14:53 16:03 RBC (4.30-5.90) m/uL Hgb (13.0-17.5) gm/dL Hct (39.0-53.0) % Plt Count (150-450) k/uL Lymphocytes # (1.0-4.8) k/uL Chloride (98-107) mmol/L POC Glucose (mg/dL) 147 H 151 H 147 H (70-110) mg/dL Total Protein (6.3-8.2) g/dL Albumin (3.5-5.0) g/dL 03/04/24 03/04/24 03/04/24 Range/Units 17:01 18:15 18:56 RBC (4.30-5.90) m/uL Hgb (13.0-17.5) gm/dL Hct (39.0-53.0) % Plt Count (150-450) k/uL Lymphocytes # (1.0-4.8) k/uL Chloride (98-107) mmol/L POC Glucose (mg/dL) 153 H 201 H 176 H (70-110) mg/dL Total Protein (6.3-8.2) g/dL Albumin (3.5-5.0) g/dL 03/04/24 03/04/24 03/04/24 Range/Units 19:56 21:10 22:06 RBC (4.30-5.90) m/uL Hgb (13.0-17.5) gm/dL Hct (39.0-53.0) % Plt Count (150-450) k/uL Lymphocytes # (1.0-4.8) k/uL Chloride (98-107) mmol/L POC Glucose (mg/dL) 147 H 113 H 123 H (70-110) mg/dL Total Protein (6.3-8.2) g/dL Albumin (3.5-5.0) g/dL 03/04/24 03/05/24 03/05/24 Range/Units 23:54 01:00 04:00 RBC (4.30-5.90) m/uL Hgb (13.0-17.5) gm/dL Hct (39.0-53.0) % Plt Count (150-450) k/uL Lymphocytes # (1.0-4.8) k/uL Chloride (98-107) mmol/L POC Glucose (mg/dL) 134 H 123 H 111 H (70-110) mg/dL Total Protein (6.3-8.2) g/dL Albumin (3.5-5.0) g/dL 03/05/24 03/05/24 03/05/24 Range/Units 04:04 04:04 05:46 RBC 3.44 L (4.30-5.90) m/uL Hgb 10.4 L (13.0-17.5) gm/dL Hct 32.0 L (39.0-53.0) % Plt Count 110 L (150-450) k/uL Lymphocytes # 0.7 L (1.0-4.8) k/uL Chloride 110 H (98-107) mmol/L POC Glucose (mg/dL) 127 H (70-110) mg/dL Total Protein 5.2 L (6.3-8.2) g/dL Albumin 3.4 L (3.5-5.0) g/dL 06/16/24 06/16/24 06/16/24 Range/Units 06:58 08:23 09:19 RBC (4.30-5.90) m/uL Hgb (13.0-17.5) gm/dL Hct (39.0-53.0) % Plt Count (150-450) k/uL Lymphocytes # (1.0-4.8) k/uL Chloride (98-107) mmol/L POC Glucose (mg/dL) 145 H 206 H 171 H (70-110) mg/dL Total Protein (6.3-8.2) g/dL Albumin (3.5-5.0) g/dL 03/05/24 Range/Units 10:37 RBC (4.30-5.90) m/uL Hgb (13.0-17.5) gm/dL Hct (39.0-53.0) % Plt Count (150-450) k/uL Lymphocytes # (1.0-4.8) k/uL Chloride (98-107) mmol/L POC Glucose (mg/dL) 128 H (70-110) mg/dL Total Protein (6.3-8.2) g/dL Albumin (3.5-5.0) g/dL Assessment and Plan Plan: Acute non-ST segment elevation myocardial infarction. Cardiac catheterization reveals a pink patent stent in the distal RCA. Ulcerated plaque involving the left main coronary artery with intermediate to severe disease involving the left circumflex and left anterior descending artery with complex lesion/bifurcation lesions. Patient underwent a total of 6 vessel bypass surgery, off-pump and the patient is currently postop day #2. Hemodynamically stable. Adequate hemodynamic parameters. No pressors. Cardiac rhythm is sinus. Postthoracotomy, extubated without any major difficulties and the patient is currently on room air oxygen and chest is all in place Recent ST segment elevation myocardial infarction status post stenting to the distal RCA on 02/25/2024 Former smoker, FEV1 value 3.13 L / 83% of predicted Hypertension Obstructive sleep apnea, utilizing his home CPAP History of prostate cancer status post radiation Plan Incentive spirometer Lacombe-Jen catheter has been removed Chest tubes likely to be removed today Keep insulin drip at 9 units an hour Continue aspirin Continue high-dose statins Monitor hemoglobin Monitor platelet count Hemodynamically stable Keep Kcentra for blood sugar control Will continue to follow the postoperative care.
[2024-03-05 13:24] LABS: Glucose,Whole Blood 152 mg/dL (70-110)
[2024-03-05 15:01] LABS: Glucose,Whole Blood 152 mg/dL (70-110)
[2024-03-05 16:35] LABS: Glucose,Whole Blood 161 mg/dL (70-110)
[2024-03-05] MEDS: METOPROLOL TARTRATE 12.5 MG TAB PO SCH (16:58)
[2024-03-05] MEDS ORDERED: DEXTROSE 50% SYRINGE 50 ML IVP PRN ×2 (17:04)
[2024-03-05] MEDS: INSULIN ASPART (NovoLOG) 100 UNIT/ML VIAL SQ SCH (17:11)
--- NOTE | 2024-03-05 17:38 | P.PN ---
Subjective Progress Note Date: 03/05/24 Acute non-ST elevation myocardial infarction The patient is a pleasant 68-year-old gentleman with coronary artery disease status post PCI of the RCA and PLV branch of the RCA as well as aortic stenosis and hypertension and dyslipidemia who was admitted to the hospital few days ago with acute inferior ST elevation myocardial infarction and underwent a heart catheterization and PCI of the RCA. He presented back to the hospital complaining of chest discomfort concerning for angina and he was ruled in for acute coronary syndrome with uprising troponin. He underwent a heart catheterization and was found to have patent stent in the RCA with severe disease involving the left coronary system felt to be not a good candidate for PCI and good candidate for CABG. Surgery was consulted. February 26, 2024 The patient was seen and evaluated this morning. He is asymptomatic at this point. He is hemodynamically stable. He continues to be on dual antiplatelet therapy along with high intensity statin along with anti-ischemic medication and also he is on heparin IV. We are waiting for the surgeon to see the patient and evaluate the angiogram. Meanwhile continue the current medical regimen. Examination is remarkable for regular rhythm with a systolic murmur and clear breathing sounds bilaterally and no carotid bruit and no edema was noted February 27, 2024 The patient was seen and evaluated this morning. He is asymptomatic. The pressure has been marginal but he continues to be on nitro drip which I am going to wean him from. He is on heparin IV. Currently oral antiplatelet has been stopped for plan to undergo CABG in the next few days. No pain in the chest and no shortness of breath. He is euvolemic and not in heart failure. The examination is remarkable for marginally low blood pressure and heart rate with regular rate and rhythm and systolic murmur and clear breathing sounds bilateral ly and no edema was noted February 28, 2024 Patient is evaluated at bedside this a.m. He is not having any active chest pain chest pressure. He is hemodynamic stable. Blood pressure 108/71, heart rate 69 bpm normal sinus rhythm. He is planned for CABG for Wednesday. His ECG does show ST changes in inferior leads. He is currently of nitroglycerin drip with no active chest pains. He is maintained on IV heparin drip. No concerns of active bleeding February 29, 2024 Blood pressure 104 over 66 mmHg, heart rate 62 bpm, normal sinus rhythm, Hemoglobin 14, no signs of active bleeding, currently on IV heparin drip No substernal chest pain chest pressure. Not requiring any sublingual nitroglycerin. March 01, 2024 BP 108/84, pulse 74, no chest pains. Currently on IV heparin drip with no concerns of active bleeding. Patient is able to ambulate in the unit without any difficulties. Good urine output, tolerating oral diet. March 02/2024 Blood pressure 110/80, pulse 76 bpm, no chest pains. No bleeding on IV heparin drip. Ambulating in the unit without any difficulty. Plan for CT surgery tomor row a.m. Good urine output. Tolerating oral diet March 04, 2024 Patient is postop day 1 after his CABG surgery. He is coming along. No evidence of atrial fibrillation on telemetry. Hemodynamically doing well. Chest tubes are in place, [place]se[place]-Jen catheter and Gamez catheter is in place. March 05, 2024 BP 116/63, heart rate 90s to 100 bpm. Continues to be in sinus rhythm. No concerns of atrial fibrillation or telemetry monitoring over last 24 hours Chest tube Gamez catheter and IJ catheters are out. Denies any chest pain chest pressure. Clear lungs, no swelling leg On exam Head: Normocephalic. Eyes: Sclerae nonicteric. Neck:no jugular venous distention. Lungs: Clear to auscultation. Heart: Regular rate and rhythm, S1-S2, has aortic systolic murmur Abdomen: Soft nontender, bowel sounds present, Extremities: 1+ edema, Neuro: Alert, oriented, no focal neurological deficits. Detailed neuro exam was not performed. Assessment Multivessel CAD, s/p Off pump CABG x 6 , 03/03/24. BULLOCK sequential to 2nd diagonal and LAD. Left radial sequential to ramus intermedius and obtuse marginal artery #1. SVG sequential to posterior descending and postero-lateral coronary arteries, Left atrial appendage ligation using #35mm AtriClip, Aortic stenosis appears to be moderate Multiple comorbid conditions including hypertension and dyslipidemia Plan Continue supportive care. Continue telemetry monitoring. Continue amiodarone aspirin Plavix atorvastatin metoprolol Will continue to monitor Objective - Vital Signs Vital signs: Vital Signs Temp 98.6 F 03/05/24 16:00 Pulse 106 H 03/05/24 17:00 Resp 33 H 03/05/24 17:00 BP 116/63 03/05/24 17:00 Pulse Ox 97 03/05/24 17:00 FiO2 50 03/03/24 17:18 Intake & Output 03/04/24 03/05/24 03/05/24 18:59 06:59 18:59 Intake Total 1510.118 93785.593 943.028 Output Total 1071 1395 364 Balance 258.488 9395.593 579.028 Weight 106.2 kg Intake: IV 1031 396 304 Albumin Human 25% 50 ml 50 In Empty Bag 1 bag @ 50 mls/hr IVPB ONCE ONE Rx#: [id number] Albumin Human 5% 250 ml 500 In Empty Bag 1 bag @ 250 mls/hr IVPB Q1HR PRN Rx#: [id number] LR 410 330 230 co/ci 40 pressure bag 81 66 24 Intake, IV Titration 79.118 45.593 39.028 Amount Insulin Regular 100 unit 79.118 45.593 39.028 In Sodium Chloride 0.9% 100 ml @ Per Protocol IV .Q0M [facility] Rx#:[id number] Oral 400 80635 600 Output: Chest Tube Drainage 541 230 210 LP 160 40 160 MS 210 120 20 RP 171 70 30 Urine 530 1165 154 Other: Voiding Method Indwelling Catheter Indwelling Catheter Indwelling Catheter ABP, PAP, CO, CI - Last Documented Arterial Blood Pressure 132/55 Pulmonary Artery Pressure 23/6 Cardiac Output 6.7 Cardiac Index 2.9 - Labs CBC & Chem 7: 03/05/24 04:04 03/05/24 04:04 Labs: Abnormal Lab Results - Last 24 Hours (Table) 03/04/24 03/04/24 03/04/24 Range/Units 18:15 18:56 19:56 RBC (4.30-5.90) m/uL Hgb (13.0-17.5) gm/dL Hct (39.0-53.0) % Plt Count (150-450) k/uL Lymphocytes # (1.0-4.8) k/uL Chloride (98-107) mmol/L POC Glucose (mg/dL) 201 H 176 H 147 H (70-110) mg/dL Total Protein (6.3-8.2) g/dL Albumin (3.5-5.0) g/dL 03/04/24 03/04/24 03/04/24 Range/Units 21:10 22:06 23:54 RBC (4.30-5.90) m/uL Hgb (13.0-17.5) gm/dL Hct (39.0-53.0) % Plt Count (150-450) k/uL Lymphocytes # (1.0-4.8) k/uL Chloride (98-107) mmol/L POC Glucose (mg/dL) 113 H 123 H 134 H (70-110) mg/dL Total Protein (6.3-8.2) g/dL Albumin (3.5-5.0) g/dL 03/05/24 03/05/24 03/05/24 Range/Units 01:00 04:00 04:04 RBC 3.44 L (4.30-5.90) m/uL Hgb 10.4 L (13.0-17.5) gm/dL Hct 32.0 L (39.0-53.0) % Plt Count 110 L (150-450) k/uL Lymphocytes # 0.7 L (1.0-4.8) k/uL Chloride (98-107) mmol/L POC Glucose (mg/dL) 123 H 111 H (70-110) mg/dL Total Protein (6.3-8.2) g/dL Albumin (3.5-5.0) g/dL 03/05/24 03/05/24 03/05/24 Range/Units 04:04 05:46 06:58 RBC (4.30-5.90) m/uL Hgb (13.0-17.5) gm/dL Hct (39.0-53.0) % Plt Count (150-450) k/uL Lymphocytes # (1.0-4.8) k/uL Chloride 110 H (98-107) mmol/L POC Glucose (mg/dL) 127 H 145 H (70-110) mg/dL Total Protein 5.2 L (6.3-8.2) g/dL Albumin 3.4 L (3.5-5.0) g/dL 03/05/24 03/05/24 03/05/24 Range/Units 08:23 09:19 10:37 RBC (4.30-5.90) m/uL Hgb (13.0-17.5) gm/dL Hct (39.0-53.0) % Plt Count (150-450) k/uL Lymphocytes # (1.0-4.8) k/uL Chloride (98-107) mmol/L POC Glucose (mg/dL) 206 H 171 H 128 H (70-110) mg/dL Total Protein (6.3-8.2) g/dL Albumin (3.5-5.0) g/dL 03/05/24 03/05/24 03/05/24 Range/Units 13:23 14:59 16:34 RBC (4.30-5.90) m/uL Hgb (13.0-17.5) gm/dL Hct (39.0-53.0) % Plt Count (150-450) k/uL Lymphocytes # (1.0-4.8) k/uL Chloride (98-107) mmol/L POC Glucose (mg/dL) 152 H 152 H 161 H (70-110) mg/dL Total Protein (6.3-8.2) g/dL Albumin (3.5-5.0) g/dL
[2024-03-05 17:54] LABS: Glucose,Whole Blood 136 mg/dL (70-110)
[2024-03-05] MEDS: ACETAMINOPHEN TAB 500 MG TAB PO PRN (18:40)
[2024-03-05] MEDS: MAGNESIUM HYDROXIDE 2,400 MG/30 ML CUP PO PRN (18:47)
[2024-03-05 20:35] LABS: Glucose,Whole Blood 192 mg/dL (70-110)
[2024-03-05] MEDS: INSULIN DETEMIR (LEVEMIR) 100 UNIT/ML SYR SQ SCH (20:39)
--- NOTE | 2024-03-05 21:27 | P.PN ---
Subjective Progress Note Date: 03/04/24 68-year-old male with a PMH of recent acute STEMI on 02/20 status post PCI to RCA with moderate to severe disease of LAD and left circumflex, type II DM, hypertension, hyperlipidemia, BPH who presents to the emergency room with complaints of chest pain. The patient was discharged from the hospital yesterda y morning and notes that his pain suddenly started again today at around 4 PM, 4 out of 10 at maximal intensity, left-sided with radiation down into the left arm. Notes that the pain is a lot less severe than his initial episode that brought him to the hospital 4 days ago. He took multiple nitroglycerins at home with minimal relief. At time of interview, notes that the pain is a 2 out of 10, aching in nature, with no alleviating or exacerbating features and nonpleuritic. Denies experiencing nausea, vomiting, diaphoresis, or dizziness. Denies experiencing fever, chills, abdominal pain. EKG upon arrival to the emergency room revealed sinus rhythm with first-degree AV block at [address] segment depression in the precordial leads V3 to V6 with diffuse T wave inversions in inferior leads and precordial leads V5 and V6. Subsequent EKG revealed a HR of 58 but otherwise was essentially unchanged from that obtained upon arrival. Laboratory evaluation was remarkable for platelet count 141, troponin 6.860, and subsequently 9.200, chloride 109, proBNP 1430, BUN 23, creatinine 0.94 with D-dimer 0.5. 02/26/2024 Patient is seen and evaluated sitting up in bed; no specific complaints reported -Patient is status post cardiac catheterization and was found to have patent stent in the RCA with severe disease involving the left coronary system; patient is not felt to be a good candidate for PCI CABG is recommended -- Cardiothoracic surgery consulted 02/27/2024 Patient is seen and evaluated in ICU, sitting up in bedside chair. Reports no further chest pain after resuming IV nitroglycerin infusion Vital signs are reviewed and reveal temperature of 97.2, pulse 65, respiration 22 and blood pressure of 94/66 Blood work reveals WBC of 6.2, hemoglobin of 13.2 and platelet count of 130, sodium 137, potassium: 4, BUNs/creatinine of 20/0.94 and blood glucose of 91 Cardiology on board, planning to continue to wean off nitroglycerin infusion if able. Patient to remain on IV heparin. Oral antiplatelet therapy has been placed on hold till after surgery which is planned in next few days. Patient remains on statin therapy -- Continue to hold Brilinta till after surgery. Last dose was on 02/26/2024 02/28/2024 Patient is currently sitting in the chair. Awake alert and oriented. Able to walk in the room. On room air. No complaints of chest pain. No shortness of breath. No nausea vomiting abdominal pain or diarrhea. Patient is being continued on IV heparin and is also on IV nitroglycerin at 5 mg/min. Patient is tentatively scheduled for CABG on March 03, 2024. Continued on heparin and Brilinta is on hold. Laboratory data showed WBC 5.7 hemoglobin 12.7 and platelets 122 sodium 137 potassium 4.0 chloride 109 bicarb is 23 BUN 2020 creatinine 0.94 and blood sugar 100 and magnesium 1.8. Cardiac catheterization on 02/24 showed patent stent in the distal RCA. Ulcerated plaque involving the left main coronary artery with intermediate to severe disease involving the left circumflex and left anterior descending artery with complex lesions/bifurcation lesions. Current medications reviewed. 02/29/2024 Patient seen in follow-up today continues to be in the ICU with multiple medical consultations following. CT surgery evaluating the patient regarding severe coronary artery disease working up for possible CABG undergoing further testing with tentative schedule for intervention later this week. Patient is afebrile with no reports of worsening chest pain or palpitations. No reported nausea or vomiting and patient is tolerating diet. 03/01/2024 Patient is seen and evaluated today in follow-up currently sitting up in the chair with at the bedside with no issues noted. Patient denies any chest pain or shortness of breath. Patient reports has been walking multiple times in the berg and is using incentive spirometer. Scheduled tentatively for cardiac intervention on 03/03/[address] surgery. Patient is currently afebrile. 03/02/2024 Patient is seen in follow-up today remains on IV heparin with multiple medical consultations following. CT surgery following and tentatively scheduled for CABG on 03/03/2024. Patient has been up and walking and continues to walk frequently throughout the day. Encouraged incentive spirometer use. Patient will be n.p.o. at midnight and we will continue to follow CT surgery and wait for OR report. 03/03/2024 Patient is seen in follow-up early this morning scheduled to undergo CABG and is currently NPO. Patient will be transferred back to ICU postoperatively and currently awaiting surgical report. Will follow-up with the patient. 03/04/2024 Patient is in the MICU. Weaned off from the current ventilator. Currently sitting in the chair. On room air. Complains of chest pain mainly in the incision site. Requesting pain medication. No fever no chills. No nausea vomiting or abdominal pain or diarrhea. Patient does have right-sided, mediastinal and left lower chest tube in place. Patient being continued on insulin drip for better blood sugar control. Chest x-ray showed postoperative changes correlate for mild CHF with small bilateral effusion and basilar consolidation. Laboratory test showed WBC 6.9 hemoglobin 11.1 platelets 125, sodium 136 potassium 4.4 chloride 109 bicarb is 22 BUN 16 and creatinine 0.85 and blood sugar 121 liver enzymes are not elevated. Critical care team, cardiology and CV surgery is on board. Review of systems: Constitutional: No reports of fatigue, fever, or chills Cardiovascular: No reports of chest pain or palpitations Respiratory: No reports of shortness of breath or cough GI: No reports of nausea, vomiting, or diarrhea : No reports of dysuria or retention Neurovascular: No reports of weakness or numbness All medications have been reviewed PHYSICAL EXAMINATION: Patient is in bed, no acute distress, awake alert and oriented.. Well-developed HEENT: Normocephalic. Neck is supple. Pupils reactive. Nostrils clear. Oral cavity is moist. Neck reveals no JVD, carotid bruits, or thyromegaly. CHEST EXAMINATION: Trachea is central. Symmetrical expansion. Bibasilar diminished sounds. No wheezing or rhonchi. Chest tubes in place.. CARDIAC: Normal S1, S2 with no gallops. No murmurs ABDOMEN: Soft. Bowel sounds normal. No organomegaly. No abdominal bruits. Extremities: reveal no edema. No clubbing or cyanosis Neurologically awake, alert, oriented x3 with well-coordinated movements. No focal deficits noted Skin: No rash or skin lesions. Psychiatric: Cooperative. Non-suicidal Musculoskeletal: No joint swelling or deformity. Normal range of motion. Assessment: 1. Acute Non-ST elevated SD with elevated troponins. Status postcardiac catheterization showed patent stent in the distal RCA. Ulcerated plaque involving the left main coronary artery with intermediate to severe disease involving the left circumflex and left anterior descending artery with complex lesions/bifurcation lesions. Status post CABG on 03/03/2024 2. Recent acute inferior ST elevated SD status post emergent catheterization and PCI of the RCA, mild to moderate disease involving the left coronary system 3. Hypertension 4. Hyperlipidemia 5. Diabetes mellitus type 2 6. Obstructive sleep apnea on CPAP 7. mild to moderate aortic stenosis 8. History of prostate cancer 9. Prior history of smoking 10. Family history of coronary artery disease GI prophylaxis DVT prophylaxis Full code Plan: Patient is s/p CABG. Patient was extubated. Current pain management Continue with incentive spirometry. Encouraged to use at least 10 times every hour while awake Continue monitoring Accu-Cheks ACHS and will continue insulin drip per cardiothoracic protocol and will transition back to sliding scale and long- acting once patient is tolerating oral intake Due to multiple complex medical issues, overall prognosis is guarded We will follow-up on surgical report and continue to follow with CT surgery during hospitalization. Objective - Vital Signs Vital signs: Vital Signs Temp 98.6 F 03/04/24 12:00 Pulse 92 03/04/24 20:43 Resp 25 H 03/04/24 19:09 BP 108/57 03/04/24 19:09 Pulse Ox 97 03/04/24 19:09 FiO2 50 03/03/24 17:18 Intake & Output 03/04/24 03/04/24 03/05/24 06:59 18:59 06:59 Intake Total 401.178 4423.118 1036 Output Total 1695 1071 75 Balance -792.685 439.118 961 Weight 105.2 kg Intake: IV 868 1031 36 Albumin Human 5% 250 ml 500 In Empty Bag 1 bag @ 250 mls/hr IVPB Q1HR PRN Rx#: [id number] LR 600 410 30 co/ci 160 40 pressure bag 108 81 6 Intake, IV Titration 34.315 79.118 Amount Insulin Regular 100 unit 34.315 79.118 In Sodium Chloride 0.9% 100 ml @ Per Protocol IV .Q0M [facility] Rx#:[id number] Oral 400 1000 Output: Chest Tube Drainage 390 541 LP 123 160 MS 240 210 RP 27 171 Drainage 20 Left Wrist 20 Urine 1285 530 75 Other: Voiding Method Indwelling Catheter Indwelling Catheter ABP, PAP, CO, CI - Last Documented Arterial Blood Pressure 144/46 Pulmonary Artery Pressure 23/6 Cardiac Output 6.7 Cardiac Index 2.9 - Labs CBC & Chem 7: 03/05/24 04:04 03/05/24 04:04 Labs: Abnormal Lab Results - Last 24 Hours (Table) 03/02/24 03/03/24 03/03/24 Range/Units 09:56 21:00 22:03 RBC (4.30-5.90) m/uL Hgb (13.0-17.5) gm/dL Hct (39.0-53.0) % Plt Count (150-450) k/uL Lymphocytes # (1.0-4.8) k/uL Sodium (137-145) mmol/L Chloride (98-107) mmol/L Glucose (74-99) mg/dL POC Glucose (mg/dL) 141 H 142 H (70-110) mg/dL Total Protein (6.3-8.2) g/dL Crossmatch See Detail 03/03/24 03/04/24 03/04/24 Range/Units 23:06 00:21 01:38 RBC (4.30-5.90) m/uL Hgb (13.0-17.5) gm/dL Hct (39.0-53.0) % Plt Count (150-450) k/uL Lymphocytes # (1.0-4.8) k/uL Sodium (137-145) mmol/L Chloride (98-107) mmol/L Glucose (74-99) mg/dL POC Glucose (mg/dL) 140 H 146 H 134 H (70-110) mg/dL Total Protein (6.3-8.2) g/dL Crossmatch 03/04/24 03/04/24 03/04/24 Range/Units 02:58 04:00 04:00 RBC 3.74 L (4.30-5.90) m/uL Hgb 11.2 L (13.0-17.5) gm/dL Hct 34.3 L (39.0-53.0) % Plt Count 125 L (150-450) k/uL Lymphocytes # 0.5 L (1.0-4.8) k/uL Sodium 136 L (137-145) mmol/L Chloride 109 H (98-107) mmol/L Glucose 121 H (74-99) mg/dL POC Glucose (mg/dL) 131 H (70-110) mg/dL Total Protein 5.2 L (6.3-8.2) g/dL Crossmatch 03/04/24 03/04/24 03/04/24 Range/Units 04:05 07:20 08:00 RBC (4.30-5.90) m/uL Hgb (13.0-17.5) gm/dL Hct (39.0-53.0) % Plt Count (150-450) k/uL Lymphocytes # (1.0-4.8) k/uL Sodium (137-145) mmol/L Chloride (98-107) mmol/L Glucose (74-99) mg/dL POC Glucose (mg/dL) 134 H 146 H 156 H (70-110) mg/dL Total Protein (6.3-8.2) g/dL Crossmatch 03/04/24 03/04/24 03/04/24 Range/Units 08:21 09:09 10:10 RBC (4.30-5.90) m/uL Hgb (13.0-17.5) gm/dL Hct (39.0-53.0) % Plt Count (150-450) k/uL Lymphocytes # (1.0-4.8) k/uL Sodium (137-145) mmol/L Chloride (98-107) mmol/L Glucose (74-99) mg/dL POC Glucose (mg/dL) 149 H 141 H 133 H (70-110) mg/dL Total Protein (6.3-8.2) g/dL Crossmatch 03/04/24 03/04/24 03/04/24 Range/Units 10:53 12:02 13:00 RBC (4.30-5.90) m/uL Hgb (13.0-17.5) gm/dL Hct (39.0-53.0) % Plt Count (150-450) k/uL Lymphocytes # (1.0-4.8) k/uL Sodium (137-145) mmol/L Chloride (98-107) mmol/L Glucose (74-99) mg/dL POC Glucose (mg/dL) 125 H 126 H 147 H (70-110) mg/dL Total Protein (6.3-8.2) g/dL Crossmatch 03/04/24 03/04/24 03/04/24 Range/Units 14:53 16:03 17:01 RBC (4.30-5.90) m/uL Hgb (13.0-17.5) gm/dL Hct (39.0-53.0) % Plt Count (150-450) k/uL Lymphocytes # (1.0-4.8) k/uL Sodium (137-145) mmol/L Chloride (98-107) mmol/L Glucose (74-99) mg/dL POC Glucose (mg/dL) 151 H 147 H 153 H (70-110) mg/dL Total Protein (6.3-8.2) g/dL Crossmatch 03/04/24 03/04/24 03/04/24 Range/Units 18:15 18:56 19:56 RBC (4.30-5.90) m/uL Hgb (13.0-17.5) gm/dL Hct (39.0-53.0) % Plt Count (150-450) k/uL Lymphocytes # (1.0-4.8) k/uL Sodium (137-145) mmol/L Chloride (98-107) mmol/L Glucose (74-99) mg/dL POC Glucose (mg/dL) 201 H 176 H 147 H (70-110) mg/dL Total Protein (6.3-8.2) g/dL Crossmatch
--- NOTE | 2024-03-05 21:30 | P.PN ---
Subjective Progress Note Date: 03/05/24 68-year-old male with a PMH of recent acute STEMI on 02/20 status post PCI to RCA with moderate to severe disease of LAD and left circumflex, type II DM, hypertension, hyperlipidemia, BPH who presents to the emergency room with complaints of chest pain. The patient was discharged from the hospital yesterda y morning and notes that his pain suddenly started again today at around 4 PM, 4 out of 10 at maximal intensity, left-sided with radiation down into the left arm. Notes that the pain is a lot less severe than his initial episode that brought him to the hospital 4 days ago. He took multiple nitroglycerins at home with minimal relief. At time of interview, notes that the pain is a 2 out of 10, aching in nature, with no alleviating or exacerbating features and nonpleuritic. Denies experiencing nausea, vomiting, diaphoresis, or dizziness. Denies experiencing fever, chills, abdominal pain. EKG upon arrival to the emergency room revealed sinus rhythm with first-degree AV block at [address] segment depression in the precordial leads V3 to V6 with diffuse T wave inversions in inferior leads and precordial leads V5 and V6. Subsequent EKG revealed a HR of 58 but otherwise was essentially unchanged from that obtained upon arrival. Laboratory evaluation was remarkable for platelet count 141, troponin 6.860, and subsequently 9.200, chloride 109, proBNP 1430, BUN 23, creatinine 0.94 with D-dimer 0.5. 02/26/2024 Patient is seen and evaluated sitting up in bed; no specific complaints reported -Patient is status post cardiac catheterization and was found to have patent stent in the RCA with severe disease involving the left coronary system; patient is not felt to be a good candidate for PCI CABG is recommended -- Cardiothoracic surgery consulted 02/27/2024 Patient is seen and evaluated in ICU, sitting up in bedside chair. Reports no further chest pain after resuming IV nitroglycerin infusion Vital signs are reviewed and reveal temperature of 97.2, pulse 65, respiration 22 and blood pressure of 94/66 Blood work reveals WBC of 6.2, hemoglobin of 13.2 and platelet count of 130, sodium 137, potassium: 4, BUNs/creatinine of 20/0.94 and blood glucose of 91 Cardiology on board, planning to continue to wean off nitroglycerin infusion if able. Patient to remain on IV heparin. Oral antiplatelet therapy has been placed on hold till after surgery which is planned in next few days. Patient remains on statin therapy -- Continue to hold Brilinta till after surgery. Last dose was on 02/26/2024 02/28/2024 Patient is currently sitting in the chair. Awake alert and oriented. Able to walk in the room. On room air. No complaints of chest pain. No shortness of breath. No nausea vomiting abdominal pain or diarrhea. Patient is being continued on IV heparin and is also on IV nitroglycerin at 5 mg/min. Patient is tentatively scheduled for CABG on March 03, 2024. Continued on heparin and Brilinta is on hold. Laboratory data showed WBC 5.7 hemoglobin 12.7 and platelets 122 sodium 137 potassium 4.0 chloride 109 bicarb is 23 BUN 2020 creatinine 0.94 and blood sugar 100 and magnesium 1.8. Cardiac catheterization on 02/24 showed patent stent in the distal RCA. Ulcerated plaque involving the left main coronary artery with intermediate to severe disease involving the left circumflex and left anterior descending artery with complex lesions/bifurcation lesions. Current medications reviewed. 02/29/2024 Patient seen in follow-up today continues to be in the ICU with multiple medical consultations following. CT surgery evaluating the patient regarding severe coronary artery disease working up for possible CABG undergoing further testing with tentative schedule for intervention later this week. Patient is afebrile with no reports of worsening chest pain or palpitations. No reported nausea or vomiting and patient is tolerating diet. 03/01/2024 Patient is seen and evaluated today in follow-up currently sitting up in the chair with at the bedside with no issues noted. Patient denies any chest pain or shortness of breath. Patient reports has been walking multiple times in the berg and is using incentive spirometer. Scheduled tentatively for cardiac intervention on 03/03/[address] surgery. Patient is currently afebrile. 03/02/2024 Patient is seen in follow-up today remains on IV heparin with multiple medical consultations following. CT surgery following and tentatively scheduled for CABG on 03/03/2024. Patient has been up and walking and continues to walk frequently throughout the day. Encouraged incentive spirometer use. Patient will be n.p.o. at midnight and we will continue to follow CT surgery and wait for OR report. 03/03/2024 Patient is seen in follow-up early this morning scheduled to undergo CABG and is currently NPO. Patient will be transferred back to ICU postoperatively and currently awaiting surgical report. Will follow-up with the patient. 03/04/2024 Patient is in the MICU. Weaned off from the current ventilator. Currently sitting in the chair. On room air. Complains of chest pain mainly in the incision site. Requesting pain medication. No fever no chills. No nausea vomiting or abdominal pain or diarrhea. Patient does have right-sided, mediastinal and left lower chest tube in place. Patient being continued on insulin drip for better blood sugar control. Chest x-ray showed postoperative changes correlate for mild CHF with small bilateral effusion and basilar consolidation. Laboratory test showed WBC 6.9 hemoglobin 11.1 platelets 125, sodium 136 potassium 4.4 chloride 109 bicarb is 22 BUN 16 and creatinine 0.85 and blood sugar 121 liver enzymes are not elevated. Critical care team, cardiology and CV surgery is on board. 03/05/2024 Patient is currently lying in the bed comfortably. On room air. Chest pain is better today. No nausea vomiting abdominal pain or diarrhea. Mediastinal, right and left chest tubes in place. Chest x-ray showed stable exam. Laboratory data showed WBC 7.0 hemoglobin 10.4 and platelets 110, sodium 137 potassium 4.6 and chloride 110 bicarb is 23 BUN 17 and creatinine 1.02 and blood sugar 111 chloride is not elevated. Patient is being continued on aspirin and statins, Plavix, Zetia, and metoprolol. Patient remains on insulin drip which is being changed to subcu insulin. Review of systems: Constitutional: No reports of fatigue, fever, or chills Cardiovascular: No reports of chest pain or palpitations Respiratory: No reports of shortness of breath or cough GI: No reports of nausea, vomiting, or diarrhea : No reports of dysuria or retention Neurovascular: No reports of weakness or numbness All medications have been reviewed PHYSICAL EXAMINATION: Patient is in bed, no acute distress, awake alert and oriented.. Well-developed HEENT: Normocephalic. Neck is supple. Pupils reactive. Nostrils clear. Oral cavity is moist. Neck reveals no JVD, carotid bruits, or thyromegaly. CHEST EXAMINATION: Trachea is central. Symmetrical expansion. Bibasilar diminished sounds. No wheezing or rhonchi. Chest tubes in place.. CARDIAC: Normal S1, S2 with no gallops. No murmurs ABDOMEN: Soft. Bowel sounds normal. No organomegaly. No abdominal bruits. Extremities: reveal no edema. No clubbing or cyanosis Neurologically awake, alert, oriented x3 with well-coordinated movements. No focal deficits noted Skin: No rash or skin lesions. Psychiatric: Cooperative. Non-suicidal Musculoskeletal: No joint swelling or deformity. Normal range of motion. Assessment: 1. Acute Non-ST elevated WA with elevated troponins. Status postcardiac catheterization showed patent stent in the distal RCA. Ulcerated plaque involving the left main coronary artery with intermediate to severe disease involving the left circumflex and left anterior descending artery with complex lesions/bifurcation lesions. Status post CABG on 03/03/2024 2. Recent acute inferior ST elevated WA status post emergent catheterization and PCI of the RCA, mild to moderate disease involving the left coronary system 3. Hypertension 4. Hyperlipidemia 5. Diabetes mellitus type 2 6. Obstructive sleep apnea on CPAP 7. mild to moderate aortic stenosis 8. History of prostate cancer 9. Prior history of smoking 10. Family history of coronary artery disease GI prophylaxis DVT prophylaxis Full code Plan: Patient is s/p CABG. Patient was extubated. On room air now. Continue with aspirin Plavix statin and metoprolol and other medications. Current pain management Continue with incentive spirometry. Encouraged to use at least 10 times every hour while awake Continue monitoring Accu-Cheks ACHS and insulin drip will be changed to subcu insulin and titrate dose as needed. Due to multiple complex medical issues, overall prognosis is guarded We will follow-up on surgical report and continue to follow with CT surgery during hospitalization. Objective - Vital Signs Vital signs: Vital Signs Temp 98.6 F 03/05/24 08:00 Pulse 93 03/05/24 10:00 Resp 19 03/05/24 10:00 BP 103/63 03/05/24 10:00 Pulse Ox 95 03/05/24 10:00 FiO2 50 03/03/24 17:18 Intake & Output 03/04/24 03/05/24 03/05/24 18:59 06:59 18:59 Intake Total 1510.118 38597.593 467.473 Output Total 1071 1395 364 Balance 922.078 2471.593 103.473 Weight 106.2 kg Intake: IV 1031 396 194 Albumin Human 25% 50 ml 50 In Empty Bag 1 bag @ 50 mls/hr IVPB ONCE ONE Rx#: [id number] Albumin Human 5% 250 ml 500 In Empty Bag 1 bag @ 250 mls/hr IVPB Q1HR PRN Rx#: [id number] LR 410 330 120 co/ci 40 pressure bag 81 66 24 Intake, IV Titration 79.118 45.593 33.473 Amount Insulin Regular 100 unit 79.118 45.593 33.473 In Sodium Chloride 0.9% 100 ml @ Per Protocol IV .Q0M ON LICENSE OF [facility] Rx#:[id number] Oral 400 02800 240 Output: Chest Tube Drainage 541 230 210 LP 160 40 160 MS 210 120 20 RP 171 70 30 Urine 530 1165 154 Other: Voiding Method Indwelling Catheter Indwelling Catheter ABP, PAP, CO, CI - Last Documented Arterial Blood Pressure 132/55 Pulmonary Artery Pressure 23/6 Cardiac Output 6.7 Cardiac Index 2.9 - Labs CBC & Chem 7: 03/05/24 04:04 03/05/24 04:04 Labs: Abnormal Lab Results - Last 24 Hours (Table) 03/04/24 03/04/24 03/04/24 Range/Units 12:02 13:00 14:53 RBC (4.30-5.90) m/uL Hgb (13.0-17.5) gm/dL Hct (39.0-53.0) % Plt Count (150-450) k/uL Lymphocytes # (1.0-4.8) k/uL Chloride (98-107) mmol/L POC Glucose (mg/dL) 126 H 147 H 151 H (70-110) mg/dL Total Protein (6.3-8.2) g/dL Albumin (3.5-5.0) g/dL 03/04/24 03/04/24 03/04/24 Range/Units 16:03 17:01 18:15 RBC (4.30-5.90) m/uL Hgb (13.0-17.5) gm/dL Hct (39.0-53.0) % Plt Count (150-450) k/uL Lymphocytes # (1.0-4.8) k/uL Chloride (98-107) mmol/L POC Glucose (mg/dL) 147 H 153 H 201 H (70-110) mg/dL Total Protein (6.3-8.2) g/dL Albumin (3.5-5.0) g/dL 03/04/24 03/04/24 03/04/24 Range/Units 18:56 19:56 21:10 RBC (4.30-5.90) m/uL Hgb (13.0-17.5) gm/dL Hct (39.0-53.0) % Plt Count (150-450) k/uL Lymphocytes # (1.0-4.8) k/uL Chloride (98-107) mmol/L POC Glucose (mg/dL) 176 H 147 H 113 H (70-110) mg/dL Total Protein (6.3-8.2) g/dL Albumin (3.5-5.0) g/dL 03/04/24 03/04/24 03/05/24 Range/Units 22:06 23:54 01:00 RBC (4.30-5.90) m/uL Hgb (13.0-17.5) gm/dL Hct (39.0-53.0) % Plt Count (150-450) k/uL Lymphocytes # (1.0-4.8) k/uL Chloride (98-107) mmol/L POC Glucose (mg/dL) 123 H 134 H 123 H (70-110) mg/dL Total Protein (6.3-8.2) g/dL Albumin (3.5-5.0) g/dL 03/05/24 03/05/24 03/05/24 Range/Units 04:00 04:04 04:04 RBC 3.44 L (4.30-5.90) m/uL Hgb 10.4 L (13.0-17.5) gm/dL Hct 32.0 L (39.0-53.0) % Plt Count 110 L (150-450) k/uL Lymphocytes # 0.7 L (1.0-4.8) k/uL Chloride 110 H (98-107) mmol/L POC Glucose (mg/dL) 111 H (70-110) mg/dL Total Protein 5.2 L (6.3-8.2) g/dL Albumin 3.4 L (3.5-5.0) g/dL 03/05/24 03/05/2424 Range/Units 05:46 06:58 08:23 RBC (4.30-5.90) m/uL Hgb (13.0-17.5) gm/dL Hct (39.0-53.0) % Plt Count (150-450) k/uL Lymphocytes # (1.0-4.8) k/uL Chloride (98-107) mmol/L POC Glucose (mg/dL) 127 H 145 H 206 H (70-110) mg/dL Total Protein (6.3-8.2) g/dL Albumin (3.5-5.0) g/dL 03/05/24 03/05/24 Range/Units 09:19 10:37 RBC (4.30-5.90) m/uL Hgb (13.0-17.5) gm/dL Hct (39.0-53.0) % Plt Count (150-450) k/uL Lymphocytes # (1.0-4.8) k/uL Chloride (98-107) mmol/L POC Glucose (mg/dL) 171 H 128 H (70-110) mg/dL Total Protein (6.3-8.2) g/dL Albumin (3.5-5.0) g/dL Assessment and Plan Time with Patient: Greater than 30
[2024-03-05] MEDS: ALBUMIN HUMAN 5% 500 ML in EMPTY BAG 1 BAG IVPB ONE ×5 (23:12→23:13)
[2024-03-05] MEDS: CALCIUM CHLORIDE 100 MG/ML 10 ML SYRINGE IVP ONE (23:13)
[2024-03-05] MEDS: INSULIN REGULAR 100 UNIT in SODIUM CHLORIDE 0.9% 100 ML IV ONE (23:19)
[2024-03-05] MEDS: NOREPINEPHRINE 4 MG in SODIUM CHLORIDE 0.9% 250 ML IV ONE (23:19)
[2024-03-05] MEDS: CLEVIDIPINE BUTYRATE 25 MG in EMPTY BAG 1 BAG IV ONE (23:19)
[2024-03-05] MEDS: NITROGLYCERIN-D5W PMX 50 MG in DEXTROSE/WATER 1 250ML.BAG IV ONE (23:19)
[2024-03-05] MEDS: MD COMMUNICATION TO PHARMACY 1 EACH MISC PO ONE (23:20)
[2024-03-05] MEDS: HEPARIN SODIUM 1,000 UN/ML (10ML VL) IV ONE (23:20)
[2024-03-05] MEDS: NITROGLYCERIN-D5W PMX 25 MG/250 ML BTL IV ONE (23:21)
[2024-03-05] MEDS: MAGNESIUM SULFATE 16.24 MEQ in EMPTY SYRINGE 1 SYR IV ONE (23:21)
[2024-03-05] MEDS: LACTATED RINGERS 1,000 ML IV SCH (23:21)
[2024-03-05] MEDS: MANNITOL 25% 12.5 GM/50 ML VIAL IV ONE ×2 (23:21)
[2024-03-05] MEDS: PHENYLEPHRINE 10 MG/ML VIAL IV ONE (23:24)
[2024-03-05] MEDS: SODIUM BICARB 8.4% 50 ML SYR (1 MEQ/ML) IV ONE (23:25)
[2024-03-05] MEDS: PROTAMINE SULFATE 250 MG in EMPTY BAG 1 BAG IV ONE (23:25)
[2024-03-05] MEDS: PHENYLEPHRINE 40 MG in SODIUM CHLORIDE 0.9% 250 ML IV ONE (23:25)
[2024-03-05] MEDS: TRANEXAMIC ACID 2,000 MG in SODIUM CHLORIDE 0.9% 80 ML IV ONE (23:25)
[2024-03-05] MEDS: PROTAMINE SULFATE 10 MG/ML 25 ML VIAL IV ONE (23:25)
[2024-03-05] MEDS: CHLORHEXIDINE GLUCONATE 15 ML CUP MUCOUS MEM ONE (23:27)
[2024-03-05] MEDS: ELECTROLYTE-A SOLUTION 1,000 ML with POTASSIUM CHLORIDE 100 MEQ, MAGNESIUM SULFATE 16 M... IV ONE (23:27)
[2024-03-05] MEDS: ELECTROLYTE-A SOLUTION 1,000 ML with POTASSIUM CHLORIDE 40 MEQ, MAGNESIUM SULFATE 16 ME... IV ONE (23:27)
[2024-03-05] MEDS: AMIODARONE 450 MG in DEXTROSE 5% IN WATER 250 ML IV SCH (23:28)
[2024-03-05] MEDS: AMIODARONE 360 MG in DEXTROSE 5% IN WATER 200 ML IV ONE (23:28)
[2024-03-06 06:16] LABS: Glucose,Whole Blood 125 mg/dL (70-110)
[2024-03-06 06:22] LABS: Basophils % (A) 0 %; Eosinophils # (A) 0.2 k/uL (0-0.7); Eosinophils % (A) 2 %; HCT 32.8 % (39.0-53.0); HGB 10.6 gm/dL (13.0-17.5); Lymphocytes # (A) 0.8 k/uL (1.0-4.8); Lymphocytes % (A) 13 %; MCH 30.3 pg (25.0-35.0); MCHC 32.2 g/dL (31.0-37.0); Mean Platelet Volume 8.1; Monocytes # (A) 0.3 k/uL (0-1.0); Monocytes % (A) 5 %; Neutrophils # (A) 4.8 k/uL (1.3-7.7); Neutrophils % (A) 77 %; Platelet Count 119 k/uL (150-450); RBC 3.49 m/uL (4.30-5.90); RDW 13.9 % (11.5-15.5); WBC 6.2 k/uL (3.8-10.6)
[2024-03-06 06:25] LABS: ALT 17 U/L (4-49); AST 34 U/L (17-59); African American GFR (CKD) 85 (>60 ml/min/1.73 sqM); Albumin 3.7 g/dL (3.5-5.0); Alkaline Phosphatase 55 U/L (38-126); Anion Gap 7 mmol/L; Blood Urea Nitrogen 24 mg/dL (9-20); Calcium 8.9 mg/dL (8.4-10.2); Carbon Dioxide 23 mmol/L (22-30); Chloride 108 mmol/L (98-107); Glucose 112 mg/dL (74-99); Non-African American GFR(CKD) 73 (>60 ml/min/1.73 sqM); Potassium 4.3 mmol/L (3.5-5.1); Sodium 138 mmol/L (137-145); Total Bilirubin 0.5 mg/dL (0.2-1.3); Total Protein 5.7 g/dL (6.3-8.2)
--- NOTE | 2024-03-06 07:39 | XR ---
EXAMINATION TYPE: XR chest 2V DATE OF EXAM: 03/06/2024 COMPARISON: 03/05/2024 INDICATION: Postop CABG TECHNIQUE: Frontal and lateral views of the chest are obtained. FINDINGS: The heart size is enlarged. The pulmonary vasculature is normal. Left lower lobe infiltrate is present. Left pleural effusion may be present. Post CABG changes are present. IMPRESSION: 1. Cardiomegaly. 2. Left lower lobe infiltrate. Correlate for atelectasis and pneumonia. Small left pleural effusion m ay be present. Findings have improved. Continued follow-up is recommended.
--- NOTE | 2024-03-06 07:59 | P.PN ---
Subjective Progress Note Date: 03/06/24 PROGRESS NOTE The patient is a 69-year-old male with known history of coronary disease, status post stenting of the RCA he was found to have an ulcerated plaque in the left main, underwent CABG x 6 with BULLOCK to second diagonal and LAD, left radial to ramus and obtuse marginal branch and SVG to PDA and PLV. He is doing well this morning, ambulating. Continues to be in sinus mechanism. Hemodynamically stable with good urinary output. He has no evidence of atrial fibrillation or ventricular ectopic activity. His echocardiogram showed an ejection fraction of around 45% preoperatively. Medications: Aspirin, Lipitor 40 mg daily, Plavix 75 mg daily, ezetimibe 10 mg daily, insulin, metoprolol tartrate 25 mg twice a day, Flomax PHYSICAL EXAMINATION: Blood pressure 112/70 heart rate 90 LUNGS: Mild decrease in the breath sounds at the bases HEART: Regular rate and rhythm, S1, S2. No S3. Systolic ejection murmur ABDOMEN: Soft, nontender, no organomegaly EXTREMETIES: No edema LAB: Potassium 4.3, BUN 24, creatinine 1.04. Hemoglobin 10.6. IMPRESSION: 1. Status post CABG with closure of the left atrial appendage. Stable 2. Status post stenting of the RCA 3. Hyperlipidemia 4. Diabetes PLAN: 1. Increase physical activity 2. Incentive spirometry 3. Probable transfer to telemetry 4. Depending on his progress further recommendations will be made Objective - Vital Signs Vital signs: Vital Signs Temp 97.9 F 03/06/24 04:00 Pulse 99 03/06/24 07:00 Resp 17 03/06/24 07:00 BP 112/72 03/06/24 07:00 Pulse Ox 97 03/06/24 07:00 FiO2 50 03/03/24 17:18 Intake & Output 03/05/24 03/06/24 03/06/24 18:59 06:59 18:59 Intake Total 1203.028 700 118 Output Total 364 700 0 Balance 839.028 0 118 Weight 105.8 kg Intake: IV 324 200 Albumin Human 25% 50 ml 50 In Empty Bag 1 bag @ 50 mls/hr IVPB ONCE ONE Rx#: [id number] LR 250 200 pressure bag 24 Intake, IV Titration 39.028 Amount Insulin Regular 100 unit 39.028 In Sodium Chloride 0.9% 100 ml @ Per Protocol IV .Q0M [facility] Rx#:[id number] Oral 840 500 118 Output: Chest Tube Drainage 210 LP 160 MS 20 RP 30 Urine 154 700 0 Other: Voiding Method Indwelling Catheter Toilet Urinal # Voids 1 ABP, PAP, CO, CI - Last Documented Arterial Blood Pressure 132/55 Pulmonary Artery Pressure 23/6 Cardiac Output 6.7 Cardiac Index 2.9 - Labs CBC & Chem 7: 03/06/24 05:30 03/06/24 05:30 Labs: Abnormal Lab Results - Last 24 Hours (Table) 03/05/24 03/05/24 03/05/24 Range/Units 08:23 09:19 10:37 RBC (4.30-5.90) m/uL Hgb (13.0-17.5) gm/dL Hct (39.0-53.0) % Plt Count (150-450) k/uL Lymphocytes # (1.0-4.8) k/uL Chloride (98-107) mmol/L BUN (9-20) mg/dL Glucose (74-99) mg/dL POC Glucose (mg/dL) 206 H 171 H 128 H (70-110) mg/dL Total Protein (6.3-8.2) g/dL 03/05/24 03/05/24 03/05/24 Range/Units 13:23 14:59 16:34 RBC (4.30-5.90) m/uL Hgb (13.0-17.5) gm/dL Hct (39.0-53.0) % Plt Count (150-450) k/uL Lymphocytes # (1.0-4.8) k/uL Chloride (98-107) mmol/L BUN (9-20) mg/dL Glucose (74-99) mg/dL POC Glucose (mg/dL) 152 H 152 H 161 H (70-110) mg/dL Total Protein (6.3-8.2) g/dL 03/05/24 03/05/24 03/06/24 Range/Units 17:52 20:33 05:30 RBC 3.49 L (4.30-5.90) m/uL Hgb 10.6 L (13.0-17.5) gm/dL Hct 32.8 L (39.0-53.0) % Plt Count 119 L (150-450) k/uL Lymphocytes # 0.8 L (1.0-4.8) k/uL Chloride (98-107) mmol/L BUN (9-20) mg/dL Glucose (74-99) mg/dL POC Glucose (mg/dL) 136 H 192 H (70-110) mg/dL Total Protein (6.3-8.2) g/dL 03/06/24 03/06/24 Range/Units 05:30 06:14 RBC (4.30-5.90) m/uL Hgb (13.0-17.5) gm/dL Hct (39.0-53.0) % Plt Count (150-450) k/uL Lymphocytes # (1.0-4.8) k/uL Chloride 108 H (98-107) mmol/L BUN 24 H (9-20) mg/dL Glucose 112 H (74-99) mg/dL POC Glucose (mg/dL) 125 H (70-110) mg/dL Total Protein 5.7 L (6.3-8.2) g/dL
--- NOTE | 2024-03-06 09:04 | P.PN ---
Subjective Progress Note Date: 03/06/24 Principal diagnosis: Chest pain, non-STEMI this admission. History of coronary artery disease with recent STEMI and PCI, mild to moderate aortic stenosis, hypertension, hyperlipidemia, diabetes, obstructive sleep apnea, prostate cancer, previous tobacco dependence, family history of coronary artery disease. POD #3 Off pump coronary artery bypass grafting x 6. Left internal thoracic artery (in-situ) sequential to second diagonal artery and left anterior descending coronary artery. Left radial artery from aorta sequential to ramus intermedius and obtuse marginal artery #1. Reverse saphenous vein graft from aorta sequential to posterior descending and postero-lateral coronary arteries, Left atrial appendage ligation using #35mm AtriClip, Endoscopic left radial and left greater saphenous vein harvest, Insertion of right common femoral arterial line using ultrasound guided micropuncture technique, Graft flow measurements using the [employer] graft flow meter system, Trans-esophageal echocardiogram performed by anesthesia Postoperative acute blood loss anemia, expected given hemodilution. Patient was seen and examined in follow-up today March 06, 2024 at his bedside in the intensive care unit. He is currently sitting up to the bedside chair, is awake, alert, oriented x 3 and is in no acute apparent distress. He denies any complaints of shortness of breath at this time, although is complaining of some surgical type pain to his shoulders and to his chest, currently rating his pain 4 out of 10 on the pain scale. Oxygen saturations are 98% on room air and he is achieving 1500 mL on his incentive spirometry with encouragement. The patient reports that he has been up ambulating in the intensive care unit hallway and tolerating well with standby assistance from nursing and therapy staff. His chest tubes were removed yesterday without incident. Bedside telemetry is showing sinus tachycardia heart rate 102 bpm. He remains hemodynamically stable and is currently on no inotropic or pressor support. Chest x-ray and laboratory results reviewed. Objective - Vital Signs Vital signs: Vital Signs Temp 97.9 F 03/06/24 04:00 Pulse 99 03/06/24 07:00 Resp 17 03/06/24 07:00 BP 112/72 03/06/24 07:00 Pulse Ox 97 03/06/24 07:00 FiO2 50 03/03/24 17:18 Intake & Output 03/05/24 03/06/24 03/06/24 18:59 06:59 18:59 Intake Total 1203.028 700 118 Output Total 364 700 0 Balance 839.028 0 118 Weight 105.8 kg Intake: IV 324 200 Albumin Human 25% 50 ml 50 In Empty Bag 1 bag @ 50 mls/hr IVPB ONCE ONE Rx#: [id number] LR 250 200 pressure bag 24 Intake, IV Titration 39.028 Amount Insulin Regular 100 unit 39.028 In Sodium Chloride 0.9% 100 ml @ Per Protocol IV .Q0M [facility] Rx#:[id number] Oral 840 500 118 Output: Chest Tube Drainage 210 LP 160 MS 20 RP 30 Urine 154 700 0 Other: Voiding Method Indwelling Catheter Toilet Urinal # Voids 1 ABP, PAP, CO, CI - Last Documented Arterial Blood Pressure 132/55 Pulmonary Artery Pressure 23/6 Cardiac Output 6.7 Cardiac Index 2.9 - Exam CONSTITUTIONAL: Sitting up to the bedside chair in the intensive care unit, appears comfortable, cooperative, no apparent acute distress. HEENT: Neck is supple, no JVD, no lymphadenopathy. RESPIRATORY: Lungs sounds essentially clear throughout, diminished to his bilateral bases. Respirations are symmetrical and nonlabored. Currently on room air with oxygen saturations 98%. Able to achieve 1500 mL on their incentive spirometry. Strong cough. CARDIOVASCULAR: Regular rhythm and rate. S1 and S2 present, negative for S3, gallop or murmur. Sternum is stable. Bedside telemetry is showing sinus tachycardia. Palpable peripheral pulses bilaterally. No calf pain or tenderness noted. Heart hugger in place with patient demonstrating appropriate use. Knee- high JUAN hose and sequential compression devices in place to his bilateral lower extremities. GASTROINTESTINAL: Abdomen soft, nontender, nondistended. Active bowel sounds present 4 quadrants. Tolerating diet. Passing flatus. No guarding or rigidity. GENITOURINARY: Continues to void. 500 mL of urine output in the last 8 hours. INTEGUMENTARY: Skin is warm and dry with no evidence of clubbing or cyanosis. Midline sternal incision clean dry and well approximated, covered with dry i ntact dressing. Right lower extremity EVH sites well approximated without redness or drainage. Left arm radial artery harvest sites clean, dry and approximated. No drainage or redness is present. NEUROLOGIC: Cranial nerves II through XII intact. No focal deficits. MUSKULOSKELETAL: Able to move all extremities, strength equal bilaterally. PSYCHIATRIC: Alert and oriented to person place and time, appropriate affect, intact judgment and insight. - Allied health notes Allied health notes reviewed: nursing - Labs CBC & Chem 7: 03/06/24 05:30 03/06/24 05:30 Labs: Abnormal Lab Results - Last 24 Hours (Table) 03/05/24 03/05/24 03/05/24 Range/Units 09:19 10:37 13:23 RBC (4.30-5.90) m/uL Hgb (13.0-17.5) gm/dL Hct (39.0-53.0) % Plt Count (150-450) k/uL Lymphocytes # (1.0-4.8) k/uL Chloride (98-107) mmol/L BUN (9-20) mg/dL Glucose (74-99) mg/dL POC Glucose (mg/dL) 171 H 128 H 152 H (70-110) mg/dL Total Protein (6.3-8.2) g/dL 03/05/24 03/05/24 03/05/24 Range/Units 14:59 16:34 17:52 RBC (4.30-5.90) m/uL Hgb (13.0-17.5) gm/dL Hct (39.0-53.0) % Plt Count (150-450) k/uL Lymphocytes # (1.0-4.8) k/uL Chloride (98-107) mmol/L BUN (9-20) mg/dL Glucose (74-99) mg/dL POC Glucose (mg/dL) 152 H 161 H 136 H (70-110) mg/dL Total Protein (6.3-8.2) g/dL 03/05/24 03/06/24 03/06/24 Range/Units 20:33 05:30 05:30 RBC 3.49 L (4.30-5.90) m/uL Hgb 10.6 L (13.0-17.5) gm/dL Hct 32.8 L (39.0-53.0) % Plt Count 119 L (150-450) k/uL Lymphocytes # 0.8 L (1.0-4.8) k/uL Chloride 108 H (98-107) mmol/L BUN 24 H (9-20) mg/dL Glucose 112 H (74-99) mg/dL POC Glucose (mg/dL) 192 H (70-110) mg/dL Total Protein 5.7 L (6.3-8.2) g/dL 03/06/24 Range/Units 06:14 RBC (4.30-5.90) m/uL Hgb (13.0-17.5) gm/dL Hct (39.0-53.0) % Plt Count (150-450) k/uL Lymphocytes # (1.0-4.8) k/uL Chloride (98-107) mmol/L BUN (9-20) mg/dL Glucose (74-99) mg/dL POC Glucose (mg/dL) 125 H (70-110) mg/dL Total Protein (6.3-8.2) g/dL - Imaging and Cardiology Chest x-ray: report reviewed, image reviewed Assessment and Plan Assessment: Chest pain, non-STEMI this admission, status post 6 vessel off-pump coronary artery bypass grafting surgery Coronary artery disease with recent STEMI and PCI Mild to moderate aortic stenosis Hypertension Hyperlipidemia, treated, cholesterol 123, LDL 56 Diabetes, hemoglobin A1c 5.6% Obstructive sleep apnea Prostate cancer Previous tobacco dependence, preoperative FEV1 83% of predicted Family history of coronary artery disease Postoperative acute blood loss anemia, expected Plan: Continue to maximize medical therapy with aspirin, statin, Zetia, Plavix and beta-chad. Will increase metoprolol tartrate to 25 mg p.o. twice daily with hold parameters. When blood pressure is able to tolerate, we will start calcium channel chad for radial artery spasm prophylaxis. Encourage incentive spirometry use 10 times every hour while awake. Bronchodilators per pulmonology. Increase activity, ambulate as tolerated. PT/OT/cardiac rehab following. Will monitor daily labs and chest x-rays. Electrolyte replacement per protocol. GI/DVT prophylaxis. Insulin management per internal medicine, patient should remain on IV insulin for 48 hours then may transition to subcutaneous per protocol. Pain control with current medication regimen. Continue to monitor and record strict accurate intake and output. May bladder scan every 6 hours and as needed postvoid residual, if greater than 300 mL of urine may straight cath. Daily weights. Transfer orders have been placed to the third floor cardiac stepdown unit, transfer when bed available. Daily showers. Discharge planning is in place, anticipate discharge home with home health care in the next 24 to 48 hours. More recommendations to follow based on patient's clinical course. Time with Patient: Greater than 30
[2024-03-06] MEDS: IPRATROPIUM-ALBUTEROL 3 ML NEB INHALATION PRN (09:23)
[2024-03-06] MEDS: METOPROLOL TARTRATE 25 MG TAB PO SCH (09:28)
[2024-03-06 11:26] LABS: Glucose,Whole Blood 117 mg/dL (70-110)
--- NOTE | 2024-03-06 13:18 | P.PN ---
Subjective Progress Note Date: 03/06/24 Principal diagnosis: POD #3 Off pump coronary artery bypass grafting x 6. Left internal thoracic artery (in-situ) sequential to second diagonal artery and left anterior descending coronary artery. Left radial artery from aorta sequential to ramus intermedius and obtuse marginal artery #1. Reverse saphenous vein graft from aorta sequential to posterior descending and postero-lateral coronary arteries, On 03/04/2024, I am seeing this patient for a follow-up. The patient is postop day #1. The patient was weaned off the mechanical ventilator and the patient was extubated without the major difficulties. Currently sitting up in the chair and is on room air oxygen. Cardiac output is a 7.5 with an index of 3.2. PA pressures of 27/10. Urine output is 500 cc over the past 8 hours. Insulin drip is running at 4.5 units an hour. The patient is currently off the nitroglycerin drip. The patient has right-sided pleural chest tube total amount of output 40 cc over the past 24 hours, mediastinal chest was produced 160 cc over the past 8 hours and 350 over the past 24 hours and the left lower chest tube was produced 55 cc over the past 8 hours up 2 the patient's blood work is essentially stable with a white cell count of 6.9 with a hemoglobin of 11.2 and platelet count of 125. Sodium is at 136, potassium is at 4.4, BUN is at 16 with a creatinine of 0.8, electrolytes are all within normal limits. The patient is alert and awake and communicating. Pain is under adequate control and the patient is using the incentive spirometer without having any major difficulties. Mental status is also appropriate. 10 cc over the past 24 hours. Remains on insulin drip. 03/05/2024, the patient is sitting up on the chair and the patient is calm and comfortable. No specific complaints. The patient is postop day #2. He remains on room air oxygen. [place]-Jen catheter has been removed. He is using the incentive spirometer. His cardiac telemetry shows some sinus tachycardia. The patient is on no pressors for now. He is on aspirin and Plavix and beta- blockers. Chest ribs are in place and the patient has a mediastinal, left and right lower chest tube and there is no evidence of air leak in the chest x-ray showed no evidence of any pneumothorax.Mediastinal chest tube draining thin serosanguineous drainage with 100 mL output in the last 8 hours and 300 mL output in the last 24 hours. Left pleural chest tube draining thin serosanguineous drainage with 40 mL output in the last 8 hours and 200 mL output in the last 24 hours. Right pleural chest tube draining thin serosanguineous drainage with 70 mL output in the last 8 hours and 280 mill liters output in the last 24 hours. The patient otherwise has no complaints. He remains on insulin drip at 9 units an hour. The white cell count is at 7 with a hemoglobin 10.4 and a platelet count of 110. Electrolytes are all within normal limits. No altered mentation. Pain is under adequate control for now. Patient was seen today on 03/06/2024, patient is doing great. He remains in the ICU, however he will be an overflow in the ICU, patient was already downgraded to 3 S. On room air, not in any distress, some vague surgical type pain to the shoulders and to the chest noted. Patient is maintaining O2 sats in the 98% range, his chest tubes have been removed yesterday. Patient is in sinus rhythm, hemodynamically stable, not requiring any inotropes or any pressors. Chest x- ray showed minimal left lower lobe atelectasis and small left pleural effusion. WBC count is 6.2 hemoglobin 10.6, basic metabolic profile is normal renal profile is normal Objective - Vital Signs Vital signs: Vital Signs Temp 97.5 F L 03/06/24 12:00 Pulse 88 03/06/24 12:00 Resp 21 03/06/24 12:00 BP 122/68 03/06/24 11:00 Pulse Ox 97 03/06/24 12:00 FiO2 50 03/03/24 17:18 Intake & Output 03/05/24 03/06/24 03/06/24 18:59 06:59 18:59 Intake Total 1203.028 700 118 Output Total 364 700 775 Balance 839.028 0 -657 Weight 105.8 kg Intake: IV 324 200 Albumin Human 25% 50 ml 50 In Empty Bag 1 bag @ 50 mls/hr IVPB ONCE ONE Rx#: [id number] LR 250 200 pressure bag 24 Intake, IV Titration 39.028 Amount Insulin Regular 100 unit 39.028 In Sodium Chloride 0.9% 100 ml @ Per Protocol IV .Q0M [facility] Rx#:[id number] Oral 840 500 118 Output: Chest Tube Drainage 210 LP 160 MS 20 RP 30 Urine 154 700 775 Other: Voiding Method Indwelling Catheter Toilet Toilet Urinal Urinal # Voids 1 # Bowel Movements 1 ABP, PAP, CO, CI - Last Documented Arterial Blood Pressure 132/55 Pulmonary Artery Pressure 23/6 Cardiac Output 6.7 Cardiac Index 2.9 - Exam GENERAL EXAM: 69-year-old white male in no distress on room air HEAD: Normocephalic. EYES: Normal reaction of pupils, equal size. NOSE: Clear with pink turbinates. THROAT: No erythema or exudates. NECK: No masses, no JVD. CHEST: No chest wall deformity. LUNGS: Clear throughout no crackles rhonchi or wheezes CVS: Distant S1-S2, no S3 gallop. ABDOMEN: Soft nontender no megaly no rebound no guarding SKIN: No rashes CENTRAL NERVOUS SYSTEM: Alert and oriented x 3 no gross focal deficit EXTREMITIES: No clubbing edema or cyanosis - Labs CBC & Chem 7: 03/06/24 05:30 03/06/24 05:30 Labs: Abnormal Lab Results - Last 24 Hours (Table) 03/05/24 03/05/24 03/05/24 Range/Units 13:23 14:59 16:34 RBC (4.30-5.90) m/uL Hgb (13.0-17.5) gm/dL Hct (39.0-53.0) % Plt Count (150-450) k/uL Lymphocytes # (1.0-4.8) k/uL Chloride (98-107) mmol/L BUN (9-20) mg/dL Glucose (74-99) mg/dL POC Glucose (mg/dL) 152 H 152 H 161 H (70-110) mg/dL Total Protein (6.3-8.2) g/dL 03/05/24 03/05/24 03/06/24 Range/Units 17:52 20:33 05:30 RBC 3.49 L (4.30-5.90) m/uL Hgb 10.6 L (13.0-17.5) gm/dL Hct 32.8 L (39.0-53.0) % Plt Count 119 L (150-450) k/uL Lymphocytes # 0.8 L (1.0-4.8) k/uL Chloride (98-107) mmol/L BUN (9-20) mg/dL Glucose (74-99) mg/dL POC Glucose (mg/dL) 136 H 192 H (70-110) mg/dL Total Protein (6.3-8.2) g/dL 03/06/24 03/06/24 03/06/24 Range/Units 05:30 06:14 11:25 RBC (4.30-5.90) m/uL Hgb (13.0-17.5) gm/dL Hct (39.0-53.0) % Plt Count (150-450) k/uL Lymphocytes # (1.0-4.8) k/uL Chloride 108 H (98-107) mmol/L BUN 24 H (9-20) mg/dL Glucose 112 H (74-99) mg/dL POC Glucose (mg/dL) 125 H 117 H (70-110) mg/dL Total Protein 5.7 L (6.3-8.2) g/dL Assessment and Plan Assessment: Impression:POD #3 Off pump coronary artery bypass grafting x 6. Left internal thoracic artery (in-situ) sequential to second diagonal artery and left anterior descending coronary artery. Left radial artery from aorta sequential to ramus in termedius and obtuse marginal artery #1. Reverse saphenous vein graft from aorta sequential to posterior descending and postero-lateral coronary arteries, Postthoracotomy, extubated without any major difficulties and the patient is currently on room air oxygen and chest is all in place Former smoker, FEV1 value 3.13 L / 83% of predicted Hypertension Obstructive sleep apnea, utilizing his home CPAP History of prostate cancer status post radiation Coronary artery disease with a recent ST elevation myocardial infarction and PCI Mild to moderate aortic stenosis Dyslipidemia Ex-smoker preoperative FEV1 83% Postoperative acute blood loss anemia, expected Recommendation: Continue maximal medical therapy including aspirin, statin, Plavix, beta- blockers Continue incentive spirometry Continue GI DVT prophylaxis Transfer to med/cardiac floor out of ICU today Ambulate Discontinue unnecessary catheters Will continue to follow Time with Patient: Less than 30
[2024-03-06 16:23] LABS: Glucose,Whole Blood 125 mg/dL (70-110)
--- NOTE | 2024-03-06 17:05 | P.PN ---
Subjective Progress Note Date: 03/06/24 68-year-old male with a PMH of recent acute STEMI on 02/20 status post PCI to RCA with moderate to severe disease of LAD and left circumflex, type II DM, hypertension, hyperlipidemia, BPH who presents to the emergency room with complaints of chest pain. The patient was discharged from the hospital yester day morning and notes that his pain suddenly started again today at around 4 PM, 4 out of 10 at maximal intensity, left-sided with radiation down into the left arm. Notes that the pain is a lot less severe than his initial episode that brought him to the hospital 4 days ago. He took multiple nitroglycerins at home with minimal relief. At time of interview, notes that the pain is a 2 out of 10, aching in nature, with no alleviating or exacerbating features and nonpleuritic. Denies experiencing nausea, vomiting, diaphoresis, or dizziness. Denies experiencing fever, chills, abdominal pain. EKG upon arrival to the emergency room revealed sinus rhythm with first-degree AV block at [address] segment depression in the precordial leads V3 to V6 with diffuse T wave inversions in inferior leads and precordial leads V5 and V6. Subsequent EKG revealed a HR of 58 but otherwise was essentially unchanged from that obtained upon arrival. Laboratory evaluation was remarkable for plate let count 141, troponin 6.860, and subsequently 9.200, chloride 109, proBNP 1430, BUN 23, creatinine 0.94 with D-dimer 0.5. 02/26/2024 Patient is seen and evaluated sitting up in bed; no specific complaints reported -Patient is status post cardiac catheterization and was found to have patent stent in the RCA with severe disease involving the left coronary system; patient is not felt to be a good candidate for PCI CABG is recommended -- Cardiothoracic surgery consulted 02/27/2024 Patient is seen and evaluated in ICU, sitting up in bedside chair. Reports no further chest pain after resuming IV nitroglycerin infusion Vital signs are reviewed and reveal temperature of 97.2, pulse 65, respiration 22 and blood pressure of 94/66 Blood work reveals WBC of 6.2, hemoglobin of 13.2 and platelet count of 130, sodium 137, potassium: 4, BUNs/creatinine of 20/0.94 and blood glucose of 91 Cardiology on board, planning to continue to wean off nitroglycerin infusion if able. Patient to remain on IV heparin. Oral antiplatelet therapy has been placed on hold till after surgery which is planned in next few days. Patient remains on statin therapy -- Continue to hold Brilinta till after surgery. Last dose was on 02/26/2024 02/28/2024 Patient is currently sitting in the chair. Awake alert and oriented. Able to walk in the room. On room air. No complaints of chest pain. No shortness of breath. No nausea vomiting abdominal pain or diarrhea. Patient is being continued on IV heparin and is also on IV nitroglycerin at 5 mg/min. Patient is tentatively scheduled for CABG on March 03, 2024. Continued on heparin and Brilinta is on hold. Laboratory data showed WBC 5.7 hemoglobin 12.7 and platelets 122 sodium 137 potassium 4.0 chloride 109 bicarb is 23 BUN 2020 creatinine 0.94 and blood sugar 100 and magnesium 1.8. Cardiac catheterization on 02/24 showed patent stent in the distal RCA. Ulcerated plaque involving the left main coronary artery with intermediate to severe disease involving the left circumflex and left anterior descending artery with complex lesions/bifurcation lesions. Current medications reviewed. 02/29/2024 Patient seen in follow-up today continues to be in the ICU with multiple medical consultations following. CT surgery evaluating the patient regarding severe coronary artery disease working up for possible CABG undergoing further testing with tentative schedule for intervention later this week. Patient is afebrile with no reports of worsening chest pain or palpitations. No reported nausea or vomiting and patient is tolerating diet. 03/01/2024 Patient is seen and evaluated today in follow-up currently sitting up in the chair with at the bedside with no issues noted. Patient denies any chest pain or shortness of breath. Patient reports has been walking multiple times in the berg and is using incentive spirometer. Scheduled tentatively for cardiac intervention on 03/03/[address] surgery. Patient is currently afebrile. 03/02/2024 Patient is seen in follow-up today remains on IV heparin with multiple medical consultations following. CT surgery following and tentatively scheduled for CABG on 03/03/2024. Patient has been up and walking and continues to walk frequently throughout the day. Encouraged incentive spirometer use. Patient will be n.p.o. at midnight and we will continue to follow CT surgery and wait for OR report. 03/03/2024 Patient is seen in follow-up early this morning scheduled to undergo CABG and is currently NPO. Patient will be transferred back to ICU postoperatively and currently awaiting surgical report. Will follow-up with the patient. 03/04/2024 Patient is in the MICU. Weaned off from the current ventilator. Currently sitting in the chair. On room air. Complains of chest pain mainly in the incision site. Requesting pain medication. No fever no chills. No nausea vomiting or abdominal pain or diarrhea. Patient does have right-sided, mediastinal and left lower chest tube in place. Patient being continued on insulin drip for better blood sugar control. Chest x-ray showed postoperative changes correlate for mild CHF with small bilateral effusion and basilar consolidation. Laboratory test showed WBC 6.9 hemoglobin 11.1 platelets 125, sodium 136 potassium 4.4 chloride 109 bicarb is 22 BUN 16 and creatinine 0.85 and blood sugar 121 liver enzymes are not elevated. Critical care team, cardiology and CV surgery is on board. 03/05/2024 Patient is currently lying in the bed comfortably. On room air. Chest pain is better today. No nausea vomiting abdominal pain or diarrhea. Mediastinal, right and left chest tubes in place. Chest x-ray showed stable exam. Laboratory data showed WBC 7.0 hemoglobin 10.4 and platelets 110, sodium 137 potassium 4.6 and chloride 110 bicarb is 23 BUN 17 and creatinine 1.02 and blood sugar 111 chloride is not elevated. Patient is being continued on aspirin and statins, Plavix, Zetia, and metoprolol. Patient remains on insulin drip which is being changed to subcu insulin. 03/06/2024 Patient is seen in follow-up today currently feeling well and is a downgrade out of the ICU. Patient has been up and walking and reports possibly going home in the next day or 2. Patient chest x-ray today shows cardiomegaly with left lower lobe infiltrate correlate for atelectasis and pneumonia with a small left pleural effusion that may be present, findings have improved. Encouraged incentive spirometer use at least 10 times every hour while awake and patient has been extremely compliant. Blood sugars being monitored and will continue current regimen of low-dose long-acting twice daily along with sliding scale. Patient is afebrile denies chest pain or any worsening shortness of breath. Patient currently 98% on room air. Review of systems: Constitutional: No reports of fatigue, fever, or chills Cardiovascular: No reports of chest pain or palpitations, reports some chest wall tenderness Respiratory: No reports of worsening shortness of breath or cough GI: No reports of nausea, vomiting, or diarrhea : No reports of dysuria or retention Neurovascular: No reports of weakness or numbness All medications have been reviewed PHYSICAL EXAMINATION: Patient is in the chair, no acute distress, awake alert and oriented.. Well- developed, elderly appearing HEENT: Normocephalic. Neck is supple. Pupils reactive. Nostrils clear. Oral cavity is moist. Neck reveals no JVD, carotid bruits, or thyromegaly. CHEST EXAMINATION: Trachea is central. Symmetrical expansion. Bibasilar diminished sounds. No wheezing or rhonchi. Chest tubes have been removed and patient is on room air on exam CARDIAC: Normal S1, S2 with no gallops. No murmurs ABDOMEN: Soft. Bowel sounds normal. No organomegaly. No abdominal bruits. Extremities: reveal no edema. No clubbing or cyanosis Neurologically awake, alert, oriented x3 with well-coordinated movements. No focal deficits noted Skin: No rash or skin lesions. Psychiatric: Cooperative. Non-suicidal Musculoskeletal: No joint swelling or deformity. Normal range of motion. Assessment: 1. Acute Non-ST elevated MS with elevated troponins. Status postcardiac ca theterization showed patent stent in the distal RCA. Ulcerated plaque involving the left main coronary artery with intermediate to severe disease involving the left circumflex and left anterior descending artery with complex lesions/bifurcation lesions. Status post CABG on 03/03/2024 2. Recent acute inferior ST elevated MS status post emergent catheterization and PCI of the RCA, mild to moderate disease involving the left coronary system 3. Hypertension 4. Hyperlipidemia 5. Diabetes mellitus type 2 6. Obstructive sleep apnea on CPAP 7. mild to moderate aortic stenosis 8. History of prostate cancer 9. Prior history of smoking 10. Family history of coronary artery disease GI prophylaxis DVT prophylaxis Full code Plan: Patient is s/p CABG. Patient was extubated successfully currently on room air. Chest tubes have been removed and showing some improvement on chest x-ray. Encouraged incentive spirometer use at least 10 times every hour while awake Continue with aspirin Plavix statin and metoprolol and other medications. Current pain management Continue monitoring Accu-Cheks before meals and at bedtime and will use sliding scale, low-dose long-acting added and blood sugars are well-controlled at this time Discussion of downgrade out of the ICU with possible discharge planning in the next 24 to 48 hours Due to multiple complex medical issues, overall prognosis is guarded We will continue to follow with CT surgery during hospitalization. Thank you kindly for this consultation. The impression and plan of care has been dictated by Shanda Sequeira Nurse Pract itioner as directed. Dr. Francisco MD I have performed a history and examination and MDM of this patient, discussed the same with the dictator, and agree with the dictator's assessment and plan as written ,documented as a scribe. Based on total visit time, I have performed more than 50% of the visit. Objective - Vital Signs Vital signs: Vital Signs Temp 97.7 F 03/06/24 08:00 Pulse 101 H 03/06/24 10:00 Resp 24 03/06/24 10:00 BP 119/73 03/06/24 10:00 Pulse Ox 97 03/06/24 09:00 FiO2 50 03/03/24 17:18 Intake & Output 03/05/24 03/06/24 03/06/24 18:59 06:59 18:59 Intake Total 1203.028 700 118 Output Total 364 700 400 Balance 839.028 0 -282 Weight 105.8 kg Intake: IV 324 200 Albumin Human 25% 50 ml 50 In Empty Bag 1 bag @ 50 mls/hr IVPB ONCE ONE Rx#: [id number] LR 250 200 pressure bag 24 Intake, IV Titration 39.028 Amount Insulin Regular 100 unit 39.028 In Sodium Chloride 0.9% 100 ml @ Per Protocol IV .Q0M [facility] Rx#:[id number] Oral 840 500 118 Output: Chest Tube Drainage 210 LP 160 MS 20 RP 30 Urine 154 700 400 Other: Voiding Method Indwelling Catheter Toilet Toilet Urinal Urinal # Voids 1 # Bowel Movements 1 ABP, PAP, CO, CI - Last Documented Arterial Blood Pressure 132/55 Pulmonary Artery Pressure 23/6 Cardiac Output 6.7 Cardiac Index 2.9 - Labs CBC & Chem 7: 03/06/24 05:30 03/06/24 05:30 Labs: Abnormal Lab Results - Last 24 Hours (Table) 03/05/24 03/05/24 03/05/24 Range/Units 13:23 14:59 16:34 RBC (4.30-5.90) m/uL Hgb (13.0-17.5) gm/dL Hct (39.0-53.0) % Plt Count (150-450) k/uL Lymphocytes # (1.0-4.8) k/uL Chloride (98-107) mmol/L BUN (9-20) mg/dL Glucose (74-99) mg/dL POC Glucose (mg/dL) 152 H 152 H 161 H (70-110) mg/dL Total Protein (6.3-8.2) g/dL 03/05/24 03/05/24 03/06/24 Range/Units 17:52 20:33 05:30 RBC 3.49 L (4.30-5.90) m/uL Hgb 10.6 L (13.0-17.5) gm/dL Hct 32.8 L (39.0-53.0) % Plt Count 119 L (150-450) k/uL Lymphocytes # 0.8 L (1.0-4.8) k/uL Chloride (98-107) mmol/L BUN (9-20) mg/dL Glucose (74-99) mg/dL POC Glucose (mg/dL) 136 H 192 H (70-110) mg/dL Total Protein (6.3-8.2) g/dL 03/06/24 03/06/24 Range/Units 05:30 06:14 RBC (4.30-5.90) m/uL Hgb (13.0-17.5) gm/dL Hct (39.0-53.0) % Plt Count (150-450) k/uL Lymphocytes # (1.0-4.8) k/uL Chloride 108 H (98-107) mmol/L BUN 24 H (9-20) mg/dL Glucose 112 H (74-99) mg/dL POC Glucose (mg/dL) 125 H (70-110) mg/dL Total Protein 5.7 L (6.3-8.2) g/dL
[2024-03-06 20:21] LABS: Glucose,Whole Blood 130 mg/dL (70-110)
[2024-03-07 06:04] LABS: HCT 33.6 % (39.0-53.0); MCH 30.7 pg (25.0-35.0); MCHC 32.8 g/dL (31.0-37.0); MCV 93.5 fL (80.0-100.0); Mean Platelet Volume 8.4; Platelet Count 143 k/uL (150-450); RDW 13.9 % (11.5-15.5); WBC 7.5 k/uL (3.8-10.6)
[2024-03-07 06:16] LABS: African American GFR (CKD) 85 (>60 ml/min/1.73 sqM); Anion Gap 10 mmol/L; Blood Urea Nitrogen 29 mg/dL (9-20); Carbon Dioxide 18 mmol/L (22-30); Chloride 109 mmol/L (98-107); Glucose 100 mg/dL (74-99); Non-African American GFR(CKD) 73 (>60 ml/min/1.73 sqM); Potassium 4.7 mmol/L (3.5-5.1); Sodium 137 mmol/L (137-145)
[2024-03-07 06:23] LABS: Glucose,Whole Blood 113 mg/dL (70-110)
--- NOTE | 2024-03-07 08:06 | P.PN ---
Subjective Progress Note Date: 03/07/24 PROGRESS NOTE The patient is a 69-year-old male with known history of coronary disease, status post stenting of the RCA he was found to have an ulcerated plaque in the left main, underwent CABG x 6 with BULLOCK to second diagonal and LAD, left radial to ramus and obtuse marginal branch and SVG to PDA and PLV. He is doing well this morning, ambulating. Continues to be in sinus mechanism. Hemodynamically stable with good urinary output. He has no evidence of atrial fibrillation or ventricular ectopic activity. His echocardiogram showed an ejection fraction of around 45% preoperatively. March 07: The patient is feeling well, sitting up in the chair. He denies any chest discomfort, dizziness or palpitations. Hemodynamically stable. He denies any nausea or vomiting. He continues to be in sinus mechanism. He has been ambulating without difficulties. Medications: Aspirin, Lipitor 40 mg daily, Plavix 75 mg daily, ezetimibe 10 mg daily, insulin, metoprolol tartrate 25 mg twice a day, Flomax, Norvasc 2.5 mg daily PHYSICAL EXAMINATION: Blood pressure 117/60 heart rate 78 LUNGS: Clear to auscultation HEART: Regular rate and rhythm, S1, S2. No S3. Systolic ejection murmur ABDOMEN: Soft, nontender, no organomegaly EXTREMETIES: No edema LAB: Potassium 4.7, BUN 29, creatinine 1.04. Hemoglobin 11 IMPRESSION: 1. Status post CABG with closure of the left atrial appendage. Stable 2. Status post stenting of the RCA 3. Hyperlipidemia 4. Diabetes PLAN: 1. Increase physical activity 2. Incentive spirometry 3. Probable discharge home soon Objective - Vital Signs Vital signs: Vital Signs Temp 97.9 F 03/06/24 20:00 Pulse 78 03/07/24 03:30 Resp 18 03/07/24 03:30 BP 117/60 03/07/24 03:30 Pulse Ox 96 03/07/24 03:30 FiO2 50 03/03/24 17:18 Intake & Output 03/06/24 03/07/24 03/07/24 18:59 06:59 18:59 Intake Total 1678 Output Total 875 1050 Balance 803 -1050 Weight 106.8 kg Intake: Oral 1678 Output: Urine 875 1050 Other: Voiding Method Toilet Toilet Urinal Urinal # Bowel Movements 1 ABP, PAP, CO, CI - Last Documented Arterial Blood Pressure 132/55 Pulmonary Artery Pressure 23/6 Cardiac Output 6.7 Cardiac Index 2.9 - Labs CBC & Chem 7: 03/07/24 05:40 03/07/24 05:40 Labs: Abnormal Lab Results - Last 24 Hours (Table) 03/06/24 03/06/24 03/06/24 Range/Units 11:25 16:21 20:19 RBC (4.30-5.90) m/uL Hgb (13.0-17.5) gm/dL Hct (39.0-53.0) % Plt Count (150-450) k/uL Chloride (98-107) mmol/L Carbon Dioxide (22-30) mmol/L BUN (9-20) mg/dL Glucose (74-99) mg/dL POC Glucose (mg/dL) 117 H 125 H 130 H (70-110) mg/dL 03/07/24 03/07/24 03/07/24 Range/Units 05:40 05:40 06:22 RBC 3.60 L (4.30-5.90) m/uL Hgb 11.0 L (13.0-17.5) gm/dL Hct 33.6 L (39.0-53.0) % Plt Count 143 L (150-450) k/uL Chloride 109 H (98-107) mmol/L Carbon Dioxide 18 L (22-30) mmol/L BUN 29 H (9-20) mg/dL Glucose 100 H (74-99) mg/dL POC Glucose (mg/dL) 113 H (70-110) mg/dL
[2024-03-07] MEDS: amLODIPine 2.5 MG TAB PO SCH (09:02)
[2024-03-07 09:12] VITALS: TEMP 97.6
--- NOTE | 2024-03-07 12:04 | XR ---
EXAMINATION TYPE: XR chest 1V portable DATE OF EXAM: 03/07/2024 COMPARISON: 03/06/2024 INDICATION: Postop CABG TECHNIQUE: Single frontal view of the chest is obtained. FINDINGS: The heart size is enlarged. Sternotomy wires from prior CABG are present. The pulmonary vasculature is normal. Left lower lobe infiltrate is present. There is silhouetting the left diaphragm. IMPRESSION: 1. Left lower lobe lung opacification. Correlate for atelectasis or pneumonia. Follow-up is recommend ed. 2. Cardiomegaly
[2024-03-07 12:15] LABS: Glucose,Whole Blood 98 mg/dL (70-110)
--- NOTE | 2024-03-07 12:31 | P.PN ---
Subjective Progress Note Date: 03/07/24 Principal diagnosis: POD #4 off pump coronary artery bypass grafting x 6. Left internal thoracic artery (in-situ) sequential to second diagonal artery and left anterior descending coronary artery. Left radial artery from aorta sequential to ramus intermedius and obtuse marginal artery #1. Reverse saphenous vein graft from aorta sequential to posterior descending and postero-lateral coronary arteries, On 03/04/2024, I am seeing this patient for a follow-up. The patient is postop day #1. The patient was weaned off the mechanical ventilator and the patient was extubated without the major difficulties. Currently sitting up in the chair and is on room air oxygen. Cardiac output is a 7.5 with an index of 3.2. PA pressures of 27/10. Urine output is 500 cc over the past 8 hours. Insulin drip is running at 4.5 units an hour. The patient is currently off the nitroglycerin drip. The patient has right-sided pleural chest tube total amount of output 40 cc over the past 24 hours, mediastinal chest was produced 160 cc over the past 8 hours and 350 over the past 24 hours and the left lower chest tube was produced 55 cc over the past 8 hours up 2 the patient's blood work is essentially stable with a white cell count of 6.9 with a hemoglobin of 11.2 and platelet count of 125. Sodium is at 136, potassium is at 4.4, BUN is at 16 with a creatinine of 0.8, electrolytes are all within normal limits. The patient is alert and awake and communicating. Pain is under adequate control and the patient is using the incentive spirometer without having any major difficulties. Mental status is also appropriate. 10 cc over the past 24 hours. Remains on insulin drip. 03/05/2024, the patient is sitting up on the chair and the patient is calm and comfortable. No specific complaints. The patient is postop day #2. He remains on room air oxygen. [place]Jen catheter has been removed. He is using the incentive spirometer. His cardiac telemetry shows some sinus tachycardia. The patient is on no pressors for now. He is on aspirin and Plavix and beta- blockers. Chest ribs are in place and the patient has a mediastinal, left and right lower chest tube and there is no evidence of air leak in the chest x-ray showed no evidence of any pneumothorax.Mediastinal chest tube draining thin serosanguineous drainage with 100 mL output in the last 8 hours and 300 mL output in the last 24 hours. Left pleural chest tube draining thin serosanguineous drainage with 40 mL output in the last 8 hours and 200 mL output in the last 24 hours. Right pleural chest tube draining thin serosanguineous drainage with 70 mL output in the last 8 hours and 280 mill liters output in the last 24 hours. The patient otherwise has no complaints. He remains on insulin drip at 9 units an hour. The white cell count is at 7 with a hemoglobin 10.4 and a platelet count of 110. Electrolytes are all within normal limits. No altered mentation. Pain is under adequate control for now. Patient was seen today on 03/06/2024, patient is doing great. He remains in the ICU, however he will be an overflow in the ICU, patient was already downgraded to 3 S. On room air, not in any distress, some vague surgical type pain to the shoulders and to the chest noted. Patient is maintaining O2 sats in the 98% range, his chest tubes have been removed yesterday. Patient is in sinus rhythm, hemodynamically stable, not requiring any inotropes or any pressors. Chest x- ray showed minimal left lower lobe atelectasis and small left pleural effusion. WBC count is 6.2 hemoglobin 10.6, basic metabolic profile is normal renal profile is normal Patient was evaluated today on 03/07/2024, patient remains in the ICU, doing great, relatively asymptomatic, he is on room air, not in any distress, chest x- ray is showing left lower lobe atelectasis however clinically the patient is asymptomatic. Discharge planning is in progress, patient is to be discharged home today. Patient continues to do well with incentive spirometry. Labs today were reviewed he had a relatively normal basic metabolic profile and a relatively normal CBC Objective - Vital Signs Vital signs: Vital Signs Temp 97.6 F 03/07/24 08:00 Pulse 89 03/07/24 09:43 Resp 22 03/07/24 08:00 BP 109/65 03/07/24 08:00 Pulse Ox 98 03/07/24 09:38 FiO2 50 03/03/24 17:18 Intake & Output 03/06/24 03/07/24 03/07/24 18:59 06:59 18:59 Intake Total 1678 Output Total 875 1050 Balance 803 -1050 Weight 106.8 kg Intake: Oral 1678 Output: Urine 875 1050 Other: Voiding Method Toilet Toilet Urinal Urinal # Bowel Movements 1 ABP, PAP, CO, CI - Last Documented Arterial Blood Pressure 132/55 Pulmonary Artery Pressure 23/6 Cardiac Output 6.7 Cardiac Index 2.9 - Exam GENERAL EXAM: 69-year-old white male in no distress on room air HEAD: Normocephalic. EYES: Normal reaction of pupils, equal size. NOSE: Clear with pink turbinates. THROAT: No erythema or exudates. NECK: No masses, no JVD. CHEST: No chest wall deformity. LUNGS: Clear throughout no crackles rhonchi or wheezes CVS: Distant S1-S2, no S3 gallop. ABDOMEN: Soft nontender no megaly no rebound no guarding SKIN: No rashes CENTRAL NERVOUS SYSTEM: Alert and oriented x 3 no gross focal deficit EXTREMITIES: No clubbing edema or cyanosis - Labs CBC & Chem 7: 03/07/24 05:40 03/07/24 05:40 Labs: Abnormal Lab Results - Last 24 Hours (Table) 03/06/24 03/06/24 03/07/24 Range/Units 16:21 20:19 05:40 RBC 3.60 L (4.30-5.90) m/uL Hgb 11.0 L (13.0-17.5) gm/dL Hct 33.6 L (39.0-53.0) % Plt Count 143 L (150-450) k/uL Chloride (98-107) mmol/L Carbon Dioxide (22-30) mmol/L BUN (9-20) mg/dL Glucose (74-99) mg/dL POC Glucose (mg/dL) 125 H 130 H (70-110) mg/dL 03/07/24 03/07/24 Range/Units 05:40 06:22 RBC (4.30-5.90) m/uL Hgb (13.0-17.5) gm/dL Hct (39.0-53.0) % Plt Count (150-450) k/uL Chloride 109 H (98-107) mmol/L Carbon Dioxide 18 L (22-30) mmol/L BUN 29 H (9-20) mg/dL Glucose 100 H (74-99) mg/dL POC Glucose (mg/dL) 113 H (70-110) mg/dL Assessment and Plan Assessment: Impression:POD #4 off pump coronary artery bypass grafting x 6. Left internal thoracic artery (in-situ) sequential to second diagonal artery and left anterior descending coronary artery. Left radial artery from aorta sequential to ramus intermedius and obtuse marginal artery #1. Reverse saphenous vein graft from aorta sequential to posterior descending and postero-lateral coronary arteries, Postthoracotomy, extubated without any major difficulties and the patient is currently on room air oxygen and chest is all in place Former smoker, FEV1 value 3.13 L / 83% of predicted Hypertension Obstructive sleep apnea, utilizing his home CPAP History of prostate cancer status post radiation Coronary artery disease with a recent ST elevation myocardial infarction and PCI Mild to moderate aortic stenosis Dyslipidemia Ex-smoker preoperative FEV1 83% Postoperative acute blood loss anemia, expected Postoperative atelectasis/expected Recommendation: Agree with discharge planning if cleared by cardiothoracic surgery today. Continue maximal medical therapy including aspirin, statin, Plavix, beta- blockers Continue incentive spirometry Continue GI DVT prophylaxis Will continue to follow, unless discharged home today Time with Patient: Less than 30
[2024-03-07 13:05] VITALS: BP 109/73; RESP 18
--- NOTE | 2024-03-07 13:21 | P.DS ---
Providers Date of admission: 02/24/24 19:48 Expected date of discharge: 03/07/24 Attending physician: Craig Boston MD Consults: 02/24/24 19:46 Consult Physician Urgent Consulting Provider: Sidney Bella Consult Reason/Comments: CP,stevenSTEMI Do you want consulting provider notified?: Yes 02/25/24 14:48 Consult Physician Routine Consulting Provider: Casimiro Hay Consult Reason/Comments: Eval. for CABG Do you want consulting provider notified?: Yes 02/26/24 11:27 Consult Physician Routine Consulting Provider: Rusty Padilla Consult Reason/Comments: preop clearance Do you want consulting provider notified?: Already Contacted 03/02/24 16:05 Consult to Anesthesia Routine Consulting Provider: Anesthesia,Services Consult Reason/Comments: Cardiac Surgery Pre-Op 03/03/24 14:18 Consult Physician Routine Consulting Provider: Therese Eugene Consult Reason/Comments: med mgmt Do you want consulting provider notified?: Already Contacted Primary care physician: Domingo Espino [facility] Course: FINAL DIAGNOSIS: Chest pain, non-STEMI this admission, status post 6 vessel off-pump coronary artery bypass grafting surgery Coronary artery disease with recent STEMI and PCI Mild to moderate aortic stenosis Hypertension Hyperlipidemia, treated, cholesterol 123, LDL 56 Diabetes, hemoglobin A1c 5.6% Obstructive sleep apnea with home CPAP unit Prostate cancer Previous tobacco dependence, preoperative FEV1 83% of predicted Family history of coronary artery disease Postoperative acute blood loss anemia, expected PRINCIPAL PROCEDURE: 1. Off pump coronary artery bypass grafting x 6. Left internal thoracic artery (in-situ) sequential to second diagonal artery and left anterior descending coronary artery. Left radial artery from aorta sequential to ramus intermedius and obtuse marginal artery #1. Reverse saphenous vein graft from aorta sequential to posterior descending and postero-lateral coronary arteries. 2. Left atrial appendage ligation using #35mm AtriClip 3. Endoscopic left radial and left greater saphenous vein harvest 4. Insertion of right common femoral arterial line using ultrasound guided micropuncture technique. 5. Graft flow measurements using the Medi-Stim graft flow meter system 6. Intraoperative transesophageal echocardiogram completed by anesthesia HISTORY OF PRESENT ILLNESS: This is a 69-year-old gentleman who follows on an outpatient basis with Dr. Domingo Espino for his primary care as well as Dr. Fletcher for his cardiology care. Recently, the patient has been experiencing some exertional dyspnea and chest pain and in May 2023 was taken for an elective heart catheterization with placement of drug-eluting stent to the PLV branch of the right coronary artery. On February 21, 2024 the patient presented to the emergency department here at [facility] with similar complaints of exertional dyspnea and chest pain and was subsequently ruled in for a STEMI, underwent another cardiac catheterization and had PCI completed to his right coronary artery on February 21, 2024 and was subsequently discharged home on February 23, 2024. The patient continued to have complaints of shortness of breath and chest pain, although his symptoms he reports were not quite as severe as previous. On February 24, 2024 the patient presented back to the emergency department here at [facility] for evaluation of chest pain. Subsequently, due to his recent complaints of shortness of breath and chest pain, and elevated troponins he was taken back to the cardiac catheterization lab, a cardiac catheterization was completed which revealed a patent stent in the distal right coronary artery, an ulcerated plaque involving the left main coronary artery with intermediate to severe disease involving the left circu mflex coronary artery and the left anterior descending coronary artery with complex lesions. Due to the patient's recent history, presenting symptoms, and findings on the cardiac catheterization a consult was placed to Dr. Craig Boston from cardiothoracic surgery for further evaluation and treatment recommendations including myocardial revascularization surgery. Dr. Boston met with the patient and his family member present at his bedside, treatment options were discussed including myocardial vascularization surgery, risks and benefits of surgery were discussed including the STS risk or and clinical frailty score, knowing and understanding the risks the patient wished to proceed with the surgical option. HOSPITAL COURSE: The patient was admitted to the hospital and on March 03, 2024, was taken to the preoperative area, prepared in the usual fashion, and subsequently taken to the operating room where Dr. Boston performed an off pump coronary artery bypass grafting x 6. Left internal thoracic artery (in-situ) sequential to second diagonal artery and left anterior descending coronary artery. Left radial artery from aorta sequential to ramus intermedius and obtuse marginal artery #1. Reverse saphenous vein graft from aorta sequential to posterior descending and postero-lateral coronary arteries. Upon completion of surgery the patient was transferred to the cardiovascular intensive care unit where he was recovered and monitored hemodynamically. He was extubated, all lines, tubes, and drips were discontinued when appropriate, and he was transferred to 3 S cardiac stepdown unit for further monitoring and rehabilitation. His oxygen was titrated down, he continued to work with physical and occupational therapy, he was tolerating oral diet, his pain was controlled, and he was ready to be discharged to home [facility] home care on postoperative day #4. He received written and verbal instruction regarding his medications, activity restrictions, signs and symptoms requiring physician notification, and follow-up appointments. Patient Condition at Discharge: Serious Plan - Discharge Summary Discharge Rx Participant: No New Discharge Prescriptions: New Aspirin 325 mg PO DAILY #30 tab Metoprolol Tartrate [Lopressor] 25 mg PO BID #60 tab amLODIPine [Norvasc] 2.5 mg PO DAILY #30 tab Clopidogrel [Plavix] 75 mg PO DAILY #30 tab Pantoprazole [Protonix] 40 mg PO AC-BRKFST #30 tab Acetaminophen Tab [Tylenol] 1,000 mg PO Q6HR PRN tab PRN Reason: Fever And/ Or Pain Continue Tamsulosin [Flomax] 0.4 mg PO DAILY cycloSPORINE 0.05% OPHTH SOLN [Restasis] 1 drop BOTH EYES Q12H Empagliflozin [Jardiance] 25 mg PO DAILY Ezetimibe [Zetia] 10 mg PO DAILY Docusate Oral Soln [Colace Oral Soln] 100 mg PO BID PRN 3 Days #60 ml PRN Reason: Constipation Atorvastatin [Lipitor] 80 mg PO HS 30 Days #30 tab prednisoLONE ACETATE 1% OPHTH [Pred Forte 1%] 1 drop BOTH EYES BID Fluticasone Nasal [place] [Flonase Nasal [place]] 1 spr EA NOSTRIL DAILY Discontinued Potassium Chloride [Klor-Con M20] 20 meq PO DAILY Aspirin [Adult Low Dose Aspirin EC] 81 mg PO DAILY #30 tab Ticagrelor [Brilinta] 90 mg PO BID #60 tab Nitroglycerin Sl Tabs [Nitrostat] 0.4 mg SL Q5M PRN PRN Reason: Chest Pain Discharge Medication List Fluticasone Nasal [place] [Flonase Nasal [place]] 1 spr EA NOSTRIL DAILY 06/04/23 [History] Tamsulosin [Flomax] 0.4 mg PO DAILY 06/04/23 [History] cycloSPORINE 0.05% OPHTH SOLN [Restasis] 1 drop BOTH EYES Q12H 06/04/23 [History] prednisoLONE ACETATE 1% OPHTH [Pred Forte 1%] 1 drop BOTH EYES BID 06/04/23 [History] Empagliflozin [Jardiance] 25 mg PO DAILY 02/21/24 [History] Ezetimibe [Zetia] 10 mg PO DAILY 02/21/24 [History] Atorvastatin [Lipitor] 80 mg PO HS 30 Days #30 tab 02/23/24 [Rx] Docusate Oral Soln [Colace Oral Soln] 100 mg PO BID PRN 3 Days #60 ml 02/23/24 [Rx] Acetaminophen Tab [Tylenol] 1,000 mg PO Q6HR PRN tab 03/07/24 [Rx] Aspirin 325 mg PO DAILY #30 tab 03/07/24 [Rx] Clopidogrel [Plavix] 75 mg PO DAILY #30 tab 03/07/24 [Rx] Metoprolol Tartrate [Lopressor] 25 mg PO BID #60 tab 03/07/24 [Rx] Pantoprazole [Protonix] 40 mg PO AC-BRKFST #30 tab 03/07/24 [Rx] amLODIPine [Norvasc] 2.5 mg PO DAILY #30 tab 03/07/24 [Rx] Follow up Appointment(s)/Referral(s): Gianni Fletcher DO [STAFF PHYSICIAN] - 03/13/24 3:45 pm Chilango Cortez NPC [Nurse Practitioner] - 03/15/24 11:00 am Rusty Padilla DO [Doctor of Osteopathic Medicine] - 03/22/24 2:45 pm Craig Boston MD [STAFF PHYSICIAN] - 03/27/24 2:00 pm Domingo Espino MD [Primary Care Provider] - 03/14/24 10:45 am [facility] Visiting Nurse, [NON-STAFF] - 1 Week Ambulatory/Diagnostic Orders: Complete Blood Count w/diff [LAB.AMB] Time Frame: 03/10/24, Facility: [facility], Location: Laboratory [facility] Comprehensive Metabolic Panel [LAB.AMB] Time Frame: 03/10/24, Facility: [facility], Location: [facility] Activity/Diet/Wound Care/Special Instructions: DISCHARGE INSTRUCTIONS: 1. No driving for 4 weeks, or until physician gives their ok. 2. The patient should sleep in their own bed, no medical bed needed. 3. Stairs are not an issue. If the bedroom is upstairs, it is advised that the patient go up at night and down in the morning for the first week. Go slowly, using handrail and take 1 step at a time. 4. JUAN hose are to be worn for 30 days post surgery or until physician discontinues. 5. Heart hugger is to be worn 100% of the time until physician discontinues.(except when showering) 6. No lifting, pushing, or pulling more than 10 pounds for 12 weeks. The physician will advise of any restriction changes. 7. The patient is expected to continue the prescribed walking program. 8. Continue pain control per as needed orders. 9. Continue with incentive spirometry and splinting/heart hugger until otherwise directed by the physician. 10. Must shower daily using liquid antibacterial soap 11. Routine sternal incision care. No powders, lotions, ointments on incisions. No dressings are necessary on incisions unless they are draining. Dermabond tape is to remain on sternal incision until surgeon follow-up. 12. Please call surgeon/[employer]IMINAL JUSTICE DEPARTMENT CHAIR for temp greater than 101 F or purulent drainage from incisions. 13. You should weigh yourself daily, record and bring log with you to follow up appointments. 14. All prescriptions given by surgeon for 30 days. Refills need to be filled through ground crew chief/primary care physician. 15. A Red armband has been placed on the patient. It should be worn for 30 days post discharge from surgery and will be removed by the cardiac surgeons. If an ER visit is necessary, please make sure the number on the Red armband is called before going to ER. 16. You have been referred to and are expected to begin Cardiac Rehab in approximately 4-6 weeks. 17. Quitting smoking is the most important step you can take to improve your health. For additional information and assistance to quit smoking, please call the [place] tobacco quit line (5-491-DSRR-NOW/ ) or online: https://www.[place].gov/[facility]/qjxs-pb-ucxrkvk/chronicdiseases/tobacco/how-to-qu it-tobacco HOME HEALTH SERVICES TO PROVIDE: RN SKILLED HOME CARE SERVICES FOR POST-OP SURGICAL PATIENTS WITH THE FOLLOWING: Coronary Artery Bypass Surgery (CABG), Mitral Valve Replacement/Repair ( MVR), Aortic Valve Replacement/Repair (AVR) RN TO CONTINUE EDUCATION FROM ``ROAD TO A HEALTH HEART PATIENT EDUCATION MANUAL (GIVEN TO PATIENT IN THE HOSPITAL) MEDICATION RECONCILIATION WITH EDUCATION NEEDED ON FIRST HOME VISIT EMPHASIZE IMPORTANCE OF WEARING BREAST SUPPORT/HEART HUGGER ENCOURAGE USE OF INCENTIVE SPIROMETER 10 X EVERY HOUR WHILE AWAKE ENCOURAGE UTILIZATION OF LOWER EXTREMITY COMPRESSION STOCKINGS/JUAN HOSE and ELEVATE LEGS ABOVE LEVEL OF HEART WHILE AT REST. ENCOURAGE AMBULATION 3-5x/day INCREASING TOLERATES, WHILE AVOIDING EXTREMES IN TEMPERATURE FREQUENCY: RN TO OPEN THE PATIENT WITHIN 24 HOURS OF DISCHARGE FROM THE HOSPITAL WITH TELEHEALTH INSTALLED AT [facility], RN TO VISIT 2-3 X A WEEK FOR 4 WEEKS ESTABLISHED BY PATIENT NEEDS. LABORATORY: CBC, CMP TO BE DRAWN ON THE THIRD DAY HOME, (RAN STAT) FAX RESULTS TO [phone]. TELEHEALTH PARAMETERS: WEIGHT: NOTIFY MD OF WEIGHT GAIN OF 2 LBS IN 24 HOURS OR 5 LBS IN ONE WEEK HR: NOTIFY MD OF HR <55 BPM OR HR>100 BPM BP: NOTIFY MD IF BP <90/55 OR BP>140/100 O2 SAT: NOTIFY MD IF PO2<93% ON ROOM AIR SEND TELEHEALTH REPORT TO FOUR H AGENT AND CARDIOVASCULAR SURGEON THE FIRST WEEK OF CARE AND THEN BI-WEEKLY. PLEASE ADDITIONALLY COMMUNICATE ANY ABNORMALS AND NEW FINDINGS TO THE SURGEONS OFFICE. Discharge Disposition: HOME WITH HOME HEALTH SERVICES
[2024-03-07 13:38] VITALS: PULSE 88
--- NOTE | 2024-03-09 10:30 | CDI ---
Documentation Clarification Form Date: 03/09/2024 10:16:59 AM From: Chantelle Dean Phone: Admit Date: 02/24/2024 07:48:00 PM Patient Name: Oliver Galdamez Visit Number: [id number] Discharge Date: 03/07/2024 03:10:00 PM ATTENTION: The Clinical Documentation Specialists (CDI) and [facility] Coding Staff appreciate your assistance in clarifying documentation. Please respond to the clarification below the line at the bottom and electronically sign. The CDI & [facility] Coding staff will review the response and follow-up if needed. Please note: Queries are made part of the Legal Health Record. If you have any questions, please contact the author of this message via ITS. Dr. Therese Eugene Your patient has an abnormal lab value: [id number] [id number]. Please clarify if there is an additional diagnosis and/or clinical significance related to this value. History/Risk Factors: 68yo, NSTEMI, STEMI <28days, thrombocytopenia, NIDDMII w neuropathy, HTN, , MR, HLD, BPH, AVB Clinical indicators: Glucose: 6/7 91 6/8 107-255 02/26 114 Hemoglobin A1C: 5.6% Treatment: Current insulin sliding scale and other home medications. Home Meds: Empagliflozin [Jardiance] 25 mg PO DAILY Is there an additional diagnosis and/or clinical significance related to the above lab result/information? [ ] NIDDMII with hyperglycemia [ x ] No additional diagnosis/Not clinically significant [ ] Other, please specify [ ] Unable to determine (Template Last Revised: October 2020) MTDD
--- NOTE | 2024-03-11 11:36 | P.PN ---
Subjective Progress Note Date: 03/07/24 68-year-old male with a PMH of recent acute STEMI on 02/20 status post PCI to RCA with moderate to severe disease of LAD and left circumflex, type II DM, hypertension, hyperlipidemia, BPH who presents to the emergency room with complaints of chest pain. The patient was discharged from the hospital yester day morning and notes that his pain suddenly started again today at around 4 PM, 4 out of 10 at maximal intensity, left-sided with radiation down into the left arm. Notes that the pain is a lot less severe than his initial episode that brought him to the hospital 4 days ago. He took multiple nitroglycerins at home with minimal relief. At time of interview, notes that the pain is a 2 out of 10, aching in nature, with no alleviating or exacerbating features and nonpleuritic. Denies experiencing nausea, vomiting, diaphoresis, or dizziness. Denies experiencing fever, chills, abdominal pain. EKG upon arrival to the emergency room revealed sinus rhythm with first-degree AV block at [address] segment depression in the precordial leads V3 to V6 with diffuse T wave inversions in inferior leads and precordial leads V5 and V6. Subsequent EKG revealed a HR of 58 but otherwise was essentially unchanged from that obtained upon arrival. Laboratory evaluation was remarkable for plate let count 141, troponin 6.860, and subsequently 9.200, chloride 109, proBNP 1430, BUN 23, creatinine 0.94 with D-dimer 0.5. 02/26/2024 Patient is seen and evaluated sitting up in bed; no specific complaints reported -Patient is status post cardiac catheterization and was found to have patent stent in the RCA with severe disease involving the left coronary system; patient is not felt to be a good candidate for PCI CABG is recommended -- Cardiothoracic surgery consulted 02/27/2024 Patient is seen and evaluated in ICU, sitting up in bedside chair. Reports no further chest pain after resuming IV nitroglycerin infusion Vital signs are reviewed and reveal temperature of 97.2, pulse 65, respiration 22 and blood pressure of 94/66 Blood work reveals WBC of 6.2, hemoglobin of 13.2 and platelet count of 130, sodium 137, potassium: 4, BUNs/creatinine of 20/0.94 and blood glucose of 91 Cardiology on board, planning to continue to wean off nitroglycerin infusion if able. Patient to remain on IV heparin. Oral antiplatelet therapy has been placed on hold till after surgery which is planned in next few days. Patient remains on statin therapy -- Continue to hold Brilinta till after surgery. Last dose was on 02/26/2024 02/28/2024 Patient is currently sitting in the chair. Awake alert and oriented. Able to walk in the room. On room air. No complaints of chest pain. No shortness of breath. No nausea vomiting abdominal pain or diarrhea. Patient is being continued on IV heparin and is also on IV nitroglycerin at 5 mg/min. Patient is tentatively scheduled for CABG on March 03, 2024. Continued on heparin and Brilinta is on hold. Laboratory data showed WBC 5.7 hemoglobin 12.7 and platelets 122 sodium 137 potassium 4.0 chloride 109 bicarb is 23 BUN 2020 creatinine 0.94 and blood sugar 100 and magnesium 1.8. Cardiac catheterization on 02/24 showed patent stent in the distal RCA. Ulcerated plaque involving the left main coronary artery with intermediate to severe disease involving the left circumflex and left anterior descending artery with complex lesions/bifurcation lesions. Current medications reviewed. 02/29/2024 Patient seen in follow-up today continues to be in the ICU with multiple medical consultations following. CT surgery evaluating the patient regarding severe coronary artery disease working up for possible CABG undergoing further testing with tentative schedule for intervention later this week. Patient is afebrile with no reports of worsening chest pain or palpitations. No reported nausea or vomiting and patient is tolerating diet. 03/01/2024 Patient is seen and evaluated today in follow-up currently sitting up in the chair with at the bedside with no issues noted. Patient denies any chest pain or shortness of breath. Patient reports has been walking multiple times in the berg and is using incentive spirometer. Scheduled tentatively for cardiac intervention on 03/03/[address] surgery. Patient is currently afebrile. 03/02/2024 Patient is seen in follow-up today remains on IV heparin with multiple medical consultations following. CT surgery following and tentatively scheduled for CABG on 03/03/2024. Patient has been up and walking and continues to walk frequently throughout the day. Encouraged incentive spirometer use. Patient will be n.p.o. at midnight and we will continue to follow CT surgery and wait for OR report. 03/03/2024 Patient is seen in follow-up early this morning scheduled to undergo CABG and is currently NPO. Patient will be transferred back to ICU postoperatively and currently awaiting surgical report. Will follow-up with the patient. 03/04/2024 Patient is in the MICU. Weaned off from the current ventilator. Currently sitting in the chair. On room air. Complains of chest pain mainly in the incision site. Requesting pain medication. No fever no chills. No nausea vomiting or abdominal pain or diarrhea. Patient does have right-sided, mediastinal and left lower chest tube in place. Patient being continued on insulin drip for better blood sugar control. Chest x-ray showed postoperative changes correlate for mild CHF with small bilateral effusion and basilar consolidation. Laboratory test showed WBC 6.9 hemoglobin 11.1 platelets 125, sodium 136 potassium 4.4 chloride 109 bicarb is 22 BUN 16 and creatinine 0.85 and blood sugar 121 liver enzymes are not elevated. Critical care team, cardiology and CV surgery is on board. 03/05/2024 Patient is currently lying in the bed comfortably. On room air. Chest pain is better today. No nausea vomiting abdominal pain or diarrhea. Mediastinal, right and left chest tubes in place. Chest x-ray showed stable exam. Laboratory data showed WBC 7.0 hemoglobin 10.4 and platelets 110, sodium 137 potassium 4.6 and chloride 110 bicarb is 23 BUN 17 and creatinine 1.02 and blood sugar 111 chloride is not elevated. Patient is being continued on aspirin and statins, Plavix, Zetia, and metoprolol. Patient remains on insulin drip which is being changed to subcu insulin. 03/06/2024 Patient is seen in follow-up today currently feeling well and is a downgrade out of the ICU. Patient has been up and walking and reports possibly going home in the next day or 2. Patient chest x-ray today shows cardiomegaly with left lower lobe infiltrate correlate for atelectasis and pneumonia with a small left pleural effusion that may be present, findings have improved. Encouraged incentive spirometer use at least 10 times every hour while awake and patient has been extremely compliant. Blood sugars being monitored and will continue current regimen of low-dose long-acting twice daily along with sliding scale. Patient is afebrile denies chest pain or any worsening shortness of breath. Patient currently 98% on room air. 03/07/2024 Patient is seen in follow-up today feeling well working on discharge planning. Blood sugars have been well-controlled and patient normally takes metformin in the outpatient setting. Patient was on Jardiance with his primary care provider although unable to afford and blood sugars were well-controlled recommending taking just 1. Patient will continue on 500 mg of metformin daily and this was confirmed with his primary care provider's office. Patient does have a schedule d follow-up appointment this week. Patient is afebrile with no reports of chest pain or shortness of breath. Patient has been up and walking multiple times and reports to feeling well and anxious to go home. Patient is medically stable for discharge home once cleared by CT surgery. Review of systems: Constitutional: No reports of fatigue, fever, or chills Cardiovascular: No reports of chest pain or palpitations, reports some minimal chest wall tenderness Respiratory: No reports of worsening shortness of breath or cough GI: No reports of nausea, vomiting, or diarrhea : No reports of dysuria or retention Neurovascular: No reports of weakness or numbness All medications have been reviewed PHYSICAL EXAMINATION: Patient is in the chair, no acute distress, awake alert and oriented.. Well- developed, elderly appearing HEENT: Normocephalic. Neck is supple. Pupils reactive. Nostrils clear. Oral cavity is moist. Neck reveals no JVD, carotid bruits, or thyromegaly. CHEST EXAMINATION: Trachea is central. Symmetrical expansion. Bibasilar diminished sounds. No wheezing or rhonchi. Chest tubes have been removed and patient is on room air on exam CARDIAC: Normal S1, S2 with no gallops. No murmurs ABDOMEN: Soft. Bowel sounds normal. No organomegaly. No abdominal bruits. Extremities: reveal no edema. No clubbing or cyanosis Neurologically awake, alert, oriented x3 with well-coordinated movements. No focal deficits noted Skin: No rash or skin lesions. Psychiatric: Cooperative. Non-suicidal Musculoskeletal: No joint swelling or deformity. Normal range of motion. Assessment: 1. Acute Non-ST elevated IA with elevated troponins. Status postcardiac catheterization showed patent stent in the distal RCA. Ulcerated plaque involving the left main coronary artery with intermediate to severe disease involving the left circumflex and left anterior descending artery with complex lesions/bifurcation lesions. Status post CABG on 03/03/2024 2. Recent acute inferior ST elevated IA status post emergent catheterization and PCI of the RCA, mild to moderate disease involving the left coronary system 3. Hypertension 4. Hyperlipidemia 5. Diabetes mellitus type 2, [id number] 6. Obstructive sleep apnea on CPAP 7. mild to moderate aortic stenosis 8. History of prostate cancer 9. Prior history of smoking 10. Family history of coronary artery disease GI prophylaxis DVT prophylaxis Full code Plan: Patient is s/p CABG. Patient was extubated successfully currently on room air. Chest tubes have been removed and showing some improvement on chest x-ray. Enco uraged incentive spirometer use at least 10 times every hour while awake Continue with aspirin Plavix statin and metoprolol and other medications. Current pain management Continue monitoring Accu-Cheks before meals and at bedtime and will use sliding scale, low-dose long-acting added and blood sugars are well-controlled at this time Plan is for discharge this afternoon. Discussed with primary team regarding diabetic agents and patient had been on Jardiance as well as metformin although in the outpatient setting had only been taking metformin daily and this was discussed with his primary care provider. Confirmed that patient is taking metformin 500 mg daily with primary care office and Jardiance will be discontinued. Patient instructed to continue with heart healthy diabetic diet and continue to monitor blood sugars and keep a diary for primary care follow-up Due to multiple complex medical issues, overall prognosis is guarded We will continue to follow with CT surgery during hospitalization. Thank you kindly for this consultation. Patient is medically stable for discharge once cleared by CT surgery The impression and plan of care has been dictated by Shanda Sequeira, Nurse Practitioner as directed. Dr. Francisco MD I have performed a history and examination and MDM of this patient, discussed the same with the dictator, and agree with the dictator's assessment and plan as written ,documented as a scribe. Based on total visit time, I have performed more than 50% of the visit. Objective - Vital Signs Vital signs: Vital Signs Temp 97.6 F 03/07/24 08:00 Pulse 88 03/07/24 13:37 Resp 18 03/07/24 12:00 BP 109/73 03/07/24 12:00 Pulse Ox 96 03/07/24 12:00 FiO2 50 03/03/24 17:18 Intake & Output 03/06/24 03/07/24 03/07/24 18:59 06:59 18:59 Intake Total 1678 450 Output Total 875 1050 650 Balance 803 -1050 -200 Weight 106.8 kg Intake: Oral 1678 450 Output: Urine 875 1050 650 Other: Voiding Method Toilet Toilet Urinal Urinal # Bowel Movements 1 1 ABP, PAP, CO, CI - Last Documented Arterial Blood Pressure 132/55 Pulmonary Artery Pressure 23/6 Cardiac Output 6.7 Cardiac Index 2.9 - Labs CBC & Chem 7: 03/07/24 05:40 03/07/24 05:40 Labs: Abnormal Lab Results - Last 24 Hours (Table) 03/06/24 03/06/24 03/07/24 Range/Units 16:21 20:19 05:40 RBC 3.60 L (4.30-5.90) m/uL Hgb 11.0 L (13.0-17.5) gm/dL Hct 33.6 L (39.0-53.0) % Plt Count 143 L (150-450) k/uL Chloride (98-107) mmol/L Carbon Dioxide (22-30) mmol/L BUN (9-20) mg/dL Glucose (74-99) mg/dL POC Glucose (mg/dL) 125 H 130 H (70-110) mg/dL 03/07/24 03/07/24 Range/Units 05:40 06:22 RBC (4.30-5.90) m/uL Hgb (13.0-17.5) gm/dL Hct (39.0-53.0) % Plt Count (150-450) k/uL Chloride 109 H (98-107) mmol/L Carbon Dioxide 18 L (22-30) mmol/L BUN 29 H (9-20) mg/dL Glucose 100 H (74-99) mg/dL POC Glucose (mg/dL) 113 H (70-110) mg/dL
== END 2024-03-07 15:10 | disposition home health service (06) | DRG 234 ==
LOC: EC 17:35 → 3SCARD 19:48 → 2SICU 02-25 14:43 → 3SCARD 03-01 13:37 → 2SICU 03-03 06:15
PROVIDERS: ADMIT Thoracic Surgery (Cardiothoracic Vascular Surgery); ATTEND Thoracic Surgery (Cardiothoracic Vascular Surgery)
PROC: B2111ZZ Fluoroscopy of Multiple Coronary Arteries using Low Osmolar Contrast (ICD-10-PCS; 2024-02-25)
PROC: 4A023N7 Measurement of Cardiac Sampling and Pressure, Left Heart, Percutaneous Approach (ICD-10-PCS; 2024-02-25 11:00)
PROC: 06BQ4ZZ Excision of Left Saphenous Vein, Percutaneous Endoscopic Approach (ICD-10-PCS; 2024-03-03)
PROC: 03BC4ZZ Excision of Left Radial Artery, Percutaneous Endoscopic Approach (ICD-10-PCS; 2024-03-03)
PROC: 4A0305C Measurement of Arterial Flow, Coronary, Open Approach (ICD-10-PCS; 2024-03-03)
PROC: 02HQ32Z Insertion of Monitoring Device into Right Pulmonary Artery, Percutaneous Approach (ICD-10-PCS; 2024-03-03)
PROC: 4A133B3 Monitoring of Arterial Pressure, Pulmonary, Percutaneous Approach (ICD-10-PCS; 2024-03-03)
PROC: 4A1239Z Monitoring of Cardiac Output, Percutaneous Approach (ICD-10-PCS; 2024-03-03)
PROC: 021109W Bypass Coronary Artery, Two Arteries from Aorta with Autologous Venous Tissue, Open Approach (ICD-10-PCS; principal; 2024-03-03 08:00)
PROC: 02110ZC Bypass Coronary Artery, Two Arteries from Thoracic Artery, Open Approach (ICD-10-PCS; 2024-03-03 08:00)
PROC: 02110AW Bypass Coronary Artery, Two Arteries from Aorta with Autologous Arterial Tissue, Open Approach (ICD-10-PCS; 2024-03-03 08:00)
DX: I21.4 Non-ST elevation (NSTEMI) myocardial infarction (principal); D62 Acute posthemorrhagic anemia; D69.6 Thrombocytopenia, unspecified; E11.42 Type 2 diabetes mellitus with diabetic polyneuropathy; I21.19 ST elevation (STEMI) myocardial infarction involving other coronary artery of inferior wall; I25.119 Atherosclerotic heart disease of native coronary artery with unspecified angina pectoris; I11.9 Hypertensive heart disease without heart failure; I08.0 Rheumatic disorders of both mitral and aortic valves; K59.00 Constipation, unspecified; N40.0 Benign prostatic hyperplasia without lower urinary tract symptoms; E78.5 Hyperlipidemia, unspecified; I44.0 Atrioventricular block, first degree; G47.33 Obstructive sleep apnea (adult) (pediatric); Z87.891 Personal history of nicotine dependence; Z79.02 Long term (current) use of antithrombotics/antiplatelets; Z79.82 Long term (current) use of aspirin; Z79.84 Long term (current) use of oral hypoglycemic drugs; Z79.899 Other long term (current) drug therapy; Z92.3 Personal history of irradiation; Z85.46 Personal history of malignant neoplasm of prostate; Z85.828 Personal history of other malignant neoplasm of skin; Z91.041 Radiographic dye allergy status; Z95.5 Presence of coronary angioplasty implant and graft; Z82.49 Family history of ischemic heart disease and other diseases of the circulatory system
CPT/HCPCS: 36415; 71045; 71046; 71250; 76937; 80048; 80053; 80061; 80074; 81003; 82330; 82805; 83036; 83735; 83880; 84100; 84443; 84484; 85025; 85027; 85379; 85610; 85730; 86850; 86900; 86901; 86920; 87070; 93005; 93308; 93458; 93880; 93970; 94002; 94150; 94640; 94760; 96365; 96366; 96375; 99291

== ENCOUNTER 2024-10-14 05:10 | Observation (INO) | payer MEDICARE ==
[2024-10-14 05:52] LABS: Basophils # (A) 0.1 k/uL (0-0.2); Basophils % (A) 1 %; Eosinophils # (A) 0.3 k/uL (0-0.7); Eosinophils % (A) 4 %; HGB 14.3 gm/dL (13.0-17.5); Lymphocytes # (A) 1.3 k/uL (1.0-4.8); Lymphocytes % (A) 17 %; MCH 31.2 pg (25.0-35.0); MCV 91.8 fL (80.0-100.0); Mean Platelet Volume 7.4; Monocytes # (A) 0.5 k/uL (0-1.0); Monocytes % (A) 7 %; Neutrophils # (A) 5.2 k/uL (1.3-7.7); Neutrophils % (A) 69 %; Platelet Count 143 k/uL (150-450); RBC 4.58 m/uL (4.30-5.90); RDW 13.6 % (11.5-15.5); WBC 7.6 k/uL (3.8-10.6)
[2024-10-14 05:56] LABS: INR 0.9 (<1.2); Partial Thromboplastin Time 22.8 sec (22.0-30.0); Prothrombin Time 10.2 sec (10.0-12.5)
[2024-10-14 06:15] LABS: Carbon Dioxide 25 mmol/L (22-30); Chloride 104 mmol/L (98-107); Glucose 104 mg/dL (74-99); Potassium 4.6 mmol/L (3.5-5.1); Sodium 140 mmol/L (137-145)
[2024-10-14 06:16] LABS: ALT 27 U/L (4-49); AST 24 U/L (17-59); African American GFR (CKD) 76 (>60 ml/min/1.73 sqM); Albumin 4.5 g/dL (3.5-5.0); Alkaline Phosphatase 96 U/L (38-126); Anion Gap 11 mmol/L; Blood Urea Nitrogen 22 mg/dL (9-20); Calcium 9.7 mg/dL (8.4-10.2); Lipase 187 U/L (23-300); Magnesium 2.3 mg/dL (1.6-2.3); Non-African American GFR(CKD) 66 (>60 ml/min/1.73 sqM); Total Bilirubin 0.6 mg/dL (0.2-1.3)
[2024-10-14 06:21] LABS: NT-Pro-B-Type Natriuretic Pept 365 pg/mL
--- NOTE | 2024-10-14 07:00 | XR ---
Chest, 2 view. HISTORY: Chest pain COMPARISON: 03/07/2024 TECHNIQUE: PA and lateral views the chest are obtained. FINDINGS: There are mild chronic interstitial changes in the left lung base. There is no airspace consolidation .. There is no pleural effusion or pneumothorax. The heart, pulmonary vasculature, mediastinum and martin appear normal. There are postsurgical changes of CABG surgery. The osseous structures are intact. IMPRESSION: Postsurgical changes and mild chronic changes in left lung base. No acute cardiopulmonary disease. [facility], , 10/14/2024 6:58 AM
--- NOTE | 2024-10-14 08:08 | ED ---
Chest Pain HPI - General Chief Complaint: Chest Pain Stated Complaint: Chest Pain Time Seen by Provider: 10/14/24 05:20 Source: patient Mode of arrival: ambulatory Limitations: no limitations - History of Present Illness Initial Comments: 69-year-old male with past medical history of coronary disease status post bypass x 6 who presents to the emergency department with chest pain. States that he has a burning, pressure sensation in the central portion of his chest with radiation into his arm. States that he has had the pain for a couple of days. He is getting more constant and severe. He did have bypass surgery last February. He follows with Dr. Fletcher. He saw Chance last week who completed an echo. Found that the patient's EF is low. He told the patient he had to have a nuclear stress test due to these concerning findings. Patient is scheduled to have this on November 03. Patient denies any shortness of breath. No fevers. Does admit to some redness to the top part of his sternum. Patient did have a postop infection of his chest wall which required antibiotics. He denies cough. No numbness, tingling or weakness in his extremities. He did take a nitro but states it did not help his pain at all. No other alleviating, precipitating or modifying factors - Related Data Home Medications Medication Instructions Recorded Confirmed Fluticasone Nasal [place] [Flonase 1 spr EA NOSTRIL DAILY 06/04/23 02/24/24 Nasal [place]] Tamsulosin [Flomax] 0.4 mg PO DAILY 06/04/23 02/24/24 cycloSPORINE 0.05% OPHTH SOLN 1 drop BOTH EYES Q12H 06/04/23 02/24/24 [Restasis] prednisoLONE ACETATE 1% OPHTH 1 drop BOTH EYES BID 06/04/23 02/24/24 [Pred Forte 1%] Empagliflozin [Jardiance] 25 mg PO DAILY 02/21/24 02/24/24 Ezetimibe [Zetia] 10 mg PO DAILY 02/21/24 02/24/24 Previous Rx's Medication Instructions Recorded Atorvastatin [Lipitor] 80 mg PO HS 30 Days #30 tab 02/23/24 Docusate Oral Soln [Colace Oral 100 mg PO BID PRN 3 Days #60 ml 02/23/24 Soln] Acetaminophen Tab [Tylenol] 1,000 mg PO Q6HR PRN tab 03/07/24 Aspirin 325 mg PO DAILY #30 tab 03/07/24 Clopidogrel [Plavix] 75 mg PO DAILY #30 tab 03/07/24 Metoprolol Tartrate [Lopressor] 25 mg PO BID #60 tab 03/07/24 Pantoprazole [Protonix] 40 mg PO AC-BRKFST #30 tab 03/07/24 amLODIPine [Norvasc] 2.5 mg PO DAILY #30 tab 03/07/24 metFORMIN HCL 500 mg PO DAILY #30 tablet 03/07/24 traMADol HCl [Ultram] 50 mg PO Q4HR PRN 3 Days #18 tab 03/09/24 traMADol HCL 50 mg PO Q6H #28 tab 03/15/24 Cephalexin [Keflex] 500 mg PO Q8HR 7 Days #21 cap 03/27/24 traMADol HCL 50 mg PO Q6H PRN #20 tab 03/29/24 Allergies Allergy/AdvReac Type Severity Reaction Status Date / Time Iodinated Contrast Media Allergy Severe Swelling Verified 10/14/24 05:22 Review of Systems ROS Statement: Those systems with pertinent positive or pertinent negative responses have been documented in the HPI. ROS Other: All systems not noted in ROS Statement are negative. Past Medical History Past Medical History: Cancer, Hypertension, Prostate Disorder, Sleep Apnea/CPAP/BIPAP Additional Past Medical History / Comment(s): HEART MURMUR. RENAL CALCULI. PROSTATE CA. SKIN CA. PERIPHERAL NEUROPATHY. CORNEAL DYSTROPHY. BACK PAIN History of Any Multi-Drug Resistant Organisms: None Reported Past Surgical History: Coronary Bypass/CABG, Heart Catheterization Additional Past Surgical History / Comment(s): SEBASTIAN. CATARACATS REM. PAIN CLINIC INJECTIONS. SKIN CANCER REMOVAL FROM NOSE. GABG February 2024 Past Anesthesia/Blood Transfusion Reactions: No Reported Reaction Date of Last Stent Placement:: 02/21/24 Past Psychological History: No Psychological Hx Reported Smoking Status: Former smoker Past Alcohol Use History: None Reported Past Drug Use History: None Reported - Past Family History Mother Family Medical History: Diabetes Mellitus, Myocardial Infarction ([place]) Additional Family Medical History / Comment(s): Stent to PLV May 2023, Stent to distal RCA 02/21/2024 Sister(s) Family Medical History: Coronary Artery Disease (CAD), Myocardial Infarction ([place]) Additional Family Medical History / Comment(s): DOUBLE BYPASS SURGERY General Exam Limitations: no limitations General appearance: alert, in no apparent distress Head exam: Present: atraumatic, normocephalic, normal inspection Eye exam: Present: normal appearance, PERRL, EOMI. Absent: scleral icterus, conjunctival injection, periorbital swelling ENT exam: Present: normal exam, mucous membranes moist Neck exam: Present: normal inspection. Absent: tenderness, meningismus, lymphadenopathy Respiratory exam: Present: normal lung sounds bilaterally. Absent: respiratory distress, wheezes, rales, rhonchi, stridor Cardiovascular Exam: Present: regular rate, normal rhythm, normal heart sounds. Absent: systolic murmur, diastolic murmur, rubs, gallop, clicks GI/Abdominal exam: Present: soft, normal bowel sounds. Absent: distended, tenderness, guarding, rebound, rigid Extremities exam: Present: normal inspection, full ROM, normal capillary refill. Absent: tenderness, pedal edema, joint swelling, calf tenderness Back exam: Present: normal inspection Neurological exam: Present: alert, oriented X3, CN II-XII intact Psychiatric exam: Present: normal affect, normal mood Skin exam: Present: warm, dry, intact, normal color. Absent: rash Course Vital Signs 10/14/24 10/14/24 10/14/24 05:17 05:20 07:59 Temperature 97.8 F Pulse Rate 61 56 L Pulse Rate [ 61 Engineer First Assistant ] Respiratory 18 18 Rate Blood Pressure 128/81 113/70 O2 Sat by Pulse 97 97 Oximetry Chest Pain MDM - MDM Was pt. sent in by a medical professional or institution (, PA, [facility] [employer] [facility], urgent care, hospital, or [facility]...) When possible be specific @ -[No] Did you speak to anyone other than the patient for history (EMS, parent, family, police, friend...)? What history was obtained from this source @ -[No] Did you review nursing and triage notes (agree or disagree)? Why? @ -[I reviewed and agree with nursing and triage notes] Were old charts reviewed (outside hosp., previous admission, EMS record, old EKG, old radiological studies, urgent care reports/EKG's, [facility] records)? Report findings @ -[No old charts were reviewed] Differential Diagnosis (chest pain, altered mental status, abdominal pain women, abdominal pain men, vaginal bleeding, weakness, fever, dyspnea, syncope, headache, dizziness, GI bleed, back pain, seizure, CVA, palpatations, mental health, musculoskeletal)? @ -[not applicable] EKG interpreted by me (3pts min.). @ -Yes and demonstrates sinus rhythm with a rate of 60. MO interval 277. QRS 125. QTc of 414. Patient has Q wave in lead III with some mild ST depression V3 through V6. X-rays interpreted by me (1pt min.). @ -[None done] CT interpreted by me (1pt min.). @ -[None done] U/S interpreted by me (1pt. min.). @ -[None done] What testing was considered but not performed or refused? (CT, X-rays, U/S, labs)? Why? @ -[None] What meds were considered but not given or refused? Why? @ -[None] Did you discuss the management of the patient with other professionals (professionals i.e. , PA, [employer], lab, RT, psych nurse, protective services social worker, hair stylist, teacher, quarantine officer, patient case manager)? Give summary @ -[No] Was smoking cessation discussed for >3mins.? @ -[No] Was critical care preformed (if so, how long)? @ -[No] Were there social determinants of health that impacted care today? How? (Homelessness, low income, unemployed, alcoholism, drug addiction, trans portation, low edu. Level, literacy, decrease access to med. care, care home, rehab)? @ -[No] Was there de-escalation of care discussed even if they declined (Discuss DNR or withdrawal of care, Hospice)? DNR status @ -[No] What co-morbidities impacted this encounter? (DM, HTN, Smoking, COPD, CAD, Cancer, CVA, ARF, Chemo, Hep., AIDS, mental health diagnosis, sleep apnea, morbid obesity)? @ -[None] Was patient admitted / discharged? Hospital course, mention meds given and route, prescriptions, significant lab abnormalities, going to OR and other pertinent info. @ -[hospital course] Undiagnosed new problem with uncertain prognosis? @ -[No] Drug Therapy requiring intensive monitoring for toxicity (Heparin, Nitro, Insulin, Cardizem)? @ -[No] Were any procedures done? @ -[No] Diagnosis/symptom? @ -[default] Acute, or Chronic, or Acute on Chronic? @ -[default] Uncomplicated (without systemic symptoms) or Complicated (systemic symptoms)? @ -[default] Side effects of treatment? @ -[No] Exacerbation, Progression, or Severe Exacerbation? @ -[No] Poses a threat to life or bodily function? How? (Chest pain, [place], [place], pneumonia, PE, COPD, DKA, ARF, appy, cholecystitis, CVA, Diverticulitis, Homicidal, Suicidal, threat to staff... and all critical care pts) @ -[No] Disposition Clinical Impression: Chest pain Disposition: ADMITTED IP TO THIS [facility] Condition: Stable Is patient prescribed a controlled substance at d/c from ED?: No Referrals: Domingo Espino MD [Primary Care Provider] - 1-2 days Time of Disposition: 08:11 Decision to Admit Reason: Admit from EC Decision Date: 10/14/24 Decision Time: 08:11
[2024-10-14] MEDS ORDERED: NALOXONE 0.4 MG/ML 1 ML VIAL IV PRN (08:11)
[2024-10-14] MEDS: ASPIRIN 81 MG PO STA (08:18)
--- NOTE | 2024-10-14 09:26 | P.GSCN ---
History of Present Illness Consult date: 10/14/24 Reason for Consult: Sternal pain Requesting physician: Sonal Ahuja History of present illness: This is a 69-year-old gentleman who follows outpatient with Dr. Domingo Espino for primary care and Dr. Fletcher for cardiology. He has a previous medical history of coronary artery disease with previous STEMI followed by PCI as well as non-STEMI status post 6 vessel off-pump CABG, mild to moderate aortic stenosis, hypertension, hyperlipidemia, diabetes, obstructive sleep apnea with home CPAP use, prostate cancer, previous tobacco dependence, family history of coronary artery disease. He underwent 6 vessel off-pump CABG in February 2024, and his recovery was uneventful and he was discharged to home on postop day #4. He had been recovering nicely at home, has followed up with all of his physicians. Apparently recently he has been experiencing increased chest pain. He was seen last week by Dr. Fletcher who performed an echocardiogram, results unavailable but reportedly the patient had a lower ejection fraction which was concerning. The patient was recommended to undergo stress testing which has been scheduled for November 03. Apparently he is continue to have what he describes is pain in his sternum. He denies any fever, denies any purulent drainage. He does state that sometimes with heavy lifting it does feel like the bone is moving. He presented to [facility] emergency room for evaluation and treatment. Chest x-ray revealed postsurgical changes, chronic changes in the left lung base , no acute cardiopulmonary process, sternal wires appear intact. Lab work revealed normal WBC 7.6, hemoglobin 14.3, creatinine 1.14, troponin negative, BNP 365. Consultation was placed to cardiothoracic surgery by the emergency room physicians. Review of Systems Review of systems was completed and was negative except as noted - Cardiovascular Reports chest pain Past Medical History Past Medical History: Coronary Artery Disease (CAD), Cancer, Chest Pain / Angina, Diabetes Mellitus, Hyperlipidemia, Hypertension, Myocardial Infarction ([place]), Prostate Disorder, Sleep Apnea/CPAP/BIPAP Additional Past Medical History / Comment(s): Mild to moderate aortic stenosis. RENAL CALCULI. PROSTATE CA. SKIN CA. PERIPHERAL NEUROPATHY. CORNEAL DYSTROPHY. BACK PAIN History of Any Multi-Drug Resistant Organisms: None Reported Past Surgical History: Coronary Bypass/CABG, Heart Catheterization Additional Past Surgical History / Comment(s): SEBASTIAN. CATARACATS REM. PAIN CLINIC INJECTIONS. SKIN CANCER REMOVAL FROM NOSE. 6 vessel off-pump CABG February 2024 Past Anesthesia/Blood Transfusion Reactions: No Reported Reaction Date of Last Stent Placement:: 02/21/24 Past Psychological History: No Psychological Hx Reported Smoking Status: Former smoker Past Alcohol Use History: None Reported Past Drug Use History: None Reported - Past Family History Mother Family Medical History: Diabetes Mellitus, Myocardial Infarction ([place]) Additional Family Medical History / Comment(s): Stent to PLV May 2023, Stent to distal RCA 02/21/2024 Sister(s) Family Medical History: Coronary Artery Disease (CAD), Myocardial Infarction ([place]) Additional Family Medical History / Comment(s): DOUBLE BYPASS SURGERY Medications and Allergies Home Medications Medication Instructions Recorded Confirmed Type Fluticasone Nasal [place] [Flonase 2 spr EA NOSTRIL HS 06/04/23 10/14/24 History Nasal [place]] Tamsulosin [Flomax] 0.4 mg PO DAILY 06/04/23 10/14/24 History cycloSPORINE 0.05% OPHTH SOLN 1 drop BOTH EYES Q12H 06/04/23 10/14/24 History [Restasis] prednisoLONE ACETATE 1% OPHTH 1 drop BOTH EYES DAILY 06/04/23 10/14/24 History [Pred Forte 1%] Ezetimibe [Zetia] 10 mg PO DAILY 02/21/24 10/14/24 History Atorvastatin [Lipitor] 80 mg PO HS 30 Days #30 tab 02/23/24 10/14/24 Rx Clopidogrel [Plavix] 75 mg PO DAILY #30 tab 03/07/24 10/14/24 Rx Metoprolol Tartrate [Lopressor] 25 mg PO BID #60 tab 03/07/24 10/14/24 Rx amLODIPine [Norvasc] 2.5 mg PO DAILY #30 tab 03/07/24 10/14/24 Rx metFORMIN HCL 500 mg PO DAILY #30 tablet 03/07/24 10/14/24 Rx Acetaminophen Tab [Tylenol] 650 mg PO Q6H PRN 10/14/24 10/14/24 History Aspirin EC [Ecotrin Low Dose] 81 mg PO DAILY 10/14/24 10/14/24 History Losartan [Cozaar] 25 mg PO DAILY 10/14/24 10/14/24 History Nitroglycerin Sl Tabs [Nitrostat] 0.4 mg SL Q5M PRN 10/14/24 10/14/24 History Allergies Allergy/AdvReac Type Severity Reaction Status Date / Time Iodinated Contrast Media Allergy Severe Swelling Verified 10/14/24 08:47 face Surgical - Exam Vital Signs Temp Pulse Resp BP Pulse Ox 97.8 F 61 18 128/81 97 10/14/24 05:17 10/14/24 05:17 10/14/24 05:17 10/14/24 05:17 10/14/24 05:17 CONSTITUTIONAL: Awake and alert, appears comfortable, cooperative, well- developed, well-nourished, no pain, no acute distress EYES: Pupils equal, round, reactive to light, normal ocular movement ENT: Moist mucous membranes without oral lesions present NECK: No masses, no bruits, trachea midline RESPIRATORY: Lungs sounds clear to auscultation bilaterally. Respirations even, nonlabored. Currently on room air with oxygen saturation 97%. Strong cough. No chest wall deformities. No clubbing or cyanosis present CARDIOVASCULAR: S1, S2 present, systolic murmur present. Regular rate and rhythm, sinus rhythm on telemetry. Sternum stable. Palpable peripheral pulses bilaterally. No edema present. No calf pain or tenderness noted GASTROINTESTINAL: Abdomen soft, nontender, nondistended without masses or organomegaly noted. There is no rebound or guarding present. Active bowel sounds present 4 quadrants. GENITOURINARY: Deferred INTEGUMENTARY: Skin is warm and dry, open her incisions well-healed, no redness or drainage NEUROLOGIC: Cranial nerves II through XII intact, normal coordination, no obvious motor or sensory deficits, speech is normal MUSKULOSKELETAL: Able to move all extremities, strength equal bilaterally, normal posture PSYCHIATRIC: Alert and oriented to person place and time, appropriate affect, intact judgment and insight Results - Labs 10/14/24 05:30 10/14/24 05:30 Abnormal Lab Results - Last 24 Hours (Table) 10/14/24 10/14/24 Range/Units 05:30 05:30 Plt Count 143 L (150-450) k/uL BUN 22 H (9-20) mg/dL Glucose 104 H (74-99) mg/dL Diabetes panel 10/14/24 Range/Units 05:30 Sodium 140 (137-145) mmol/L Potassium 4.6 (3.5-5.1) mmol/L Chloride 104 (98-107) mmol/L Carbon Dioxide 25 (22-30) mmol/L BUN 22 H (9-20) mg/dL Creatinine 1.14 (0.66-1.25) mg/dL Glucose 104 H (74-99) mg/dL Calcium 9.7 (8.4-10.2) mg/dL AST 24 (17-59) U/L ALT 27 (4-49) U/L Alkaline Phosphatase 96 (38-126) U/L Total Protein 7.0 (6.3-8.2) g/dL Albumin 4.5 (3.5-5.0) g/dL Calcium panel 10/14/24 Range/Units 05:30 Calcium 9.7 (8.4-10.2) mg/dL Albumin 4.5 (3.5-5.0) g/dL Pituitary panel 10/14/24 Range/Units 05:30 Sodium 140 (137-145) mmol/L Potassium 4.6 (3.5-5.1) mmol/L Chloride 104 (98-107) mmol/L Carbon Dioxide 25 (22-30) mmol/L BUN 22 H (9-20) mg/dL Creatinine 1.14 (0.66-1.25) mg/dL Glucose 104 H (74-99) mg/dL Calcium 9.7 (8.4-10.2) mg/dL Adrenal panel 10/14/24 Range/Units 05:30 Sodium 140 (137-145) mmol/L Potassium 4.6 (3.5-5.1) mmol/L Chloride 104 (98-107) mmol/L Carbon Dioxide 25 (22-30) mmol/L BUN 22 H (9-20) mg/dL Creatinine 1.14 (0.66-1.25) mg/dL Glucose 104 H (74-99) mg/dL Calcium 9.7 (8.4-10.2) mg/dL Total Bilirubin 0.6 (0.2-1.3) mg/dL AST 24 (17-59) U/L ALT 27 (4-49) U/L Alkaline Phosphatase 96 (38-126) U/L Total Protein 7.0 (6.3-8.2) g/dL Albumin 4.5 (3.5-5.0) g/dL - Imaging Chest x-ray: report reviewed, image reviewed Assessment and Plan Assessment: Sternal pain History of coronary artery disease with previous STEMI followed by PCI as well as non-STEMI status post 6 vessel off-pump CABG Mild to moderate aortic stenosis Hypertension Hyperlipidemia Diabetes Obstructive sleep apnea with home CPAP use Prostate cancer Previous tobacco dependence Family history of coronary artery disease Plan: Upon assessment the patient remains afebrile, there is no leukocytosis, his sternal incision is well-healed without any redness or drainage, sternal bone feels intact. Chest x-ray was reviewed and closure wires are all intact. The patient does report he has been ambulating without difficulty, he does lift 1 pound weights. He has completed cardiac rehab. Will order CT scan of the chest (without contrast due to dye allergy and borderline kidney function) to rule out infection, although there is low suspicion for any infectious process in the bone. As long as CT scan does not show any significant infection recommend p atient take it easy from heavy lifting until pain is completely gone, utilize anti-inflammatories for pain control. No further surgical workup. Patient may be discharged from our standpoint when okay with cardiology. May follow-up for planned stress test with Dr. Fletcher. Discussed in great detail with Dr. Robbins. Thank you for this consult. Please call us with any further questions. I have personally seen and examined the patient, performed the documentation and the assessment and plan as written. Number of minutes spent on the visit: 30. MATT Snow
--- NOTE | 2024-10-14 09:53 | CT ---
EXAMINATION TYPE: CT chest wo con DATE OF EXAM: 10/14/2024 COMPARISON: 02/25/2024 CLINICAL INDICATION: Male, 69 years old with history of eval sternum for infection; [facility], eval sternum for infection, open heart in february 2024 TECHNIQUE: CT scan of the thorax is performed without IV contrast. CT DLP: 602.[address] CTDI: mGy Automated exposure control for dose reduction was used. FINDINGS: There is been median sternotomy with sternal wires but there is no bone destruction to suggest osteom yelitis. There are no adjacent discrete fluid collections. There is 4.6 cm dilatation of the ascending thoracic aorta. There is mild to moderate cardiomegaly. There are scattered benign lung nodules including a 5 mm groundglass nodule in the right lower lobe, and a small fissural nodule on the right and a micronodule in the left lung apex. There is no airspac e consolidation. There is no pleural effusion or pneumothorax. There is no mediastinal, hilar or axillary adenopathy. Limited scanning through the upper abdomen reveals a nonobstructing 10 mm left renal calcification. IMPRESSION: 1. No evidence of osteomyelitis of the sternum. 2. Benign lung nodules as described above. 3. 4.6 cm dilatation of the ascending thoracic aorta and mild to moderate cardiomegaly. 4. Nonobstructing 10 mm left renal calcification. 5. No acute cardiopulmonary disease. [facility], , 10/14/2024 9:50 AM
--- NOTE | 2024-10-14 10:40 | P.CRDCN ---
History of Present Illness Consult date: 10/14/24 Consult reason: chest pain History of present illness: This is a 69-year-old male patient of Dr. Fletcher with past medical history of hyperlipidemia, diabetes mellitus type 2, mild aortic stenosis with murmur, coronary artery disease status post PCI in 06/12 followed by 6 vessel CABG 03/03/2024. We have been asked to evaluate the patient for chest pain with history of ASCAD. Patient was last seen in the office on 10/11/2024 and at that time patient was doing well, walking 30 minutes/day with occasional chest soreness at incision site. He has occasional shortness of breath that was stable. Plan was to optimize heart failure regime as tolerated. Repatha was not affordable option for him. Patient did have a decrease in his EF to 35 to 40% and plan was for Lexiscan stress test to rule out new blockage. Norvasc was placed on hold and patient was started on losartan. Patient states that he is still having pain at the site of his sternal wound. It hurts when he moves his arms. He denies shortness of breath no lightheadedness or dizziness no nausea or vomiting. He states it seems to be worse this week but when he walks or goes upstairs he does not have it. He is scheduled for Lexiscan Cardiolite stress test in the office on 11/03. Discussed with patient that his enzymes and EKG are unremarkable thus far and that as long as a third troponin comes back negative, he will be cleared for discharge from cardiology. Blood pressure 107/61, heart rate 62, pulse ox 97% on room air. -EKG: Sinus rhythm with no acute changes. -Chest x-ray: Postsurgical changes and mild chronic changes in the left lung base. No acute cardiopulmonary disease. CT of the chest: No osteomyelitis of the sternum. Benign lung nodules. 4.6 cm dilatation of the ascending thoracic aorta and mild to moderate cardiomegaly. No acute cardiopulmonary disease. -Laboratory studies: Troponin negative x 2. Platelet count 143, hemoglobin 14.3, electrolytes are normal, BUN 22 creatinine 1.14. proBNP 365. -Home cardiac medications: Amlodipine 2.5 mg daily, aspirin 81 mg daily, atorvastatin 80 mg at bedtime, metoprolol tartrate 25 mg twice daily, Plavix 75 mg daily, Zetia 10 mg daily. -Echocardiogram performed in the office on 09/27/2024 revealed EF of 35 to 40%, grade 1 diastolic dysfunction, moderate concentric left ventricular hypertrophy, mild aortic regurgitation and moderate aortic stenosis, moderate mitral regurgitation, moderate tricuspid regurgitation, normal PASP. -CABG 02/24/2024 with left internal thoracic artery in situ sequential to second diagonal artery and LAD. Left radial artery from aorta sequential to ramus intermedius and obtuse marginal artery #1. Reverse saphenous vein graft from aorta sequential to posterior descending and posterior lateral coronary arteries. Review Of Systems: At the time of my exam: CONSTITUTIONAL: Denies fever or chills. HEENT: Denies blurred vision, vision changes, or eye pain. Denies hemoptysis CARDIOVASCULAR: Denies chest pain. Denies orthopnea. Denies PND. Denies palpitations RESPIRATORY: Denies shortness of breath. GASTROINTESTINAL: Denies abdominal pain. Denies nausea or vomiting. HEMATOLOGIC: Denies bleeding disorders. GENITOURINARY: Denies any blood in urine. SKIN: Denies puritis. Denies rash. Physical examination: Gen: This is a 69-year-old male in no acute distress VS: reviewed HEENT: Head is atraumatic, normocephalic. Pupils equal, round. Sclerae is anicteric. NECK: Supple. No JVD. LUNGS: Clear to auscultation. No wheezes or rhonchi. No intercostal retractions. HEART: Regular rate and rhythm. 2/6 systolic murmur. ABDOMEN: Soft No tenderness. EXTREMITIES: No pedal edema. No calf tenderness. NEUROLOGICAL: Patient is awake, alert and oriented x3. Assessment: Musculoskeletal chest pain at sternal surgical site, acute coronary syndrome ruled out Ischemic cardiomyopathy with reduction in EF recently, scheduled for Lexiscan Cardiolite stress test in the office on 11/03 Coronary artery disease with CABG 02/24/2024 Hyperlipidemia Diabetes mellitus type 2 Mild aortic stenosis with murmur Plan: Resume patient's home cardiac medications Obtain third troponin. If third troponin is negative, patient is cleared for discharge and will follow-up in the office as scheduled for Lexiscan Cardiolite stress test. Thank you kindly for this consultation. Nurse practitioner note has been reviewed, I agree with documented findings and plan of care. Patient was seen and examined. Past Medical History Past Medical History: Coronary Artery Disease (CAD), Cancer, Chest Pain / Angina, Diabetes Mellitus, Hyperlipidemia, Hypertension, Myocardial Infarction ([place]), Prostate Disorder, Sleep Apnea/CPAP/BIPAP Additional Past Medical History / Comment(s): Mild to moderate aortic stenosis. RENAL CALCULI. PROSTATE CA. SKIN CA. PERIPHERAL NEUROPATHY. CORNEAL DYSTROPHY. BACK PAIN History of Any Multi-Drug Resistant Organisms: None Reported Past Surgical History: Coronary Bypass/CABG, Heart Catheterization Additional Past Surgical History / Comment(s): SEBASTIAN. CATARACATS REM. PAIN CLINIC INJECTIONS. SKIN CANCER REMOVAL FROM NOSE. 6 vessel off-pump CABG February 2024 Past Anesthesia/Blood Transfusion Reactions: No Reported Reaction Date of Last Stent Placement:: 02/21/24 Past Psychological History: No Psychological Hx Reported Smoking Status: Former smoker Past Alcohol Use History: None Reported Past Drug Use History: None Reported - Past Family History Mother Family Medical History: Diabetes Mellitus, Myocardial Infarction ([place]) Additional Family Medical History / Comment(s): Stent to PLV May 2023, Stent to distal RCA 02/21/2024 Sister(s) Family Medical History: Coronary Artery Disease (CAD), Myocardial Infarction (AR) Additional Family Medical History / Comment(s): DOUBLE BYPASS SURGERY Medications and Allergies Home Medications Medication Instructions Recorded Confirmed Type Fluticasone Nasal [place] [Flonase 2 spr EA NOSTRIL HS 06/04/23 10/14/24 History Nasal [place]] Tamsulosin [Flomax] 0.4 mg PO DAILY 06/04/23 10/14/24 History cycloSPORINE 0.05% OPHTH SOLN 1 drop BOTH EYES Q12H 06/04/23 10/14/24 History [Restasis] prednisoLONE ACETATE 1% OPHTH 1 drop BOTH EYES DAILY 06/04/23 10/14/24 History [Pred Forte 1%] Ezetimibe [Zetia] 10 mg PO DAILY 02/21/24 10/14/24 History Atorvastatin [Lipitor] 80 mg PO HS 30 Days #30 tab 02/23/24 10/14/24 Rx Clopidogrel [Plavix] 75 mg PO DAILY #30 tab 03/07/24 10/14/24 Rx Metoprolol Tartrate [Lopressor] 25 mg PO BID #60 tab 03/07/24 10/14/24 Rx amLODIPine [Norvasc] 2.5 mg PO DAILY #30 tab 03/07/24 10/14/24 Rx metFORMIN HCL 500 mg PO DAILY #30 tablet 03/07/24 10/14/24 Rx Acetaminophen Tab [Tylenol] 650 mg PO Q6H PRN 10/14/24 10/14/24 History Aspirin EC [Ecotrin Low Dose] 81 mg PO DAILY 10/14/24 10/14/24 History Losartan [Cozaar] 25 mg PO DAILY 10/14/24 10/14/24 History Nitroglycerin Sl Tabs [Nitrostat] 0.4 mg SL Q5M PRN 10/14/24 10/14/24 History Allergies Allergy/AdvReac Type Severity Reaction Status Date / Time Iodinated Contrast Media Allergy Severe Swelling Verified 10/14/24 08:47 face Physical Exam Vitals: Vital Signs Temp Pulse Pulse Resp BP Pulse Ox 10/14/24 09:58 98.2 F 10/14/24 09:54 62 18 107/61 97 10/14/24 07:59 56 L 18 113/70 97 10/14/24 05:20 61 10/14/24 05:17 97.8 F 61 18 128/81 97 Intake and Output 10/13/24 10/14/24 10/14/24 22:59 06:59 14:59 Other: Weight 105.687 kg Results 10/14/24 05:30 10/14/24 05:30 Cardiac Enzymes 10/14/24 10/14/24 10/14/24 Range/Units 05:30 05:30 08:42 AST 24 (17-59) U/L Troponin I <0.012 <0.012 (0.000-0.034) ng/mL Coagulation 10/14/24 Range/Units 05:30 PT 10.2 (10.0-12.5) sec APTT 22.8 (22.0-30.0) sec CBC 10/14/24 Range/Units 05:30 WBC 7.6 (3.8-10.6) k/uL RBC 4.58 (4.30-5.90) m/uL Hgb 14.3 (13.0-17.5) gm/dL Hct 42.0 (39.0-53.0) % Plt Count 143 L (150-450) k/uL Comprehensive Metabolic Panel 10/14/24 Range/Units 05:30 Sodium 140 (137-145) mmol/L Potassium 4.6 (3.5-5.1) mmol/L Chloride 104 (98-107) mmol/L Carbon Dioxide 25 (22-30) mmol/L BUN 22 H (9-20) mg/dL Creatinine 1.14 (0.66-1.25) mg/dL Glucose 104 H (74-99) mg/dL Calcium 9.7 (8.4-10.2) mg/dL AST 24 (17-59) U/L ALT 27 (4-49) U/L Alkaline Phosphatase 96 (38-126) U/L Total Protein 7.0 (6.3-8.2) g/dL Albumin 4.5 (3.5-5.0) g/dL Current Medications Generic Name Dose Route Start Last Admin Trade Name Freq PRN Reason Stop Dose Admin Naloxone HCl 0.2 mg 10/14/24 08:11 Naloxone 0.4 Mg/Ml 1 Ml Vial IV Q2M PRN Opioid Reversal Intake and Output 10/13/24 10/14/24 10/14/24 22:59 06:59 14:59 Other: Weight 105.687 kg 10/14/24 05:30 10/14/24 05:30
[2024-10-14 12:10] VITALS: BP 117/68; PULSE 60; RESP 17; TEMP 97.7
--- NOTE | 2024-10-14 12:50 | P.HPIM ---
History of Present Illness H&P Date: 10/14/24 History of present illness; patient is a 69-year-old gentleman past medical history significant for coronary artery disease status post 6 vessel off-pump CABG, mild to moderate aortic stenosis, hypertension, hyperlipidemia, diabetes, obstructive sleep apnea with home CPAP use, prostate cancer, previous tobacco dependence presented the ER because of chest pain. Patient stated that he was all right couple of days back when he started noticing chest pain,chest pain was pressure-like sensation, burning in nature, radiating to his left arm, no aggravating or relieving factor associated with this chest pain. Chest pain was intermittent, but has been increasing in severity and intensity. there was no complaint of orthopnea or PND. There was no complaint of shortness of breath at that time. There was no episode of diaphoresis during this episode of chest pain. Because of the chest pain, patient came to the ER Initial lab work done in the ER showed WBC of 40, hemoglobin 14.3, platelet cou nt 143, sodium 140, potassium 4.6, BUN 22, creatinine 1.14, glucose 104, troponin 0.012 EKG done in the ER showed heart rate of 60 , no ST segment elevation or depression seen, no T-wave inversions seen. Chest x-ray done in the ER showed postsurgical changes and mild chronic change in the left lung base CT chest done showed no evidence of osteomyelitis. Benign lung nodules. 4.6 cm dilatation of the ascending thoracic aorta. Patient admitted to internal medicine service REVIEW OF SYSTEMS: CONSTITUTIONAL: No fever, no malaise, no fatigue. HEENT: No recent visual problems or hearing problems. Denied any sore throat. CARDIOVASCULAR: As mentioned above PULMONARY: As mentioned above GASTROINTESTINAL: No diarrhea, no nausea, no vomiting, no abdominal pain. NEUROLOGICAL: No headaches, no weakness, no numbness. HEMATOLOGICAL: Denies any bleeding or petechiae. GENITOURINARY: Denies any burning micturition, frequency, or urgency. MUSCULOSKELETAL/RHEUMATOLOGICAL: Denies any joint pain, swelling, or any muscle pain. ENDOCRINE: Denies any polyuria or polydipsia. The rest of the 14-point review of systems is negative. PHYSICAL EXAMINATION: GENERAL: The patient is alert and oriented x3, not in any acute distress. Well developed, well nourished. HEENT: Pupils are round and equally reacting to light. EOMI. No scleral icterus. No conjunctival pallor. Normocephalic, atraumatic. No pharyngeal erythema. No thyromegaly. CARDIOVASCULAR: S1 and S2 present. No murmurs, rubs, or gallops. PULMONARY: Chest is clear to auscultation, no wheezing or crackles. ABDOMEN: Soft, nontender, nondistended, normoactive bowel sounds. No palpable organomegaly. MUSCULOSKELETAL: No joint swelling or deformity. EXTREMITIES: No cyanosis, clubbing, or pedal edema. NEUROLOGICAL: Gross neurological examination did not reveal any focal deficits. SKIN: No rashes. Assessment and plan Chest pain, rule out acute coronary syndrome Ischemic cardiomyopathy with reduction in EF recently Coronary artery disease with CABG 02/24/2024 Hyperlipidemia Diabetes mellitus type 2 Mild aortic stenosis with murmur hypertension, obstructive sleep apnea with home CPAP use, prostate cancer Monitor vital signs Monitor CBC Monitor CMP Continue telemetry monitoring Trend troponin CT chest ordered and results reviewed. Continue aspirin, Plavix Continue Lipitor Resume losartan, amlodipine. Cardiology consulted Labs and medication were reviewed.. Continue same treatment. Continue with symptomatic treatment. Resume home medication. Monitor labs and vitals. DVT and GI prophylaxis. Further recommendations as per clinical course of the patient Dictation was produced using [employer] dictation software. please excuse any grammatical, word or spelling errors. Past Medical History Past Medical History: Coronary Artery Disease (CAD), Cancer, Chest Pain / Angina, Diabetes Mellitus, Hyperlipidemia, Hypertension, Myocardial Infarction (ID), Prostate Disorder, Sleep Apnea/CPAP/BIPAP Additional Past Medical History / Comment(s): Mild to moderate aortic stenosis. RENAL CALCULI. PROSTATE CA. SKIN CA. PERIPHERAL NEUROPATHY. CORNEAL DYSTR OPHY. BACK PAIN History of Any Multi-Drug Resistant Organisms: None Reported Past Surgical History: Coronary Bypass/CABG, Heart Catheterization Additional Past Surgical History / Comment(s): SE[facility]. CATARACATS REM. PAIN CLINIC INJECTIONS. SKIN CANCER REMOVAL FROM NOSE. 6 vessel off-pump CABG February 2024 Past Anesthesia/Blood Transfusion Reactions: No Reported Reaction Date of Last Stent Placement:: 02/21/24 Past Psychological History: No Psychological Hx Reported Smoking Status: Former smoker Past Alcohol Use History: None Reported Past Drug Use History: None Reported - Past Family History Mother Family Medical History: Diabetes Mellitus, Myocardial Infarction (ID) Additional Family Medical History / Comment(s): Stent to PLV May 2023, Stent to distal RCA 02/21/2024 Sister(s) Family Medical History: Coronary Artery Disease (CAD), Myocardial Infarction (M I) Additional Family Medical History / Comment(s): DOUBLE BYPASS SURGERY Medications and Allergies Home Medications Medication Instructions Recorded Confirmed Type Fluticasone Nasal [place] [Flonase 2 spr EA NOSTRIL HS 06/04/23 10/14/24 History Nasal [place]] Tamsulosin [Flomax] 0.4 mg PO DAILY 06/04/23 10/14/24 History cycloSPORINE 0.05% OPHTH SOLN 1 drop BOTH EYES Q12H 06/04/23 10/14/24 History [Restasis] prednisoLONE ACETATE 1% OPHTH 1 drop BOTH EYES DAILY 06/04/23 10/14/24 History [Pred Forte 1%] Ezetimibe [Zetia] 10 mg PO DAILY 02/21/24 10/14/24 History Atorvastatin [Lipitor] 80 mg PO HS 30 Days #30 tab 02/23/24 10/14/24 Rx Clopidogrel [Plavix] 75 mg PO DAILY #30 tab 03/07/24 10/14/24 Rx Metoprolol Tartrate [Lopressor] 25 mg PO BID #60 tab 03/07/24 10/14/24 Rx amLODIPine [Norvasc] 2.5 mg PO DAILY #30 tab 03/07/24 10/14/24 Rx metFORMIN HCL 500 mg PO DAILY #30 tablet 03/07/24 10/14/24 Rx Acetaminophen Tab [Tylenol] 650 mg PO Q6H PRN 10/14/24 10/14/24 History Aspirin EC [Ecotrin Low Dose] 81 mg PO DAILY 10/14/24 10/14/24 History Losartan [Cozaar] 25 mg PO DAILY 10/14/24 10/14/24 History Nitroglycerin Sl Tabs [Nitrostat] 0.4 mg SL Q5M PRN 10/14/24 10/14/24 History Allergies Allergy/AdvReac Type Severity Reaction Status Date / Time Iodinated Contrast Media Allergy Severe Swelling Verified 10/14/24 08:47 face Physical Exam Vitals: Vital Signs Temp Pulse Pulse Resp BP Pulse Ox 10/14/24 09:58 98.2 F 10/14/24 09:54 62 18 107/61 97 10/14/24 07:59 56 L 18 113/70 97 10/14/24 05:20 61 10/14/24 05:17 97.8 F 61 18 128/81 97 Intake and Output 10/13/24 10/14/24 10/14/24 22:59 06:59 14:59 Other: Weight 105.687 kg Results CBC & Chem 7: 10/14/24 05:30 10/14/24 05:30 Labs: Abnormal Lab Results - Last 24 Hours (Table) 10/14/24 10/14/24 Range/Units 05:30 05:30 Plt Count 143 L (150-450) k/uL BUN 22 H (9-20) mg/dL Glucose 104 H (74-99) mg/dL
[2024-10-14] MEDS ORDERED: METOPROLOL TARTRATE 25 MG TAB PO SCH (21:00)
[2024-10-14] MEDS ORDERED: ATORVASTATIN 80 MG TAB PO SCH (21:00)
[2024-10-15] MEDS ORDERED: ASPIRIN 81 MG PO SCH (09:00)
[2024-10-15] MEDS ORDERED: EZETIMIBE 10 MG TAB PO SCH (09:00)
[2024-10-15] MEDS ORDERED: amLODIPine 2.5 MG TAB PO SCH (09:00)
[2024-10-15] MEDS ORDERED: LOSARTAN 25 MG TAB PO SCH (09:00)
[2024-10-15] MEDS ORDERED: CLOPIDOGREL 75 MG TAB PO SCH (09:00)
== END 2024-10-14 13:56 | disposition home or self-care (01) ==
LOC: EC 05:10 → 6NMEDSUR 08:11
PROVIDERS: ADMIT Hospitalist; ATTEND Hospitalist
DX: R07.2 Precordial pain (principal); I25.10 Atherosclerotic heart disease of native coronary artery without angina pectoris; I25.5 Ischemic cardiomyopathy; I08.3 Combined rheumatic disorders of mitral, aortic and tricuspid valves; E11.9 Type 2 diabetes mellitus without complications; I77.810 Thoracic aortic ectasia; I11.9 Hypertensive heart disease without heart failure; E78.5 Hyperlipidemia, unspecified; G47.33 Obstructive sleep apnea (adult) (pediatric); M79.602 Pain in left arm; I25.2 Old myocardial infarction; R91.8 Other nonspecific abnormal finding of lung field; Z79.84 Long term (current) use of oral hypoglycemic drugs; Z79.82 Long term (current) use of aspirin; Z79.02 Long term (current) use of antithrombotics/antiplatelets; Z79.899 Other long term (current) drug therapy; Z91.041 Radiographic dye allergy status; Z95.1 Presence of aortocoronary bypass graft; Z87.891 Personal history of nicotine dependence; Z86.19 Personal history of other infectious and parasitic diseases; Z85.46 Personal history of malignant neoplasm of prostate
CPT/HCPCS: 99285; 36415; 93005; 83880; 80053; 83690; 83735; 84484; 85025; 85610; 85730; 71046; 71250; G0378

== ENCOUNTER → 2025-04-19 | Outpatient (CLI) | payer MEDICARE ==
[2025-04-19 10:42] LABS: INR 1.0 (<1.2); Partial Thromboplastin Time 23.2 sec (22.0-30.0); Prothrombin Time 10.6 sec (10.0-12.5)
[2025-04-19 15:14] LABS: HCT 49.7 % (39.6-50.0); HGB 16.7 g/dL (13.0-17.0); MCH 31.1 pg (27.0-32.0); MCHC 33.6 g/dL (32.0-37.0); MCV 92.6 FL (80.0-97.0); NRBC Per 100 WBC 0 X 10*3/uL (0.00-0.01); Platelet Count 144 X 10*3/uL (140-440); RBC 5.37 X 10*6/uL (4.40-5.60); RDW 13.3 % (11.5-14.5); WBC 7.63 X 10*3/uL (4.50-10.00)
[2025-04-19 15:37] LABS: ALT 28 U/L (10-49); AST 23 U/L (14-35); Albumin 4.5 g/dL (3.8-4.9); Albumin/Globulin Ratio 1.67 Ratio (1.60-3.17); Alkaline Phosphatase 74 U/L (41-126); Anion Gap 11.70 mmol/L (4.00-12.00); BUN/Creat Ratio 21.20 Ratio (12.00-20.00); Blood Urea Nitrogen 21.2 mg/dL (9.0-27.0); Calcium 9.8 mg/dL (8.7-10.3); Carbon Dioxide 22.3 mmol/L (21.6-31.8); Chloride 106 mmol/L (96-109); Cholesterol 135.00 mg/dL (0.00-200.00); Globulin 2.7 g/dL (1.6-3.3); Glucose 109 mg/dL (70-110); HDL Cholesterol 50.80 mg/dL (40.00-60.00); LDL Cholesterol,Calculated 54.2 mg/dL (0.0-131.0); Potassium 4.5 mmol/L (3.5-5.5); Prostate Specific Antigen 2.95 ng/mL (0.000-6.500); Sodium 140 mmol/L (135-145); Total Protein 7.2 g/dL (6.2-8.2); Triglycerides 150.00 mg/dL (0.00-149.00); VLDL Calculation 30.00 mg/dL (5.00-40.00)
== END | disposition home or self-care (01) ==
LOC: LABPAT 09:07
PROVIDERS: ATTEND Family Medicine
DX: Z01.818 Encounter for other preprocedural examination (principal); Z22.322 Carrier or suspected carrier of Methicillin resistant Staphylococcus aureus; M16.11 Unilateral primary osteoarthritis, right hip; I25.10 Atherosclerotic heart disease of native coronary artery without angina pectoris; I10 Essential (primary) hypertension; E11.9 Type 2 diabetes mellitus without complications; N40.0 Benign prostatic hyperplasia without lower urinary tract symptoms
CPT/HCPCS: 80053; 80061; 83036; 84153; 84443; 85027; 85610; 85730; 86850; 86900; 86901; 87070; 93005